=== PATIENT | male | born 1960 | race Caucasian/White ===

== ENCOUNTER 2020-04-22 21:22 | Emergency (ER) | payer OTHER ==
--- OUTSIDE RECORDS SUMMARY | 2020-04-22 21:27 | XMS REPORT | Continuity of Care Document ---
:1960 Author Organization [facility] t Address [address] [place] [address] Care Team Providers Name Role Phone Unavailable Unavailable Unavailable Payers Payer Name Policy Type Policy Number Effective Date Expiration Date S ource Problems This patient has no known problems. Allergies, Adverse Reactions, Alerts Allergy Allergy Status Severity Reaction(s) Onset Inactive Treating Comm ents Source Name Type Date Date Clinician No DA Active U [facility] Allergy 3-10 [facility] 00:00[facility] Medications This patient has no known medications. Procedures This patient has no known procedures. Results Test Description Test Time Test Comments Results Result Comments Source GLUBED 2019-01-24 12:38:00 Test Item Value Reference Range Interpretation Comme nts GLUBED (test code = GLUBED) 93 MG/DL 65-99 N Performed by certified 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 [facility] LACTIC ACID [id number] 10:55:00 Test Item Value Reference Range Interpretation Comments LACTIC ACID POC 1.16 MMOL/L 0.90-1.70 N Performed by certified (test code = LACTP) 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 [facility] UA RFLX MICROSCOPIC [id number] 09:58:00 Test Item Value Reference Range Interpretation Comments UA COLOR (test code = COLU) YELLOW YELLOW UA APPEARANCE (test code = CLEAR CLEAR APPU) UA GLUCOSE DIPSTICK (test NEGATIVE mg/dL NEGATIVE code = DGLUU) UA BILIRUBIN DIPSTICK (test NEGATIVE NEGATIVE code = BILU) UA KETONE DIPSTICK (test 5 mg/dL NEGATIVE A code = KETU) UA SPECIFIC GRAVITY (test 1.015 1.001-1.035 N code = SGU) UA BLOOD DIPSTICK (test code NEGATIVE NEGATIVE = ESTHER) UA PH DIPSTICK (test code = 5.0 5.5-7.0 L ROMINA) UA PROTEIN DIPSTICK (test 25 mg/dL NEGATIVE A code = PROU) UA UROBILINOGEN DIPSTICK NORMAL mg/dL NORMAL (test code = URO) UA NITRITE DIPSTICK (test NEGATIVE NEGATIVE code = OSCAR) UA LEUKOCYTE ESTERASE NEGATIVE NEGATIVE DIPSTICK (test code = LEUU) UA COMMENT (test code = VOLUME 10-12 ML COMU) URINE SPECIMEN DESCRIPTION Clean Catch (test code = UASPEC) UA WBC (test code = WBCU) < 10 #/hpf <10 UA SQUAMOUS CELLS (test code 0 - 20 #/lpf <100 = SQU) UA CULTURE NEEDED? (test Criteria not met code = UACULT) Indication for culture: Delirium-if no other srcURINE SOURCE: Clean CatchUA [id number] 09:58:00 Test Item Value Reference Range Interpretation Comments UA RBC (test code = RBCU) None Seen #/hpf NONE SEEN UA BACTERIA (test code = RARE #/hpf NONE SEEN BACU) Indication for culture: Delirium-if no other srcURINE SOURCE: Clean Catch DRUG OF ABUSE SCREEN [id number] 09:46:00 Test Item Value Reference Interpretation Comments Range UR COCAINE (test NEGATIVE NEGATIVE code = COCAU) UR MDMA (test code = NEGATIVE NEGATIVE MDMAQLU) UR CANNABINOIDS NEGATIVE NEGATIVE (test code = CANU) UR AMPHETAMINE (test NEGATIVE NEGATIVE code = AMPHU) UR BARBITURATE QUAL NEGATIVE NEGATIVE (test code = BARBQLU) UR BENZODIAZEPINE NEGATIVE NEGATIVE (test code = BENZU) UR OPIATES QUAL NEGATIVE NEGATIVE (test code = OPIAQLU) UR PHENCYCLIDINE NEGATIVE NEGATIVE Urine Drug Abuse Screen (PCP) (test code = provides preliminary PHENCU) results thatmay be confirmed by al ternate methods (i.e., GC/MS) at [facility]. Results of scre en may not be usedin crimi nal justice, job performance or professionalcre dential review, or infa nt custody issues. Negativ e [place] Level ng/ml ------- ----- Cocaine 300 Methamp hetamine (Ecstacy) 500 Cannabinoids (THC) 50 Amphetamine 1000 Barbiturate s 200 Benzodia zepines 200 Opiat es 300 Ph encyclidine (PCP) 25 BASIC METABOLIC [id number] 09:46:00 Test Item Value Reference Range Interpretation Comments SODIUM (test code = 139 MMOL/L 133-145 N NA) POTASSIUM (test code = 4.6 MMOL/L 3.6-5.2 N K) CHLORIDE (test code = 101 MMOL/L 100-108 N CL) CARBON DIOXIDE (test 27 MMOL/L 22-32 N code = CO2) GLUCOSE (test code = 122 MG/DL 65-99 H Results of this assay GLU) method may be f alsely depressed orele vated if patient is t aking sulfasalazine. BLOOD UREA NITROGEN 12 MG/DL 6-20 N (test code = BUN) GLOMERULAR FILTRATION 59 49-113 N Report ing units: RATE (test code = GFR) mL/mi n/1.73m\\S\\2 (Modified MDRD Formula) CREATININE (test code 1.24 MG/DL 0.60-1.00 H = CREAT) CALCIUM (test code = 9.3 MG/DL 8.7-10.5 N CA) HEPATIC FUNCTION [id number] 09:46:00 Test Item Value Reference Range Interpretation Comments TOTAL PROTEIN (test 7.2 G/DL 6.4-8.2 N code = PROT) ALBUMIN (test code = 3.2 G/DL 3.4-5.0 L ALB) GLOBULIN (test code = 4.0 G/DL 1.5-3.8 H GLOB) ALBUMIN/GLOBULIN RATIO 0.8 1.1-2.2 L (test code = A/G) BILIRUBIN TOTAL (test 0.2 MG/DL 0.0-1.0 N code = BILT) BILIRUBIN DIRECT (test 0.1 MG/DL 0.0-0.3 N code = BILD) BILIRUBIN INDIRECT 0.1 MG/DL 0.0-0.7 N (test code = BILIND) SGOT/AST (test code = 22 Units/L 15-37 N Result s of this assay AST) method may be f alsely depressed orele vated if patient is t aking sulfasalazine. SGPT/ALT (test code = 26 Units/L 30-65 L Result s of this assay ALT) method may be f alsely depressed orele vated if patient is t aking sulfasalazine. ALKALINE PHOSPHATASE 83 Units/L 50-136 N TOTAL (test code = ALKP) [id number] 09:46:00 Test Item Value Reference Range Interpretation Comments LIPASE (test code = LIP) 116 Units/L 73-393 N [id number] 09:46:00 Test Item Value Reference Range Interpretation Comments CK (test code = CKT) 88 Units/L 39-308 N [id number] 09:46:00 Test Item Value Reference Range Interpretation Comments ALCOHOL (test code = < 3 MG/DL 0-10 N 0 - 10: Should be ALC) interpreted as NEGATIVE. 11 - 50: None to mild euphoria. 51 - 100: Mild influence on vision and dark adapta tion. > 80: Legal intoxication; D epression of RETAIL OFFICE MANAGER; Increasing degr ee of poisoning. > 400: Fatalities repo rted. Results are for medical purposes only a nd not forlegal or emp loyment evaluative purp oses. PROTHROMBIN [id number] 09:42:00 Test Item Value Reference Range Interpretation Comments PROTHROMBIN TIME 13.4 SECONDS 9.6-12.3 H PATIENT (test code = PTP) INTERNATIONAL NORMAL 1.18 Recomme nded INR range RATIO (test code = (warfarin therapy): INR) 2.0 - 3.0I NR (International Normalized Rati o) should beused w hen interpreting or al anticoaglulant therapy. For at rial fibrillation an d treatment orprevention of deep vein thrombosis . Patients with Palmaz-Jeevan s tent *: 2 .0 - 3.0 Patients wi th mechanical hear t valve *: 2.5 - 3.5 Patients with flex-stent *: 3.0 - 4.0(*) = violin mechanic's suggested range Is patient on anticoagulants? UnknownTHROMBOPLASTIN TIME [id number] 09:42:00 Test Item Value Reference Range Interpretation Comments THROMBOPLASTIN TIME 32.6 SECONDS 22.5-35.3 N *Therap eutic level PARTIAL (test code = for hep amalia: 1.5 - PTT) 2.5 times the average patient value of 30.0 seconds. The aP TT tet should not be used to evaluat e low moleculat weigh t heparin anticoagulant therapy. Is patient on anticoagulants? Unknown- CT HEAD/BRAIN W/O [id number] 09:35:00 Patient Name: ANTONINO ROTHMAN Unit No: [id number] EXAMS: CPT CODE: [id number] CT HEAD/BRAIN W/O CONT [id number] Reason: AMS, seizure? - CT HEAD/BRAIN W/O CONT 01/24/2019 9:[address] BRAIN SCAN: Axial CT images of the brain were performed without the use of IV contrast. The ventricles and cisterns have a normal size and configuration. Bhardwaj-white differentiation is within normal limits. The cerebellum, brainstem and sella regions are normal. No mass lesion, midline shift, or acute intracranial blood is seen. The visualized sinuses, mastoids, and middle ears are normally aerated. Scalp and calvarium are normal. IMPRESSION: Negative non-contrast head CT. at 0935 Reported and signed by: Stephen Thayer MD CC: Juanito Russo MD; Tomi Brown DO Technologist:Halina BERGER Trscrpt Dt/ ([phone])[id number] Orig Print D/T: S: 01/24/2019 (0938) CTDI: DLP: [facility] NAME: ANTONINO ROTHMAN [address] PHYS: [place] [address] : 1960 AGE: 59 SEX: M LOC: [place] PHONE #: [phone] EXAM DATE: 01/24/2019 STATUS: REG ER FAX #: RAD NO: DC Dt: PAGE 1 Signed ReportUA RFLX MICROSCOPIC [id number] 09:32:00 Test Item Value Reference Range Interpretation Comments UA COLOR (test code = COLU) YELLOW YELLOW UA APPEARANCE (test code = CLEAR CLEAR APPU) UA GLUCOSE DIPSTICK (test NEGATIVE mg/dL NEGATIVE code = DGLUU) UA BILIRUBIN DIPSTICK (test NEGATIVE NEGATIVE code = BILU) UA KETONE DIPSTICK (test code 5 mg/dL NEGATIVE A = KETU) UA SPECIFIC GRAVITY (test 1.015 1.001-1.035 N code = SGU) UA BLOOD DIPSTICK (test code NEGATIVE NEGATIVE = ESTHER) UA PH DIPSTICK (test code = 5.0 5.5-7.0 L ROMINA) UA PROTEIN DIPSTICK (test 25 mg/dL NEGATIVE A code = PROU) UA UROBILINOGEN DIPSTICK NORMAL mg/dL NORMAL (test code = URO) UA NITRITE DIPSTICK (test NEGATIVE NEGATIVE code = OSCAR) UA LEUKOCYTE ESTERASE NEGATIVE NEGATIVE DIPSTICK (test code = LEUU) UA COMMENT (test code = COMU) VOLUME 10-12 ML URINE SPECIMEN DESCRIPTION Clean Catch (test code = UASPEC) UA WBC (test code = WBCU) #/hpf <10 UA SQUAMOUS CELLS (test code #/lpf <100 = SQU) UA CULTURE NEEDED? (test code = UACULT) Indication for culture: Delirium-if no other srcURINE SOURCE: Clean CatchUA [id number] 09:32:00 Test Item Value Reference Range Interpretation Comments UA RBC (test code = RBCU) #/hpf NONE SEEN Indication for culture: Delirium-if no other srcURINE SOURCE: Clean CatchUA RFLX MICROSCOPIC [id number] 09:32:00 Test Item Value Reference Range Interpretation Comments UA COLOR (test code = COLU) YELLOW YELLOW UA APPEARANCE (test code = CLEAR CLEAR APPU) UA GLUCOSE DIPSTICK (test NEGATIVE mg/dL NEGATIVE code = DGLUU) UA BILIRUBIN DIPSTICK (test NEGATIVE NEGATIVE code = BILU) UA KETONE DIPSTICK (test code 5 mg/dL NEGATIVE A = KETU) UA SPECIFIC GRAVITY (test 1.015 1.001-1.035 N code = SGU) UA BLOOD DIPSTICK (test code NEGATIVE NEGATIVE = ESTHER) UA PH DIPSTICK (test code = 5.0 5.5-7.0 L ROMINA) UA PROTEIN DIPSTICK (test 25 mg/dL NEGATIVE A code = PROU) UA UROBILINOGEN DIPSTICK NORMAL mg/dL NORMAL (test code = URO) UA NITRITE DIPSTICK (test NEGATIVE NEGATIVE code = OSCAR) UA LEUKOCYTE ESTERASE NEGATIVE NEGATIVE DIPSTICK (test code = LEUU) UA COMMENT (test code = COMU) VOLUME 10-12 ML URINE SPECIMEN DESCRIPTION Clean Catch (test code = UASPEC) UA WBC (test code = WBCU) #/hpf <10 UA SQUAMOUS CELLS (test code #/lpf <100 = SQU) UA CULTURE NEEDED? (test code = UACULT) Indication for culture: Delirium-if no other srcURINE SOURCE: Clean CatchUA [id number] 09:32:00 Test Item Value Reference Range Interpretation Comments UA RBC (test code = RBCU) #/hpf NONE SEEN Indication for culture: Delirium-if no other srcURINE SOURCE: Clean CatchCBC W/AUTO [id number] 09:30:00 Test Item Value Reference Range Interpretation Comments WHITE BLOOD CELL (test code = 9.98 x10 3/uL 4.80-10.80 N WBC) RED BLOOD CELL (test code = 4.24 x10 6/uL 4.7-6.1 L RBC) HEMOGLOBIN (test code = HGB) 11.6 G/DL 14.0-17.0 L HEMATOCRIT (test code = HCT) 37.9 % 42-52 L MEAN CELL VOLUME (test code = 89.4 FL 80-94 N MCV) MEAN CELL HGB (test code = MCH) 27.4 PG 27-31 N MEAN CELL HGB CONCENTRATION 30.6 G/DL 33-37 L (test code = MCHC) RED CELL DISTRIBUTION WIDTH 14.3 % 11.5-14.5 N (test code = RDW) PLATELET COUNT (test code = 204 x10 3/uL 150-450 N PLT) MEAN PLATELET VOLUME (test code 10.7 FL 7.4-10.4 H = MPV) NEUTROPHIL % (test code = NT%) 67.7 % 42-86 N IMMATURE GRANULOCYTE % (test 0.6 % 0.0-2.0 N code = IG%) LYMPHOCYTE % (test code = LY%) 19.5 % 24-44 L MONOCYTE % (test code = MO%) 6.8 % 0.0-4.0 H EOSINOPHIL % (test code = EO%) 5.0 % 0.0-2.7 H BASOPHIL % (test code = BA%) 0.4 % 0.0-0.5 N NUCLEATED RBC % (test code = 0.0 % 0.0-0.0 N NRBC%) NEUTROPHIL # (test code = NT#) 6.75 x10 3/uL 1.8-7.7 N IMMATURE GRANULOCYTE # (test 0.06 x10 3/uL 0.00-0.03 H code = IG#) LYMPHOCYTE # (test code = LY#) 1.95 x10 3/uL 1.0-4.8 N MONOCYTE # (test code = MO#) 0.68 x10 3/uL 0.0-0.8 N EOSINOPHIL # (test code = EO#) 0.50 x10 3/uL 0.0-0.5 N BASOPHIL # (test code = BA#) 0.04 x10 3/uL 0.0-0.2 N NUCLEATED RBC # (test code = 0.0 X10 3/uL 0.0-0.2 N NRBC#) TROPONIN I [id number] 09:28:00 Test Item Value Reference Range Interpretation Comments TROPONIN I RAPID 0.03 NG/ML 0.00-0.08 N Performed b y certified (test code = 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 [facility]) [facility] - The use of serial sampl ing and testing protoco l is a recommended pra ctice.- An elevated tro ponin level alone is often not sufficient for diagnosis of my ocardial infarction. LACTIC ACID [id number] 09:23:00 Test Item Value Reference Range Interpretation Comments LACTIC ACID POC 6.21 MMOL/L 0.90-1.70 HH Performed by certified (test code = LACTP) 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 [facility] [place] METHADONE [id number] 07:13:00 Test Item Value Reference Range Interpretation Comments METHADONE LEVEL 250 ng/mL 100-400 This test wa s developed and (test code = its performance METHADONE) characteristics determined by [facility]. It has not been cleared orappro audrey by the Food and Drug Admini stration. Detection Bellamy it = 25Multiple parameters can impact methadone refer enceintervals. Up to a 17-fold variation in methadone venice ntra-tions can be found in pat ients given the same dose due t oindividual differences in P450 enzyme systems. For do setolerant individuals in methadone maintenance programsinvesti gators have recommended lev els of 100 ng/mL ih3570 ng /mL. However these levels ca n have an adverse impacto n drug naive individuals.Per formed At: [facility] Dov [id number] [facility] [place] [id number] ra Last QUEZADA Ph:[phone] - XR CHEST 1 [id number] 07:47:00 Patient Name: ANTONINO ROTHMAN Unit No: [id number] EXAMS: CPT CODE: [id number] XR CHEST 1 V [id number] Reason: intubated - XR CHEST 1 V 11/28/2018 5:00 AM A frontal portable chest compared with 11/27/2018 shows clear lungs and pleural spaces. The cardiac and mediastinal silhouettes are normal. The bones are unremarkable. IMPRESSION: Negative chest at 0747 Reported and signed by: Stephen Thayer MD CC: Juanito Russo MD; Sharan Boyd MD; Renard Greene DO Technologist: Frederick JUAREZ Trscrpt Dt/ ([phone])ConchisRJose [id number] Orig Print D/T: S: 11/28/2018 (0751) [facility] NAME: ANTONINO ROTHMAN [address] PHYS: Renard Croft DO [address] [place] [address] : 1960 AGE: 58 SEX: M LOC: D.Y307 1 PHONE #: [phone] EXAM DATE: 11/28/2018 STATUS: ADM IN FAX #: RAD NO: DC Dt: PAGE 1 Signed ReportGLUBED 2018-11-28 06:32:00 Test Item Value Reference Range Interpretation Comments GLUBED (test code = 136 MG/DL 65-99 H Performe d by certified GLUBED) 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 [facility] PROCALCITONIN (PCT)2018-11-28 06:01:00 Test Item Value Reference Range Interpretation Comments PROCALCITONIN (PCT) (test code = < 0.05 ng/mL 0.00-0.50 N PROCAL) COMPREHENSIVE METABOLIC [id number] 05:03:00 Test Item Value Reference Range Interpretation Comments SODIUM (test code = 142 MMOL/L 133-145 NA) POTASSIUM (test code = 3.5 MMOL/L 3.6-5.2 L K) CHLORIDE (test code = 104 MMOL/L 100-108 N CL) CARBON DIOXIDE (test 29 MMOL/L 22-32 N code = CO2) GLUCOSE (test code = 129 MG/DL 65-99 H Results of this assay GLU) method may be f alsely depressed orele vated if patient is t aking sulfasalazine. BLOOD UREA NITROGEN 10 MG/DL 6-20 N (test code = BUN) GLOMERULAR FILTRATION 103 56-130 N Report ing units: RATE (test code = GFR) mL/mi n/1.73m\\S\\2 (Modified MDRD Formula) CREATININE (test code 0.77 MG/DL 0.60-1.00 N = CREAT) TOTAL PROTEIN (test 6.7 G/DL 6.4-8.2 N code = PROT) ALBUMIN (test code = 2.9 G/DL 3.4-5.0 L ALB) GLOBULIN (test code = 3.8 G/DL 1.5-3.8 N GLOB) ALBUMIN/GLOBULIN RATIO 0.8 1.1-2.2 L (test code = A/G) CALCIUM (test code = 9.1 MG/DL 8.7-10.5 N CA) BILIRUBIN TOTAL (test 0.5 MG/DL 0.0-1.0 N code = BILT) SGOT/AST (test code = 41 Units/L 15-37 H Result s of this assay AST) method may be f alsely depressed orele vated if patient is t aking sulfasalazine. SGPT/ALT (test code = 28 Units/L 30-65 L Result s of this assay ALT) method may be f alsely depressed orele vated if patient is t aking sulfasalazine. ALKALINE PHOSPHATASE 87 Units/L 50-136 N TOTAL (test code = ALKP) [id number] 05:03:00 Test Item Value Reference Range Interpretation Comments MAGNESIUM (test code = MAG) 1.7 MG/DL 1.8-2.4 L ARTERIAL BLOOD [id number] 04:45:00 Test Item Value Reference Range Interpretation Comments ARTERIAL BLOOD GAS PH (test code 7.44 7.35-7.45 N = PHA) ARTERIAL BLOOD GAS PCO2 (test 38.7 mmHg 35.0-45.0 N code = PCO2A) ARTERIAL BLOOD GAS PO2 (test code 66.7 mmHg 80.0-100.0 L = PO2A) BICARBONATE TOTAL HCO3 (test code 25.8 mmol/L 20.0-26.0 N = HCO3) BASE EXCESS (test code = CHALINO) 1.6 mmol/L -3.0-3.0 N ABG O2 SATURATION (test code = 93.1 % 95-100 L SATA) ABG TYPE (test code = TYPEA) Arterial FIO2 (test code = FIO2A) 21.0 % ABG TEMPERATURE (test code = 98.5 F TEMPA) GERALDO TEST (test code = ALN) Yes ABG SITE (test code = SITEA) RR TOTAL HGB (test code = THB) 12.5 G/DL 13.0-18.0 L OXYHEMOGLOBIN (test code = 92.5 % 92.0-98.0 N OOHGBT) CARBOXYHEMOGLOBIN (test code = 0.3 % 0.5-1.5 L HOHGBT) METHEMOGLOBIN (test code = 0.3 % 0.4-1.5 L METHGB) CBC W/AUTO [id number] 04:02:00 Test Item Value Reference Range Interpretation Comments WHITE BLOOD CELL (test code = 10.79 x10 3/uL 4.80-10.80 N WBC) RED BLOOD CELL (test code = 3.96 x10 6/uL 4.7-6.1 L RBC) HEMOGLOBIN (test code = HGB) 11.5 G/DL 14.0-17.0 L HEMATOCRIT (test code = HCT) 36.2 % 42-52 L MEAN CELL VOLUME (test code = 91.4 FL 80-94 N MCV) MEAN CELL HGB (test code = 29.0 PG 27-31 N MCH) MEAN CELL HGB CONCENTRATION 31.8 G/DL 33-37 L (test code = MCHC) RED CELL DISTRIBUTION WIDTH 14.3 % 11.5-14.5 N (test code = RDW) PLATELET COUNT (test code = 188 x10 3/uL 150-450 N PLT) MEAN PLATELET VOLUME (test 10.5 FL 7.4-10.4 H code = MPV) NEUTROPHIL % (test code = NT%) 62.8 % 42-86 N IMMATURE GRANULOCYTE % (test 0.5 % 0.0-2.0 N code = IG%) LYMPHOCYTE % (test code = LY%) 24.5 % 24-44 N MONOCYTE % (test code = MO%) 7.1 % 0.0-4.0 H EOSINOPHIL % (test code = EO%) 4.6 % 0.0-2.7 H BASOPHIL % (test code = BA%) 0.5 % 0.0-0.5 N NUCLEATED RBC % (test code = 0.0 % 0.0-0.0 N NRBC%) NEUTROPHIL # (test code = NT#) 6.78 x10 3/uL 1.8-7.7 N IMMATURE GRANULOCYTE # (test 0.05 x10 3/uL 0.00-0.03 H code = IG#) LYMPHOCYTE # (test code = LY#) 2.64 x10 3/uL 1.0-4.8 N MONOCYTE # (test code = MO#) 0.77 x10 3/uL 0.0-0.8 N EOSINOPHIL # (test code = EO#) 0.50 x10 3/uL 0.0-0.5 N BASOPHIL # (test code = BA#) 0.05 x10 3/uL 0.0-0.2 N NUCLEATED RBC # (test code = 0.0 X10 3/uL 0.0-0.2 N NRBC#) [id number] 21:12:00 Test Item Value Reference Range Interpretation Comments GLUBED (test code = 89 MG/DL 65-99 N Performe d by certified GLUBED) 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 [facility] [id number] 16:41:00 Test Item Value Reference Range Interpretation Comments GLUBED (test code = 175 MG/DL 65-99 H Performe d by certified GLUBED) 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 [facility] - XR CHEST 1 [id number] 06:25:00 Patient Name: ANTONINO ROTHMAN Unit No: [id number] EXAMS: CPT CODE: [id number] XR CHEST 1 V [id number] Reason: intubated EXAM: XR Chest, 1 View EXAM DATE/TIME: 11/27/2018 5:57 AM CLINICAL HISTORY:58 years old, male; Device placement; Ett placement (vent status); Additional info: Intubated TECHNIQUE: Imaging protocol: XR of the chest, 1 view. COMPARISON: CR XR CHEST 1 V 11/26/2018 5:15 AM FINDINGS: Tubes, catheters and devic es: Interval removal of endotracheal tube. Lungs: Mild interstitial prominence.Pleural space: Incomplete visualization of the right costophrenic angle. No significant pleural effusion. Heart/Mediastinum: Borderline cardiomegaly. Bones/joints: Unremarkable. IMPRESSION: Mild interstitial prominence and borderline cardiomegaly. at 624 Reported and signed by: Fernando Holt CC: Juanito Russo MD; Sharan Boyd MD; Renard Greene DO Technologist: Chu Segura RT Trscrpt Dt/ ([id number])[email or web address].[email or web address] Orig Print D/T: S: 11/27/2018 (624) [facility] NAME: PREETI ROTHMAN [address]KO [address] [facility] PHYS: Renard Croft DO [address] [place] [address] : 1960 AGE: 58 SEX: M LOC: D.HCV 3 PHONE #: [phone] EXAM DATE: 11/27/2018 STATUS: ADM IN FAX #: RAD NO: DC Dt: PAGE 1 Signed ReportCBC W/AUTO [id number] 04:56:00 Test Item Value Reference Range Interpretation Comments WHITE BLOOD CELL (test code = 13.02 x10 3/uL 4.80-10.80 H WBC) RED BLOOD CELL (test code = 4.18 x10 6/uL 4.7-6.1 L RBC) HEMOGLOBIN (test code = HGB) 11.7 G/DL 14.0-17.0 L HEMATOCRIT (test code = HCT) 39.1 % 42-52 L MEAN CELL VOLUME (test code = 93.5 FL 80-94 N MCV) MEAN CELL HGB (test code = 28.0 PG 27-31 N MCH) MEAN CELL HGB CONCENTRATION 29.9 G/DL 33-37 L (test code = MCHC) RED CELL DISTRIBUTION WIDTH 14.6 % 11.5-14.5 H (test code = RDW) PLATELET COUNT (test code = 206 x10 3/uL 150-450 N PLT) MEAN PLATELET VOLUME (test 11.4 FL 7.4-10.4 H code = MPV) NEUTROPHIL % (test code = NT%) 61.6 % 42-86 N IMMATURE GRANULOCYTE % (test 0.8 % 0.0-2.0 N code = IG%) LYMPHOCYTE % (test code = LY%) 24.3 % 24-44 N MONOCYTE % (test code = MO%) 8.8 % 0.0-4.0 H EOSINOPHIL % (test code = EO%) 3.9 % 0.0-2.7 H BASOPHIL % (test code = BA%) 0.6 % 0.0-0.5 H NUCLEATED RBC % (test code = 0.0 % 0.0-0.0 N NRBC%) NEUTROPHIL # (test code = NT#) 8.01 x10 3/uL 1.8-7.7 H IMMATURE GRANULOCYTE # (test 0.10 x10 3/uL 0.00-0.03 H code = IG#) LYMPHOCYTE # (test code = LY#) 3.17 x10 3/uL 1.0-4.8 N MONOCYTE # (test code = MO#) 1.15 x10 3/uL 0.0-0.8 H EOSINOPHIL # (test code = EO#) 0.51 x10 3/uL 0.0-0.5 H BASOPHIL # (test code = BA#) 0.08 x10 3/uL 0.0-0.2 N NUCLEATED RBC # (test code = 0.0 X10 3/uL 0.0-0.2 N NRBC#) COMPREHENSIVE METABOLIC [id number] 04:44:00 Test Item Value Reference Range Interpretation Comments SODIUM (test code = 136 MMOL/L 133-145 N NA) POTASSIUM (test code = 4.0 MMOL/L 3.6-5.2 N K) CHLORIDE (test code = 100 MMOL/L 100-108 N CL) CARBON DIOXIDE (test 32 MMOL/L 22-32 N code = CO2) GLUCOSE (test code = 103 MG/DL 65-99 H Results of this assay GLU) method may be f alsely depressed orele vated if patient is t aking sulfasalazine. BLOOD UREA NITROGEN 17 MG/DL 6-20 N (test code = BUN) GLOMERULAR FILTRATION 79 56-130 N Report ing units: RATE (test code = GFR) mL/mi n/1.73m\\S\\2 (Modified MDRD Formula) CREATININE (test code 0.97 MG/DL 0.60-1.00 N = CREAT) TOTAL PROTEIN (test 6.8 G/DL 6.4-8.2 N code = PROT) ALBUMIN (test code = 2.9 G/DL 3.4-5.0 L ALB) GLOBULIN (test code = 3.9 G/DL 1.5-3.8 H GLOB) ALBUMIN/GLOBULIN RATIO 0.7 1.1-2.2 L (test code = A/G) CALCIUM (test code = 9.3 MG/DL 8.7-10.5 N CA) BILIRUBIN TOTAL (test 0.4 MG/DL 0.0-1.0 N code = BILT) SGOT/AST (test code = 40 Units/L 15-37 H Result s of this assay AST) method may be f alsely depressed orele vated if patient is t aking sulfasalazine. SGPT/ALT (test code = 28 Units/L 30-65 L Result s of this assay ALT) method may be f alsely depressed orele vated if patient is t aking sulfasalazine. ALKALINE PHOSPHATASE 89 Units/L 50-136 N TOTAL (test code = ALKP) ARTERIAL BLOOD [id number] 04:25:00 Test Item Value Reference Range Interpretation Comments ARTERIAL BLOOD GAS PH (test code 7.36 7.35-7.45 N = PHA) ARTERIAL BLOOD GAS PCO2 (test 53.3 mmHg 35.0-45.0 H code = PCO2A) ARTERIAL BLOOD GAS PO2 (test code 93.8 mmHg 80.0-100.0 N = PO2A) BICARBONATE TOTAL HCO3 (test code 29.3 mmol/L 20.0-26.0 H = HCO3) BASE EXCESS (test code = CHALINO) 2.8 mmol/L -3.0-3.0 N ABG O2 SATURATION (test code = 97.0 % 95-100 N SATA) ABG TYPE (test code = TYPEA) Arterial MODE (test code = MODE) nc 3lpm ABG PATIENT RESP RATE (test code 19.0 /MIN = RRPATA) ABG TEMPERATURE (test code = 98.6 F TEMPA) GERALDO TEST (test code = ALN) Yes ABG SITE (test code = SITEA) RR TOTAL HGB (test code = THB) 12.6 G/DL 13.0-18.0 L OXYHEMOGLOBIN (test code = 96.0 % 92.0-98.0 N OOHGBT) CARBOXYHEMOGLOBIN (test code = 1.0 % 0.5-1.5 N HOHGBT) METHEMOGLOBIN (test code = 0.0 % 0.4-1.5 L METHGB) CBC W/AUTO [id number] 17:12:00 Test Item Value Reference Range Interpretation Comments WHITE BLOOD CELL (test code = 12.27 x10 3/uL 4.80-10.80 H WBC) RED BLOOD CELL (test code = 4.40 x10 6/uL 4.7-6.1 L RBC) HEMOGLOBIN (test code = HGB) 12.4 G/DL 14.0-17.0 L HEMATOCRIT (test code = HCT) 40.7 % 42-52 L MEAN CELL VOLUME (test code = 92.5 FL 80-94 N MCV) MEAN CELL HGB (test code = 28.2 PG 27-31 N MCH) MEAN CELL HGB CONCENTRATION 30.5 G/DL 33-37 L (test code = MCHC) RED CELL DISTRIBUTION WIDTH 14.6 % 11.5-14.5 H (test code = RDW) PLATELET COUNT (test code = 194 x10 3/uL 150-450 N PLT) MEAN PLATELET VOLUME (test 10.9 FL 7.4-10.4 H code = MPV) NEUTROPHIL % (test code = NT%) 68.0 % 42-86 N IMMATURE GRANULOCYTE % (test 0.7 % 0.0-2.0 N code = IG%) LYMPHOCYTE % (test code = LY%) 21.1 % 24-44 L MONOCYTE % (test code = MO%) 7.8 % 0.0-4.0 H EOSINOPHIL % (test code = EO%) 2.0 % 0.0-2.7 N BASOPHIL % (test code = BA%) 0.4 % 0.0-0.5 N NUCLEATED RBC % (test code = 0.0 % 0.0-0.0 N NRBC%) NEUTROPHIL # (test code = NT#) 8.34 x10 3/uL 1.8-7.7 H IMMATURE GRANULOCYTE # (test 0.09 x10 3/uL 0.00-0.03 H code = IG#) LYMPHOCYTE # (test code = LY#) 2.59 x10 3/uL 1.0-4.8 N MONOCYTE # (test code = MO#) 0.96 x10 3/uL 0.0-0.8 H EOSINOPHIL # (test code = EO#) 0.24 x10 3/uL 0.0-0.5 N BASOPHIL # (test code = BA#) 0.05 x10 3/uL 0.0-0.2 N NUCLEATED RBC # (test code = 0.0 X10 3/uL 0.0-0.2 N NRBC#) ARTERIAL BLOOD [id number] 13:42:00 Test Item Value Reference Range Interpretation Comments ARTERIAL BLOOD GAS PH (test code 7.35 7.35-7.45 N = PHA) ARTERIAL BLOOD GAS PCO2 (test 44.8 mmHg 35.0-45.0 N code = PCO2A) ARTERIAL BLOOD GAS PO2 (test code 97.8 mmHg 80.0-100.0 N = PO2A) BICARBONATE TOTAL HCO3 (test code 24.0 mmol/L 20.0-26.0 N = HCO3) BASE EXCESS (test code = CHALINO) -1.8 mmol/L -3.0-3.0 N ABG O2 SATURATION (test code = 97.3 % 95-100 N SATA) ABG TYPE (test code = TYPEA) Arterial FIO2 (test code = FIO2A) 40.0 % MODE (test code = MODE) SPONT ABG PATIENT RESP RATE (test code 15.0 /MIN = RRPATA) ABG TIDAL VOLUME (test code = 600.0 ml TVA) ABG PAT TIDAL VOLUME (test code = 910 ml VTPAT) ABG PEEP (test code = PEEPA) 5.0 cmH2O ABG PRESSURE SUPPORT (test code = 10 cmH2O PSABG) ABG TEMPERATURE (test code = 98.6 F TEMPA) GERALDO TEST (test code = ALN) Yes ABG SITE (test code = SITEA) LR TOTAL HGB (test code = THB) 12.8 G/DL 13.0-18.0 L OXYHEMOGLOBIN (test code = 96.1 % 92.0-98.0 N OOHGBT) CARBOXYHEMOGLOBIN (test code = 0.9 % 0.5-1.5 N HOHGBT) METHEMOGLOBIN (test code = 0.3 % 0.4-1.5 L METHGB) ARTERIAL BLOOD [id number] 09:55:00 Test Item Value Reference Range Interpretation Comments ARTERIAL BLOOD GAS PH (test code 7.34 7.35-7.45 L = PHA) ARTERIAL BLOOD GAS PCO2 (test 52.8 mmHg 35.0-45.0 H code = PCO2A) ARTERIAL BLOOD GAS PO2 (test code 73.1 mmHg 80.0-100.0 L = PO2A) BICARBONATE TOTAL HCO3 (test code 27.8 mmol/L 20.0-26.0 H = HCO3) BASE EXCESS (test code = CHALINO) 1.2 mmol/L -3.0-3.0 N ABG O2 SATURATION (test code = 93.4 % 95-100 L SATA) ABG TYPE (test code = TYPEA) Arterial FIO2 (test code = FIO2A) 40.0 % MODE (test code = MODE) SPON 5/5 ABG PATIENT RESP RATE (test code 22.0 /MIN = RRPATA) ABG PAT TIDAL VOLUME (test code = 482 ml VTPAT) ABG PEEP (test code = PEEPA) 5.0 cmH2O ABG PRESSURE SUPPORT (test code = 5 cmH2O PSABG) ABG TEMPERATURE (test code = 98.6 F TEMPA) GERALDO TEST (test code = ALN) Yes ABG SITE (test code = SITEA) LR TOTAL HGB (test code = THB) 12.4 G/DL 13.0-18.0 L OXYHEMOGLOBIN (test code = 92.5 % 92.0-98.0 N OOHGBT) CARBOXYHEMOGLOBIN (test code = 0.7 % 0.5-1.5 N HOHGBT) METHEMOGLOBIN (test code = 0.3 % 0.4-1.5 L METHGB) COMPREHENSIVE METABOLIC [id number] 06:36:00 Test Item Value Reference Range Interpretation Comments SODIUM (test code = 141 MMOL/L 133-145 N NA) POTASSIUM (test code = 3.5 MMOL/L 3.6-5.2 L K) CHLORIDE (test code = 104 MMOL/L 100-108 N CL) CARBON DIOXIDE (test 27 MMOL/L 22-32 N code = CO2) GLUCOSE (test code = 170 MG/DL 65-99 H Results of this assay GLU) method may be f alsely depressed orele vated if patient is t aking sulfasalazine. BLOOD UREA NITROGEN 19 MG/DL 6-20 N (test code = BUN) GLOMERULAR FILTRATION 77 56-130 N Report ing units: RATE (test code = GFR) mL/mi n/1.73m\\S\\2 (Modified MDRD Formula) CREATININE (test code 0.99 MG/DL 0.60-1.00 N = CREAT) TOTAL PROTEIN (test 7.2 G/DL 6.4-8.2 N code = PROT) ALBUMIN (test code = 3.1 G/DL 3.4-5.0 L ALB) GLOBULIN (test code = 4.1 G/DL 1.5-3.8 H GLOB) ALBUMIN/GLOBULIN RATIO 0.8 1.1-2.2 L (test code = A/G) CALCIUM (test code = 9.5 MG/DL 8.7-10.5 N CA) BILIRUBIN TOTAL (test 0.5 MG/DL 0.0-1.0 N code = BILT) SGOT/AST (test code = 32 Units/L 15-37 N Result s of this assay AST) method may be f alsely depressed orele vated if patient is t aking sulfasalazine. SGPT/ALT (test code = 28 Units/L 30-65 L Result s of this assay ALT) method may be f alsely depressed orele vated if patient is t aking sulfasalazine. ALKALINE PHOSPHATASE 98 Units/L 50-136 N TOTAL (test code = ALKP) - XR CHEST 1 [id number] 06:15:00 Patient Name: ANTONINO ROTHMAN Unit No: [id number] EXAMS: CPT CODE: [id number] XR CHEST 1 V [id number] Reason: intubated EXAM: XR Chest, 1 View EXAM DATE/TIME: 11/26/2018 6:00 AM CLINICAL HISTORY:58 years old, male; Device placement; Ett placement (vent status); Additional info: Intubated TECHNIQUE: Imaging protocol: XR of the chest, 1 view. COMPARISON: CR XR CHEST 1 V 11/25/2018 2:11 PM FINDINGS: Tubes, catheters and devic es: An endotracheal tube is present, lying with its tip 4 cm above the raffi. Lungs: Unremarkable. No consolidation. Pleural space: Unremarkable. No pleural effusion. No pneumothorax. Heart/Mediastinum: Unremarkable. No cardiomegaly. Bones/joints: Unremarkable. IMPRESSION: An endotracheal tube is present, lying with its tip 4 cm above the raffi. at 0615 Reported and signed by: Capri Wooten CC: Juanito Russo MD; Sharan Boyd MD; Renard Greene DO Technologist: Chu Seguar RT Trscrpt Dt/ ([phone] Orig Print D/T: S: 11/26/2018 (614) [facility] NAME: ANTONINO ROTHMAN [address]: Renard Croft DO [place] [id number] : 1960 AGE: 58 SEX: M LOC: D.HCV 3 PHONE #: [phone] EXAM DATE: 11/26/2018 STATUS: ADM IN FAX #: RAD NO: DC Dt: PAGE 1 Signed ReportARTERIAL BLOOD GAS 2018-11-26 04:26:00 Test Item Value Reference Range Interpretation Comments ARTERIAL BLOOD GAS PH 7.48 7.35-7.45 H (test code = PHA) ARTERIAL BLOOD GAS PCO2 37.1 mmHg 35.0-45.0 N (test code = PCO2A) ARTERIAL BLOOD GAS PO2 463.0 mmHg 80.0-100.0 H (test code = PO2A) BICARBONATE TOTAL HCO3 27.1 mmol/L 20.0-26.0 H (test code = HCO3) BASE EXCESS (test code = 3.7 mmol/L -3.0-3.0 H CHALINO) ABG O2 SATURATION (test 99.7 % 95-100 N code = SATA) ABG TYPE (test code = Arterial TYPEA) FIO2 (test code = FIO2A) 100.0 % MODE (test code = MODE) vent ac ABG PATIENT RESP RATE 20.0 /MIN (test code = RRPATA) ABG VENT RESP RATE (test 20.0 /MIN code = RRA) ABG TIDAL VOLUME (test 600.0 ml code = TVA) ABG PEEP (test code = 5.0 cmH2O PEEPA) ABG TEMPERATURE (test 99.0 F code = TEMPA) GERALDO TEST (test code = Yes ALN) ABG SITE (test code = RR decrea sed fio2 to SITEA) 40% TOTAL HGB (test code = 12.7 G/DL 13.0-18.0 L THB) OXYHEMOGLOBIN (test code 99.5 % 92.0-98.0 H = OOHGBT) CARBOXYHEMOGLOBIN (test 0.2 % 0.5-1.5 L code = HOHGBT) METHEMOGLOBIN (test code 0.0 % 0.4-1.5 L = METHGB) - CT HEAD/BRAIN W/O [id number] 17:00:00 Patient Name: ANTONINO ROTHMAN Unit No: [id number] EXAMS: CPT CODE: [id number] CT HEAD/BRAIN W/O CONT [id number] Reason: altered mental status COMPARISON: Previous head CT dated August 16, 2018 PROCEDURE: Head CT without contrast FINDINGS: There is brain atrophy in keeping with the patient's age. There is no mass, shift, ventricular dilatation or abnormal extra-axial fluid collection.] Nasal tracheal tube is seen. Orogastric tube is seen which is coiled in the oropharynx unchanged when compared to the previous examination. No bone lesion is seen. IMPRESSION: Stable head CT with nasogastric tube coiled in the oropharynx with brain atrophy with no intracranial hemorrhage or parenchymal hematoma. at 1700 Reported and signed by: Bautista Cassidy MD CC: Juanito Russo MD; Sharan Boyd MD Technologist: Trent Florian RT; Jagdeep Bob CT Trscrpt Dt/ ([phone])[email or web address] Orig Print D/T: S: 11/25/2018 (6697) CTDI: DLP: [facility] NAME: ANTONINO ROTHMAN [address]: [id number] [place] [address] : 1960 AGE: 58 SEX: M LOC: GANESH PHONE #: [phone] EXAM DATE: 11/25/2018 STATUS: REG ER FAX #: RAD NO: DC Dt: PAGE 1 Signed ReportTROPONIN I [id number] 16:26:00 Test Item Value Reference Range Interpretation Comments TROPONIN I RAPID 0.02 NG/ML 0.00-0.08 N Performed b y certified (test code = 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 [facility] TROPIRAP) - The use of s erial sampling and te sting protocol is a recommended pra ctice.- An elevated tro ponin level alone is often not sufficient for diagnosis of my ocardial infarction. LACTIC ACID [id number] 16:20:00 Test Item Value Reference Range Interpretation Comments LACTIC ACID POC 2.37 MMOL/L 0.90-1.70 H Performed by certified (test code = LACTP) 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 [facility] BASIC METABOLIC [id number] 15:17:00 Test Item Value Reference Range Interpretation Comments SODIUM (test code = 142 MMOL/L 133-145 N NA) POTASSIUM (test code = 5.3 MMOL/L 3.6-5.2 H K) CHLORIDE (test code = 101 MMOL/L 100-108 N CL) CARBON DIOXIDE (test 19 MMOL/L 22-32 L code = CO2) GLUCOSE (test code = 206 MG/DL 65-99 H Results of this assay GLU) method may be f alsely depressed orele vated if patient is t aking sulfasalazine. BLOOD UREA NITROGEN 20 MG/DL 6-20 N (test code = BUN) GLOMERULAR FILTRATION 60 56-130 N Report ing units: RATE (test code = GFR) mL/mi n/1.73m\\S\\2 (Modified MDRD Formula) CREATININE (test code 1.23 MG/DL 0.60-1.00 H = CREAT) CALCIUM (test code = 9.2 MG/DL 8.7-10.5 N CA) HEPATIC FUNCTION [id number] 15:17:00 Test Item Value Reference Range Interpretation Comments TOTAL PROTEIN (test 8.6 G/DL 6.4-8.2 H code = PROT) ALBUMIN (test code = 3.7 G/DL 3.4-5.0 N ALB) GLOBULIN (test code = 4.9 G/DL 1.5-3.8 H GLOB) ALBUMIN/GLOBULIN RATIO 0.8 1.1-2.2 L (test code = A/G) BILIRUBIN TOTAL (test 0.4 MG/DL 0.0-1.0 N code = BILT) BILIRUBIN DIRECT (test 0.1 MG/DL 0.0-0.3 N code = BILD) BILIRUBIN INDIRECT 0.3 MG/DL 0.0-0.7 N (test code = BILIND) SGOT/AST (test code = 33 Units/L 15-37 N Result s of this AST) assay method ma y be falsely depress ed orelevated if patient is taki ng sulfasalazine. SGPT/ALT (test code = 25 Units/L 30-65 L Result s of this ALT) assay method ma y be falsely depress ed orelevated if patient is taki ng sulfasalazine. ALKALINE PHOSPHATASE 111 Units/L 50-136 N TOTAL (test code = ALKP) [id number] 15:17:00 Test Item Value Reference Range Interpretation Comments LIPASE (test code = LIP) 229 Units/L 73-393 N THYROID STIMULATING [id number] 15:17:00 Test Item Value Reference Range Interpretation Comments THYROID STIMULATING 2.74 0.42-5.47 N Micro-In ternational HORMONE (test code = TSH) Un its/LResults of this assay method ma y be falsely depress ed orelevated if p atient is taking high doses of Biotin. [id number] 15:17:00 Test Item Value Reference Range Interpretation Comments CK (test code = CKT) 142 Units/L 39-308 N [id number] 15:17:00 Test Item Value Reference Range Interpretation Comments ACETAMINOPHEN (test < 1 MCG/ML 10-30 L Acetamin ophen is code = ACET) possibly toxic at levels of: 1. m ore than 150 MCG/ML 4 hours post dinorah stion. 2. more than 5 0 MCG/ML 12 hours post ingestion. [id number] 15:17:00 Test Item Value Reference Range Interpretation Comments SALICYLATE (test code = < 3 MG/DL 0-20 N Refe rence Range: LOGAN) Analgesic...... ...... ...... < 10 mg /dl Therapeutic.... ...... ...... 15-20 mg /dl Mild Toxicity....... ...... . > 30 mg/dl Severe Toxicity....... ..... > 60 mg/dl [id number] 15:17:00 Test Item Value Reference Range Interpretation Comments ALCOHOL (test code = < 3 MG/DL 0-10 N 0 - 10: Should be ALC) interpreted as NEGATIVE. 11 - 50: None to mild euphoria. 51 - 100: Mild influence on vision and dark adapta tion. > 80: Legal intoxication; D epression of RETAIL OFFICE MANAGER; Increasing degr ee of poisoning. > 400: Fatalities repo rted. Results are for medical purposes only a nd not forlegal or emp loyment evaluative purp oses. BASIC METABOLIC [id number] 15:11:00 Test Item Value Reference Range Interpretation Comments SODIUM (test code = 142 MMOL/L 133-145 N NA) POTASSIUM (test code = 5.3 MMOL/L 3.6-5.2 H K) CHLORIDE (test code = 101 MMOL/L 100-108 N CL) CARBON DIOXIDE (test 19 MMOL/L 22-32 L code = CO2) GLUCOSE (test code = 206 MG/DL 65-99 H Results of this assay GLU) method may be f alsely depressed orele vated if patient is t aking sulfasalazine. BLOOD UREA NITROGEN 20 MG/DL 6-20 N (test code = BUN) GLOMERULAR FILTRATION 60 56-130 N Report ing units: RATE (test code = GFR) mL/mi n/1.73m\\S\\2 (Modified MDRD Formula) CREATININE (test code 1.23 MG/DL 0.60-1.00 H = CREAT) CALCIUM (test code = 9.2 MG/DL 8.7-10.5 N CA) HEPATIC FUNCTION [id number] 15:11:00 Test Item Value Reference Range Interpretation Comments TOTAL PROTEIN (test 8.6 G/DL 6.4-8.2 H code = PROT) ALBUMIN (test code = 3.7 G/DL 3.4-5.0 N ALB) GLOBULIN (test code = 4.9 G/DL 1.5-3.8 H GLOB) ALBUMIN/GLOBULIN RATIO 0.8 1.1-2.2 L (test code = A/G) BILIRUBIN TOTAL (test 0.4 MG/DL 0.0-1.0 N code = BILT) BILIRUBIN DIRECT (test 0.1 MG/DL 0.0-0.3 N code = BILD) BILIRUBIN INDIRECT 0.3 MG/DL 0.0-0.7 N (test code = BILIND) SGOT/AST (test code = 33 Units/L 15-37 N Result s of this AST) assay method ma y be falsely depress ed orelevated if patient is taki ng sulfasalazine. SGPT/ALT (test code = 25 Units/L 30-65 L Result s of this ALT) assay method ma y be falsely depress ed orelevated if patient is taki ng sulfasalazine. ALKALINE PHOSPHATASE 111 Units/L 50-136 N TOTAL (test code = ALKP) [id number] 15:11:00 Test Item Value Reference Range Interpretation Comments LIPASE (test code = LIP) 229 Units/L 73-393 N THYROID STIMULATING [id number] 15:11:00 Test Item Value Reference Range Interpretation Comments THYROID STIMULATING 2.74 0.42-5.47 N Micro-In ternational HORMONE (test code = TSH) Un its/LResults of this assay method ma y be falsely depress ed orelevated if p atient is taking high doses of Biotin. [id number] 15:11:00 Test Item Value Reference Range Interpretation Comments CK (test code = CKT) 142 Units/L 39-308 N [id number] 15:11:00 Test Item Value Reference Range Interpretation Comments ACETAMINOPHEN (test < 1 MCG/ML 10-30 L Acetamin ophen is code = ACET) possibly toxic at levels of: 1. m ore than 150 MCG/ML 4 hours post dinorah stion. 2. more than 5 0 MCG/ML 12 hours post ingestion. [id number] 15:11:00 Test Item Value Reference Range Interpretation Comments SALICYLATE (test code = < 3 MG/DL 0-20 N Refe rence Range: LOGAN) Analgesic...... ...... ...... < 10 mg /dl Therapeutic.... ...... ...... 15-20 mg /dl Mild Toxicity....... ...... . > 30 mg/dl Severe Toxicity....... ..... > 60 mg/dl [id number] 15:11:00 Test Item Value Reference Range Interpretation Comments ALCOHOL (test code = ALC) MG/DL 0-10 BETA [id number] 15:07:00 Test Item Value Reference Range Interpretation Comments BETA HYDROXYBUTYRATE (test code = 0.23 mmol/L 0.02-0.27 N BETHYD) - XR CHEST 1 [id number] 14:39:00 Patient Name: ANTONINO ROTHMAN Unit No: [id number] EXAMS: CPT CODE: [id number] XR CHEST 1 V [id number] Reason: altered mental status - XR CHEST 1 V 11/25/2018 1:38 PM A frontal portable chest compared with 08/19/2018 shows no lobar or segmental consolidation. Pleural spaces are clear. Heart size is upper limits of normal. ET tube is in good position. Nasogastric tube is in place. IMPRESSION: Satisfactory intubation. at 1439 Reported and signed by: Stephen Thayer MD CC: Juanito Russo MD; Sharan Boyd MD Technologist: Loreto JUAREZ Trscrpt Dt/ ([phone])[id number] Orig Print D/T: S: 0 11/25/2018 (3144) [facility] NAME: ANTONINO ROTHMAN [address]: NATALI - [place] [address] : 1960 AGE: 58 SEX: M LOC: GANESH PHONE #: [phone] EXAM DATE: 11/25/2018STATUS: JHONATAN DUKES FAX #: RAD NO: DC Dt: PAGE1 Signed ReportDRUG OF ABUSE SCREEN [id number] 14:31:00 Test Item Value Reference Interpretation Comments Range UR COCAINE (test NEGATIVE NEGATIVE code = COCAU) UR MDMA (test code = NEGATIVE NEGATIVE MDMAQLU) UR CANNABINOIDS NEGATIVE NEGATIVE (test code = CANU) UR AMPHETAMINE (test NEGATIVE NEGATIVE code = AMPHU) UR BARBITURATE QUAL NEGATIVE NEGATIVE (test code = BARBQLU) UR BENZODIAZEPINE NEGATIVE NEGATIVE (test code = BENZU) UR OPIATES QUAL NEGATIVE NEGATIVE (test code = OPIAQLU) UR PHENCYCLIDINE NEGATIVE NEGATIVE Urine Drug Abuse Screen (PCP) (test code = provides preliminary PHENCU) results thatmay be confirmed by bettie benoit methods (i.e., GC/MS) at [facility]. Results of scre en may not be usedin crimi nal justice, job performance or professionalcre dential review, or infa nt custody issues. Negativ e [place] Level ng/ml ------- ----- Cocaine 300 Methamp hetamine (Ecstacy) 500 Cannabinoids (THC) 50 Amphetamine 1000 Barbiturate s 200 Benzodia zepines 200 Opiat es 300 Ph encyclidine (PCP) 25 UA RFLX MICROSCOPIC [id number] 14:29:00 Test Item Value Reference Range Interpretation Comments UA COLOR (test code = COLU) Light-Yellow YELLOW UA APPEARANCE (test code = CLEAR CLEAR APPU) UA GLUCOSE DIPSTICK (test 30 mg/dL NEGATIVE code = DGLUU) UA BILIRUBIN DIPSTICK (test NEGATIVE NEGATIVE code = BILU) UA KETONE DIPSTICK (test TRACE mg/dL NEGATIVE code = KETU) UA SPECIFIC GRAVITY (test 1.015 1.001-1.035 N code = SGU) UA BLOOD DIPSTICK (test code NEGATIVE = ESTHER) UA PH DIPSTICK (test code = 5.0 5.5-7.0 L ROMINA) UA PROTEIN DIPSTICK (test NEGATIVE mg/dL NEGATIVE code = PROU) UA UROBILINOGEN DIPSTICK NORMAL mg/dL NORMAL (test code = URO) UA NITRITE DIPSTICK (test NEGATIVE NEGATIVE code = OSCAR) UA LEUKOCYTE ESTERASE NEGATIVE NEGATIVE DIPSTICK (test code = LEUU) UA COMMENT (test code = VOLUME 10-12 ML COMU) URINE SPECIMEN DESCRIPTION Clean Catch (test code = UASPEC) UA WBC (test code = WBCU) < 10 #/HPF 0-10 UA SQUAMOUS CELLS (test code 0 - 20 #/LPF <100 = SQU) UA CULTURE NEEDED? (test Criteria not met code = UACULT) Indication for culture: Delirium-if no other srcURINE SOURCE: Clean CatchUA RFLX MICROSCOPIC [id number] 14:20:00 Test Item Value Reference Range Interpretation Comments UA COLOR (test code = COLU) Light-Yellow YELLOW UA APPEARANCE (test code = CLEAR CLEAR APPU) UA GLUCOSE DIPSTICK (test 30 mg/dL NEGATIVE code = DGLUU) UA BILIRUBIN DIPSTICK (test NEGATIVE NEGATIVE code = BILU) UA KETONE DIPSTICK (test code TRACE mg/dL NEGATIVE = KETU) UA SPECIFIC GRAVITY (test 1.015 1.001-1.035 N code = SGU) UA BLOOD DIPSTICK (test code NEGATIVE = ESTHER) UA PH DIPSTICK (test code = 5.0 5.5-7.0 L ROMINA) UA PROTEIN DIPSTICK (test NEGATIVE mg/dL NEGATIVE code = PROU) UA UROBILINOGEN DIPSTICK NORMAL mg/dL NORMAL (test code = URO) UA NITRITE DIPSTICK (test NEGATIVE NEGATIVE code = OSCAR) UA LEUKOCYTE ESTERASE NEGATIVE NEGATIVE DIPSTICK (test code = LEUU) UA COMMENT (test code = COMU) VOLUME 10-12 ML URINE SPECIMEN DESCRIPTION Clean Catch (test code = UASPEC) UA WBC (test code = WBCU) #/hpf <10 UA SQUAMOUS CELLS (test code #/lpf <100 = SQU) UA CULTURE NEEDED? (test code = UACULT) Indication for culture: Delirium-if no other srcURINE SOURCE: Clean Catch PROTHROMBIN [id number] 14:20:00 Test Item Value Reference Range Interpretation Comments PROTHROMBIN TIME 12.1 SECONDS 9.6-12.3 N PATIENT (test code = PTP) INTERNATIONAL NORMAL 1.07 Recomme nded INR range RATIO (test code = (warfarin therapy): INR) 2.0 - 3.0I NR (International Normalized Rati o) should beused w hen interpreting or al anticoaglulant therapy. For at rial fibrillation an d treatment orprevention of deep vein thrombosis . Patients with Palmaz-Jeevan s tent *: 2 .0 - 3.0 Patients wi th mechanical hear t valve *: 2.5 - 3.5 Patients with flex-stent *: 3.0 - 4.0(*) = violin mechanic's suggested range Is patient on anticoagulants? UnknownTHROMBOPLASTIN TIME [id number] 14:20:00 Test Item Value Reference Range Interpretation Comments THROMBOPLASTIN TIME 34.5 SECONDS 22.5-35.3 N *Therap eutic level PARTIAL (test code = for hep amalia: 1.5 - PTT) 2.5 times the average patient value of 30.0 seconds. The aP TT tet should not be used to evaluat e low moleculat weigh t heparin anticoagulant therapy. Is patient on anticoagulants? [id number] 14:17:00 Test Item Value Reference Range Interpretation Comments AMMONIA (test code = 47 UMOL/L 11-35 H Results of this assay AMM) method may be f alsely depressed orele vated if patient is taki ng sulfasalazine. CBC W/AUTO [id number] 14:07:00 Test Item Value Reference Range Interpretation Comments WHITE BLOOD CELL (test 15.22 x10 3/uL 4.80-10.80 H Res ults called to code = WBC) and read back Simona PRO/ER;1407 , 11/25/18, D.LAB.BG1. RED BLOOD CELL (test 4.84 x10 6/uL 4.7-6.1 N code = RBC) HEMOGLOBIN (test code = 13.7 G/DL 14.0-17.0 L HGB) HEMATOCRIT (test code = 45.2 % 42-52 N HCT) MEAN CELL VOLUME (test 93.4 FL 80-94 N code = MCV) MEAN CELL HGB (test 28.3 PG 27-31 N code = MCH) MEAN CELL HGB 30.3 G/DL 33-37 L CONCENTRATION (test code = MCHC) RED CELL DISTRIBUTION 14.1 % 11.5-14.5 N WIDTH (test code = RDW) PLATELET COUNT (test 258 x10 3/uL 150-450 N code = PLT) MEAN PLATELET VOLUME 11.8 FL 7.4-10.4 H (test code = MPV) NEUTROPHIL % (test code 63.8 % 42-86 N = NT%) IMMATURE GRANULOCYTE % 1.4 % 0.0-2.0 N (test code = IG%) LYMPHOCYTE % (test code 26.0 % 24-44 N = LY%) MONOCYTE % (test code = 5.7 % 0.0-4.0 H MO%) EOSINOPHIL % (test code 2.4 % 0.0-2.7 N = EO%) BASOPHIL % (test code = 0.7 % 0.0-0.5 H BA%) NUCLEATED RBC % (test 0.0 % 0.0-0.0 N code = NRBC%) NEUTROPHIL # (test code 9.71 x10 3/uL 1.8-7.7 H = NT#) IMMATURE GRANULOCYTE # 0.22 x10 3/uL 0.00-0.03 H (test code = IG#) LYMPHOCYTE # (test code 3.95 x10 3/uL 1.0-4.8 N = LY#) MONOCYTE # (test code = 0.87 x10 3/uL 0.0-0.8 H MO#) EOSINOPHIL # (test code 0.37 x10 3/uL 0.0-0.5 N = EO#) BASOPHIL # (test code = 0.10 x10 3/uL 0.0-0.2 N BA#) NUCLEATED RBC # (test 0.0 X10 3/uL 0.0-0.2 N code = NRBC#) ARTERIAL BLOOD [id number] 14:05:00 Test Item Value Reference Range Interpretation Comments ARTERIAL BLOOD GAS PH 7.26 7.35-7.45 LL (test code = PHA) ARTERIAL BLOOD GAS PCO2 49.7 mmHg 35.0-45.0 H (test code = PCO2A) ARTERIAL BLOOD GAS PO2 320.7 mmHg 80.0-100.0 H (test code = PO2A) BICARBONATE TOTAL HCO3 21.9 mmol/L 20.0-26.0 N (test code = HCO3) BASE EXCESS (test code = -5.4 mmol/L -3.0-3.0 L CHALINO) ABG O2 SATURATION (test 99.4 % 95-100 N code = SATA) ABG TYPE (test code = Arterial TYPEA) FIO2 (test code = FIO2A) 100.0 % MODE (test code = MODE) AC ABG VENT RESP RATE (test 20.0 /MIN code = RRA) ABG TIDAL VOLUME (test 600.0 ml code = TVA) ABG PEEP (test code = 5.0 cmH2O PEEPA) ABG TEMPERATURE (test code 98.6 F = TEMPA) GERALDO TEST (test code = Yes ALN) ABG SITE (test code = RR SITEA) TOTAL HGB (test code = 14.1 G/DL 13.0-18.0 N THB) OXYHEMOGLOBIN (test code = 98.2 % 92.0-98.0 H OOHGBT) CARBOXYHEMOGLOBIN (test 0.7 % 0.5-1.5 N code = HOHGBT) METHEMOGLOBIN (test code = 0.5 % 0.4-1.5 N METHGB) CV CALL BG (test code = Called Resu lts called CVCBG) to and read darek k by Pranav JAVIER 14:04 - 11/25/2018; by CARMINE MERRITT TROPONIN I [id number] 14:02:00 Test Item Value Reference Range Interpretation Comments TROPONIN I RAPID 0.00 NG/ML 0.00-0.08 N Performed b y certified (test code = 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 [facility] TROPIRAP) - The use of s erial sampling and te sting protocol is a recommended pra ctice.- An elevated tro ponin level alone is often not sufficient for diagnosis of my ocardial infarction. LACTIC ACID [id number] 13:56:00 Test Item Value Reference Range Interpretation Comments LACTIC ACID POC 11.36 MMOL/L 0.90-1.70 HH Performed by certified (test code = LACTP) 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 [facility] [id number] 11:18:00 Test Item Value Reference Range Interpretation Comments GLUBED (test code = 128 MG/DL 65-99 H Performe d by certified GLUBED) 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 [facility] [id number] 06:06:00 Test Item Value Reference Range Interpretation Comments GLUBED (test code = 80 MG/DL 65-99 N Performe d by certified GLUBED) 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 [facility] BASIC METABOLIC [id number] 05:11:00 Test Item Value Reference Range Interpretation Comments SODIUM (test code = 138 MMOL/L 133-145 N NA) POTASSIUM (test code = 3.2 MMOL/L 3.6-5.2 L K) CHLORIDE (test code = 100 MMOL/L 100-108 N CL) CARBON DIOXIDE (test 29 MMOL/L 22-32 N code = CO2) GLUCOSE (test code = 101 MG/DL 65-99 H Results of this assay GLU) method may be f alsely depressed orele vated if patient is t aking sulfasalazine. BLOOD UREA NITROGEN 13 MG/DL 6-20 N (test code = BUN) GLOMERULAR FILTRATION 94 56-130 N Report ing units: RATE (test code = GFR) mL/mi n/1.73m\\S\\2 (Modified MDRD Formula) CREATININE (test code 0.84 MG/DL 0.60-1.00 N = CREAT) CALCIUM (test code = 8.7 MG/DL 8.7-10.5 N CA) LIPID PROFILE (CORONARY RISK)2018-08-20 05:11:00 Test Item Value Reference Range Interpretation Comments TRIGLYCERIDES (test 91 MG/DL 30-200 N code = TRIG) CHOLESTEROL (test code 103 MG/DL 122-200 L = CHOL) CHOLESTEROL/HDL RATIO 3.3 1.5-4.5 N 1. I nitial (test code = CHOLHDL) classi fication based on total choles terol: <200 mg/dl Desirable chol esterol 200-239 m g/dl Borderline hi gh risk cholesterol >240 mg/dl H igh risk cholestero l2. Initial classif ication based on LDL cholesterol: <130 mg/dl Desirable LDL cholesterol 130-159 mg/dl Borderline high risk LDL >159 mg/dl High risk LDL cholesterol3. HDL < 35 mg/dl repres ent increased CHD r isk; HDL > 60 mg/dl represent decre ased CHD risk.4. C hol/HDL > 5.0 represent increased CHD risk in men; Chol/H DL > 4.5 represent increased CHD risk in women. HDL CHOLESTEROL (test 31 MG/DL 40-60 L code = HDL) LIPOPROTEIN LDL (test 54 MG/DL 62-130 L code = LDL) LIPOPROTEIN VLDL (test 18 MG/DL 3-60 N code = VLDL) [id number] 05:11:00 Test Item Value Reference Range Interpretation Comments PHOSPHOROUS (test code = PHOS) 4.4 MG/DL 2.5-4.9 N [id number] 05:11:00 Test Item Value Reference Range Interpretation Comments MAGNESIUM (test code = MAG) 1.7 MG/DL 1.8-2.4 L CBC W/AUTO [id number] 04:46:00 Test Item Value Reference Range Interpretation Comments WHITE BLOOD CELL (test code = 11.54 x10 3/uL 4.80-10.80 H WBC) RED BLOOD CELL (test code = 4.16 x10 6/uL 4.7-6.1 L RBC) HEMOGLOBIN (test code = HGB) 12.0 G/DL 14.0-17.0 L HEMATOCRIT (test code = HCT) 38.0 % 42-52 L MEAN CELL VOLUME (test code = 91.3 FL 80-94 N MCV) MEAN CELL HGB (test code = 28.8 PG 27-31 N MCH) MEAN CELL HGB CONCENTRATION 31.6 G/DL 33-37 L (test code = MCHC) RED CELL DISTRIBUTION WIDTH 14.3 % 11.5-14.5 N (test code = RDW) PLATELET COUNT (test code = 176 x10 3/uL 150-450 N PLT) MEAN PLATELET VOLUME (test 12.3 FL 7.4-10.4 H code = MPV) NEUTROPHIL % (test code = NT%) 63.1 % 42-86 N IMMATURE GRANULOCYTE % (test 0.8 % 0.0-2.0 N code = IG%) LYMPHOCYTE % (test code = LY%) 20.7 % 24-44 L MONOCYTE % (test code = MO%) 8.3 % 0.0-4.0 H EOSINOPHIL % (test code = EO%) 6.6 % 0.0-2.7 H BASOPHIL % (test code = BA%) 0.5 % 0.0-0.5 N NUCLEATED RBC % (test code = 0.0 % 0.0-0.0 N NRBC%) NEUTROPHIL # (test code = NT#) 7.28 x10 3/uL 1.8-7.7 N IMMATURE GRANULOCYTE # (test 0.09 x10 3/uL 0.00-0.03 H code = IG#) LYMPHOCYTE # (test code = LY#) 2.39 x10 3/uL 1.0-4.8 N MONOCYTE # (test code = MO#) 0.96 x10 3/uL 0.0-0.8 H EOSINOPHIL # (test code = EO#) 0.76 x10 3/uL 0.0-0.5 H BASOPHIL # (test code = BA#) 0.06 x10 3/uL 0.0-0.2 N NUCLEATED RBC # (test code = 0.0 X10 3/uL 0.0-0.2 N NRBC#) [id number] 20:32:00 Test Item Value Reference Range Interpretation Comments GLUBED (test code = 107 MG/DL 65-99 H Performe d by certified GLUBED) 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 [facility]2019-05-20 17:37:00 Test Item Value Reference Range Interpretation Comments GLUBED (test code = 76 MG/DL 65-99 N Performe d by certified GLUBED) 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 [facility]2019-05-20 11:48:00 Test Item Value Reference Range Interpretation Comments GLUBED (test code = 74 MG/DL 65-99 N Performe d by certified GLUBED) 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 [facility]2019-05-20 08:20:00 Test Item Value Reference Range Interpretation Comments GLUBED (test code = 91 MG/DL 65-99 N Performe d by certified GLUBED) 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 [facility] - XR CHEST 1 [id number] 07:45:00 Patient Name: ANTONINO ROTHMAN Unit No: [id number] EXAMS: CPT CODE: [id number] XR CHEST 1 V 65663 Reason: pna - XR CHEST 1 V 08/19/2018 5:00 AM Indication: Pneumonia COMPARISON: Yesterday's 0447 hours FINDINGS: Postextubation and NGT removal. Central line remains. Slight improved aeration with less patchy and linear atelectasis. Impression: Very slight improved aeration, post extubation. at 0745 Reported and signed by: Jigar Perales MD CC: Juanito Russo MD; Nahum Reed DO; Barbie Castellanos MD Technologist: Chu Segura RT Trscrpt Dt/ (0745)LucreciaE Orig Print D/T: S: 08/19/2018 (0748) [facility] NAME: ANTONINO ROTHMAN [address] PHYS: [id number] - Reed[place]um [place] [address] : 1960 AGE: 58 SEX: M LOC: D.HCU 19 PHONE #: [phone] EXAM DATE: 08/19/2018 STATUS: ADM IN FAX #: RAD NO: DC Dt:PAGE 1 Signed ReportCBC W/AUTO [id number] 06:55:00 Test Item Value Reference Range Interpretation Comments WHITE BLOOD CELL (test code = 10.84 x10 3/uL 4.80-10.80 H WBC) RED BLOOD CELL (test code = 4.03 x10 6/uL 4.7-6.1 L RBC) HEMOGLOBIN (test code = HGB) 11.7 G/DL 14.0-17.0 L HEMATOCRIT (test code = HCT) 37.4 % 42-52 L MEAN CELL VOLUME (test code = 92.8 FL 80-94 N MCV) MEAN CELL HGB (test code = 29.0 PG 27-31 N MCH) MEAN CELL HGB CONCENTRATION 31.3 G/DL 33-37 L (test code = MCHC) RED CELL DISTRIBUTION WIDTH 14.6 % 11.5-14.5 H (test code = RDW) PLATELET COUNT (test code = 184 x10 3/uL 150-450 N PLT) MEAN PLATELET VOLUME (test 10.7 FL 7.4-10.4 H code = MPV) NEUTROPHIL % (test code = NT%) 64.0 % 42-86 N IMMATURE GRANULOCYTE % (test 1.0 % 0.0-2.0 N code = IG%) LYMPHOCYTE % (test code = LY%) 20.9 % 24-44 L MONOCYTE % (test code = MO%) 7.6 % 0.0-4.0 H EOSINOPHIL % (test code = EO%) 5.9 % 0.0-2.7 H BASOPHIL % (test code = BA%) 0.6 % 0.0-0.5 H NUCLEATED RBC % (test code = 0.0 % 0.0-0.0 N NRBC%) NEUTROPHIL # (test code = NT#) 6.94 x10 3/uL 1.8-7.7 N IMMATURE GRANULOCYTE # (test 0.11 x10 3/uL 0.00-0.03 H code = IG#) LYMPHOCYTE # (test code = LY#) 2.27 x10 3/uL 1.0-4.8 N MONOCYTE # (test code = MO#) 0.82 x10 3/uL 0.0-0.8 H EOSINOPHIL # (test code = EO#) 0.64 x10 3/uL 0.0-0.5 H BASOPHIL # (test code = BA#) 0.06 x10 3/uL 0.0-0.2 N NUCLEATED RBC # (test code = 0.0 X10 3/uL 0.0-0.2 N NRBC#) COMPREHENSIVE METABOLIC [id number] 06:16:00 Test Item Value Reference Range Interpretation Comments SODIUM (test code = 139 MMOL/L 133-145 N NA) POTASSIUM (test code = 3.4 MMOL/L 3.6-5.2 L K) CHLORIDE (test code = 102 MMOL/L 100-108 N CL) CARBON DIOXIDE (test 31 MMOL/L 22-32 N code = CO2) GLUCOSE (test code = 89 MG/DL 65-99 N Results of this assay GLU) method may be f alsely depressed orele vated if patient is t aking sulfasalazine. BLOOD UREA NITROGEN 11 MG/DL 6-20 N (test code = BUN) GLOMERULAR FILTRATION 91 56-130 N Report ing units: RATE (test code = GFR) mL/mi n/1.73m\\S\\2 (Modified MDRD Formula) CREATININE (test code 0.86 MG/DL 0.60-1.00 N = CREAT) TOTAL PROTEIN (test 6.3 G/DL 6.4-8.2 L code = PROT) ALBUMIN (test code = 2.5 G/DL 3.4-5.0 L ALB) GLOBULIN (test code = 3.8 G/DL 1.5-3.8 N GLOB) ALBUMIN/GLOBULIN RATIO 0.7 1.1-2.2 L (test code = A/G) CALCIUM (test code = 8.8 MG/DL 8.7-10.5 N CA) BILIRUBIN TOTAL (test 0.6 MG/DL 0.0-1.0 N code = BILT) SGOT/AST (test code = 17 Units/L 15-37 N Result s of this assay AST) method may be f alsely depressed orele vated if patient is t aking sulfasalazine. SGPT/ALT (test code = 22 Units/L 30-65 L Result s of this assay ALT) method may be f alsely depressed orele vated if patient is t aking sulfasalazine. ALKALINE PHOSPHATASE 72 Units/L 50-136 N TOTAL (test code = ALKP) [id number] 06:16:00 Test Item Value Reference Range Interpretation Comments MAGNESIUM (test code = MAG) 1.9 MG/DL 1.8-2.4 N ARTERIAL BLOOD [id number] 03:30:00 Test Item Value Reference Range Interpretation Comments ARTERIAL BLOOD GAS PH (test code 7.42 7.35-7.45 N = PHA) ARTERIAL BLOOD GAS PCO2 (test 40.0 mmHg 35.0-45.0 N code = PCO2A) ARTERIAL BLOOD GAS PO2 (test code 72.9 mmHg 80.0-100.0 L = PO2A) BICARBONATE TOTAL HCO3 (test code 25.1 mmol/L 20.0-26.0 N = HCO3) BASE EXCESS (test code = CHALINO) 0.5 mmol/L -3.0-3.0 N ABG O2 SATURATION (test code = 94.6 % 95-100 L SATA) ABG TYPE (test code = TYPEA) Arterial MODE (test code = MODE) nc ABG VENT RESP RATE (test code = 18.0 /MIN RRA) ABG TEMPERATURE (test code = 98.6 F TEMPA) GERALDO TEST (test code = ALN) Yes ABG SITE (test code = SITEA) LR TOTAL HGB (test code = THB) 12.4 G/DL 13.0-18.0 L OXYHEMOGLOBIN (test code = 93.4 % 92.0-98.0 N OOHGBT) CARBOXYHEMOGLOBIN (test code = 1.3 % 0.5-1.5 N HOHGBT) METHEMOGLOBIN (test code = 0.0 % 0.4-1.5 L METHGB) [id number] 20:06:00 Test Item Value Reference Range Interpretation Comments GLUBED (test code = 95 MG/DL 65-99 N Performe d by certified GLUBED) 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 [facility] [id number] 17:30:00 Test Item Value Reference Range Interpretation Comments GLUBED (test code = 81 MG/DL 65-99 N Performe d by certified GLUBED) 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 [facility] - DUP EXTRACRANIAL [id number] 13:42:00 Patient Name: ANTONINO ROTHMAN Unit No: [id number] EXAMS: CPT CODE: [id number] DUP EXTRACRANIAL RAMU [id number] INDICATION: Syncope. COMPARISON: None available. FINDINGS: The right side was not evaluated due to central line which produce shadowing artifact. On the left, peak systolic velocities are normal, and there are no areas of flow disturbance orturbulence. ICA/CCA velocity ratios are normal. Both vertebral arteries demonstrate antegrade flow. IMPRESSION: No evidence of hemodynamically significant stenosis of the left carotid arteries. Right side not evaluated due to central line which produced shadowing artifact. at 1342 Reported and signed by: MD Kira CC: Juanito Russo MD; Mason Barnes DO; Barbie Castellanos MD Technologist: Janet SNEED Trnscrbd D/ (7502) [email or web address] Orig Print D/T: S: 08/18/2018 (6516) Probe: [facility] NAME: ANTONINO ROTHMAN [address] PHYS:[id number] - Mason Barnes DO [address] [place] [address] : 1960 AGE: 58 SEX: M LOC: D.HCU 19 PHONE #: [phone] EXAM DATE: 08/18/2018 STATUS: ADM IN FAX #: RAD NO: Page 1 Signed [id number] 11:58:00 Test Item Value Reference Range Interpretation Comments GLUBED (test code = 103 MG/DL 65-99 H Performe d by certified GLUBED) 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 [facility] ARTERIAL BLOOD [id number] 08:47:00 Test Item Value Reference Range Interpretation Comments ARTERIAL BLOOD GAS PH (test code 7.42 7.35-7.45 N = PHA) ARTERIAL BLOOD GAS PCO2 (test 44.3 mmHg 35.0-45.0 N code = PCO2A) ARTERIAL BLOOD GAS PO2 (test 80.7 mmHg 80.0-100.0 N code = PO2A) BICARBONATE TOTAL HCO3 (test 27.9 mmol/L 20.0-26.0 H code = HCO3) BASE EXCESS (test code = CHALINO) 2.9 mmol/L -3.0-3.0 N ABG O2 SATURATION (test code = 95.6 % 95-100 N SATA) ABG TYPE (test code = TYPEA) Arterial FIO2 (test code = FIO2A) 40.0 % MODE (test code = MODE) PS/CPAP VENT ABG PATIENT RESP RATE (test code 21.0 /MIN = RRPATA) ABG TIDAL VOLUME (test code = 468.0 ml TVA) ABG PEEP (test code = PEEPA) 5.0 cmH2O ABG PRESSURE SUPPORT (test code 8 cmH2O = PSABG) ABG TEMPERATURE (test code = 98.6 F TEMPA) GERALDO TEST (test code = ALN) Yes ABG SITE (test code = SITEA) RR TOTAL HGB (test code = THB) 13.0 G/DL 13.0-18.0 N OXYHEMOGLOBIN (test code = 95.0 % 92.0-98.0 N OOHGBT) CARBOXYHEMOGLOBIN (test code = 0.3 % 0.5-1.5 L HOHGBT) METHEMOGLOBIN (test code = 0.3 % 0.4-1.5 L METHGB) [id number] 08:00:00 Test Item Value Reference Range Interpretation Comments GLUBED (test code = 114 MG/DL 65-99 H Performe d by certified GLUBED) 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 [facility] - XR CHEST 1 [id number] 07:32:00 Patient Name: ANTONINO ROTHMAN Unit No: [id number] EXAMS: CPT CODE: [id number] XR CHEST 1 V 30032 Reason: pna INDICATION: Drug overdose . COMPARISON: August 17, 2018. FINDINGS: The lungs are clear. No pleural effusion. Lines and tubes appear unchanged in position including the nasogastric tube above the GE junction. IMPRESSION: Tip of the nasogastric tube just above the GE junction. at 0732 Reported and signed by: Juventino Park MD CC: Juanito Russo MD; Nahum Reed DO; Barbie Castellanos MD Technologist: Abril Coelho RT Trscrpt Dt/ (0732)[email or web address] Orig Print D/T: S: 08/18/2018 (0735) [facility] NAME: ANTONINO ROTHMAN [address] [facility] PHYS: SCHPA. - Nahum Reed [place] [address] : 1960 AGE: 58 SEX: M LOC: D.U 19 PHONE #: [phone] EXAM DATE: 08/18/2018 STATUS: ADM IN FAX #: RAD NO: DC Dt: PAGE 1 Signed ReportCOMPREHENSIVE METABOLIC PANEL 2018-08-18 06:31:00 Test Item Value Reference Range Interpretation Comments SODIUM (test code = 140 MMOL/L 133-145 N NA) POTASSIUM (test code = 3.7 MMOL/L 3.6-5.2 N K) CHLORIDE (test code = 104 MMOL/L 100-108 N CL) CARBON DIOXIDE (test 29 MMOL/L 22-32 N code = CO2) GLUCOSE (test code = 116 MG/DL 65-99 H Results of this assay GLU) method may be f alsely depressed orele vated if patient is t aking sulfasalazine. BLOOD UREA NITROGEN 16 MG/DL 6-20 N (test code = BUN) GLOMERULAR FILTRATION 86 56-130 N Report ing units: RATE (test code = GFR) mL/mi n/1.73m\\S\\2 (Modified MDRD Formula) CREATININE (test code 0.90 MG/DL 0.60-1.00 N = CREAT) TOTAL PROTEIN (test 6.3 G/DL 6.4-8.2 L code = PROT) ALBUMIN (test code = 2.7 G/DL 3.4-5.0 L ALB) GLOBULIN (test code = 3.6 G/DL 1.5-3.8 N GLOB) ALBUMIN/GLOBULIN RATIO 0.8 1.1-2.2 L (test code = A/G) CALCIUM (test code = 8.8 MG/DL 8.7-10.5 N CA) BILIRUBIN TOTAL (test 0.4 MG/DL 0.0-1.0 N code = BILT) SGOT/AST (test code = 17 Units/L 15-37 N Result s of this assay AST) method may be f alsely depressed orele vated if patient is t aking sulfasalazine. SGPT/ALT (test code = 25 Units/L 30-65 L Result s of this assay ALT) method may be f alsely depressed orele vated if patient is t aking sulfasalazine. ALKALINE PHOSPHATASE 79 Units/L 50-136 N TOTAL (test code = ALKP) [id number] 06:31:00 Test Item Value Reference Range Interpretation Comments MAGNESIUM (test code = MAG) 2.2 MG/DL 1.8-2.4 N CBC W/AUTO [id number] 05:57:00 Test Item Value Reference Range Interpretation Comments WHITE BLOOD CELL (test code = 11.76 x10 3/uL 4.80-10.80 H WBC) RED BLOOD CELL (test code = 4.07 x10 6/uL 4.7-6.1 L RBC) HEMOGLOBIN (test code = HGB) 12.1 G/DL 14.0-17.0 L HEMATOCRIT (test code = HCT) 38.3 % 42-52 L MEAN CELL VOLUME (test code = 94.1 FL 80-94 H MCV) MEAN CELL HGB (test code = 29.7 PG 27-31 N MCH) MEAN CELL HGB CONCENTRATION 31.6 G/DL 33-37 L (test code = MCHC) RED CELL DISTRIBUTION WIDTH 15.0 % 11.5-14.5 H (test code = RDW) PLATELET COUNT (test code = 190 x10 3/uL 150-450 N PLT) MEAN PLATELET VOLUME (test 10.9 FL 7.4-10.4 H code = MPV) NEUTROPHIL % (test code = NT%) 69.9 % 42-86 N IMMATURE GRANULOCYTE % (test 0.5 % 0.0-2.0 N code = IG%) LYMPHOCYTE % (test code = LY%) 16.8 % 24-44 L MONOCYTE % (test code = MO%) 8.1 % 0.0-4.0 H EOSINOPHIL % (test code = EO%) 4.3 % 0.0-2.7 H BASOPHIL % (test code = BA%) 0.4 % 0.0-0.5 N NUCLEATED RBC % (test code = 0.0 % 0.0-0.0 N NRBC%) NEUTROPHIL # (test code = NT#) 8.21 x10 3/uL 1.8-7.7 H IMMATURE GRANULOCYTE # (test 0.06 x10 3/uL 0.00-0.03 H code = IG#) LYMPHOCYTE # (test code = LY#) 1.98 x10 3/uL 1.0-4.8 N MONOCYTE # (test code = MO#) 0.95 x10 3/uL 0.0-0.8 H EOSINOPHIL # (test code = EO#) 0.51 x10 3/uL 0.0-0.5 H BASOPHIL # (test code = BA#) 0.05 x10 3/uL 0.0-0.2 N NUCLEATED RBC # (test code = 0.0 X10 3/uL 0.0-0.2 N NRBC#) ARTERIAL BLOOD [id number] 03:46:00 Test Item Value Reference Range Interpretation Comments ARTERIAL BLOOD GAS PH (test code 7.43 7.35-7.45 N = PHA) ARTERIAL BLOOD GAS PCO2 (test 39.9 mmHg 35.0-45.0 N code = PCO2A) ARTERIAL BLOOD GAS PO2 (test code 86.7 mmHg 80.0-100.0 N = PO2A) BICARBONATE TOTAL HCO3 (test code 25.8 mmol/L 20.0-26.0 N = HCO3) BASE EXCESS (test code = CHALINO) 1.4 mmol/L -3.0-3.0 N ABG O2 SATURATION (test code = 96.5 % 95-100 N SATA) ABG TYPE (test code = TYPEA) Arterial FIO2 (test code = FIO2A) 40.0 % MODE (test code = MODE) ac ABG VENT RESP RATE (test code = 22.0 /MIN RRA) ABG TIDAL VOLUME (test code = 450.0 ml TVA) ABG PEEP (test code = PEEPA) 8.0 cmH2O ABG TEMPERATURE (test code = 98.6 F TEMPA) GERALDO TEST (test code = ALN) NA ABG SITE (test code = SITEA) RB TOTAL HGB (test code = THB) 12.3 G/DL 13.0-18.0 L OXYHEMOGLOBIN (test code = 95.3 % 92.0-98.0 N OOHGBT) CARBOXYHEMOGLOBIN (test code = 0.9 % 0.5-1.5 N HOHGBT) METHEMOGLOBIN (test code = 0.3 % 0.4-1.5 L METHGB) [id number] 21:23:00 Test Item Value Reference Range Interpretation Comments GLUBED (test code = 83 MG/DL 65-99 N Performe d by certified GLUBED) 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 [facility]2019-05-18 17:59:00 Test Item Value Reference Range Interpretation Comments GLUBED (test code = 85 MG/DL 65-99 N Performe d by certified GLUBED) 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 [facility]2019-05-18 11:40:00 Test Item Value Reference Range Interpretation Comments GLUBED (test code = 90 MG/DL 65-99 N Performe d by certified GLUBED) 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 [facility] ARTERIAL BLOOD [id number] 09:44:00 Test Item Value Reference Range Interpretation Comments ARTERIAL BLOOD GAS PH (test code 7.39 7.35-7.45 N = PHA) ARTERIAL BLOOD GAS PCO2 (test 48.1 mmHg 35.0-45.0 H code = PCO2A) ARTERIAL BLOOD GAS PO2 (test code 76.5 mmHg 80.0-100.0 L = PO2A) BICARBONATE TOTAL HCO3 (test code 28.5 mmol/L 20.0-26.0 H = HCO3) BASE EXCESS (test code = CHALINO) 2.8 mmol/L -3.0-3.0 N ABG O2 SATURATION (test code = 95.0 % 95-100 N SATA) ABG TYPE (test code = TYPEA) Arterial FIO2 (test code = FIO2A) 40.0 % MODE (test code = MODE) AC VENT ABG VENT RESP RATE (test code = 22.0 /MIN RRA) ABG TIDAL VOLUME (test code = 450.0 ml TVA) ABG PEEP (test code = PEEPA) 5.0 cmH2O ABG TEMPERATURE (test code = 98.6 F TEMPA) GERALDO TEST (test code = ALN) Yes ABG SITE (test code = SITEA) LR TOTAL HGB (test code = THB) 13.2 G/DL 13.0-18.0 N OXYHEMOGLOBIN (test code = 94.3 % 92.0-98.0 N OOHGBT) CARBOXYHEMOGLOBIN (test code = 0.4 % 0.5-1.5 L HOHGBT) METHEMOGLOBIN (test code = 0.3 % 0.4-1.5 L METHGB) - XR CHEST 1 [id number] 08:17:00 Patient Name: ANTONINO ROTHMAN Unit No: [id number] EXAMS: CPT CODE: [id number] XR CHEST 1 V 28542 Reason: pna - XR CHEST 1 V 08/17/2018 5:00 AM Indication: Drug overdose There is poor inspiration with accentuated heart and bronchovascular markings. There are mild patchy densities in the bases. No effusions. Tubes and catheters unchanged. NGT tip barely below GE junction. IMPRESSION: Hypoventilatory chest similar to yesterday. at 0817 Reported and signed by: Jigar Perales MD CC: Juanito Russo MD; Nahum Reed DO; Barbie Castellanos MD Technologist: Abril JUAREZ Trscrpt Dt/ (816)LucreciaE Orig Print D/T: S: 08/17/2018 (0820) [facility] NAME: ANTONINO ROTHMAN [address] PHYS: [id number].[id number] - [place] [address] : 1960 AGE: 58 SEX: M LOC: D.HCU 19 PHONE #: [phone] EXAM DATE: 08/17/2018 STATUS: ADM IN FAX #: RAD NO: DC Dt: PAGE 1 Signed [id number] 08:04:00 Test Item Value Reference Range Interpretation Comments GLUBED (test code = 97 MG/DL 65-99 N Performe d by certified GLUBED) 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 [facility] COMPREHENSIVE METABOLIC [id number] 06:39:00 Test Item Value Reference Range Interpretation Comments SODIUM (test code = 139 MMOL/L 133-145 N NA) POTASSIUM (test code = 4.0 MMOL/L 3.6-5.2 N K) CHLORIDE (test code = 103 MMOL/L 100-108 N CL) CARBON DIOXIDE (test 30 MMOL/L 22-32 N code = CO2) GLUCOSE (test code = 121 MG/DL 65-99 H Results of this assay GLU) method may be f alsely depressed orele vated if patient is t aking sulfasalazine. BLOOD UREA NITROGEN 16 MG/DL 6-20 N (test code = BUN) GLOMERULAR FILTRATION 69 56-130 N Report ing units: RATE (test code = GFR) mL/mi n/1.73m\\S\\2 (Modified MDRD Formula) CREATININE (test code 1.09 MG/DL 0.60-1.00 H = CREAT) TOTAL PROTEIN (test 6.8 G/DL 6.4-8.2 N code = PROT) ALBUMIN (test code = 2.9 G/DL 3.4-5.0 L ALB) GLOBULIN (test code = 3.9 G/DL 1.5-3.8 H GLOB) ALBUMIN/GLOBULIN RATIO 0.7 1.1-2.2 L (test code = A/G) CALCIUM (test code = 8.5 MG/DL 8.7-10.5 L CA) BILIRUBIN TOTAL (test 0.5 MG/DL 0.0-1.0 N code = BILT) SGOT/AST (test code = 22 Units/L 15-37 N Result s of this assay AST) method may be f alsely depressed orele vated if patient is t aking sulfasalazine. SGPT/ALT (test code = 32 Units/L 30-65 N Result s of this assay ALT) method may be f alsely depressed orele vated if patient is t aking sulfasalazine. ALKALINE PHOSPHATASE 78 Units/L 50-136 N TOTAL (test code = ALKP) [id number] 06:39:00 Test Item Value Reference Range Interpretation Comments MAGNESIUM (test code = MAG) 2.4 MG/DL 1.8-2.4 N GLYCOSYLATED HEMOGLOBIN (HA1C)2018-08-17 06:31:00 Test Item Value Reference Range Interpretation Comments GLYCOSYLATED HEMOGLOBIN (HA1C) 8.3 % TOT HB 4.5-6.2 H (test code = GLYHGB) : If not already doneCBC W/AUTO [id number] 06:27:00 Test Item Value Reference Range Interpretation Comments WHITE BLOOD CELL (test code = 11.30 x10 3/uL 4.80-10.80 H WBC) RED BLOOD CELL (test code = 4.25 x10 6/uL 4.7-6.1 L RBC) HEMOGLOBIN (test code = HGB) 12.1 G/DL 14.0-17.0 L HEMATOCRIT (test code = HCT) 40.1 % 42-52 L MEAN CELL VOLUME (test code = 94.4 FL 80-94 H MCV) MEAN CELL HGB (test code = 28.5 PG 27-31 N MCH) MEAN CELL HGB CONCENTRATION 30.2 G/DL 33-37 L (test code = MCHC) RED CELL DISTRIBUTION WIDTH 14.6 % 11.5-14.5 H (test code = RDW) PLATELET COUNT (test code = 202 x10 3/uL 150-450 N PLT) MEAN PLATELET VOLUME (test 10.9 FL 7.4-10.4 H code = MPV) NEUTROPHIL % (test code = NT%) 67.1 % 42-86 N IMMATURE GRANULOCYTE % (test 0.7 % 0.0-2.0 N code = IG%) LYMPHOCYTE % (test code = LY%) 20.4 % 24-44 L MONOCYTE % (test code = MO%) 8.4 % 0.0-4.0 H EOSINOPHIL % (test code = EO%) 3.0 % 0.0-2.7 H BASOPHIL % (test code = BA%) 0.4 % 0.0-0.5 N NUCLEATED RBC % (test code = 0.0 % 0.0-0.0 N NRBC%) NEUTROPHIL # (test code = NT#) 7.58 x10 3/uL 1.8-7.7 N IMMATURE GRANULOCYTE # (test 0.08 x10 3/uL 0.00-0.03 H code = IG#) LYMPHOCYTE # (test code = LY#) 2.30 x10 3/uL 1.0-4.8 N MONOCYTE # (test code = MO#) 0.95 x10 3/uL 0.0-0.8 H EOSINOPHIL # (test code = EO#) 0.34 x10 3/uL 0.0-0.5 N BASOPHIL # (test code = BA#) 0.05 x10 3/uL 0.0-0.2 N NUCLEATED RBC # (test code = 0.0 X10 3/uL 0.0-0.2 N NRBC#) ARTERIAL BLOOD [id number] 04:07:00 Test Item Value Reference Range Interpretation Comments ARTERIAL BLOOD GAS PH 7.32 7.35-7.45 L (test code = PHA) ARTERIAL BLOOD GAS PCO2 55.8 mmHg 35.0-45.0 HH (test code = PCO2A) ARTERIAL BLOOD GAS PO2 125.5 mmHg 80.0-100.0 H (test code = PO2A) BICARBONATE TOTAL HCO3 27.8 mmol/L 20.0-26.0 H (test code = HCO3) BASE EXCESS (test code = 0.7 mmol/L -3.0-3.0 N CHALINO) ABG O2 SATURATION (test 97.9 % 95-100 N code = SATA) ABG TYPE (test code = Arterial TYPEA) FIO2 (test code = FIO2A) 60.0 % MODE (test code = MODE) AC ABG PATIENT RESP RATE 1.0 /MIN (test code = RRPATA) ABG VENT RESP RATE (test 14.0 /MIN code = RRA) ABG TIDAL VOLUME (test 450.0 ml code = TVA) ABG PEEP (test code = 5.0 cmH2O PEEPA) ABG TEMPERATURE (test code 98.6 F = TEMPA) GERALDO TEST (test code = Yes ALN) ABG SITE (test code = RR SITEA) TOTAL HGB (test code = 12.7 G/DL 13.0-18.0 L THB) OXYHEMOGLOBIN (test code = 97.4 % 92.0-98.0 N OOHGBT) CARBOXYHEMOGLOBIN (test 0.2 % 0.5-1.5 L code = HOHGBT) METHEMOGLOBIN (test code = 0.3 % 0.4-1.5 L METHGB) CV CALL BG (test code = Called Resu lts called CVCBG) to and read darek k by Charlee ALCARAZ 04: - 08/17/2018; by CARMINE SUTHERLAND - CT HEAD/BRAIN W/O [id number] 21:25:00 Patient Name: ANTONINO ROTHMAN Unit No: [id number] EXAMS: CPT CODE: [id number] CT HEAD/BRAIN W/O CONT [id number] Reason: syncope - CT HEAD/BRAIN W/O CONT 08/16/2018 5:58 PM Indication: Syncope drug overdose altered mental status COMPARISON: 06/09/2018 FINDINGS: I see no adverse change from recent, other than some new sinusitis left maxillary and sphenoid sinus as well as a few ethmoids. Incidental note is made of a loop of the NG tube up into the nasopharynx area. Ventricles normal in size. No intracranial hemorrhage visible. Impression: No adverse change from recent, other than sinus air-fluid levels. 2. NGT loop within the nasopharynx. at 2124 Reported and signed by: Jigar powell MD CC: Juanito Russo MD; Nahum Reed DO; Barbie Castellanos MD Technologist: Zev Powell CT; Jody Fraga CT Trscrpt Dt/ (2124)tANNETTEPKE Orig Print D/T: S: 08/16/2018 (2128) CTDI: DLP: [facility] NAME: ANTONINO ROTHMAN [address] PHYS:VANPA.Danya - Nahum Reed [place] [address] : 1960 AGE: 58 SEX: M LOC: D.HCU 19 PHONE #: [phone] EXAM DATE: 08/16/2018 STATUS: ADM IN FAX #: RAD NO: DC Dt: PAGE 1 Signed ReportGLUBED 2018-08-16 21:23:00 Test Item Value Reference Range Interpretation Comments GLUBED (test code = 99 MG/DL 65-99 N Performe d by certified GLUBED) 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 [facility] ARTERIAL BLOOD [id number] 20:25:00 Test Item Value Reference Range Interpretation Comments ARTERIAL BLOOD GAS PH (test code 7.37 7.35-7.45 N = PHA) ARTERIAL BLOOD GAS PCO2 (test 51.8 mmHg 35.0-45.0 H code = PCO2A) ARTERIAL BLOOD GAS PO2 (test code 89.4 mmHg 80.0-100.0 N = PO2A) BICARBONATE TOTAL HCO3 (test code 29.0 mmol/L 20.0-26.0 H = HCO3) BASE EXCESS (test code = CHALINO) 2.7 mmol/L -3.0-3.0 N ABG O2 SATURATION (test code = 96.6 % 95-100 N SATA) ABG TYPE (test code = TYPEA) Arterial FIO2 (test code = FIO2A) 60.0 % MODE (test code = MODE) AC ABG PATIENT RESP RATE (test code 10.0 /MIN = RRPATA) ABG VENT RESP RATE (test code = 14.0 /MIN RRA) ABG TIDAL VOLUME (test code = 450.0 ml TVA) ABG PEEP (test code = PEEPA) 5.0 cmH2O ABG TEMPERATURE (test code = 98.4 F TEMPA) GERALDO TEST (test code = ALN) NA ABG SITE (test code = SITEA) LB TOTAL HGB (test code = THB) 13.3 G/DL 13.0-18.0 N OXYHEMOGLOBIN (test code = 95.3 % 92.0-98.0 N OOHGBT) CARBOXYHEMOGLOBIN (test code = 1.0 % 0.5-1.5 N HOHGBT) METHEMOGLOBIN (test code = 0.3 % 0.4-1.5 L METHGB) - XR CHEST 1 [id number] 20:18:00 Patient Name: ANTONINO ROTHMAN Unit No: [id number] EXAMS: CPT CODE: [id number] XR CHEST 1 V 17483 Reason: OGT - XR CHEST 1 V 08/16/2018 7:21 PM Indication: Drug overdose COMPARISON: 1916 hours FINDINGS: NGT very slightly advanced although the tip is still at about the cardia level. at 2018 Reported and signed by: Jigar Perales MD CC: Juanito Hernández; Bautista Santos MD; Barbie Castellanos MD Technologist: Laura JUAREZ Trscrpt Dt/ (2017)Ramona Orig Print D/T: S: 08/16/2018 (2020) [facility] NAME: ANTONINO ROTHMAN [address] PH[address]: [place]. [place] [address] : 1960 AGE: 58 SEX: M : D.HCU 19 PHONE #: [phone] EXAM DATE: 08/16/2018 STATUS: ADM IN FAX #: RAD NO: DC Dt: PAGE 1 Signed Report- XR CHEST 1 [id number] 20:17:00 Patient Name: ANTONINO ROTHMAN Unit No: [id number] EXAMS: CPT CODE: [id number] XR CHEST 1 V 89204 Reason: OGT - XR CHEST 1 V 08/16/2018 7:21 PM Indication: Drug overdose COMPARISON: 1748 hours FINDINGS: The NG tube is been readvanced with the tip now at the gastric cardia level and the sidehole above the GE junction. The chest tubes and catheters are otherwise unchanged. at 2017 Reported and signed by: Jigar Perales MD CC: Juanito Russo MD; Bautista Santos MD; Barbie Castellanos MD Technologist: Laura JUAREZ Trscrpt D t/ (2016)Ramona Orig Print D/T: S: 08/17/2018 (537) [facility] NAME: ANTONINO ROTHMAN [address] PH[address]: [place]. [place] [address] : 1960 AGE: 58 SEX: M LOC: D.HCU 19 PHONE #: [phone] EXAM DATE: 08/16/2018 STATUS: ADM IN FAX#: RAD NO: DC Dt: PAGE 1 Signed ReportUA RFLX MICROSCOPIC [id number] 18:54:00 Test Item Value Reference Range Interpretation Comments UA COLOR (test code = COLU) YELLOW YELLOW UA APPEARANCE (test code = CLEAR CLEAR APPU) UA GLUCOSE DIPSTICK (test NEGATIVE mg/dL NEGATIVE code = DGLUU) UA BILIRUBIN DIPSTICK (test NEGATIVE NEGATIVE code = BILU) UA KETONE DIPSTICK (test 5 mg/dL NEGATIVE A code = KETU) UA SPECIFIC GRAVITY (test 1.025 1.001-1.035 N code = SGU) UA BLOOD DIPSTICK (test code TRACE NEGATIVE A = ESTHER) UA PH DIPSTICK (test code = 5.0 5.5-7.0 L ROMINA) UA PROTEIN DIPSTICK (test 25 mg/dL NEGATIVE A code = PROU) UA UROBILINOGEN DIPSTICK NORMAL mg/dL NORMAL (test code = URO) UA NITRITE DIPSTICK (test NEGATIVE NEGATIVE code = OSCAR) UA LEUKOCYTE ESTERASE NEGATIVE NEGATIVE DIPSTICK (test code = LEUU) UA COMMENT (test code = VOLUME 10-12 ML COMU) URINE SPECIMEN DESCRIPTION Indwelling Cath (test code = UASPEC) UA WBC (test code = WBCU) < 10 #/hpf <10 UA SQUAMOUS CELLS (test code < 100 #/lpf <100 = SQU) UA CULTURE NEEDED? (test Criteria not met code = UACULT) UA [id number] 18:54:00 Test Item Value Reference Range Interpretation Comments UA RBC (test code = RBCU) 0-2 #/hpf NONE SEEN A LACTIC [id number] 18:37:00 Test Item Value Reference Range Interpretation Comments LACTIC ACID (test code = LACT) 3.1 MMOL/L 0.5-2.2 H BASIC METABOLIC [id number] 18:37:00 Test Item Value Reference Range Interpretation Comments SODIUM (test code = 136 MMOL/L 133-145 N NA) POTASSIUM (test code = 3.8 MMOL/L 3.6-5.2 N K) CHLORIDE (test code = 99 MMOL/L 100-108 L CL) CARBON DIOXIDE (test 27 MMOL/L 22-32 N code = CO2) GLUCOSE (test code = 222 MG/DL 65-99 H Results of this assay GLU) method may be f alsely depressed orele vated if patient is t aking sulfasalazine. BLOOD UREA NITROGEN 18 MG/DL 6-20 N (test code = BUN) GLOMERULAR FILTRATION 57 56-130 N Report ing units: RATE (test code = GFR) mL/mi n/1.73m\\S\\2 (Modified MDRD Formula) CREATININE (test code 1.30 MG/DL 0.60-1.00 H = CREAT) CALCIUM (test code = 8.8 MG/DL 8.7-10.5 N CA) HEPATIC FUNCTION [id number] 18:37:00 Test Item Value Reference Range Interpretation Comments TOTAL PROTEIN (test 7.6 G/DL 6.4-8.2 N code = PROT) ALBUMIN (test code = 3.4 G/DL 3.4-5.0 N ALB) GLOBULIN (test code = 4.2 G/DL 1.5-3.8 H GLOB) ALBUMIN/GLOBULIN RATIO 0.8 1.1-2.2 L (test code = A/G) BILIRUBIN TOTAL (test 0.4 MG/DL 0.0-1.0 N code = BILT) BILIRUBIN DIRECT (test 0.1 MG/DL 0.0-0.3 N code = BILD) BILIRUBIN INDIRECT 0.3 MG/DL 0.0-0.7 N (test code = BILIND) SGOT/AST (test code = 29 Units/L 15-37 N Result s of this assay AST) method may be f alsely depressed orele vated if patient is t aking sulfasalazine. SGPT/ALT (test code = 35 Units/L 30-65 N Result s of this assay ALT) method may be f alsely depressed orele vated if patient is t aking sulfasalazine. ALKALINE PHOSPHATASE 84 Units/L 50-136 N TOTAL (test code = ALKP) [id number] 18:37:00 Test Item Value Reference Range Interpretation Comments LIPASE (test code = LIP) 1283 Units/L 73-393 H THYROID STIMULATING [id number] 18:37:00 Test Item Value Reference Range Interpretation Comments THYROID STIMULATING 1.63 0.42-5.47 N Micro-In ternational HORMONE (test code = TSH) Un its/LResults of this assay method ma y be falsely depress ed orelevated if p atient is taking high doses of Biotin. [id number] 18:37:00 Test Item Value Reference Range Interpretation Comments ACETAMINOPHEN (test < 1 MCG/ML 10-30 L Acetamin krystianen is code = ACET) possibly toxic at levels of: 1. m ore than 150 MCG/ML 4 hours post dinorah stion. 2. more than 5 0 MCG/ML 12 hours post ingestion. [id number] 18:37:00 Test Item Value Reference Range Interpretation Comments SALICYLATE (test code = < 3 MG/DL 0-20 N Refe rence Range: LOGAN) Analgesic...... ...... ...... < 10 mg /dl Therapeutic.... ...... ...... 15-20 mg /dl Mild Toxicity....... ...... . > 30 mg/dl Severe Toxicity....... ..... > 60 mg/dl [id number] 18:37:00 Test Item Value Reference Range Interpretation Comments ALCOHOL (test code = < 3 MG/DL 0-10 N 0 - 10: Should be ALC) interpreted as NEGATIVE. 11 - 50: None to mild euphoria. 51 - 100: Mild influence on vision and dark adapta tion. > 80: Legal intoxication; D epression of RETAIL OFFICE MANAGER; Increasing degr ee of poisoning. > 400: Fatalities repo rted. Results are for medical purposes only a nd not forlegal or emp loyment evaluative purp oses. PROTHROMBIN [id number] 18:35:00 Test Item Value Reference Range Interpretation Comments PROTHROMBIN TIME 13.2 SECONDS 9.6-12.3 H PATIENT (test code = PTP) INTERNATIONAL NORMAL 1.16 Recomme nded INR range RATIO (test code = (warfarin therapy): INR) 2.0 - 3.0I NR (International Normalized Rati o) should beused w hen interpreting or al anticoaglulant therapy. For at rial fibrillation an d treatment orprevention of deep vein thrombosis . Patients with Palmaz-Jeevan s tent *: 2 .0 - 3.0 Patients wi th mechanical hear t valve *: 2.5 - 3.5 Patients with flex-stent *: 3.0 - 4.0(*) = violin mechanic's suggested range Is patient on anticoagulants? UnknownTHROMBOPLASTIN TIME [id number] 18:35:00 Test Item Value Reference Range Interpretation Comments THROMBOPLASTIN TIME 30.7 SECONDS 22.5-35.3 N *Therap eutic level PARTIAL (test code = for hep amalia: 1.5 - PTT) 2.5 times the average patient value of 30.0 seconds. The aP TT tet should not be used to evaluat e low moleculat weigh t heparin anticoagulant therapy. Is patient on anticoagulants? [id number] 18:34:00 Test Item Value Reference Range Interpretation Comments AMMONIA (test code = 12 UMOL/L 11-35 N Results of this assay AMM) method may be f alsely depressed orele vated if patient is taki ng sulfasalazine. CBC W/AUTO [id number] 18:24:00 Test Item Value Reference Range Interpretation Comments WHITE BLOOD CELL (test code = 14.68 x10 3/uL 4.80-10.80 H WBC) RED BLOOD CELL (test code = 4.67 x10 6/uL 4.7-6.1 L RBC) HEMOGLOBIN (test code = HGB) 13.6 G/DL 14.0-17.0 L HEMATOCRIT (test code = HCT) 43.3 % 42-52 N MEAN CELL VOLUME (test code = 92.7 FL 80-94 N MCV) MEAN CELL HGB (test code = 29.1 PG 27-31 N MCH) MEAN CELL HGB CONCENTRATION 31.4 G/DL 33-37 L (test code = MCHC) RED CELL DISTRIBUTION WIDTH 14.6 % 11.5-14.5 H (test code = RDW) PLATELET COUNT (test code = 247 x10 3/uL 150-450 N PLT) MEAN PLATELET VOLUME (test 10.9 FL 7.4-10.4 H code = MPV) NEUTROPHIL % (test code = NT%) 74.5 % 42-86 N IMMATURE GRANULOCYTE % (test 1.0 % 0.0-2.0 N code = IG%) LYMPHOCYTE % (test code = LY%) 14.6 % 24-44 L MONOCYTE % (test code = MO%) 7.6 % 0.0-4.0 H EOSINOPHIL % (test code = EO%) 1.8 % 0.0-2.7 N BASOPHIL % (test code = BA%) 0.5 % 0.0-0.5 N NUCLEATED RBC % (test code = 0.0 % 0.0-0.0 N NRBC%) NEUTROPHIL # (test code = NT#) 10.94 x10 3/uL 1.8-7.7 H IMMATURE GRANULOCYTE # (test 0.14 x10 3/uL 0.00-0.03 H code = IG#) LYMPHOCYTE # (test code = LY#) 2.15 x10 3/uL 1.0-4.8 N MONOCYTE # (test code = MO#) 1.12 x10 3/uL 0.0-0.8 H EOSINOPHIL # (test code = EO#) 0.26 x10 3/uL 0.0-0.5 N BASOPHIL # (test code = BA#) 0.07 x10 3/uL 0.0-0.2 N NUCLEATED RBC # (test code = 0.0 X10 3/uL 0.0-0.2 N NRBC#) - XR CHEST 1 [id number] 18:11:00 Patient Name: ANTONINO ROTHMAN Unit No: [id number] EXAMS: CPT CODE: [id number] XR CHEST 1 V [id number] Reason: altered mental status - XR CHEST 1 V 08/16/2018 5:35 PM Indication: Altered mental status. Drug overdose. COMPARISON: 06/09/2018 FINDINGS: Endotracheal tube 4 cm above raffi, right IJ central line tip overlies mid SVC. No pneumothorax. The NG tube, though, is looped back upon itself at the thoracic inlet level. The chest itself shows continued hypoventilatory perales es. Impression: NGT per above. Uncomplicated central line placement. Hypoventilatory chest. at 1811 Reported and signed by: Jigar Perales MD CC: Juanito Romo MD; Bautista Santos MD Technologist: Lovely JUAREZ Trscrpt Dt/ (1810)Ramona Orig Print D/T: S: 08/16/2018 (1813) [facility] NAME: ANTONINO ROTHMAN [address] PH[address]: [id number] - Danielle,[place] [address] : 1960 AGE: 58 SEX: M LOC: ELEAZAR 1 PHONE #: [phone] EXAM DATE: 08/16/2018 STATUS: ADM IN FAX #: RAD NO: DC Dt: PAGE 1 Signed ReportDRUG OF ABUSE SCREEN [id number] 18:04:00 Test Item Value Reference Interpretation Comments Range UR COCAINE (test NEGATIVE NEGATIVE code = COCAU) UR MDMA (test code = NEGATIVE NEGATIVE MDMAQLU) UR CANNABINOIDS NEGATIVE NEGATIVE (test code = CANU) UR AMPHETAMINE (test NEGATIVE NEGATIVE code = AMPHU) UR BARBITURATE QUAL NEGATIVE NEGATIVE (test code = BARBQLU) UR BENZODIAZEPINE NEGATIVE NEGATIVE (test code = BENZU) UR OPIATES QUAL NEGATIVE NEGATIVE (test code = OPIAQLU) UR PHENCYCLIDINE NEGATIVE NEGATIVE Urine Drug Abuse Screen (PCP) (test code = provides preliminary PHENCU) results thatmay be confirmed by bettie benoit methods (i.e., GC/MS) at [facility]. Results of scre en may not be usedin crimi nal justice, job performance or professionalcre dential review, or infa nt custody issues. Negativ e [place] Level ng/ml ------- ----- Cocaine 300 Methamp hetamine (Ecstacy) 500 Cannabinoids (THC) 50 Amphetamine 1000 Barbiturate s 200 Benzodia zepines 200 Opiat es 300 Ph encyclidine (PCP) 25 TROPONIN I [id number] 18:02:00 Test Item Value Reference Range Interpretation Comments TROPONIN I RAPID 0.00 NG/ML 0.00-0.08 N Performed b y certified (test code = 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 [facility] TROPIRAP) - The use of s erial sampling and te sting protocol is a recommended pra ctice.- An elevated tro ponin level alone is often not sufficient for diagnosis of my ocardial infarction. LACTIC ACID [id number] 17:56:00 Test Item Value Reference Range Interpretation Comments LACTIC ACID POC 3.60 MMOL/L 0.90-1.70 H Performed by certified (test code = LACTP) 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 [facility] UA RFLX MICROSCOPIC [id number] 17:56:00 Test Item Value Reference Range Interpretation Comments UA COLOR (test code = COLU) YELLOW YELLOW UA APPEARANCE (test code = CLEAR CLEAR APPU) UA GLUCOSE DIPSTICK (test NEGATIVE mg/dL NEGATIVE code = DGLUU) UA BILIRUBIN DIPSTICK (test NEGATIVE NEGATIVE code = BILU) UA KETONE DIPSTICK (test code 5 mg/dL NEGATIVE A = KETU) UA SPECIFIC GRAVITY (test 1.025 1.001-1.035 N code = SGU) UA BLOOD DIPSTICK (test code TRACE NEGATIVE A = ESTHER) UA PH DIPSTICK (test code = 5.0 5.5-7.0 L ROMINA) UA PROTEIN DIPSTICK (test 25 mg/dL NEGATIVE A code = PROU) UA UROBILINOGEN DIPSTICK NORMAL mg/dL NORMAL (test code = URO) UA NITRITE DIPSTICK (test NEGATIVE NEGATIVE code = OSCAR) UA LEUKOCYTE ESTERASE NEGATIVE NEGATIVE DIPSTICK (test code = LEUU) UA COMMENT (test code = COMU) VOLUME 10-12 ML URINE SPECIMEN DESCRIPTION Indwelling Cath (test code = UASPEC) UA WBC (test code = WBCU) #/hpf <10 UA SQUAMOUS CELLS (test code #/lpf <100 = SQU) UA CULTURE NEEDED? (test code = UACULT) UA [id number] 17:56:00 Test Item Value Reference Range Interpretation Comments UA RBC (test code = RBCU) #/hpf NONE SEEN UA RFLX MICROSCOPIC [id number] 17:56:00 Test Item Value Reference Range Interpretation Comments UA COLOR (test code = COLU) YELLOW YELLOW UA APPEARANCE (test code = CLEAR CLEAR APPU) UA GLUCOSE DIPSTICK (test NEGATIVE mg/dL NEGATIVE code = DGLUU) UA BILIRUBIN DIPSTICK (test NEGATIVE NEGATIVE code = BILU) UA KETONE DIPSTICK (test code 5 mg/dL NEGATIVE A = KETU) UA SPECIFIC GRAVITY (test 1.025 1.001-1.035 N code = SGU) UA BLOOD DIPSTICK (test code TRACE NEGATIVE A = ESTHER) UA PH DIPSTICK (test code = 5.0 5.5-7.0 L ROMINA) UA PROTEIN DIPSTICK (test 25 mg/dL NEGATIVE A code = PROU) UA UROBILINOGEN DIPSTICK NORMAL mg/dL NORMAL (test code = URO) UA NITRITE DIPSTICK (test NEGATIVE NEGATIVE code = OSCAR) UA LEUKOCYTE ESTERASE NEGATIVE NEGATIVE DIPSTICK (test code = LEUU) UA COMMENT (test code = COMU) VOLUME 10-12 ML URINE SPECIMEN DESCRIPTION Indwelling Cath (test code = UASPEC) UA WBC (test code = WBCU) #/hpf <10 UA SQUAMOUS CELLS (test code #/lpf <100 = SQU) UA CULTURE NEEDED? (test code = UACULT) UA [id number] 17:56:00 Test Item Value Reference Range Interpretation Comments UA RBC (test code = RBCU) #/hpf NONE SEEN ARTERIAL BLOOD [id number] 16:51:00 Test Item Value Reference Range Interpretation Comments ARTERIAL BLOOD GAS PH 7.27 7.35-7.45 LL (test code = PHA) ARTERIAL BLOOD GAS PCO2 44.0 mmHg 35.0-45.0 N (test code = PCO2A) ARTERIAL BLOOD GAS PO2 264.9 mmHg 80.0-100.0 H (test code = PO2A) BICARBONATE TOTAL HCO3 19.6 mmol/L 20.0-26.0 L (test code = HCO3) BASE EXCESS (test code = -7.2 mmol/L -3.0-3.0 L CHALINO) ABG O2 SATURATION (test 99.2 % 95-100 N code = SATA) ABG TYPE (test code = Arterial TYPEA) FIO2 (test code = FIO2A) 100.0 % MODE (test code = MODE) AC VENT ABG VENT RESP RATE (test 14.0 /MIN code = RRA) ABG TIDAL VOLUME (test 600.0 ml code = TVA) ABG PEEP (test code = 5.0 cmH2O PEEPA) ABG TEMPERATURE (test code 98.6 F = TEMPA) GERALDO TEST (test code = Yes ALN) ABG SITE (test code = LR SITEA) TOTAL HGB (test code = 14.9 G/DL 13.0-18.0 N THB) OXYHEMOGLOBIN (test code = 98.2 % 92.0-98.0 H OOHGBT) CARBOXYHEMOGLOBIN (test 0.7 % 0.5-1.5 N code = HOHGBT) METHEMOGLOBIN (test code = 0.3 % 0.4-1.5 L METHGB) CV CALL BG (test code = Called Resu lts called CVCBG) to and read darek k by DR Augustin 16:48 - 08/16/2018; by Darlin SANTILLAN ACCOUNTS COLLECTOR - XR HIP W/PEL UNI 2+V [id number] 12:33:00 Patient Name: ANTONINO ROTHMAN Unit No: [id number] EXAMS: CPT CODE: [id number] XR HIP W/PEL UNI 2+[place] [address] Reason: pain with palpation - XR HIP W/PEL UNI 2+V LT 06/13/2018 11:29 AM Indication: Pain with palpation COMPARISON: None FINDINGS: Massive body habitus in the huge pannus obscures pelvic detail. No "gross" abnormality, allowing for this. at 1233 Reported and signed by: Jigar Perales MD CC: Pratik Martinez DO; Agusto Kang MD Technologist: Deep Jennings RT; Loreto Don RT Trscrpt Dt/ (4473)t.SDR.PKE Orig Print D/T: S: 06/13/2018 (3799) [facility] NAME: ANTONINO ROTHMAN [address] PHYS: PETEJose [id number] - Pratik Martinez DO [place] [address] : 1960 AGE: 58 SEX: M LOC: D.HCU 15 PHONE #: [phone] EXAM DATE: 06/13/2018 STATUS: ADM IN FAX #: RAD NO: DCDt: PAGE 1 Signed [id number] 11:31:00 Test Item Value Reference Range Interpretation Comments GLUBED (test code = 194 MG/DL 65-99 H Performe d by certified GLUBED) 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 [facility] BASIC METABOLIC [id number] 07:23:00 Test Item Value Reference Range Interpretation Comments SODIUM (test code = 140 MMOL/L 133-145 N NA) POTASSIUM (test code = 3.8 MMOL/L 3.6-5.2 N K) CHLORIDE (test code = 100 MMOL/L 100-108 N CL) CARBON DIOXIDE (test 32 MMOL/L 22-32 N code = CO2) GLUCOSE (test code = 160 MG/DL 65-99 H Results of this assay GLU) method may be f alsely depressed orele vated if patient is t aking sulfasalazine. BLOOD UREA NITROGEN 19 MG/DL 6-20 N (test code = BUN) GLOMERULAR FILTRATION 82 56-130 N Report ing units: RATE (test code = GFR) mL/mi n/1.73m\\S\\2 (Modified MDRD Formula) CREATININE (test code 0.94 MG/DL 0.60-1.00 N = CREAT) CALCIUM (test code = 9.3 MG/DL 8.7-10.5 N CA) CBC W/AUTO [id number] 06:29:00 Test Item Value Reference Range Interpretation Comments WHITE BLOOD CELL (test code = 9.93 x10 3/uL 4.80-10.80 N WBC) RED BLOOD CELL (test code = 4.74 x10 6/uL 4.7-6.1 N RBC) HEMOGLOBIN (test code = HGB) 13.6 G/DL 14.0-17.0 L HEMATOCRIT (test code = HCT) 42.8 % 42-52 N MEAN CELL VOLUME (test code = 90.3 FL 80-94 N MCV) MEAN CELL HGB (test code = MCH) 28.7 PG 27-31 N MEAN CELL HGB CONCENTRATION 31.8 G/DL 33-37 L (test code = MCHC) RED CELL DISTRIBUTION WIDTH 13.9 % 11.5-14.5 N (test code = RDW) PLATELET COUNT (test code = 188 x10 3/uL 150-450 N PLT) MEAN PLATELET VOLUME (test code 11.6 FL 7.4-10.4 H = MPV) NEUTROPHIL % (test code = NT%) 56.7 % 42-86 N IMMATURE GRANULOCYTE % (test 0.7 % 0.0-2.0 N code = IG%) LYMPHOCYTE % (test code = LY%) 27.6 % 24-44 N MONOCYTE % (test code = MO%) 10.4 % 0.0-4.0 H EOSINOPHIL % (test code = EO%) 4.1 % 0.0-2.7 H BASOPHIL % (test code = BA%) 0.5 % 0.0-0.5 N NUCLEATED RBC % (test code = 0.0 % 0.0-0.0 N NRBC%) NEUTROPHIL # (test code = NT#) 5.63 x10 3/uL 1.8-7.7 N IMMATURE GRANULOCYTE # (test 0.07 x10 3/uL 0.00-0.03 H code = IG#) LYMPHOCYTE # (test code = LY#) 2.74 x10 3/uL 1.0-4.8 N MONOCYTE # (test code = MO#) 1.03 x10 3/uL 0.0-0.8 H EOSINOPHIL # (test code = EO#) 0.41 x10 3/uL 0.0-0.5 N BASOPHIL # (test code = BA#) 0.05 x10 3/uL 0.0-0.2 N NUCLEATED RBC # (test code = 0.0 X10 3/uL 0.0-0.2 N NRBC#) [id number] 05:41:00 Test Item Value Reference Range Interpretation Comments GLUBED (test code = 144 MG/DL 65-99 H Performe d by certified GLUBED) 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 [facility] [id number] 20:43:00 Test Item Value Reference Range Interpretation Comments GLUBED (test code = 174 MG/DL 65-99 H Performe d by certified GLUBED) 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 [facility] [id number] 16:55:00 Test Item Value Reference Range Interpretation Comments GLUBED (test code = 165 MG/DL 65-99 H Performe d by certified GLUBED) 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 [facility] [id number] 11:45:00 Test Item Value Reference Range Interpretation Comments GLUBED (test code = 190 MG/DL 65-99 H Performe d by certified GLUBED) 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 [facility] [id number] 08:42:00 Test Item Value Reference Range Interpretation Comments GLUBED (test code = 176 MG/DL 65-99 H Performe d by certified GLUBED) 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 [facility] COMPREHENSIVE METABOLIC [id number] 06:45:00 Test Item Value Reference Range Interpretation Comments SODIUM (test code = 142 MMOL/L 133-145 N NA) POTASSIUM (test code = 3.7 MMOL/L 3.6-5.2 N K) CHLORIDE (test code = 100 MMOL/L 100-108 N CL) CARBON DIOXIDE (test 32 MMOL/L 22-32 N code = CO2) GLUCOSE (test code = 173 MG/DL 65-99 H Results of this assay GLU) method may be f alsely depressed orele vated if patient is t aking sulfasalazine. BLOOD UREA NITROGEN 20 MG/DL 6-20 N (test code = BUN) GLOMERULAR FILTRATION 69 56-130 N Report ing units: RATE (test code = GFR) mL/mi n/1.73m\\S\\2 (Modified MDRD Formula) CREATININE (test code 1.09 MG/DL 0.60-1.00 H = CREAT) TOTAL PROTEIN (test 7.7 G/DL 6.4-8.2 N code = PROT) ALBUMIN (test code = 3.1 G/DL 3.4-5.0 L ALB) GLOBULIN (test code = 4.6 G/DL 1.5-3.8 H GLOB) ALBUMIN/GLOBULIN RATIO 0.7 1.1-2.2 L (test code = A/G) CALCIUM (test code = 9.2 MG/DL 8.7-10.5 N CA) BILIRUBIN TOTAL (test 0.6 MG/DL 0.0-1.0 N code = BILT) SGOT/AST (test code = 60 Units/L 15-37 H Result s of this assay AST) method may be f alsely depressed orele vated if patient is t aking sulfasalazine. SGPT/ALT (test code = 44 Units/L 30-65 N Result s of this assay ALT) method may be f alsely depressed orele vated if patient is t aking sulfasalazine. ALKALINE PHOSPHATASE 92 Units/L 50-136 N TOTAL (test code = ALKP) [id number] 06:45:00 Test Item Value Reference Range Interpretation Comments MAGNESIUM (test code = MAG) 1.9 MG/DL 1.8-2.4 N CBC W/AUTO [id number] 06:08:00 Test Item Value Reference Range Interpretation Comments WHITE BLOOD CELL (test code = 10.24 x10 3/uL 4.80-10.80 N WBC) RED BLOOD CELL (test code = 4.89 x10 6/uL 4.7-6.1 N RBC) HEMOGLOBIN (test code = HGB) 13.8 G/DL 14.0-17.0 L HEMATOCRIT (test code = HCT) 44.6 % 42-52 N MEAN CELL VOLUME (test code = 91.2 FL 80-94 N MCV) MEAN CELL HGB (test code = 28.2 PG 27-31 N MCH) MEAN CELL HGB CONCENTRATION 30.9 G/DL 33-37 L (test code = MCHC) RED CELL DISTRIBUTION WIDTH 13.9 % 11.5-14.5 N (test code = RDW) PLATELET COUNT (test code = 186 x10 3/uL 150-450 N PLT) MEAN PLATELET VOLUME (test 11.5 FL 7.4-10.4 H code = MPV) NEUTROPHIL % (test code = NT%) 61.0 % 42-86 N IMMATURE GRANULOCYTE % (test 0.8 % 0.0-2.0 N code = IG%) LYMPHOCYTE % (test code = LY%) 24.8 % 24-44 N MONOCYTE % (test code = MO%) 9.6 % 0.0-4.0 H EOSINOPHIL % (test code = EO%) 3.2 % 0.0-2.7 H BASOPHIL % (test code = BA%) 0.6 % 0.0-0.5 H NUCLEATED RBC % (test code = 0.0 % 0.0-0.0 N NRBC%) NEUTROPHIL # (test code = NT#) 6.25 x10 3/uL 1.8-7.7 N IMMATURE GRANULOCYTE # (test 0.08 x10 3/uL 0.00-0.03 H code = IG#) LYMPHOCYTE # (test code = LY#) 2.54 x10 3/uL 1.0-4.8 N MONOCYTE # (test code = MO#) 0.98 x10 3/uL 0.0-0.8 H EOSINOPHIL # (test code = EO#) 0.33 x10 3/uL 0.0-0.5 N BASOPHIL # (test code = BA#) 0.06 x10 3/uL 0.0-0.2 N NUCLEATED RBC # (test code = 0.0 X10 3/uL 0.0-0.2 N NRBC#) [id number] 22:02:00 Test Item Value Reference Range Interpretation Comments GLUBED (test code = 178 MG/DL 65-99 H Performe d by certified GLUBED) 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 [facility] [id number] 17:37:00 Test Item Value Reference Range Interpretation Comments GLUBED (test code = 158 MG/DL 65-99 H Performe d by certified GLUBED) 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 [facility] [id number] 11:56:00 Test Item Value Reference Range Interpretation Comments GLUBED (test code = 235 MG/DL 65-99 H Performe d by certified GLUBED) 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 [facility] ARTERIAL BLOOD [id number] 10:28:00 Test Item Value Reference Range Interpretation Comments ARTERIAL BLOOD GAS PH (test code 7.40 7.35-7.45 N = PHA) ARTERIAL BLOOD GAS PCO2 (test 45.5 mmHg 35.0-45.0 H code = PCO2A) ARTERIAL BLOOD GAS PO2 (test code 74.4 mmHg 80.0-100.0 L = PO2A) BICARBONATE TOTAL HCO3 (test code 27.7 mmol/L 20.0-26.0 H = HCO3) BASE EXCESS (test code = CHALINO) 2.4 mmol/L -3.0-3.0 N ABG O2 SATURATION (test code = 94.3 % 95-100 L SATA) ABG TYPE (test code = TYPEA) Arterial FIO2 (test code = FIO2A) 30.0 % MODE (test code = MODE) PS 5 ABG PEEP (test code = PEEPA) 5.0 cmH2O ABG TEMPERATURE (test code = 98.6 F TEMPA) GERALDO TEST (test code = ALN) Yes ABG SITE (test code = SITEA) RR TOTAL HGB (test code = THB) 14.0 G/DL 13.0-18.0 N OXYHEMOGLOBIN (test code = 93.5 % 92.0-98.0 N OOHGBT) CARBOXYHEMOGLOBIN (test code = 0.6 % 0.5-1.5 N HOHGBT) METHEMOGLOBIN (test code = 0.3 % 0.4-1.5 L METHGB) COMPREHENSIVE METABOLIC [id number] 04:32:00 Test Item Value Reference Range Interpretation Comments SODIUM (test code = 139 MMOL/L 133-145 N NA) POTASSIUM (test code = 4.1 MMOL/L 3.6-5.2 N K) CHLORIDE (test code = 102 MMOL/L 100-108 N CL) CARBON DIOXIDE (test 31 MMOL/L 22-32 N code = CO2) GLUCOSE (test code = 299 MG/DL 65-99 H Results of this assay GLU) method may be f alsely depressed orele vated if patient is t aking sulfasalazine. BLOOD UREA NITROGEN 20 MG/DL 6-20 N (test code = BUN) GLOMERULAR FILTRATION 59 56-130 N Report ing units: RATE (test code = GFR) mL/mi n/1.73m\\S\\2 (Modified MDRD Formula) CREATININE (test code 1.25 MG/DL 0.60-1.00 H = CREAT) TOTAL PROTEIN (test 6.8 G/DL 6.4-8.2 N code = PROT) ALBUMIN (test code = 2.8 G/DL 3.4-5.0 L ALB) GLOBULIN (test code = 4.0 G/DL 1.5-3.8 H GLOB) ALBUMIN/GLOBULIN RATIO 0.7 1.1-2.2 L (test code = A/G) CALCIUM (test code = 8.6 MG/DL 8.7-10.5 L CA) BILIRUBIN TOTAL (test 0.6 MG/DL 0.0-1.0 N code = BILT) SGOT/AST (test code = 46 Units/L 15-37 H Result s of this assay AST) method may be f alsely depressed orele vated if patient is t aking sulfasalazine. SGPT/ALT (test code = 46 Units/L 30-65 N Result s of this assay ALT) method may be f alsely depressed orele vated if patient is t aking sulfasalazine. ALKALINE PHOSPHATASE 88 Units/L 50-136 N TOTAL (test code = ALKP) [id number] 04:32:00 Test Item Value Reference Range Interpretation Comments MAGNESIUM (test code = MAG) 2.1 MG/DL 1.8-2.4 N CBC W/AUTO [id number] 04:20:00 Test Item Value Reference Range Interpretation Comments WHITE BLOOD CELL (test code = 11.62 x10 3/uL 4.80-10.80 H WBC) RED BLOOD CELL (test code = 4.71 x10 6/uL 4.7-6.1 N RBC) HEMOGLOBIN (test code = HGB) 13.2 G/DL 14.0-17.0 L HEMATOCRIT (test code = HCT) 43.1 % 42-52 N MEAN CELL VOLUME (test code = 91.5 FL 80-94 N MCV) MEAN CELL HGB (test code = 28.0 PG 27-31 N MCH) MEAN CELL HGB CONCENTRATION 30.6 G/DL 33-37 L (test code = MCHC) RED CELL DISTRIBUTION WIDTH 13.9 % 11.5-14.5 N (test code = RDW) PLATELET COUNT (test code = 176 x10 3/uL 150-450 N PLT) MEAN PLATELET VOLUME (test 11.5 FL 7.4-10.4 H code = MPV) NEUTROPHIL % (test code = NT%) 70.5 % 42-86 N IMMATURE GRANULOCYTE % (test 0.5 % 0.0-2.0 N code = IG%) LYMPHOCYTE % (test code = LY%) 18.2 % 24-44 L MONOCYTE % (test code = MO%) 9.1 % 0.0-4.0 H EOSINOPHIL % (test code = EO%) 1.4 % 0.0-2.7 N BASOPHIL % (test code = BA%) 0.3 % 0.0-0.5 N NUCLEATED RBC % (test code = 0.0 % 0.0-0.0 N NRBC%) NEUTROPHIL # (test code = NT#) 8.19 x10 3/uL 1.8-7.7 H IMMATURE GRANULOCYTE # (test 0.06 x10 3/uL 0.00-0.03 H code = IG#) LYMPHOCYTE # (test code = LY#) 2.12 x10 3/uL 1.0-4.8 N MONOCYTE # (test code = MO#) 1.06 x10 3/uL 0.0-0.8 H EOSINOPHIL # (test code = EO#) 0.16 x10 3/uL 0.0-0.5 N BASOPHIL # (test code = BA#) 0.03 x10 3/uL 0.0-0.2 N NUCLEATED RBC # (test code = 0.0 X10 3/uL 0.0-0.2 N NRBC#) GLYCOSYLATED HEMOGLOBIN (HA1C)2018-06-10 11:04:00 Test Item Value Reference Range Interpretation Comments GLYCOSYLATED HEMOGLOBIN (HA1C) 11.8 % TOT HB 4.5-6.2 H (test code = GLYHGB) UR SODIUM [id number] 09:34:00 Test Item Value Reference Range Interpretation Comments UR SODIUM RANDOM 39 MMOL/L No establis hed reference (test code = MANSOOR) range for random urine specimen. UR POTASSIUM [id number] 09:34:00 Test Item Value Reference Range Interpretation Comments UR POTASSIUM RANDOM 30 MMOL/L No estab lished (test code = KU) reference r devon for random urine sp ecimen. UR CHLORIDE [id number] 09:34:00 Test Item Value Reference Range Interpretation Comments UR CHLORIDE RANDOM 55 MMOL/L No establ ished (test code = CLU) reference range for random urine sp ecimen. UR PROTEIN/CREATININE [id number] 09:34:00 Test Item Value Reference Range Interpretation Comments UR PROTEIN RANDOM 6 MG/DL No establi shed (test code = PROTU) referenc e range for random urine specimen. UR CREATININE RANDOM 47.72 MG/DL No esta blished (test code = CREATU) referen ce range for random urine specimen. PROTEIN/CREATININE 0.1 < 0.2 RATIO (test code = P/CRATIO) COMPREHENSIVE METABOLIC [id number] 07:40:00 Test Item Value Reference Range Interpretation Comments SODIUM (test code = 138 MMOL/L 133-145 N NA) POTASSIUM (test code = 4.0 MMOL/L 3.6-5.2 N K) CHLORIDE (test code = 100 MMOL/L 100-108 N CL) CARBON DIOXIDE (test 30 MMOL/L 22-32 N code = CO2) GLUCOSE (test code = 294 MG/DL 65-99 H Results of this GLU) assay method ma y be falsely depress ed orelevated if patient is taki ng sulfasalazine. BLOOD UREA NITROGEN 14 MG/DL 6-20 N (test code = BUN) GLOMERULAR FILTRATION 74 56-130 N Report ing units: RATE (test code = GFR) mL/mi n/1.73m\\S\\2 (Modified MDRD Formula) CREATININE (test code 1.03 MG/DL 0.60-1.00 H = CREAT) TOTAL PROTEIN (test 7.1 G/DL 6.4-8.2 N code = PROT) ALBUMIN (test code = 3.0 G/DL 3.4-5.0 L ALB) GLOBULIN (test code = 4.1 G/DL 1.5-3.8 H GLOB) ALBUMIN/GLOBULIN RATIO 0.7 1.1-2.2 L (test code = A/G) CALCIUM (test code = 9.9 MG/DL 8.7-10.5 N CA) BILIRUBIN TOTAL (test 0.5 MG/DL 0.0-1.0 N code = BILT) SGOT/AST (test code = 51 Units/L 15-37 H Result s of this AST) assay method ma y be falsely depress ed orelevated if patient is taki ng sulfasalazine. SGPT/ALT (test code = 49 Units/L 30-65 N Result s of this ALT) assay method ma y be falsely depress ed orelevated if patient is taki ng sulfasalazine. ALKALINE PHOSPHATASE 102 Units/L 50-136 N TOTAL (test code = ALKP) [id number] 07:40:00 Test Item Value Reference Range Interpretation Comments MAGNESIUM (test code = MAG) 2.2 MG/DL 1.8-2.4 N THYROID STIMULATING [id number] 07:40:00 Test Item Value Reference Range Interpretation Comments THYROID STIMULATING 0.83 0.42-5.47 N Micro-In ternational HORMONE (test code = TSH) Un its/LResults of this assay method ma y be falsely depress ed orelevated if p atient is taking high doses of Biotin. CBC W/AUTO [id number] 07:14:00 Test Item Value Reference Range Interpretation Comments WHITE BLOOD CELL (test code = 10.64 x10 3/uL 4.80-10.80 N WBC) RED BLOOD CELL (test code = 4.89 x10 6/uL 4.7-6.1 N RBC) HEMOGLOBIN (test code = HGB) 13.8 G/DL 14.0-17.0 L HEMATOCRIT (test code = HCT) 43.5 % 42-52 N MEAN CELL VOLUME (test code = 89.0 FL 80-94 N MCV) MEAN CELL HGB (test code = 28.2 PG 27-31 N MCH) MEAN CELL HGB CONCENTRATION 31.7 G/DL 33-37 L (test code = MCHC) RED CELL DISTRIBUTION WIDTH 13.8 % 11.5-14.5 N (test code = RDW) PLATELET COUNT (test code = 175 x10 3/uL 150-450 N PLT) MEAN PLATELET VOLUME (test 12.3 FL 7.4-10.4 H code = MPV) NEUTROPHIL % (test code = NT%) 76.1 % 42-86 N IMMATURE GRANULOCYTE % (test 0.8 % 0.0-2.0 N code = IG%) LYMPHOCYTE % (test code = LY%) 11.8 % 24-44 L MONOCYTE % (test code = MO%) 9.7 % 0.0-4.0 H EOSINOPHIL % (test code = EO%) 1.3 % 0.0-2.7 N BASOPHIL % (test code = BA%) 0.3 % 0.0-0.5 N NUCLEATED RBC % (test code = 0.0 % 0.0-0.0 N NRBC%) NEUTROPHIL # (test code = NT#) 8.09 x10 3/uL 1.8-7.7 H IMMATURE GRANULOCYTE # (test 0.09 x10 3/uL 0.00-0.03 H code = IG#) LYMPHOCYTE # (test code = LY#) 1.26 x10 3/uL 1.0-4.8 N MONOCYTE # (test code = MO#) 1.03 x10 3/uL 0.0-0.8 H EOSINOPHIL # (test code = EO#) 0.14 x10 3/uL 0.0-0.5 N BASOPHIL # (test code = BA#) 0.03 x10 3/uL 0.0-0.2 N NUCLEATED RBC # (test code = 0.0 X10 3/uL 0.0-0.2 N NRBC#) ARTERIAL BLOOD [id number] 04:16:00 Test Item Value Reference Range Interpretation Comments ARTERIAL BLOOD GAS PH 7.41 7.35-7.45 N (test code = PHA) ARTERIAL BLOOD GAS PCO2 49.4 mmHg 35.0-45.0 H (test code = PCO2A) ARTERIAL BLOOD GAS PO2 89.6 mmHg 80.0-100.0 N (test code = PO2A) BICARBONATE TOTAL HCO3 30.6 mmol/L 20.0-26.0 H (test code = HCO3) BASE EXCESS (test code = 4.8 mmol/L -3.0-3.0 H CHALINO) ABG O2 SATURATION (test 96.5 % 95-100 N code = SATA) ABG TYPE (test code = Arterial TYPEA) FIO2 (test code = FIO2A) 45.0 % MODE (test code = MODE) VENT-AC ABG PATIENT RESP RATE 0 /MIN (test code = RRPATA) ABG VENT RESP RATE (test 22.0 /MIN code = RRA) ABG TIDAL VOLUME (test 550.0 ml code = TVA) ABG PEEP (test code = 5.0 cmH2O PEEPA) ABG TEMPERATURE (test code 98.6 F = TEMPA) GERALDO TEST (test code = NA ALN) ABG SITE (test code = LB SITEA) TOTAL HGB (test code = 14.6 G/DL 13.0-18.0 N THB) OXYHEMOGLOBIN (test code = 95.5 % 92.0-98.0 N OOHGBT) CARBOXYHEMOGLOBIN (test 0.7 % 0.5-1.5 N code = HOHGBT) METHEMOGLOBIN (test code = 0.3 % 0.4-1.5 L METHGB) CV CALL BG (test code = Called Resu lts called CVCBG) to and read [facility] k by ARELY AUGUST,RNat 04:1 - 06/10/2018; onel SUTHERLAND,CARMINE PROCALCITONIN (PCT)2018-06-09 20:42:00 Test Item Value Reference Range Interpretation Comments PROCALCITONIN (PCT) (test code = < 0.05 ng/mL 0.00-0.50 N PROCAL) LACTIC [id number] 20:28:00 Test Item Value Reference Range Interpretation Comments LACTIC ACID (test code = LACT) 1.5 MMOL/L 0.5-2.2 N ARTERIAL BLOOD [id number] 20:27:00 Test Item Value Reference Range Interpretation Comments ARTERIAL BLOOD GAS PH 7.32 7.35-7.45 L (test code = PHA) ARTERIAL BLOOD GAS PCO2 56.9 mmHg 35.0-45.0 HH (test code = PCO2A) ARTERIAL BLOOD GAS PO2 103.9 mmHg 80.0-100.0 H (test code = PO2A) BICARBONATE TOTAL HCO3 28.6 mmol/L 20.0-26.0 H (test code = HCO3) BASE EXCESS (test code = 1.3 mmol/L -3.0-3.0 N CHALINO) ABG O2 SATURATION (test 97.0 % 95-100 N code = SATA) ABG TYPE (test code = Arterial TYPEA) FIO2 (test code = FIO2A) 45.0 % MODE (test code = MODE) VENT-AC ABG PATIENT RESP RATE 0 /MIN (test code = RRPATA) ABG VENT RESP RATE (test 16.0 /MIN code = RRA) ABG TIDAL VOLUME (test 550.0 ml code = TVA) ABG PEEP (test code = 5.0 cmH2O PEEPA) ABG TEMPERATURE (test code 98.6 F = TEMPA) GERALDO TEST (test code = Yes ALN) ABG SITE (test code = RR SITEA) TOTAL HGB (test code = 13.9 G/DL 13.0-18.0 N THB) OXYHEMOGLOBIN (test code = 96.3 % 92.0-98.0 N OOHGBT) CARBOXYHEMOGLOBIN (test 0.4 % 0.5-1.5 L code = HOHGBT) METHEMOGLOBIN (test code = 0.3 % 0.4-1.5 L METHGB) CV CALL BG (test code = Called Resu lts called CVCBG) to and read [facility] k by KALYNRNat 19:23 - 06/09/2018; by CARMINE SUTHERLAND [id number] 20:24:00 Test Item Value Reference Range Interpretation Comments AMMONIA (test code = 10 UMOL/L 11-35 L Results of this assay AMM) method may be f alsely depressed orele vated if patient is taki ng sulfasalazine. - CT HEAD/BRAIN W/O [id number] 18:01:00 Patient Name: ANTONINO CHOI Unit No: [id number] EXAMS: CPT CODE: [id number] CT HEAD/BRAIN W/O CONT 67985 Reason: head trauma EXAM: - CT C-SPINE W/O CONT, - CT HEAD/BRAIN W/O CONT REASON FOR EXAM: r/o fx COMPARISON: None. Techniques: Axialimages of CT head and CT cervical spine the performed without contrast. Coronal and sagittal cervical spine reformation images obtained. FINDINGS: CT head: There is prominence of ventricles and cortical sulci. There is no abnormal intra-axial attenuation. Normal variant megacisterna magna identified. No hematoma seen. There is no masslesion or midline shift. Mucosal thickening of ethmoid air cells and maxillary sinuses identified. Slight deformity of nasal bones identified without adjacent soft tissue swelling, possibly due to prior injury. Endotracheal tube and endogastric tube identified. The rest of the orbits, paranasal sinuses, mastoid air cells and skull are normal. CT cervical spine: 7 nonrib-bearing cervical vertebrae seen. Slight reversal of normal lordotic cervical curvature with apex at C6 level seen. Mild to moderate endplate spurs of middle to lower thoracic spine seen. No acute fracture or spondylolisthesis is identified. Mild to moderate disc space narrowing of middle to lower cervical spine seen. Intervertebral disc height is maintained at upper cervical spine. Disc osteophyte formation of cervical spine producing mild spinal stenosis identified, especially of lower cervical spine at C5-C6 level and C6-C7 level. Bony neural foraminal stenosis identified bilaterally, in volving middle to lower cervical spine, most prominent involving bilateral C6 and C7 neural foramina to severe degree at left C7 neural foramina. Cervical spinal cord is normal. Endotracheal tube and endogastric tube identified. Vascular calcifications seen. Spiculated scars of lung apices identified. Coronal and sagittal reformation images confirm above findings. IMPRESSION: Chronic findings as detailed above. No acute injury seen. [place] [place] NAME: ANTONINO CHOI [address] PHYS: Jennifer Carcamo [facility],[place] [address] : 11/04/1959 AGE: 58 SEX: M LOC: ELEAZAR 2 PHONE #: [phone] EXAM DATE: 06/09/2018 STATUS: ADM IN FAX #: RAD NO: DC Dt:PAGE 1 Signed Report (CONTINUED) Patient Name: ANTONINO CHOI Unit No: [id number] EXAMS: CPT CODE: [id number] CT HEAD/BRAIN W/O CONT [id number] <Continued> Reason: head trauma ElectronicallySigned by Haylie Vallejo MD on 06/09/2018 at 1801 Reported and signed by: Haylie Vallejo MD CC: Jennifer Flynn DO Technologist: Zev Powell CT; Kike Velasquez CT Trscrpt Dt/ ([email or web address] [facility] NAME: ANTONINO CHOI [address] PH[address]: LISA FlynnJennifer [place] [id number] : 11/04/1959 AGE: 58 SEX: M LOC: ELEAZAR Mao PHONE #: [phone] EXAM DATE: 06/09/2018 STATUS: ADM IN FAX #: RAD NO: DC Dt: PAGE 2 Signed Report- CT C-SPINE W/O [id number] 18:01:00 Patient Name: ANTONINO CHOI Unit No: [id number] EXAMS: CPT CODE: [id number] CT C-SPINE W/O CONT 23471 Reason: r/o fx EXAM: - CT C-SPINE W/O CONT, - CT HEAD/BRAIN W/O CONT REASON FOR EXAM: r/o fx COMPARISON: None. Techniques: Axialimages of CT head and CT cervical spine the performed without contrast. Coronal and sagittal cervical spine reformation images obtained. FINDINGS: CT head: There is prominence of ventricles and cortical sulci. There is no abnormal intra-axial attenuation. Normal variant megacisterna magna identified. No hematoma seen. There is no mass lesion or midline shift. Mucosal thickening of ethmoid air cells and maxillary sinuses identified. Slight deformity of nasal bones identified without adjacent soft tissue swelling, possibly due to prior injury. Endotracheal tube and endogastric tube identified. The rest of the orbits, paranasal sinuses, mastoid air cells and skull are normal. CT cervical spine: 7 nonrib-bearing cervical vertebrae seen. Slight reversal of normal lordoticcervical curvature with apex at C6 level seen. Mild to moderate endplate spurs of middle to lower thoracic spine seen. No acute fracture or spondylolisthesis is identified. Mild to moderate disc space narrowing of middle to lower cervical spine seen. Intervertebral discheight is maintained at upper cervical spine. Disc osteophyte formation of cervical spine producing mild spinal stenosis identified, especially of lower cervical spine at C5-C6 level and C6-C7 level. Bony neural foraminal stenosis identified bilaterally, involving middle to lower cervical spine, most prominent involving bilateral C6 and C7 neural foramina to severe degree at left C7 neural foramina. Cervical spinal cord is normal. Endotracheal tube and endogastric tube identified. Vascular calcifications seen. Spiculated scars of lung apices identified. Coronal and sagittal reformation images confirm above findings. IMPRESSION: Chronic findings as detailed above. No acute injury seen. [place] [place] NAME: ANTONINO CHOI [address] PHYS: [place] [address] : 11/04/1959 AGE: 58 SEX: M LOC: ELEAZAR 2 PHONE #: [phone] EXAM DATE: 06/09/2018 STATUS: ADM IN FAX #: RAD NO: DC Dt:PAGE 1 Signed Report (CONTINUED) Patient Name: ANTONINO CHOI Unit No: [id number] EXAMS: CPT CODE: [id number] CT C-SPINE W/O CONT [id number] <Continued> Reason:r/o fx ElectronicallySigned by Haylie Vallejo MD on 06/09/2018 at 1801 Reported and signed by: Haylie Vallejo MD CC: Jennifer Flynn DO Technologist: Zev Powell CT; Kike Velasquez CT Trscrpt Dt/ ([email or web address] [facility] [place] NAME: ANTONINO CHOI [address] PHYS: LISA Ordoñez FlynnJennifer,[place] [address] : 11/04/1959 AGE: 58 SEX: M LOC: FRANCISMariam 2 PHONE #: [phone] EXAM DATE: 06/09/2018 STATUS: ADM IN FAX #: RAD NO: DC Dt: PAGE 2 Signed ReportCOMPREHENSIVE METABOLIC PANEL 2018-06-09 17:33:00 Test Item Value Reference Range Interpretation Comments SODIUM (test code = 137 MMOL/L 133-145 N NA) POTASSIUM (test code = 4.3 MMOL/L 3.6-5.2 N K) CHLORIDE (test code = 98 MMOL/L 100-108 L CL) CARBON DIOXIDE (test 27 MMOL/L 22-32 N code = CO2) GLUCOSE (test code = 273 MG/DL 65-99 H Results of this GLU) assay method ma y be falsely depress ed orelevated if patient is taki ng sulfasalazine. BLOOD UREA NITROGEN 13 MG/DL 6-20 N (test code = BUN) GLOMERULAR FILTRATION 83 56-130 N Report ing units: RATE (test code = GFR) mL/mi n/1.73m\\S\\2 (Modified MDRD Formula) CREATININE (test code 0.93 MG/DL 0.60-1.00 N = CREAT) TOTAL PROTEIN (test 7.2 G/DL 6.4-8.2 N code = PROT) ALBUMIN (test code = 3.5 G/DL 3.4-5.0 N ALB) GLOBULIN (test code = 3.7 G/DL 1.5-3.8 N GLOB) ALBUMIN/GLOBULIN RATIO 0.9 1.1-2.2 L (test code = A/G) CALCIUM (test code = 9.2 MG/DL 8.7-10.5 N CA) BILIRUBIN TOTAL (test 0.6 MG/DL 0.0-1.0 N code = BILT) SGOT/AST (test code = 45 Units/L 15-37 H Result s of this AST) assay method ma y be falsely depress ed orelevated if patient is taki ng sulfasalazine. SGPT/ALT (test code = 53 Units/L 30-65 N Result s of this ALT) assay method ma y be falsely depress ed orelevated if patient is taki ng sulfasalazine. ALKALINE PHOSPHATASE 106 Units/L 50-136 N TOTAL (test code = ALKP) [id number] 17:33:00 Test Item Value Reference Range Interpretation Comments MAGNESIUM (test code = MAG) 2.0 MG/DL 1.8-2.4 N NT PRO-BRAIN NATRIURETIC [id number] 17:33:00 Test Item Value Reference Range Interpretation Comments NT PRO-BRAIN 53 PG/ML 0-125 N Results of this assay NATRIURETIC PEPTI (test meth od may be falsely code = PROBNP) depressed ore levated if patient is t aking high doses of B iotin. [id number] 17:33:00 Test Item Value Reference Range Interpretation Comments ACETAMINOPHEN (test < 1 MCG/ML 10-30 L Acetamin ophen is code = ACET) possibly toxic at levels of: 1. m ore than 150 MCG/ML 4 hours post dinorah stion. 2. more than 5 0 MCG/ML 12 hours post ingestion. [id number] 17:33:00 Test Item Value Reference Range Interpretation Comments SALICYLATE (test code = < 3 MG/DL 0-20 N Refe rence Range: LOGAN) Analgesic...... ...... ...... < 10 mg /dl Therapeutic.... ...... ...... 15-20 mg /dl Mild Toxicity....... ...... . > 30 mg/dl Severe Toxicity....... ..... > 60 mg/dl [id number] 17:33:00 Test Item Value Reference Range Interpretation Comments ALCOHOL (test code = < 3 MG/DL 0-10 N 0 - 10: Should be ALC) interpreted as NEGATIVE. 11 - 50: None to mild euphoria. 51 - 100: Mild influence on vision and dark adapta tion. > 80: Legal intoxication; D epression of [employer] OFFICE MANAGER; Increasing degr ee of poisoning. > 400: Fatalities repo rted. Results are for medical purposes only a nd not forlegal or emp loyment evaluative purp oses. DRUG OF ABUSE SCREEN [id number] 17:01:00 Test Item Value Reference Interpretation Comments Range UR COCAINE (test NEGATIVE NEGATIVE code = COCAU) UR MDMA (test code = NEGATIVE NEGATIVE MDMAQLU) UR CANNABINOIDS NEGATIVE NEGATIVE (test code = CANU) UR AMPHETAMINE (test NEGATIVE NEGATIVE code = AMPHU) UR BARBITURATE QUAL NEGATIVE NEGATIVE (test code = BARBQLU) UR BENZODIAZEPINE POSITIVE NEGATIVE A If confirm atory testing (test code = BENZU) required , contact laboratory. UR OPIATES QUAL NEGATIVE NEGATIVE (test code = OPIAQLU) UR PHENCYCLIDINE NEGATIVE NEGATIVE Urine Drug Abuse Screen (PCP) (test code = provides preliminary PHENCU) results thatmay be confirmed by bettie benoit methods (i.e., GC/MS) at [facility]. Results of scre en may not be usedin crimi nal justice, job performance or professionalcre dential review, or infa nt custody issues. Negativ e [place] Level ng/ml ------- ----- Cocaine 300 Methamp hetamine (Ecstacy) 500 Cannabinoids (THC) 50 Amphetamine 1000 Barbiturate s 200 Benzodia zepines 200 Opiat es 300 Ph encyclidine (PCP) 25 UA RFLX MICROSCOPIC [id number] 16:57:00 Test Item Value Reference Range Interpretation Comments UA COLOR (test code = COLU) YELLOW YELLOW UA APPEARANCE (test code = HAZY CLEAR APPU) UA GLUCOSE DIPSTICK (test 1000 mg/dL NEGATIVE A code = DGLUU) UA BILIRUBIN DIPSTICK (test NEGATIVE NEGATIVE code = BILU) UA KETONE DIPSTICK (test 15 mg/dL NEGATIVE A code = KETU) UA SPECIFIC GRAVITY (test 1.025 1.001-1.035 N code = SGU) UA BLOOD DIPSTICK (test code 2+ NEGATIVE A = ESTHER) UA PH DIPSTICK (test code = 5.0 5.5-7.0 L ROMINA) UA PROTEIN DIPSTICK (test 75 mg/dL NEGATIVE A code = PROU) UA UROBILINOGEN DIPSTICK NORMAL mg/dL NORMAL (test code = URO) UA NITRITE DIPSTICK (test NEGATIVE NEGATIVE code = OSCAR) UA LEUKOCYTE ESTERASE NEGATIVE NEGATIVE DIPSTICK (test code = LEUU) UA COMMENT (test code = VOLUME 10-12 ML COMU) URINE SPECIMEN DESCRIPTION Clean Catch (test code = UASPEC) UA WBC (test code = WBCU) < 10 #/hpf <10 UA SQUAMOUS CELLS (test code 0 - 20 #/lpf <100 = SQU) UA CULTURE NEEDED? (test Criteria not met code = UACULT) UA [id number] 16:57:00 Test Item Value Reference Range Interpretation Comments UA RBC (test code = 0-2 #/hpf NONE SEEN A RBCU) UA BACTERIA (test code = FEW #/hpf NONE SEEN A BACU) UA AMORPHOUS SEDIMENT Mod Amorph urates None seen (test code = AMORU) #/lpf LACTIC ACID [id number] 16:45:00 Test Item Value Reference Range Interpretation Comments LACTIC ACID POC 11.33 MMOL/L 0.90-1.70 HH Performed by certified (test code = LACTP) 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 [facility] UA RFLX MICROSCOPIC [id number] 16:43:00 Test Item Value Reference Range Interpretation Comments UA COLOR (test code = COLU) YELLOW YELLOW UA APPEARANCE (test code = HAZY CLEAR APPU) UA GLUCOSE DIPSTICK (test 1000 mg/dL NEGATIVE A code = DGLUU) UA BILIRUBIN DIPSTICK (test NEGATIVE NEGATIVE code = BILU) UA KETONE DIPSTICK (test code 15 mg/dL NEGATIVE A = KETU) UA SPECIFIC GRAVITY (test 1.025 1.001-1.035 N code = SGU) UA BLOOD DIPSTICK (test code 2+ NEGATIVE A = ESTHER) UA PH DIPSTICK (test code = 5.0 5.5-7.0 L ROMINA) UA PROTEIN DIPSTICK (test 75 mg/dL NEGATIVE A code = PROU) UA UROBILINOGEN DIPSTICK NORMAL mg/dL NORMAL (test code = URO) UA NITRITE DIPSTICK (test NEGATIVE NEGATIVE code = OSCAR) UA LEUKOCYTE ESTERASE NEGATIVE NEGATIVE DIPSTICK (test code = LEUU) UA COMMENT (test code = COMU) VOLUME 10-12 ML URINE SPECIMEN DESCRIPTION Clean Catch (test code = UASPEC) UA WBC (test code = WBCU) #/hpf <10 UA SQUAMOUS CELLS (test code #/lpf <100 = SQU) UA CULTURE NEEDED? (test code = UACULT) UA [id number] 16:43:00 Test Item Value Reference Range Interpretation Comments UA RBC (test code = RBCU) #/hpf NONE SEEN UA RFLX MICROSCOPIC [id number] 16:43:00 Test Item Value Reference Range Interpretation Comments UA COLOR (test code = COLU) YELLOW YELLOW UA APPEARANCE (test code = HAZY CLEAR APPU) UA GLUCOSE DIPSTICK (test 1000 mg/dL NEGATIVE A code = DGLUU) UA BILIRUBIN DIPSTICK (test NEGATIVE NEGATIVE code = BILU) UA KETONE DIPSTICK (test code 15 mg/dL NEGATIVE A = KETU) UA SPECIFIC GRAVITY (test 1.025 1.001-1.035 N code = SGU) UA BLOOD DIPSTICK (test code 2+ NEGATIVE A = ESTHER) UA PH DIPSTICK (test code = 5.0 5.5-7.0 L ROMINA) UA PROTEIN DIPSTICK (test 75 mg/dL NEGATIVE A code = PROU) UA UROBILINOGEN DIPSTICK NORMAL mg/dL NORMAL (test code = URO) UA NITRITE DIPSTICK (test NEGATIVE NEGATIVE code = OSCAR) UA LEUKOCYTE ESTERASE NEGATIVE NEGATIVE DIPSTICK (test code = LEUU) UA COMMENT (test code = COMU) VOLUME 10-12 ML URINE SPECIMEN DESCRIPTION Clean Catch (test code = UASPEC) UA WBC (test code = WBCU) #/hpf <10 UA SQUAMOUS CELLS (test code #/lpf <100 = SQU) UA CULTURE NEEDED? (test code = UACULT) UA [id number] 16:43:00 Test Item Value Reference Range Interpretation Comments UA RBC (test code = RBCU) #/hpf NONE SEEN CBC W/AUTO [id number] 16:37:00 Test Item Value Reference Range Interpretation Comments WHITE BLOOD CELL (test code = 13.98 x10 3/uL 4.80-10.80 H WBC) RED BLOOD CELL (test code = 5.24 x10 6/uL 4.7-6.1 N RBC) HEMOGLOBIN (test code = HGB) 14.7 G/DL 14.0-17.0 N HEMATOCRIT (test code = HCT) 48.0 % 42-52 N MEAN CELL VOLUME (test code = 91.6 FL 80-94 N MCV) MEAN CELL HGB (test code = 28.1 PG 27-31 N MCH) MEAN CELL HGB CONCENTRATION 30.6 G/DL 33-37 L (test code = MCHC) RED CELL DISTRIBUTION WIDTH 13.4 % 11.5-14.5 N (test code = RDW) PLATELET COUNT (test code = 204 x10 3/uL 150-450 N PLT) MEAN PLATELET VOLUME (test 12.0 FL 7.4-10.4 H code = MPV) NEUTROPHIL % (test code = NT%) 58.0 % 42-86 N IMMATURE GRANULOCYTE % (test 1.1 % 0.0-2.0 N code = IG%) LYMPHOCYTE % (test code = LY%) 31.6 % 24-44 N MONOCYTE % (test code = MO%) 6.2 % 0.0-4.0 H EOSINOPHIL % (test code = EO%) 2.6 % 0.0-2.7 N BASOPHIL % (test code = BA%) 0.5 % 0.0-0.5 N NUCLEATED RBC % (test code = 0.0 % 0.0-0.0 N NRBC%) NEUTROPHIL # (test code = NT#) 8.09 x10 3/uL 1.8-7.7 H IMMATURE GRANULOCYTE # (test 0.16 x10 3/uL 0.00-0.03 H code = IG#) LYMPHOCYTE # (test code = LY#) 4.42 x10 3/uL 1.0-4.8 N MONOCYTE # (test code = MO#) 0.87 x10 3/uL 0.0-0.8 H EOSINOPHIL # (test code = EO#) 0.37 x10 3/uL 0.0-0.5 N BASOPHIL # (test code = BA#) 0.07 x10 3/uL 0.0-0.2 N NUCLEATED RBC # (test code = 0.0 X10 3/uL 0.0-0.2 N NRBC#) - XR CHEST 1 [id number] 16:20:00 Patient Name: ANTONINO CHOI Unit No: [id number] EXAMS: CPT CODE: [id number] XR CHEST 1 V [id number] Reason: intubation EXAM: - XR CHEST 1 V REASON FOR EXAM: intubation COMPARISON: None FINDINGS: AP supine portable chest x-ray at 16:02 demonstrates moderate cardiomegaly with left ventricular hypertrophy. Tortuosity of aorta seen. Mild pulmonary vascular congestion identified. Tip of endotracheal tube is 3 cm above raffi. Tip and sidehole of endogastric tube arein the stomach. Increased perihilar pulmonary markings with peribronchial cuffing seen. Curvature of upper to middle thoracic spine to right seen. IMPRESSION: Cardiomegaly with mild pulmonary vascular congestion. There may be underlying bronchitis. Proper positioning of endotracheal tube and endogastric tube. at 1620 Reported and signed by: Haylie Vallejo MD CC: Jennifer Flynn DO Technologist: Deep Jennings RT TrscrptDt/ (1620)[id number] Orig Print D/T: S: 06/09/2018 (3606) [facility] NAME: ANTONINO CHOI [id number] PHYS: Jennifer Carcamo DO [place] [address] : 11/04/1959 AGE: 58 SEX: M LOC: ELEAZAR 2 PHONE #: [phone] EXAM DATE: 06/09/2018 STATUS: ADM IN FAX #: RAD NO: DC Dt: PAGE 1 Signed ReportARTERIAL BLOOD [id number] 16:05:00 Test Item Value Reference Range Interpretation Comments ARTERIAL BLOOD GAS PH (test code 7.34 7.35-7.45 L = PHA) ARTERIAL BLOOD GAS PCO2 (test 43.4 mmHg 35.0-45.0 N code = PCO2A) ARTERIAL BLOOD GAS PO2 (test code 348.3 mmHg 80.0-100.0 H = PO2A) BICARBONATE TOTAL HCO3 (test code 22.9 mmol/L 20.0-26.0 N = HCO3) BASE EXCESS (test code = CHALINO) -2.8 mmol/L -3.0-3.0 N ABG O2 SATURATION (test code = 99.5 % 95-100 N SATA) ABG TYPE (test code = TYPEA) Arterial FIO2 (test code = FIO2A) 100.0 % MODE (test code = MODE) AC ABG PATIENT RESP RATE (test code 45.0 /MIN = RRPATA) ABG VENT RESP RATE (test code = 16.0 /MIN RRA) ABG TIDAL VOLUME (test code = 550.0 ml TVA) ABG PAT TIDAL VOLUME (test code = 1313 ml VTPAT) ABG PEEP (test code = PEEPA) 5.0 cmH2O ABG TEMPERATURE (test code = 98.6 F TEMPA) GERALDO TEST (test code = ALN) Yes ABG SITE (test code = SITEA) LR TOTAL HGB (test code = THB) 14.9 G/DL 13.0-18.0 N OXYHEMOGLOBIN (test code = 98.4 % 92.0-98.0 H OOHGBT) CARBOXYHEMOGLOBIN (test code = 0.9 % 0.5-1.5 N HOHGBT) METHEMOGLOBIN (test code = 0.2 % 0.4-1.5 L METHGB)
[2020-04-22] MEDS ORDERED: LEVETIRACETAM 500 MG/5 ML VIAL IV ONE (22:06)
[2020-04-22] MEDS ORDERED: NA CHLORIDE 0.9% 100 ML ONE (22:06)
[2020-04-22] MEDS ORDERED: NA CHLORIDE 0.9% 1,000 ML ONE (22:06)
[2020-04-22 22:11] LABS: Absolute Lymphocytes (CBC) 2.4 K/uL (0.7-4.9); Basophils % 0.7 % (0-1.3); Hematocrit 38.8 % (39.6-49.0); MPV 9.9 fL (7.6-11.3); RBC Red Blood Cell Count 4.53 M/uL (4.33-5.43)
[2020-04-22 22:15] LABS: Protime INR 1.1
[2020-04-22 22:34] LABS: ALT/SGPT 28 U/L (12-78); AST/SGOT 18 U/L (15-37); Albumin 3.4 g/dL (3.4-5.0); Alkaline Phosphatase 96 U/L (45-117); BUN Blood Urea Nitrogen 16 mg/dL (7-18); Bicarbonate 25 mmol/L (21-32); Bilirubin Direct < 0.1 mg/dL (0-0.2); Bilirubin Total 0.2 mg/dL (0.2-1.0); Glucose Level 210 mg/dL (74-106); NT PRO-BNP 36 pg/mL (<125); Potassium 3.9 mmol/L (3.5-5.1); Protein, Total 7.7 g/dL (6.4-8.2); Sodium Level 136 mmol/L (136-145); Troponin (Emerg Dept Use Only) < 0.02 ng/mL (0.0-0.045)
--- NOTE | 2020-04-22 22:34 | ER ---
Nurse's Notes [facility] Name: Andrew Wall Age: 60 yrs Sex: Male : 1960 Arrival Date: 04/22/2020 Time: 21:26 Bed 7 Private MD: Diagnosis: Epilepsy and recurrent seizures;Obesity, unspecified;Type 2 diabetes mellitus Presentation: 04/22 21:30 Chief complaint: EMS states: found on the parking lot of a grocery store active seizure rr5 note approximate 6-8 minutes. BS checked 231 mg/Dl., ativan given 2 mg/IV. patient is on post ictal stage. 21:30 Coronavirus screen: unable to complete patient is drowsy. Ebola Screen: Unable to rr5 complete the Ebola screening because:. Initial Sepsis Screen: Does the patient meet any 2 criteria? No. Patient's initial sepsis screen is negative. Does the patient have a suspected source of infection? No. Patient's initial sepsis screen is negative. Risk Assessment: Do you want to hurt yourself or someone else? Unable to obtain. Onset of symptoms was April 22, 2020. Care prior to arrival: Medication(s) given: ativan IV initiated. 22 GA, in the right hand. 21:30 Method Of Arrival: EMS: [facility] rr5 21:30 Acuity: ROSALIE 3 rr5 Historical: - Allergies: 21:41 No Known Allergies; sg - Home Meds: 21:41 metformin 1,000 mg Oral tab 1 tab 2 times per day [Active]; atorvastatin 40 mg oral tab sg 1 tab once daily [Active]; lisinopril 20 mg Oral tab 1 tab once daily [Active]; lamotrigine 100 mg oral tab 1 tab once daily [Active]; hydralazine 25 mg Oral tab 1 tab once daily PRN [Active]; prednisone 5 mg Oral tab 2 tabs once daily [Active]; - PMHx: 21:39 Diabetes - NIDDM; rr5 21:41 Diabetes - NIDDM; sg - PSHx: 21:41 None; sg - Immunization history:: Adult Immunizations unknown. - Social history:: Smoking status: unknown. - Family history:: not pertinent. Screenin:40 Abuse screen: Denies threats or abuse. Denies injuries from another. Nutritional rr5 screening: No deficits noted. Tuberculosis screening: No symptoms or risk factors identified. Fall Risk No fall in past 12 months (0 pts). Secondary diagnosis (15 points) seizures, IV access (20 points). Mental Status- Overestimates/Forgets Limitations (15 pts.). Total Flores Fall Scale indicates High Risk Score (45 or more points). Fall prevention measures have been instituted. Side Rails Up X 2 Frequent Obs/Assessments Occuring As available patient and family educated on Fall Prevention Program and Strategies. Assessment: 21:41 Reassessment: Contact number is [phone]. sg 21:42 General: Appears in no apparent distress. comfortable, Behavior is drowsy. Pain: Unable rr5 to use pain scale. Patient appears confused. Neuro: Level of Consciousness is confused, Oriented to person, place. Cardiovascular: Capillary refill < 3 seconds Patient's skin is warm and dry. Respiratory: Airway is patent Respiratory effort is even, unlabored, Respiratory pattern is regular, symmetrical. GI: Abdomen is round non-distended. : No signs and/or symptoms were reported regarding the genitourinary system. EENT: No signs and/or symptoms were reported regarding the EENT system. Derm: Skin is intact, is healthy with good turgor, Skin temperature is warm. Musculoskeletal: Capillary refill < 3 seconds. 21:59 Reassessment: patient sent to CT scan. mg2 22:55 Reassessment: Patient and/or family updated on plan of care and expected duration. Pain ea level reassessed. Pt resting with eyes closed, respirations even and unlabored, chest expansions even and symmetrical. Pt awakens with loud verbal stimulus, remains groggy oriented to person and place. 22:57 Reassessment: Family aware of pt being up for discharge, family reports they are ea looking for a ride to the hospital to pick pt up once he is less drowsy. 23:41 Reassessment: Patient and/or family updated on plan of care and expected duration. Pain ea level reassessed. Pt resting with eyes closed, respirations even and unlabored, chest expansions even and symmetrical. Awaiting on family for ride home. 04/23 00:02 Reassessment: Patient and/or family updated on plan of care and expected duration. Pain ea level reassessed. Patient is alert, oriented x 3, equal unlabored respirations, skin warm/dry/pink. Discharge instruction given to patient, verbalized the understanding of instruction. Pt left ED via wheelchair per ED staff, pt tolerating well. Family awaiting pt in lobby to take them home. Vital Signs: 04/22 21:30 BP 127 / 92; Pulse 75; Resp 19; Temp 98.3; Pulse Ox 90% on R/A; Weight 117.93 kg; rr5 Height 5 ft. 11 in. (180.34 cm); 21:40 Pulse Ox 99% on 15% Non-rebreather mask; rr5 22:57 Pulse 69; Resp 18; Pulse Ox 95% on NC; mg2 04/23 00:00 BP 120 / 87; Pulse 70; Resp 18; Temp 98; Pulse Ox 98% ; ea 04/22 21:30 Body Mass Index 36.26 (117.93 kg, 180.34 cm) rr5 Edgard Coma Score: 04/22 21:40 Eye Response: spontaneous(4). Verbal Response: confused(4). Motor Response: obeys rr5 commands(6). Total: 14. ED Course: 21:26 Patient arrived in ED. mw2 21:38 Triage completed. rr5 21:40 Arm band placed on right wrist. rr5 21:40 Maintain EMS IV. Dressing intact. Good blood return noted. Site clean \T\ dry. Gauge \T\ rr 5 site: G22 right hand. 21:41 Patient has correct armband on for positive identification. Bed in low position. Call rr5 light in reach. Side rails up X2. Seizure precautions initiated. cafeteria monitor on. Pulse ox on. NIBP on. 21:45 Mango Martin RN is Primary Nurse. mg2 21:47 Donta Cunningham MD is Attending Physician. manuela 04/23 00:04 IV discontinued, intact, bleeding controlled, No redness/swelling at site. Pressure ea dressing applied. 00:05 No provider procedures requiring assistance completed. ea Administered Medications: 04/22 21:59 Drug: Keppra 1000 mg Route: IV; Rate: per protocol; Site: right hand; mg2 22:54 Follow up: Response: No adverse reaction; IV Status: Completed infusion mg2 21:59 Drug: NS 0.9% 1000 ml Route: IV; Rate: 125 ml/hr; Site: right hand; mg2 22:48 Drug: LaMICtal 100 mg Route: PO; mg2 22:54 Follow up: Response: No adverse reaction mg2 Outcome: 22:33 Discharge ordered by . manuela 04/23 00:02 Patient left the ED. lee ann 00:05 Discharged to home via wheelchair, with family. monroe 00:05 Condition: stable 00:05 Discharge instructions given to patient, Instructed on discharge instructions, follow up and referral plans. medication usage, Demonstrated understanding of instructions, follow-up care, medications, Prescriptions given X 2. Signatures: Rubio Bravo, RN RN Donta Haile MD MD cha Antunez, Elena RN RN Ashtyn Barnes mw2 Mango Martin RN RN mg2 Joao Ramirez RN RN rr5
--- NOTE | 2020-04-22 22:34 | EDPHYS ---
Physician Documentation [facility] Name: Andrew Wall Age: 60 yrs Sex: Male : 1960 Arrival Date: 04/22/2020 Time: 21:26 Bed 7 Private MD: ED Physician Donta Cunningham HPI: 04/22 22:27 This 60 yrs old Male presents to ER via EMS with complaints of Seizure. manuela 22:27 The patient presents after having a single isolated seizure, that lasted an unknown manuela period of time. Character of seizure(s): Loss of consciousness: the patient experienced loss of consciousness, Motor activity: the motor activity is unknown, Incontinence: none, Apnea: the patient did not experience apnea, Circulation: the patient did not experience evidence of pulse disturbance. Seizure onset: just prior to arrival. Context: in parking lot. Seizure Hx: Last seizure: The patient's last seizure was approximately 6 month(s) ago. Associated injury: The patient did not suffer any apparent associated injury. EMS care: Ativan, IV, IM. Current symptoms: confusion. The patient has experienced similar episodes in the past, several times. Historical: - Allergies: 21:41 No Known Allergies; sg - Home Meds: 21:41 metformin 1,000 mg Oral tab 1 tab 2 times per day [Active]; atorvastatin 40 mg oral tab sg 1 tab once daily [Active]; lisinopril 20 mg Oral tab 1 tab once daily [Active]; lamotrigine 100 mg oral tab 1 tab once daily [Active]; hydralazine 25 mg Oral tab 1 tab once daily PRN [Active]; prednisone 5 mg Oral tab 2 tabs once daily [Active]; - PMHx: 21:39 Diabetes - NIDDM; rr5 21:41 Diabetes - NIDDM; sg - PSHx: 21:41 None; sg - Immunization history:: Adult Immunizations unknown. - Social history:: Smoking status: unknown. - Family history:: not pertinent. ROS: 22:27 Constitutional: Negative for fever, chills, and weight loss, Eyes: Negative for injury, manuela pain, redness, and discharge, ENT: Negative for injury, pain, and discharge, Neck: Negative for injury, pain, and swelling, Cardiovascular: Negative for chest pain, palpitations, and edema, Respiratory: Negative for shortness of breath, cough, wheezing, and pleuritic chest pain, Abdomen/GI: Negative for abdominal pain, nausea, vomiting, diarrhea, and constipation, Back: Negative for injury and pain, : Negative for injury, bleeding, discharge, and swelling, MS/Extremity: Negative for injury and deformity, Skin: Negative for injury, rash, and discoloration, Neuro: Negative for headache, weakness, numbness, tingling, and seizure, Psych: Negative for depression, anxiety, suicide ideation, homicidal ideation, and hallucinations, Allergy/Immunology: Negative for hives, rash, and allergies, Endocrine: Negative for neck swelling, polydipsia, polyuria, polyphagia, and marked weight changes, Hematologic/Lymphatic: Negative for swollen nodes, abnormal bleeding, and unusual bruising. 22:27 Neuro: Positive for altered mental status. Exam: 22:27 Constitutional: This is a well developed, well nourished patient who is awake, alert, manuela and in no acute distress. Head/Face: Normocephalic, atraumatic. Eyes: Pupils equal round and reactive to light, extra-ocular motions intact. Lids and lashes normal. Conjunctiva and sclera are non-icteric and not injected. Cornea within normal limits. Periorbital areas with no swelling, redness, or edema. ENT: Nares patent. No nasal discharge, no septal abnormalities noted. Tympanic membranes are normal and external auditory canals are clear. Oropharynx with no redness, swelling, or masses, exudates, or evidence of obstruction, uvula midline. Mucous membranes moist. Neck: Trachea midline, no thyromegaly or masses palpated, and no cervical lymphadenopathy. Supple, full range of motion without nuchal rigidity, or vertebral point tenderness. No Meningismus. Chest/axilla: Normal chest wall appearance and motion. Nontender with no deformity. No lesions are appreciated. Cardiovascular: Regular rate and rhythm with a normal S1 and S2. No gallops, murmurs, or rubs. Normal PMI, no JVD. No pulse deficits. Respiratory: Lungs have equal breath sounds bilaterally, clear to auscultation and percussion. No rales, rhonchi or wheezes noted. No increased work of breathing, no retractions or nasal flaring. Abdomen/GI: Soft, non-tender, with normal bowel sounds. No distension or tympany. No guarding or rebound. No evidence of tenderness throughout. Back: No spinal tenderness. No costovertebral tenderness. Full range of motion. Male : Normal genitalia with no discharge or lesions. Skin: Warm, dry with normal turgor. Normal color with no rashes, no lesions, and no evidence of cellulitis. MS/ Extremity: Pulses equal, no cyanosis. Neurovascular intact. Full, normal range of motion. Neuro: Awake and alert, GCS 15, oriented to person, place, time, and situation. Cranial nerves II-XII grossly intact. Motor strength 5/5 in all extremities. Sensory grossly intact. Cerebellar exam normal. Normal gait. Psych: Awake, alert, with orientation to person, place and time. Behavior, mood, and affect are within normal limits. 22:35 ECG was reviewed by the Attending Physician. manuela Vital Signs: 21:30 BP 127 / 92; Pulse 75; Resp 19; Temp 98.3; Pulse Ox 90% on R/A; Weight 117.93 kg; rr5 Height 5 ft. 11 in. (180.34 cm); 21:40 Pulse Ox 99% on 15% Non-rebreather mask; rr5 22:57 Pulse 69; Resp 18; Pulse Ox 95% on NC; mg2 04/23 00:00 BP 120 / 87; Pulse 70; Resp 18; Temp 98; Pulse Ox 98% ; ea 04/22 21:30 Body Mass Index 36.26 (117.93 kg, 180.34 cm) rr5 Edgard Coma Score: 04/22 21:40 Eye Response: spontaneous(4). Verbal Response: confused(4). Motor Response: obeys rr5 commands(6). Total: 14. MDM: 21:47 Patient medically screened. manuela 22:31 Differential diagnosis: cerebral vascular accident, drug overdose, cardiac arrhythmia, manuela seizure, TIA. Data reviewed: vital signs, nurses notes, lab test result(s), EKG, radiologic studies, CT scan, plain films. Data interpreted: traffic monitor specialist: rate is 75 beats/min, rhythm is regular. Test interpretation: by ED physician or midlevel provider: ECG, plain radiologic studies. Counseling: I had a detailed discussion with the patient and/or guardian regarding: the historical points, exam findings, and any diagnostic results supporting the discharge/admit diagnosis, lab results, radiology results, the need for outpatient follow up, for definitive care, a family practitioner, a neurologist. 04/22 21:44 Order name: Basic Metabolic Panel [facility] 04/22 21:44 Order name: CBC with Diff [facility] 04/22 21:44 Order name: LFT's [facility] 04/22 21:44 Order name: Magnesium [facility] 04/22 21:44 Order name: NT PRO-BNP [facility] 04/22 21:44 Order name: PT-INR [facility] 04/22 21:44 Order name: Troponin (emerg Dept Use Only) [facility] 04/22 21:48 Order name: Salicylate [facility] 04/22 21:49 Order name: Acetaminophen [facility] 04/22 21:49 Order name: ETOH Level [facility] 04/22 21:49 Order name: Ptt, Activated [facility] 04/22 21:49 Order name: Salicylate [facility] 04/22 21:49 Order name: Urine Drug Screen [facility] 04/22 22:05 Order name: Glucose, Ancillary Testing; Complete Time: 22:24 EDMS 04/22 21:44 Order name: XRAY Chest (1 view) [facility] 04/22 21:49 Order name: CT Head C Spine [facility] 04/22 22:17 Order name: CBC with Automated Diff; Complete Time: 22:24 EDMS 04/22 22:17 Order name: Protime (+INR); Complete Time: 22:24 EDMS 04/22 22:17 Order name: PTT, Activated Partial Thromb; Complete Time: 22:24 EDMS 04/22 22:34 Order name: Salicylates Level; Complete Time: 22:34 EDMS 04/22 22:35 Order name: Basic Metabolic Panel; Complete Time: 22:54 EDMS 04/22 22:35 Order name: Liver (Hepatic) Function; Complete Time: 22:54 EDMS 04/22 22:35 Order name: Troponin (Emerg Dept Use Only); Complete Time: 22:54 EDMS 04/22 22:35 Order name: NT PRO-BNP; Complete Time: 22:54 EDMS 04/22 22:35 Order name: Acetaminophen Level; Complete Time: 22:54 EDMS 04/22 22:35 Order name: Magnesium; Complete Time: 22:54 EDMS 04/22 22:47 Order name: Alcohol Serum/Plasma; Complete Time: 22:54 EDMS 04/22 22:54 Order name: Urine Dipstick--Ancillary (enter results) mw2 04/22 23:25 Order name: Urine Dipstick-Ancillary [facility] 04/22 23:26 Order name: Urine Drug Screen [facility] 04/22 21:44 Order name: EKG; Complete Time: 21:46 rr5 04/22 21:44 Order name: Cardiac monitoring; Complete Time: 21:45 rr5 04/22 21:44 Order name: EKG - Nurse/Tech; Complete Time: 21:45 rr5 04/22 21:44 Order name: IV Saline Lock; Complete Time: 21:45 rr5 04/22 21:44 Order name: Labs collected and sent; Complete Time: 21:45 rr5 04/22 21:44 Order name: O2 Per Protocol; Complete Time: 21:45 rr5 04/22 21:44 Order name: O2 Sat Monitoring; Complete Time: 21:45 rr5 04/22 21:46 Order name: Blood Sugar; Complete Time: 21:46 rr5 04/22 21:46 Order name: Seizure Precautions; Complete Time: 21:46 rr5 04/22 21:49 Order name: Urine Dipstick-Ancillary (obtain specimen); Complete Time: 22:54 manuela EC:35 Rate is 71 beats/min. Rhythm is regular. QRS Beatrice is Normal. RI interval is normal. QRS manuela interval is normal. QT interval is normal. No Q waves. T waves are Normal. No ST changes noted. Clinical impression: Normal ECG, NSR w/ Non-specific ST/T Changes, and No evidence of ischemia. Interpreted by me. Reviewed by me. Administered Medications: 21:59 Drug: Keppra 1000 mg Route: IV; Rate: per protocol; Site: right hand; mg2 22:54 Follow up: Response: No adverse reaction; IV Status: Completed infusion mg2 21:59 Drug: NS 0.9% 1000 ml Route: IV; Rate: 125 ml/hr; Site: right hand; mg2 22:48 Drug: LaMICtal 100 mg Route: PO; mg2 22:54 Follow up: Response: No adverse reaction mg2 Disposition: 04/22/20 22:33 Discharged to Home. Impression: Epilepsy and recurrent seizures, Obesity, unspecified, Type 2 diabetes mellitus. - Condition is Stable. - Discharge Instructions: Obesity, Adult, Seizure, Adult, Seizure, Adult, Cxuk-go-Xpej, Obesity, Adult, Vivu-[id number]. - Prescriptions for Lamictal 100 mg Oral Tablet - take 1 tablet by ORAL route every 12 hours; 30 tablet. Keppra 750 mg Oral Tablet - take 1 tablet by ORAL route every 12 hours; 20 tablet. - Medication Reconciliation Form, Thank You Letter, Antibiotic Education, Prescription Opioid Use form. - Follow up: Private Physician; When: 2 - 3 days; Reason: Recheck today's complaints, Continuance of care, Re-evaluation by your physician. - Problem is new. - Symptoms have improved. Signatures: Dispatcher [employer] EDMS Rubio Bravo RN RN sg Anderson, Corey, MD MD cha Gardose, Michele RN CLARA [facility] [place] Joao Ramirez RN RN rr5 Corrections: (The following items were deleted from the chart) 04/23 00:02 04/22 22:33 04/22/2020 22:33 Discharged to Home. Impression: Epilepsy and recurrent sg seizures; Obesity, unspecified; Type 2 diabetes mellitus. Condition is Stable. Forms are Medication Reconciliation Form, Thank You Letter, Antibiotic Education, Prescription Opioid Use. Follow up: Private Physician; When: 2 - 3 days; Reason: Recheck today's complaints, Continuance of care, Re-evaluation by your physician. Problem is new. Symptoms have improved. manuela
[2020-04-22] MEDS ORDERED: lamoTRIgine 100 MG TAB ONE (22:49)
[2020-04-22 23:25] LABS: Urine Blood NEGATIVE (NEG); Urine Glucose NEGATIVE (NEG); Urine Protein NEGATIVE (NEG); Urine pH 5.5 (5.0-7.0)
[2020-04-22 23:26] LABS: Barbiturates NEGATIVE (NEGATIVE); Benzodiazepines NEGATIVE (NEGATIVE); Cocaine NEGATIVE (NEGATIVE); METHAMPHETAM NEGATIVE (NEGATIVE); Methadone POSITIVE (NEGATIVE); Opiates NEGATIVE (NEGATIVE); Phencyclidine NEGATIVE (NEGATIVE); THC Cannibis NEGATIVE (NEGATIVE)
[2020-04-23 00:41] VITALS: BP 127/92; TEMP 98.3
[2020-04-23 00:43] VITALS: O2SAT 95
--- NOTE | 2020-04-23 08:37 | RAD REPORT ---
EXAM DESCRIPTION: RAD - Chest Single View - 04/22/2020 10:15 pm CLINICAL HISTORY: seizure Chest pain. COMPARISON: CHEST SINGLE VIEW dated 05/28/2012; CHEST SINGLE VIEW dated 05/16/2011 FINDINGS: Portable technique limits examination quality. Mild interstitial lung opacities are present suggesting mild interstitial pulmonary edema or viral pn eumonia. The heart is mildly prominent in size. No displaced fractures.
--- NOTE | 2020-04-23 12:48 | RAD REPORT ---
EXAM DESCRIPTION: CT Head C Spine Mpr Wo Con CLINICAL HISTORY: 60 years Male PAIN TECHNIQUE: Contiguous axial CT images obtained through the brain and cervical spine without IV contr ast. Coronal and sagittal reformatted images also provided. This CT exam was performed according to our departmental dose-optimization program, which includes on e or more of the following dose reduction techniques: automated exposure control, adjustment of the m A and/or kV according to patient size, and/or use of iterative reconstruction technique. COMPARISON: No prior exams provided for comparison. FINDINGS: There is no acute skull fracture, intracranial hemorrhage, extraaxial collection, or acute transcortical infarction. The ventricles are normal in size and contour without mass effect or midli ne shift. The visualized paranasal sinuses, tympanomastoid cavities, and orbits are normal. There is no acute cervical fracture. There is mild reversal of the normal cervical lordosis without s pondylolisthesis. There is mild multilevel degenerative disc disease, uncovertebral arthrosis, and fa cet arthrosis without aggressive osseous lesion. No acute paraspinal soft tissue abnormality. The lung apices are clear. At C3-C4, there is mild left neural foraminal narrowing. At C4-C5, there is mild left neural foraminal narrowing. At C5-C6, there is mild central canal stenosis, left greater than right, with mild bilateral neural f oraminal stenosis. At C6-C7, there is moderate central canal stenosis with moderate left neural foraminal stenosis. At C7-T1, there is mild left neural foraminal stenosis. IMPRESSION: No acute intracranial abnormality. No acute cervical spine injury. Degenerative changes resulting in central canal and neural foraminal stenoses as described. Electronically signed by: Charisse Higgins MD 04/22/2020 10:46 PM [employer] Due to temporary technical issues with the PACS/Fluency reporting system, reports are being signed by the in house radiologist without review as a courtesy to ensure prompt reporting. The interpreting r adiologist is fully responsible for the content of the report.
== END 2020-04-23 00:02 | disposition home or self-care (01) ==
LOC: ER 21:22
DX: G40.802 Other epilepsy, not intractable, without status epilepticus (principal); E11.9 Type 2 diabetes mellitus without complications; E66.9 Obesity, unspecified
CPT/HCPCS: 96365; 93005; 85025; 80048; 36415; 80320; 83735; 80329 ×2; 85610; 82947; 80076; 80307 ×8; 85730; 81003; 84484; 83880; 70450; 72125; 71045; 99284; J1953; J7030

== ENCOUNTER 2020-05-21 17:34 | Emergency (ER) | payer OTHER ==
--- OUTSIDE RECORDS SUMMARY | 2020-05-21 17:44 | XMS REPORT | Continuity of Care Document ---
:1960 Author Organization [facility] t Address [address] [place] [address] Care Team Providers Name Role Phone Unavailable Unavailable Unavailable Payers Payer Name Policy Type Policy Number Effective Date Expiration Date S ource Problems This patient has no known problems. Allergies, Adverse Reactions, Alerts Allergy Allergy Status Severity Reaction(s) Onset Inactive Treating Comm ents Source Name Type Date Date Clinician No DA Active U [facility] Allergy 3-10 Corpus Informat 00:00: Deborah ion 00 [facility] Medications This patient has no known medications. Procedures This patient has no known procedures. Results Test Description Test Time Test Comments Results Result Comments Source GLUBED 2019-01-24 12:38:00 Test Item Value Reference Range Interpretation Comme nts GLUBED (test code = GLUBED) 93 MG/DL 65-99 N Performed by certified chopping machine operator at [facility] LACTIC ACID [id number] 10:55:00 Test Item Value Reference Range Interpretation Comments LACTIC ACID POC 1.16 MMOL/L 0.90-1.70 N Performed by certified (test code = LACTP) chopping machine operator at [facility] UA RFLX MICROSCOPIC [id number] 09:58:00 Test Item Value Reference Range Interpretation [...] Delirium-if no other srcURINE SOURCE: Clean CatchUA [id number] 09:58:00 Test Item Value Reference Range Interpretation Comments UA RBC (test code = RBCU) None Seen #/hpf NONE SEEN UA BACTERIA (test code = RARE #/hpf NONE SEEN BACU) Indication for culture: Delirium-if no other srcURINE SOURCE: Clean Catch DRUG OF ABUSE SCREEN [id number] 09:46:00 Test Item Value Reference Interpretation Comments [...] by al ternate methods (i.e., GC/MS) at [facility]. Results of scre en may not be usedin crimi nal justice, job performance or professionalcre dential review, or infa nt custody issues. Negativ e Locust Level ng/ml ------- ----- Cocaine 300 Methamp hetamine (Ecstacy) 500 Cannabinoids (THC) 50 Amphetamine 1000 Barbiturate s 200 Benzodia zepines 200 Opiat es 300 Ph encyclidine (PCP) 25 BASIC METABOLIC [id number] 09:46:00 Test Item Value Reference Range Interpretation [...] 9.3 MG/DL 8.7-10.5 N CA) HEPATIC FUNCTION [id number] 09:46:00 Test Item Value Reference Range Interpretation [...] 50-136 N TOTAL (test code = ALKP) [id number] 09:46:00 Test Item Value Reference Range Interpretation Comments LIPASE (test code = LIP) 116 Units/L 73-393 N [id number] 09:46:00 Test Item Value Reference Range Interpretation Comments CK (test code = CKT) 88 Units/L 39-308 N [id number] 09:46:00 Test Item Value Reference Range Interpretation Comments ALCOHOL (test code = < 3 MG/DL 0-10 N 0 - 10: Should be ALC) interpreted as NEGATIVE. 11 - 50: None to mild euphoria. 51 - 100: Mild influence on vision and dark adapta tion. > 80: Legal intoxication; D epression of SEARCH ENGINEER; Increasing degr ee of poisoning. > 400: Fatalities repo rted. Results are for medical purposes only a nd not forlegal or emp loyment evaluative purp oses. PROTHROMBIN [id number] 09:42:00 Test Item Value Reference Range Interpretation [...] with flex-stent *: 3.0 - 4.0(*) = wild animal caretaker's suggested range Is patient on anticoagulants? UnknownTHROMBOPLASTIN TIME [id number] 09:42:00 Test Item Value Reference Range Interpretation Comments THROMBOPLASTIN TIME 32.6 SECONDS 22.5-35.3 N *Therap eutic level PARTIAL (test code = for hep amalia: 1.5 - PTT) 2.5 times the average patient value of 30.0 seconds. The aP TT tet should not be used to evaluat e low moleculat weigh t heparin anticoagulant therapy. Is patient on anticoagulants? Unknown- CT HEAD/BRAIN W/O [id number] 09:35:00 Patient Name: ANTONINO ROTHMAN Unit No: [id number] EXAMS: CPT CODE: [id number] CT HEAD/BRAIN W/O CONT 55357 Reason: AMS, seizure? - CT HEAD/BRAIN W/O [...] and signed by: Stephen Thayer MD CC: Juaniot Russo MD; Tomi Brown DO Technologist:Halina BERGER Trscrpt Dt/ (934)KarlosMK41 Orig Print D/T: S: 01/24/2019 (0938) CTDI: DLP: [facility] NAME: ANTONINO ROTHMAN [address] PHYS: [place] [address] : 1960 AGE: 59 SEX: M LOC: MENDO[place] PHONE #: [phone] EXAM DATE: 01/24/2019 STATUS: REG ER FAX #: RAD NO: DC Dt: PAGE 1 Signed ReportUA RFLX MICROSCOPIC [id number] 09:32:00 Test Item Value Reference Range Interpretation [...] Delirium-if no other srcURINE SOURCE: Clean CatchUA [id number] 09:32:00 Test Item Value Reference Range Interpretation Comments UA RBC (test code = RBCU) #/hpf NONE SEEN Indication for culture: Delirium-if no other srcURINE SOURCE: Clean CatchUA RFLX MICROSCOPIC [id number] 09:32:00 Test Item Value Reference Range Interpretation [...] Delirium-if no other srcURINE SOURCE: Clean CatchUA [id number] 09:32:00 Test Item Value Reference Range Interpretation Comments UA RBC (test code = RBCU) #/hpf NONE SEEN Indication for culture: Delirium-if no other srcURINE SOURCE: Clean CatchCBC W/AUTO [id number] 09:30:00 Test Item Value Reference Range Interpretation [...] X10 3/uL 0.0-0.2 N NRBC#) TROPONIN I [id number] 09:28:00 Test Item Value Reference Range Interpretation Comments TROPONIN I RAPID 0.03 NG/ML 0.00-0.08 N Performed b y certified (test code = chopping machine operator at [facility]) [facility] - The use of serial sampl ing and testing protoco l is a recommended pra ctice.- An elevated tro ponin level alone is often not sufficient for diagnosis of my ocardial infarction. LACTIC ACID [id number] 09:23:00 Test Item Value Reference Range Interpretation Comments LACTIC ACID POC 6.21 MMOL/L 0.90-1.70 HH Performed by certified (test code = LACTP) chopping machine operator at [facility] METHADONE [id number] 07:13:00 Test Item Value Reference Range Interpretation [...] have recommended lev els of 100 ng/mL dz9492 ng /mL. However these levels ca n have an adverse impacto n drug naive individuals.Per formed At: [facility] Dov [id number] [facility] [place] [id number] Last QUEZADA Ph:[phone] - XR CHEST 1 [id number] 07:47:00 Patient Name: ANTONINO ROTHMAN Unit No: [id number] EXAMS: CPT CODE: [id number] XR CHEST 1 V 11626 Reason: intubated - XR CHEST 1 V [...] ManuelMK41 Orig Print D/T: S: 11/28/2018 (0751) [facility] NAME: ANTONINO ROTHMAN [address] PHYS: Renard Croft DO [address] [place] [address] : 1960 AGE: 58 SEX: M LOC: D.Y307 1 PHONE #: [phone] EXAM DATE: 11/28/2018 STATUS: ADM IN FAX #: RAD NO: DC Dt: PAGE 1 Signed ReportGLUBED 2018-11-28 06:32:00 Test Item Value Reference Range Interpretation Comments GLUBED (test code = 136 MG/DL 65-99 H Performe d by certified GLUBED) chopping machine operator at [facility] PROCALCITONIN (PCT)2018-11-28 06:01:00 Test Item Value Reference Range Interpretation Comments PROCALCITONIN (PCT) (test code = < 0.05 ng/mL 0.00-0.50 N PROCAL) COMPREHENSIVE METABOLIC [id number] 05:03:00 Test Item Value Reference Range Interpretation [...] 50-136 N TOTAL (test code = ALKP) [id number] 05:03:00 Test Item Value Reference Range Interpretation Comments MAGNESIUM (test code = MAG) 1.7 MG/DL 1.8-2.4 L ARTERIAL BLOOD [id number] 04:45:00 Test Item Value Reference Range Interpretation [...] 0.3 % 0.4-1.5 L METHGB) CBC W/AUTO [id number] 04:02:00 Test Item Value Reference Range Interpretation [...] = 0.0 X10 3/uL 0.0-0.2 N NRBC#) [id number] 21:12:00 Test Item Value Reference Range Interpretation Comments GLUBED (test code = 89 MG/DL 65-99 N Performe d by certified GLUBED) chopping machine operator at [facility] [id number] 16:41:00 Test Item Value Reference Range Interpretation Comments GLUBED (test code = 175 MG/DL 65-99 H Performe d by certified GLUBED) chopping machine operator at [facility] - XR CHEST 1 [id number] 06:25:00 Patient Name: ANTONINO ROTHMAN Unit No: [id number] EXAMS: CPT CODE: [id number] XR CHEST 1 V 99178 Reason: intubated EXAM: XR Chest, 1 View [...] (624)VRAD.VR Orig Print D/T: S: 11/27/2018 (624) [facility] NAME: PREETI ROTHMAN NIKO [address] [facility] PHYS: Renard Croft DO [address] [place] [address] : 1960 AGE: 58 SEX: M LOC: D.HCV 3 PHONE #: [phone] EXAM DATE: 11/27/2018 STATUS: ADM IN FAX #: RAD NO: DC Dt: PAGE 1 Signed ReportCBC W/AUTO [id number] 04:56:00 Test Item Value Reference Range Interpretation [...] X10 3/uL 0.0-0.2 N NRBC#) COMPREHENSIVE METABOLIC [id number] 04:44:00 Test Item Value Reference Range Interpretation [...] TOTAL (test code = ALKP) ARTERIAL BLOOD [id number] 04:25:00 Test Item Value Reference Range Interpretation [...] 0.0 % 0.4-1.5 L METHGB) CBC W/AUTO [id number] 17:12:00 Test Item Value Reference Range Interpretation [...] X10 3/uL 0.0-0.2 N NRBC#) ARTERIAL BLOOD [id number] 13:42:00 Test Item Value Reference Range Interpretation [...] 0.3 % 0.4-1.5 L METHGB) ARTERIAL BLOOD [id number] 09:55:00 Test Item Value Reference Range Interpretation [...] 0.3 % 0.4-1.5 L METHGB) COMPREHENSIVE METABOLIC [id number] 06:36:00 Test Item Value Reference Range Interpretation [...] code = ALKP) - XR CHEST 1 [id number] 06:15:00 Patient Name: ANTONINO ROTHMAN Unit No: [id number] EXAMS: CPT CODE: [id number] XR CHEST 1 V 18178 Reason: intubated EXAM: XR Chest, 1 View [...] DO Technologist: Chu Segura RT Trscrpt Dt/ (614)JOE.VR Orig Print D/T: S: 11/26/2018 (614) [facility] NAME: ANTONINO ROTHMAN [address]: Renard Croft DO [place] [address] : 1960 AGE: 58 SEX: M LOC: D.HCV 3 PHONE #: [phone] EXAM DATE: 11/26/2018 STATUS: ADM IN FAX [...] L = METHGB) - CT HEAD/BRAIN W/O [id number] 17:00:00 Patient Name: ANTONINO ROTHMAN Unit No: [id number] EXAMS: CPT CODE: [id number] CT HEAD/BRAIN W/O CONT 48166 Reason: altered mental status COMPARISON: Previous head [...] Florian RT; Jagdeep Bob CT Trscrpt Dt/ (4015)More.CG44 Orig Print D/T: S: 11/25/2018 (6494) CTDI: DLP: [facility] NAME: ANTONINO ROTHMAN [address] PHYS: [email or web address] - [place] [address] : 1960 AGE: 58 SEX: M LOC: GANESH PHONE #: [phone] EXAM DATE: 11/25/2018 STATUS: REG ER FAX #: RAD NO: DC Dt: PAGE 1 Signed ReportTROPONIN I [id number] 16:26:00 Test Item Value Reference Range Interpretation Comments TROPONIN I RAPID 0.02 NG/ML 0.00-0.08 N Performed b y certified (test code = chopping machine operator at [facility] TROPIRAP) - The use of s erial sampling and te sting protocol is a recommended pra ctice.- An elevated tro ponin level alone is often not sufficient for diagnosis of my ocardial infarction. LACTIC ACID [id number] 16:20:00 Test Item Value Reference Range Interpretation Comments LACTIC ACID POC 2.37 MMOL/L 0.90-1.70 H Performed by certified (test code = LACTP) chopping machine operator at [facility] BASIC METABOLIC [id number] 15:17:00 Test Item Value Reference Range Interpretation [...] 9.2 MG/DL 8.7-10.5 N CA) HEPATIC FUNCTION [id number] 15:17:00 Test Item Value Reference Range Interpretation [...] 50-136 N TOTAL (test code = ALKP) [id number] 15:17:00 Test Item Value Reference Range Interpretation Comments LIPASE (test code = LIP) 229 Units/L 73-393 N THYROID STIMULATING [id number] 15:17:00 Test Item Value Reference Range Interpretation Comments THYROID STIMULATING 2.74 0.42-5.47 N Micro-In ternational HORMONE (test code = TSH) Un its/LResults of this assay method ma y be falsely depress ed orelevated if p atient is taking high doses of Biotin. [id number] 15:17:00 Test Item Value Reference Range Interpretation Comments CK (test code = CKT) 142 Units/L 39-308 N [id number] 15:17:00 Test Item Value Reference Range Interpretation Comments ACETAMINOPHEN (test < 1 MCG/ML 10-30 L Acetamin ophen is code = ACET) possibly toxic at levels of: 1. m ore than 150 MCG/ML 4 hours post dinorah stion. 2. more than 5 0 MCG/ML 12 hours post ingestion. [id number] 15:17:00 Test Item Value Reference Range Interpretation Comments SALICYLATE (test code = < 3 MG/DL 0-20 N Refe rence Range: LOGAN) Analgesic...... ...... ...... < 10 mg /dl Therapeutic.... ...... ...... 15-20 mg /dl Mild Toxicity....... ...... . > 30 mg/dl Severe Toxicity....... ..... > 60 mg/dl [id number] 15:17:00 Test Item Value Reference Range Interpretation Comments ALCOHOL (test code = < 3 MG/DL 0-10 N 0 - 10: Should be ALC) interpreted as NEGATIVE. 11 - 50: None to mild euphoria. 51 - 100: Mild influence on vision and dark adapta tion. > 80: Legal intoxication; D epression of SEARCH ENGINEER; Increasing degr ee of poisoning. > 400: Fatalities repo rted. Results are for medical purposes only a nd not forlegal or emp loyment evaluative purp oses. BASIC METABOLIC [id number] 15:11:00 Test Item Value Reference Range Interpretation [...] 9.2 MG/DL 8.7-10.5 N CA) HEPATIC FUNCTION [id number] 15:11:00 Test Item Value Reference Range Interpretation [...] 50-136 N TOTAL (test code = ALKP) [id number] 15:11:00 Test Item Value Reference Range Interpretation Comments LIPASE (test code = LIP) 229 Units/L 73-393 N THYROID STIMULATING [id number] 15:11:00 Test Item Value Reference Range Interpretation Comments THYROID STIMULATING 2.74 0.42-5.47 N Micro-In ternational HORMONE (test code = TSH) Un its/LResults of this assay method ma y be falsely depress ed orelevated if p atient is taking high doses of Biotin. [id number] 15:11:00 Test Item Value Reference Range Interpretation Comments CK (test code = CKT) 142 Units/L 39-308 N [id number] 15:11:00 Test Item Value Reference Range Interpretation Comments ACETAMINOPHEN (test < 1 MCG/ML 10-30 L Acetamin ophen is code = ACET) possibly toxic at levels of: 1. m ore than 150 MCG/ML 4 hours post dinorah stion. 2. more than 5 0 MCG/ML 12 hours post ingestion. [id number] 15:11:00 Test Item Value Reference Range Interpretation Comments SALICYLATE (test code = < 3 MG/DL 0-20 N Refe rence Range: LOGAN) Analgesic...... ...... ...... < 10 mg /dl Therapeutic.... ...... ...... 15-20 mg /dl Mild Toxicity....... ...... . > 30 mg/dl Severe Toxicity....... ..... > 60 mg/dl [id number] 15:11:00 Test Item Value Reference Range Interpretation Comments ALCOHOL (test code = ALC) MG/DL 0-10 BETA [id number] 15:07:00 Test Item Value Reference Range Interpretation Comments BETA HYDROXYBUTYRATE (test code = 0.23 mmol/L 0.02-0.27 N BETHYD) - XR CHEST 1 [id number] 14:39:00 Patient Name: ANTONINO ROTHMAN Unit No: [id number] EXAMS: CPT CODE: [id number] XR CHEST 1 V 93759 Reason: altered mental status - XR CHEST [...] Boyd MD Technologist: Loreto JUAREZ Trscrpt Dt/ (1559)KarlosMK41 Orig Print D/T: S: 0 11/25/2018 (9598) [facility] NAME: ANTONINO ROTHMAN [address] PHYS: NATALI - [place] [address] : 1960 AGE: 58 SEX: M LOC: GANESH PHONE #: [phone] EXAM DATE: 11/25/2018STATUS: JHONATAN DUKES FAX #: RAD NO: DC Dt: PAGE1 Signed ReportDRUG OF ABUSE SCREEN [id number] 14:31:00 Test Item Value Reference Interpretation Comments [...] by bettie benoit methods (i.e., GC/MS) at [facility]. Results of scre en may not be usedin crimi nal justice, job performance or professionalcre dential review, or infa nt custody issues. Negativ e Locust Level ng/ml ------- ----- Cocaine 300 Methamp hetamine (Ecstacy) 500 Cannabinoids (THC) 50 Amphetamine 1000 Barbiturate s 200 Benzodia zepines 200 Opiat es 300 Ph encyclidine (PCP) 25 UA RFLX MICROSCOPIC [id number] 14:29:00 Test Item Value Reference Range Interpretation [...] other srcURINE SOURCE: Clean CatchUA RFLX MICROSCOPIC [id number] 14:20:00 Test Item Value Reference Range Interpretation [...] no other srcURINE SOURCE: Clean Catch PROTHROMBIN [id number] 14:20:00 Test Item Value Reference Range Interpretation [...] with flex-stent *: 3.0 - 4.0(*) = wild animal caretaker's suggested range Is patient on anticoagulants? UnknownTHROMBOPLASTIN TIME [id number] 14:20:00 Test Item Value Reference Range Interpretation Comments THROMBOPLASTIN TIME 34.5 SECONDS 22.5-35.3 N *Therap eutic level PARTIAL (test code = for hep amalia: 1.5 - PTT) 2.5 times the average patient value of 30.0 seconds. The aP TT tet should not be used to evaluat e low moleculat weigh t heparin anticoagulant therapy. Is patient on anticoagulants? [id number] 14:17:00 Test Item Value Reference Range Interpretation Comments AMMONIA (test code = 47 UMOL/L 11-35 H Results of this assay AMM) method may be f alsely depressed orele vated if patient is taki ng sulfasalazine. CBC W/AUTO [id number] 14:07:00 Test Item Value Reference Range Interpretation [...] 0.0-0.2 N code = NRBC#) ARTERIAL BLOOD [id number] 14:05:00 Test Item Value Reference Range Interpretation [...] - 11/25/2018; by CARMINE MERRITT TROPONIN I [id number] 14:02:00 Test Item Value Reference Range Interpretation Comments TROPONIN I RAPID 0.00 NG/ML 0.00-0.08 N Performed b y certified (test code = chopping machine operator at [facility] TROPIRAP) - The use of s erial sampling and te sting protocol is a recommended pra ctice.- An elevated tro ponin level alone is often not sufficient for diagnosis of my ocardial infarction. LACTIC ACID [id number] 13:56:00 Test Item Value Reference Range Interpretation Comments LACTIC ACID POC 11.36 MMOL/L 0.90-1.70 HH Performed by certified (test code = LACTP) chopping machine operator at [facility] [id number] 11:18:00 Test Item Value Reference Range Interpretation Comments GLUBED (test code = 128 MG/DL 65-99 H Performe d by certified GLUBED) chopping machine operator at [facility] [id number] 06:06:00 Test Item Value Reference Range Interpretation Comments GLUBED (test code = 80 MG/DL 65-99 N Performe d by certified GLUBED) chopping machine operator at [facility] BASIC METABOLIC [id number] 05:11:00 Test Item Value Reference Range Interpretation [...] 18 MG/DL 3-60 N code = VLDL) [id number] 05:11:00 Test Item Value Reference Range Interpretation Comments PHOSPHOROUS (test code = PHOS) 4.4 MG/DL 2.5-4.9 N [id number] 05:11:00 Test Item Value Reference Range Interpretation Comments MAGNESIUM (test code = MAG) 1.7 MG/DL 1.8-2.4 L CBC W/AUTO [id number] 04:46:00 Test Item Value Reference Range Interpretation [...] = 0.0 X10 3/uL 0.0-0.2 N NRBC#) [id number] 20:32:00 Test Item Value Reference Range Interpretation Comments GLUBED (test code = 107 MG/DL 65-99 H Performe d by certified GLUBED) chopping machine operator at [facility]2019-05-20 17:37:00 Test Item Value Reference Range Interpretation Comments GLUBED (test code = 76 MG/DL 65-99 N Performe d by certified GLUBED) chopping machine operator at [facility]2019-05-20 11:48:00 Test Item Value Reference Range Interpretation Comments GLUBED (test code = 74 MG/DL 65-99 N Performe d by certified GLUBED) chopping machine operator at [facility]2019-05-20 08:20:00 Test Item Value Reference Range Interpretation Comments GLUBED (test code = 91 MG/DL 65-99 N Performe d by certified GLUBED) chopping machine operator at [facility] - XR CHEST 1 [id number] 07:45:00 Patient Name: ANTONINO ROTHMAN Unit No: [id number] EXAMS: CPT CODE: [id number] XR CHEST 1 V 55347 Reason: pna - XR CHEST 1 V 08/19/2018 5:00 AM Indication: Pneumonia COMPARISON: Yesterday's 0447 hours FINDINGS: Postextubation and NGT removal. Central line remains. Slight improved aeration with less patchy and linear atelectasis. Impression: Very slight improved aeration, post extubation. at 0745 Reported and signed by: Jigar Perales MD CC: Juantio Russo MD; Nahum Reed DO; Barbie Castellanos MD Technologist: Chu Segura RT Trscrpt Dt/ (0745)LucreciaE Orig Print D/T: S: 08/19/2018 (0748) [facility] NAME: ANTONINO ROTHMAN [address] PHYS: [email or web address] - ReedNahum [place]vin [place] [address] : 1960 AGE: 58 SEX: M LOC: D.HCU 19 PHONE #: [phone] EXAM DATE: 08/19/2018 STATUS: ADM IN FAX #: RAD NO: DC Dt:PAGE 1 Signed ReportCBC W/AUTO [id number] 06:55:00 Test Item Value Reference Range Interpretation [...] X10 3/uL 0.0-0.2 N NRBC#) COMPREHENSIVE METABOLIC [id number] 06:16:00 Test Item Value Reference Range Interpretation [...] 50-136 N TOTAL (test code = ALKP) [id number] 06:16:00 Test Item Value Reference Range Interpretation Comments MAGNESIUM (test code = MAG) 1.9 MG/DL 1.8-2.4 N ARTERIAL BLOOD [id number] 03:30:00 Test Item Value Reference Range Interpretation [...] code = 0.0 % 0.4-1.5 L METHGB) [id number] 20:06:00 Test Item Value Reference Range Interpretation Comments GLUBED (test code = 95 MG/DL 65-99 N Performe d by certified GLUBED) chopping machine operator at [facility] [id number] 17:30:00 Test Item Value Reference Range Interpretation Comments GLUBED (test code = 81 MG/DL 65-99 N Performe d by certified GLUBED) chopping machine operator at [facility] - DUP EXTRACRANIAL [id number] 13:42:00 Patient Name: ANTONINO ROTHMAN Unit No: [id number] EXAMS: CPT CODE: [id number] DUP EXTRACRANIAL RAMU 08179 INDICATION: Syncope. COMPARISON: None available. FINDINGS: The [...] Castellanos MD Technologist: Janet SNEED Trnscrbd D/ (1102) t.SDR.MWM2 Orig Print D/T: S: 08/18/2018 (2803) Probe: [facility] NAME: ANTONINO ROTHMAN [address] PHYS:[email or web address] - Mason Barnes DO [address] [place] [address] : 1960 AGE: 58 SEX: M LOC: D.HCU 19 PHONE #: [phone] EXAM DATE: 08/18/2018 STATUS: ADM IN FAX #: RAD NO: Page 1 Signed [id number] 11:58:00 Test Item Value Reference Range Interpretation Comments GLUBED (test code = 103 MG/DL 65-99 H Performe d by certified GLUBED) chopping machine operator at [facility] ARTERIAL BLOOD [id number] 08:47:00 Test Item Value Reference Range Interpretation [...] code = 0.3 % 0.4-1.5 L METHGB) [id number] 08:00:00 Test Item Value Reference Range Interpretation Comments GLUBED (test code = 114 MG/DL 65-99 H Performe d by certified GLUBED) chopping machine operator at [facility] - XR CHEST 1 [id number] 07:32:00 Patient Name: ANTONINO ROTMHAN Unit No: [id number] EXAMS: CPT CODE: [id number] XR CHEST 1 V 97703 Reason: pna INDICATION: Drug overdose . COMPARISON: [...] (0732)t.GERARDOR.MWM2 Orig Print D/T: S: 08/18/2018 (0735) [facility] NAME: ANTONINO ROTHMAN [address] [facility] PHYS: SCHPA. - Nahum Reed [place] [address] : 1960 AGE: 58 SEX: M LOC: D.U 19 PHONE #: [phone] EXAM DATE: 08/18/2018 STATUS: ADM IN FAX [...] 50-136 N TOTAL (test code = ALKP) [id number] 06:31:00 Test Item Value Reference Range Interpretation Comments MAGNESIUM (test code = MAG) 2.2 MG/DL 1.8-2.4 N CBC W/AUTO [id number] 05:57:00 Test Item Value Reference Range Interpretation [...] X10 3/uL 0.0-0.2 N NRBC#) ARTERIAL BLOOD [id number] 03:46:00 Test Item Value Reference Range Interpretation [...] code = 0.3 % 0.4-1.5 L METHGB) [id number] 21:23:00 Test Item Value Reference Range Interpretation Comments GLUBED (test code = 83 MG/DL 65-99 N Performe d by certified GLUBED) chopping machine operator at [facility]2019-05-18 17:59:00 Test Item Value Reference Range Interpretation Comments GLUBED (test code = 85 MG/DL 65-99 N Performe d by certified GLUBED) chopping machine operator at [facility]2019-05-18 11:40:00 Test Item Value Reference Range Interpretation Comments GLUBED (test code = 90 MG/DL 65-99 N Performe d by certified GLUBED) chopping machine operator at [facility] ARTERIAL BLOOD [id number] 09:44:00 Test Item Value Reference Range Interpretation [...] 0.4-1.5 L METHGB) - XR CHEST 1 [id number] 08:17:00 Patient Name: ANTONINO ROTHMAN Unit No: [id number] EXAMS: CPT CODE: [id number] XR CHEST 1 V 22852 Reason: pna - XR CHEST 1 V [...] (816)LucreciaE Orig Print D/T: S: 08/17/2018 (0820) [facility] NAME: ANTONINO ROTHMAN [address]: [email or web address] - [place] [address] : 1960 AGE: 58 SEX: M LOC: D.HCU 19 PHONE #: [phone] EXAM DATE: 08/17/2018 STATUS: ADM IN FAX #: RAD NO: DC Dt: PAGE 1 Signed [id number] 08:04:00 Test Item Value Reference Range Interpretation Comments GLUBED (test code = 97 MG/DL 65-99 N Performe d by certified GLUBED) chopping machine operator at [facility] COMPREHENSIVE METABOLIC [id number] 06:39:00 Test Item Value Reference Range Interpretation [...] 50-136 N TOTAL (test code = ALKP) [id number] 06:39:00 Test Item Value Reference Range Interpretation Comments MAGNESIUM (test code = MAG) 2.4 MG/DL 1.8-2.4 N GLYCOSYLATED HEMOGLOBIN (HA1C)2018-08-17 06:31:00 Test Item Value Reference Range Interpretation Comments GLYCOSYLATED HEMOGLOBIN (HA1C) 8.3 % TOT HB 4.5-6.2 H (test code = GLYHGB) : If not already doneCBC W/AUTO [id number] 06:27:00 Test Item Value Reference Range Interpretation [...] X10 3/uL 0.0-0.2 N NRBC#) ARTERIAL BLOOD [id number] 04:07:00 Test Item Value Reference Range Interpretation [...] by CARMINE SUTHERLAND - CT HEAD/BRAIN W/O [id number] 21:25:00 Patient Name: ANTONINO ROTHMAN Unit No: [id number] EXAMS: CPT CODE: [id number] CT HEAD/BRAIN W/O CONT 44532 Reason: syncope - CT HEAD/BRAIN W/O CONT [...] Print D/T: S: 08/16/2018 (2128) CTDI: DLP: [facility] NAME: ANTONINO ROTHMAN [address] PHYS:VANPA.Danya - [place] [address] : 1960 AGE: 58 SEX: M LOC: D.HCU 19 PHONE #: [phone] EXAM DATE: 08/16/2018 STATUS: ADM IN FAX #: RAD NO: DC Dt: PAGE 1 Signed ReportGLUBED 2018-08-16 21:23:00 Test Item Value Reference Range Interpretation Comments GLUBED (test code = 99 MG/DL 65-99 N Performe d by certified GLUBED) 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 at 2018 Reported and signed by: Jigar Perales MD CC: Juanito Hernández; Bautista Santos MD; Barbie Castellanos MD Technologist: Laura JUAREZ Trscrpt Dt/ (2017)Ramona Orig Print D/T: S: 08/16/2018 (2020) [facility] NAME: ANTONINO ROTHMAN [address]: [place]. [place] [address] : 1960 AGE: 58 SEX: M : D.HCU 19 PHONE #: [phone] EXAM DATE: 08/16/2018 STATUS: ADM IN FAX #: RAD NO: DC Dt: PAGE 1 Signed Report- XR CHEST 1 [id number] 20:17:00 Patient Name: ANTONINO ROTHMAN Unit No: [id number] EXAMS: CPT CODE: [id number] XR CHEST 1 V 53559 Reason: OGT - XR CHEST 1 V [...] (2016)Ramona Orig Print D/T: S: 08/17/2018 (537) [facility] NAME: ANTONINO ROTHMAN [address]: SAS[place]AN[place]. [place] [address] : 1960 AGE: 58 SEX: M LOC: D.HCU 19 PHONE #: [phone] EXAM DATE: 08/16/2018 STATUS: ADM IN FAX#: RAD NO: DC Dt: PAGE 1 Signed ReportUA RFLX MICROSCOPIC [id number] 18:54:00 Test Item Value Reference Range Interpretation [...] Criteria not met code = UACULT) UA [id number] 18:54:00 Test Item Value Reference Range Interpretation Comments UA RBC (test code = RBCU) 0-2 #/hpf NONE SEEN A LACTIC [id number] 18:37:00 Test Item Value Reference Range Interpretation Comments LACTIC ACID (test code = LACT) 3.1 MMOL/L 0.5-2.2 H BASIC METABOLIC [id number] 18:37:00 Test Item Value Reference Range Interpretation [...] 8.8 MG/DL 8.7-10.5 N CA) HEPATIC FUNCTION [id number] 18:37:00 Test Item Value Reference Range Interpretation [...] 50-136 N TOTAL (test code = ALKP) [id number] 18:37:00 Test Item Value Reference Range Interpretation Comments LIPASE (test code = LIP) 1283 Units/L 73-393 H THYROID STIMULATING [id number] 18:37:00 Test Item Value Reference Range Interpretation Comments THYROID STIMULATING 1.63 0.42-5.47 N Micro-In ternational HORMONE (test code = TSH) Un its/LResults of this assay method ma y be falsely depress ed orelevated if p atient is taking high doses of Biotin. [id number] 18:37:00 Test Item Value Reference Range Interpretation Comments ACETAMINOPHEN (test < 1 MCG/ML 10-30 L Acetamin krystianen is code = ACET) possibly toxic at levels of: 1. m ore than 150 MCG/ML 4 hours post dinorah stion. 2. more than 5 0 MCG/ML 12 hours post ingestion. [id number] 18:37:00 Test Item Value Reference Range Interpretation Comments SALICYLATE (test code = < 3 MG/DL 0-20 N Refe rence Range: LOGAN) Analgesic...... ...... ...... < 10 mg /dl Therapeutic.... ...... ...... 15-20 mg /dl Mild Toxicity....... ...... . > 30 mg/dl Severe Toxicity....... ..... > 60 mg/dl [id number] 18:37:00 Test Item Value Reference Range Interpretation Comments ALCOHOL (test code = < 3 MG/DL 0-10 N 0 - 10: Should be ALC) interpreted as NEGATIVE. 11 - 50: None to mild euphoria. 51 - 100: Mild influence on vision and dark adapta tion. > 80: Legal intoxication; D epression of SEARCH ENGINEER; Increasing degr ee of poisoning. > 400: Fatalities repo rted. Results are for medical purposes only a nd not forlegal or emp loyment evaluative purp oses. PROTHROMBIN [id number] 18:35:00 Test Item Value Reference Range Interpretation [...] with flex-stent *: 3.0 - 4.0(*) = wild animal caretaker's suggested range Is patient on anticoagulants? UnknownTHROMBOPLASTIN TIME [id number] 18:35:00 Test Item Value Reference Range Interpretation Comments THROMBOPLASTIN TIME 30.7 SECONDS 22.5-35.3 N *Therap eutic level PARTIAL (test code = for hep amalia: 1.5 - PTT) 2.5 times the average patient value of 30.0 seconds. The aP TT tet should not be used to evaluat e low moleculat weigh t heparin anticoagulant therapy. Is patient on anticoagulants? [id number] 18:34:00 Test Item Value Reference Range Interpretation Comments AMMONIA (test code = 12 UMOL/L 11-35 N Results of this assay AMM) method may be f alsely depressed orele vated if patient is taki ng sulfasalazine. CBC W/AUTO [id number] 18:24:00 Test Item Value Reference Range Interpretation [...] 0.0-0.2 N NRBC#) - XR CHEST 1 [id number] 18:11:00 Patient Name: ANTONINO ROTHMAN Unit No: [id number] EXAMS: CPT CODE: [id number] XR CHEST 1 V 13827 Reason: altered mental status - XR CHEST [...] (1810)Ramona Orig Print D/T: S: 08/16/2018 (1813) [facility] NAME: ANTONINO ROTHMAN [address]: [email or web address] - [place] [address] : 1960 AGE: 58 SEX: M LOC: ELEAZAR 1 PHONE #: [phone] EXAM DATE: 08/16/2018 STATUS: ADM IN FAX #: RAD NO: DC Dt: PAGE 1 Signed ReportDRUG OF ABUSE SCREEN [id number] 18:04:00 Test Item Value Reference Interpretation Comments [...] by bettie benoit methods (i.e., GC/MS) at [facility]. Results of scre en may not be usedin crimi nal justice, job performance or professionalcre dential review, or infa nt custody issues. Negativ e Locust Level ng/ml ------- ----- Cocaine 300 Methamp hetamine (Ecstacy) 500 Cannabinoids (THC) 50 Amphetamine 1000 Barbiturate s 200 Benzodia zepines 200 Opiat es 300 Ph encyclidine (PCP) 25 TROPONIN I [id number] 18:02:00 Test Item Value Reference Range Interpretation Comments TROPONIN I RAPID 0.00 NG/ML 0.00-0.08 N Performed b y certified (test code = chopping machine operator at [facility] TROPIRAP) - The use of s erial sampling and te sting protocol is a recommended pra ctice.- An elevated tro ponin level alone is often not sufficient for diagnosis of my ocardial infarction. LACTIC ACID [id number] 17:56:00 Test Item Value Reference Range Interpretation Comments LACTIC ACID POC 3.60 MMOL/L 0.90-1.70 H Performed by certified (test code = LACTP) chopping machine operator at [facility] UA RFLX MICROSCOPIC [id number] 17:56:00 Test Item Value Reference Range Interpretation [...] CULTURE NEEDED? (test code = UACULT) UA [id number] 17:56:00 Test Item Value Reference Range Interpretation Comments UA RBC (test code = RBCU) #/hpf NONE SEEN UA RFLX MICROSCOPIC [id number] 17:56:00 Test Item Value Reference Range Interpretation [...] CULTURE NEEDED? (test code = UACULT) UA [id number] 17:56:00 Test Item Value Reference Range Interpretation Comments UA RBC (test code = RBCU) #/hpf NONE SEEN ARTERIAL BLOOD [id number] 16:51:00 Test Item Value Reference Range Interpretation [...] Augustin 16:48 - 08/16/2018; by Darlin SANTILLAN APPAREL CUTTER - XR HIP W/PEL UNI 2+V [id number] 12:33:00 Patient Name: ANTONINO ROTHMAN Unit No: [id number] EXAMS: CPT CODE: [id number] XR HIP W/PEL UNI 2+[place] [address] Reason: pain with palpation - XR HIP W/PEL UNI 2+V LT 06/13/2018 11:29 AM Indication: Pain with palpation COMPARISON: None FINDINGS: Massive body habitus in the huge pannus obscures pelvic detail. No "gross" abnormality, allowing for this. at 1233 Reported and signed by: Jigar Perales MD CC: Pratik Martinez DO; Agusto Kang MD Technologist: Deep Jennings RT; Loreto Don RT Trscrpt Dt/ (5253)t.SDR.PKE Orig Print D/T: S: 06/13/2018 (7783) [facility] NAME: ANTONINO ROTHMAN [address]: PETEJose [id number] - Pr[place] [address] : 1960 AGE: 58 SEX: M LOC: D.HCU 15 PHONE #: [phone] EXAM DATE: 06/13/2018 STATUS: ADM IN FAX #: RAD NO: DCDt: PAGE 1 Signed [id number] 11:31:00 Test Item Value Reference Range Interpretation Comments GLUBED (test code = 194 MG/DL 65-99 H Performe d by certified GLUBED) chopping machine operator at [facility] BASIC METABOLIC [id number] 07:23:00 Test Item Value Reference Range Interpretation [...] 9.3 MG/DL 8.7-10.5 N CA) CBC W/AUTO [id number] 06:29:00 Test Item Value Reference Range Interpretation [...] = 0.0 X10 3/uL 0.0-0.2 N NRBC#) [id number] 05:41:00 Test Item Value Reference Range Interpretation Comments GLUBED (test code = 144 MG/DL 65-99 H Performe d by certified GLUBED) chopping machine operator at [facility] [id number] 20:43:00 Test Item Value Reference Range Interpretation Comments GLUBED (test code = 174 MG/DL 65-99 H Performe d by certified GLUBED) chopping machine operator at [facility] [id number] 16:55:00 Test Item Value Reference Range Interpretation Comments GLUBED (test code = 165 MG/DL 65-99 H Performe d by certified GLUBED) chopping machine operator at [facility] [id number] 11:45:00 Test Item Value Reference Range Interpretation Comments GLUBED (test code = 190 MG/DL 65-99 H Performe d by certified GLUBED) chopping machine operator at [facility] [id number] 08:42:00 Test Item Value Reference Range Interpretation Comments GLUBED (test code = 176 MG/DL 65-99 H Performe d by certified GLUBED) chopping machine operator at [facility] COMPREHENSIVE METABOLIC [id number] 06:45:00 Test Item Value Reference Range Interpretation [...] 50-136 N TOTAL (test code = ALKP) [id number] 06:45:00 Test Item Value Reference Range Interpretation Comments MAGNESIUM (test code = MAG) 1.9 MG/DL 1.8-2.4 N CBC W/AUTO [id number] 06:08:00 Test Item Value Reference Range Interpretation [...] = 0.0 X10 3/uL 0.0-0.2 N NRBC#) [id number] 22:02:00 Test Item Value Reference Range Interpretation Comments GLUBED (test code = 178 MG/DL 65-99 H Performe d by certified GLUBED) chopping machine operator at [facility] [id number] 17:37:00 Test Item Value Reference Range Interpretation Comments GLUBED (test code = 158 MG/DL 65-99 H Performe d by certified GLUBED) chopping machine operator at [facility] [id number] 11:56:00 Test Item Value Reference Range Interpretation Comments GLUBED (test code = 235 MG/DL 65-99 H Performe d by certified GLUBED) chopping machine operator at [facility] ARTERIAL BLOOD [id number] 10:28:00 Test Item Value Reference Range Interpretation [...] 0.3 % 0.4-1.5 L METHGB) COMPREHENSIVE METABOLIC [id number] 04:32:00 Test Item Value Reference Range Interpretation [...] 50-136 N TOTAL (test code = ALKP) [id number] 04:32:00 Test Item Value Reference Range Interpretation Comments MAGNESIUM (test code = MAG) 2.1 MG/DL 1.8-2.4 N CBC W/AUTO [id number] 04:20:00 Test Item Value Reference Range Interpretation [...] H (test code = GLYHGB) UR SODIUM [id number] 09:34:00 Test Item Value Reference Range Interpretation Comments UR SODIUM RANDOM 39 MMOL/L No establis hed reference (test code = MANSOOR) range for random urine specimen. UR POTASSIUM [id number] 09:34:00 Test Item Value Reference Range Interpretation Comments UR POTASSIUM RANDOM 30 MMOL/L No estab lished (test code = KU) reference r devon for random urine sp ecimen. UR CHLORIDE [id number] 09:34:00 Test Item Value Reference Range Interpretation Comments UR CHLORIDE RANDOM 55 MMOL/L No establ ished (test code = CLU) reference range for random urine sp ecimen. UR PROTEIN/CREATININE [id number] 09:34:00 Test Item Value Reference Range Interpretation Comments UR PROTEIN RANDOM 6 MG/DL No establi shed (test code = PROTU) referenc e range for random urine specimen. UR CREATININE RANDOM 47.72 MG/DL No esta blished (test code = CREATU) referen ce range for random urine specimen. PROTEIN/CREATININE 0.1 < 0.2 RATIO (test code = P/CRATIO) COMPREHENSIVE METABOLIC [id number] 07:40:00 Test Item Value Reference Range Interpretation [...] 50-136 N TOTAL (test code = ALKP) [id number] 07:40:00 Test Item Value Reference Range Interpretation Comments MAGNESIUM (test code = MAG) 2.2 MG/DL 1.8-2.4 N THYROID STIMULATING [id number] 07:40:00 Test Item Value Reference Range Interpretation Comments THYROID STIMULATING 0.83 0.42-5.47 N Micro-In ternational HORMONE (test code = TSH) Un its/LResults of this assay method ma y be falsely depress ed orelevated if p atient is taking high doses of Biotin. CBC W/AUTO [id number] 07:14:00 Test Item Value Reference Range Interpretation [...] X10 3/uL 0.0-0.2 N NRBC#) ARTERIAL BLOOD [id number] 04:16:00 Test Item Value Reference Range Interpretation [...] lts called CVCBG) to and read [facility] k by ARELY AUGUST,RNat 04:1 - 06/10/2018; onel SUTHERLAND,CARMINE PROCALCITONIN (PCT)2018-06-09 20:42:00 Test Item Value Reference Range Interpretation Comments PROCALCITONIN (PCT) (test code = < 0.05 ng/mL 0.00-0.50 N PROCAL) LACTIC [id number] 20:28:00 Test Item Value Reference Range Interpretation Comments LACTIC ACID (test code = LACT) 1.5 MMOL/L 0.5-2.2 N ARTERIAL BLOOD [id number] 20:27:00 Test Item Value Reference Range Interpretation [...] KALYNRNat 19:23 - 06/09/2018; by CARMINE SUTHERLAND [id number] 20:24:00 Test Item Value Reference Range Interpretation Comments AMMONIA (test code = 10 UMOL/L 11-35 L Results of this assay AMM) method may be f alsely depressed orele vated if patient is taki ng sulfasalazine. - CT HEAD/BRAIN W/O [id number] 18:01:00 Patient Name: ANTONINO CHOI Unit No: [id number] EXAMS: CPT CODE: [id number] CT HEAD/BRAIN W/O CONT 11796 Reason: head trauma EXAM: - CT C-SPINE [...] as detailed above. No acute injury seen. [facility] NAME: ANTONINO CHOI [address] PH[address]: Jennifer Carcamo [facility] [address] : 11/04/1959 AGE: 58 SEX: M LOC: ELEAZAR 2 PHONE #: [phone] EXAM DATE: 06/09/2018 STATUS: ADM IN FAX #: RAD NO: DC Dt:PAGE 1 Signed Report (CONTINUED) Patient Name: ANTONINO CHOI Unit No: [id number] EXAMS: CPT CODE: [id number] CT HEAD/BRAIN W/O CONT 14459 <Continued> Reason: head trauma ElectronicallySigned by Haylie Vallejo MD on 06/09/2018 at 1801 Reported and signed by: Haylie Vallejo MD CC: Jennifer Flynn DO Technologist: Zev Powell CT; Kike Velasquez CT Trscrpt Dt/ (1801)t.GERARDOR.NH41 [facility] NAME: ANTONINO CHOI [address]: LISA FlynnJennifer [place] [address] : 11/04/1959 AGE: 58 SEX: M LOC: ELEAZAR Mao PHONE #: [phone] EXAM DATE: 06/09/2018 STATUS: ADM IN FAX #: RAD NO: DC Dt: PAGE 2 Signed Report- CT C-SPINE W/O [id number] 18:01:00 Patient Name: ANTONINO CHOI Unit No: [id number] EXAMS: CPT CODE: [id number] CT C-SPINE W/O CONT 24176 Reason: r/o fx EXAM: - CT C-SPINE [...] as detailed above. No acute injury seen. [facility] NAME: ANTONINO CHOI [address]: [place] [address] : 11/04/1959 AGE: 58 SEX: M LOC: ELEAZAR 2 PHONE #: [phone] EXAM DATE: 06/09/2018 STATUS: ADM IN FAX #: RAD NO: DC Dt:PAGE 1 Signed Report (CONTINUED) Patient Name: ANTONINO CHOI Unit No: [id number] EXAMS: CPT CODE: [id number] CT C-SPINE W/O CONT 29545 <Continued> Reason:r/o fx ElectronicallySigned by Haylie Vallejo MD on 06/09/2018 at 1801 Reported and signed by: Haylie Vallejo MD CC: Jennifer Flynn DO Technologist: Zev Powell CT; Kike Velasquez CT Trscrpt Dt/ (180)tAMNAR.[place] 41 [facility] NAME: ANTONINO CHOI [address] PH[address]: LISA Ordoñez [place]enn[place] [address] : 11/04/1959 AGE: 58 SEX: M LOC: FRANCISMariam 2 PHONE #: [phone] EXAM DATE: 06/09/2018 STATUS: ADM IN FAX [...] 50-136 N TOTAL (test code = ALKP) [id number] 17:33:00 Test Item Value Reference Range Interpretation Comments MAGNESIUM (test code = MAG) 2.0 MG/DL 1.8-2.4 N NT PRO-BRAIN NATRIURETIC [id number] 17:33:00 Test Item Value Reference Range Interpretation Comments NT PRO-BRAIN 53 PG/ML 0-125 N Results of this assay NATRIURETIC PEPTI (test meth od may be falsely code = PROBNP) depressed ore levated if patient is t aking high doses of B iotin. [id number] 17:33:00 Test Item Value Reference Range Interpretation Comments ACETAMINOPHEN (test < 1 MCG/ML 10-30 L Acetamin ophen is code = ACET) possibly toxic at levels of: 1. m ore than 150 MCG/ML 4 hours post dinorah stion. 2. more than 5 0 MCG/ML 12 hours post ingestion. [id number] 17:33:00 Test Item Value Reference Range Interpretation Comments SALICYLATE (test code = < 3 MG/DL 0-20 N Refe rence Range: LOGAN) Analgesic...... ...... ...... < 10 mg /dl Therapeutic.... ...... ...... 15-20 mg /dl Mild Toxicity....... ...... . > 30 mg/dl Severe Toxicity....... ..... > 60 mg/dl [id number] 17:33:00 Test Item Value Reference Range Interpretation Comments ALCOHOL (test code = < 3 MG/DL 0-10 N 0 - 10: Should be ALC) interpreted as NEGATIVE. 11 - 50: None to mild euphoria. 51 - 100: Mild influence on vision and dark adapta tion. > 80: Legal intoxication; D epression of SEARCH ENGINEER; Increasing degr ee of poisoning. > 400: Fatalities repo rted. Results are for medical purposes only a nd not forlegal or emp loyment evaluative purp oses. DRUG OF ABUSE SCREEN [id number] 17:01:00 Test Item Value Reference Interpretation Comments [...] by bettie benoit methods (i.e., GC/MS) at [facility]. Results of scre en may not be usedin crimi nal justice, job performance or professionalcre dential review, or infa nt custody issues. Negativ e Locust Level ng/ml ------- ----- Cocaine 300 Methamp hetamine (Ecstacy) 500 Cannabinoids (THC) 50 Amphetamine 1000 Barbiturate s 200 Benzodia zepines 200 Opiat es 300 Ph encyclidine (PCP) 25 UA RFLX MICROSCOPIC [id number] 16:57:00 Test Item Value Reference Range Interpretation [...] Criteria not met code = UACULT) UA [id number] 16:57:00 Test Item Value Reference Range Interpretation Comments UA RBC (test code = 0-2 #/hpf NONE SEEN A RBCU) UA BACTERIA (test code = FEW #/hpf NONE SEEN A BACU) UA AMORPHOUS SEDIMENT Mod Amorph urates None seen (test code = AMORU) #/lpf LACTIC ACID [id number] 16:45:00 Test Item Value Reference Range Interpretation Comments LACTIC ACID POC 11.33 MMOL/L 0.90-1.70 HH Performed by certified (test code = LACTP) chopping machine operator at [facility] UA RFLX MICROSCOPIC [id number] 16:43:00 Test Item Value Reference Range Interpretation [...] CULTURE NEEDED? (test code = UACULT) UA [id number] 16:43:00 Test Item Value Reference Range Interpretation Comments UA RBC (test code = RBCU) #/hpf NONE SEEN UA RFLX MICROSCOPIC [id number] 16:43:00 Test Item Value Reference Range Interpretation [...] CULTURE NEEDED? (test code = UACULT) UA [id number] 16:43:00 Test Item Value Reference Range Interpretation Comments UA RBC (test code = RBCU) #/hpf NONE SEEN CBC W/AUTO [id number] 16:37:00 Test Item Value Reference Range Interpretation [...] 0.0-0.2 N NRBC#) - XR CHEST 1 [id number] 16:20:00 Patient Name: ANTONINO CHOI Unit No: [id number] EXAMS: CPT CODE: [id number] XR CHEST 1 V 96656 Reason: intubation EXAM: - XR CHEST 1 [...] TrscrptDt/ (1620)KarlosNH41 Orig Print D/T: S: 06/09/2018 (6151) [facility] NAME: ANTONINO CHOI [address] PHYS: Jennifer [place] [address] : 11/04/1959 AGE: 58 SEX: M LOC: ELEAZAR 2 PHONE #: [phone] EXAM DATE: 06/09/2018 STATUS: ADM IN FAX #: RAD NO: DC Dt: PAGE 1 Signed ReportARTERIAL BLOOD [id number] 16:05:00 Test Item Value Reference Range Interpretation [...]
--- NOTE | 2020-05-21 18:43 | RAD REPORT ---
EXAM DESCRIPTION: CT - Head Brain Wo Cont - 05/21/2020 6:24 pm CLINICAL HISTORY: Headache COMPARISON: April 2020 TECHNIQUE: Computed axial tomography of the head was obtained. IV contrast was not requested. All CT scans are performed using dose optimization technique as appropriate and may include automated exposure control or mA/KV adjustment according to patient size. FINDINGS: An intracranial bleed is not seen . The ventricles are normal in caliber. No extra-axial fluid collection is noted. Fluid within the sinuses/ mastoids is not seen. IMPRESSION: No acute intracranial abnormality is seen. If patient's symptoms persist MRI of the bra in would be recommended.
--- NOTE | 2020-05-21 20:21 | ER ---
Nurse's Notes [facility] Name: Andrew Wall Age: 60 yrs Sex: Male : 1960 Arrival Date: 05/21/2020 Time: 17:36 Bed Waiting Private MD: Diagnosis: Presentation: 05/21 17:59 Chief complaint: Patient states: started having a real bad headache around 3:30 after iw leaving [facility] , pain to frontal area , pt states he passed out and doesn't remember coming over here. Coronavirus screen: At this time, the client does not indicate any symptoms associated with coronavirus-19. Ebola Screen: Patient negative for fever greater than or equal to 101.5 degrees Fahrenheit, and additional compatible Ebola Virus Disease symptoms Patient denies exposure to infectious person. Patient denies travel to an Ebola-affected area in the 21 days before illness onset. No symptoms or risks identified at this time. Initial Sepsis Screen: Does the patient meet any 2 criteria? No. Patient's initial sepsis screen is negative. Does the patient have a suspected source of infection? No. Patient's initial sepsis screen is negative. Risk Assessment: Do you want to hurt yourself or someone else? Patient reports no desire to harm self or others. Onset of symptoms was May 21, 2020. 17:59 Method Of Arrival: Wheelchair iw 17:59 Acuity: ROSALIE 3 iw Historical: - Allergies: 18:02 No Known Allergies; iw - Home Meds: 18:02 atorvastatin 40 mg Oral tab 1 tab once daily [Active]; gabapentin Oral [Active]; iw hydralazine 25 mg Oral tab 1 tab once daily PRN [Active]; lamotrigine 100 mg Oral tab 1 tab once daily [Active]; lisinopril 20 mg Oral tab 1 tab once daily [Active]; metformin 1,000 mg Oral tab 1 tab 2 times per day [Active]; Metformin Oral once daily [Active]; prednisone 5 mg Oral tab 2 tabs once daily [Active]; - PMHx: 18:02 Diabetes - NIDDM; Seizures; iw - PSHx: 18:02 None; iw - Immunization history:: Adult Immunizations up to date. - Social history:: Smoking status: Patient denies any tobacco usage or history of. Assessment: :19 Reassessment: Pt left ED prior to being seen. Pt called his ride, reports that he no jb4 longer wants to be seen. Assisted to vehicle via wheel chair. Vital Signs: 17:59 BP 146 / 83; Pulse 66; Resp 18 S; Temp 99.0; Pulse Ox 98% on R/A; Weight 136.08 kg (R); iw Height 6 ft. 0 in. (182.88 cm); 17:59 Body Mass Index 40.69 (136.08 kg, 182.88 cm) iw ED Course: 17:36 Patient arrived in ED. as 18:00 Triage completed. iw 18:01 Arm band placed on. iw 18:23 CT Head Brain wo Cont In Process Unspecified. EDMS Administered Medications: No medications were administered Outcome: 20:19 Eloped from waiting room. jb4 20:19 Condition: stable 20:20 Patient left the ED. jb4 Signatures: Dispatcher [employer] Yasemin Celestin Irene, CLARA RN iw Eric Reese RN RN jb4
[2020-05-21 20:24] VITALS: BP 146/83; TEMP 99; O2SAT 98
== END 2020-05-21 20:20 | disposition left against medical advice (07) ==
LOC: ER 17:34
DX: R51.9 Headache, unspecified (principal); Z53.21 Procedure and treatment not carried out due to patient leaving prior to being seen by health care provider
CPT/HCPCS: 70450; 99282

== ENCOUNTER 2020-08-24 08:09 | Emergency (ER) | payer OTHER ==
--- OUTSIDE RECORDS SUMMARY | 2020-08-24 08:19 | XMS REPORT | Continuity of Care Document ---
:1960 Author Organization [facility] t Address [address] [place] [address] Care Team Providers Name Role Phone Alireza Momin Attending Clinician Karen Attending Clinician Karen Admitting Clinician Payers Payer Name Policy Type Policy Number Effective Date Expiration Date S ource Problems Condition Condition Condition Status Onset Resolution Last Treating Co mments Source Name Details Category Date Date Treatment Clinician Date FALL Diagnosis Active 2017-09-21 Mem oria 09-21 19:45:00 l FALL 00:00: [place] 00 Active 09/21/2017 [facility] BA Diagnosis Active 2017-09-21 Memoria BILLING 09-21 19:48:00 l ONLY--LFLT 00:00: Edgar powell #[id number] BA 00 BILLING ONLY--LFLT #3113 Active 09/21/2017 [facility] ENCEPHALOP Diagnosis Active 2017-09-27 Clemencia BARBOSA AMS 09-21 15:47:00 l 00:00: [place] ENCEPHALOP 00 SHONNA BARBOSA Active 09/21/2017 [facility] Diabetes Problem Active 2020-08-01 Mem oria mellitus 00:56:59 l (disorder) Diabetes He rmann mellitus (disorder) Active Problem 08/01/2020 [facility] Headache Problem Active 2020-08-01 Mem oria (finding) 00:56:59 l Headache Edgar n (finding) Active Problem 08/01/2020 [facility] Hyperlipid Problem Active 2020-08-01 M emoria emia 00:56:59 l (disorder) Edgar n Hyperlipid emia (disorder) Active Problem 08/01/2020 [facility] Hypertensi Problem Active 2020-08-01 M emoria ve 00:56:59 l disorder, [place] systemic Hypertensi arterial ve (disorder) disorder, systemic arterial (disorder) Active Problem 08/01/2020 [facility] Morbid Problem Active 2020-08-01 Memor ia obesity 00:56:59 l (disorder) Morbid Herm yahaira obesity (disorder) Active Problem 08/01/2020 [facility] 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 e No Known No Known Active Memori a Medicati Medicati l on on [place] Allergie Allergie s s Social History Social Habit Start Date Stop Date Quantity Comments Source Social History 2020-06-24 2020-06-24 Radha morales 17:06:08 17:06:08 Smoking Status Start Date Stop Date Source Social History 2017-09-22 11:43:50 2017-09-22 11:43:50 Radha Narvaez Medications Ordered Filled Start Stop Current Ordering Indication Dosage Frequency Signature Comments Components Source Medication Medication Date Date Medication? Clinician (SIG) Name Name lamotrigine Yes 100 mg = 1 Memoria 100 MG Oral 3-25 tab, PO, l Tablet 17:31: Daily, # [place] 00 30 tab, 3 Refill(s), Pharmacy: [facility] 482, 182.88, cm, 06/24/20 11:58:00 CDT, Height, 146.364, kg, 06/24/20 11:58:00 CDT, Weight Levetiracet Yes 750 mg = 1 Memoria am 750 MG 3-25 tab, PO, l Oral Tablet 17:31: BID, # 60 H erm 00 tab, 3 Refill(s), Pharmacy: [facility] 482, 182.88, cm, 06/24/20 11:58:00 CDT, Height, 146.364, kg, 06/24/20 11:58:00 CDT, Weight Furosemide Yes 20 mg, PO, M emoria 3-25 BID, 0 l 17:03: Refill(s) lamotrigine No 100 mg, Mem oria 3-25 PO, Daily, l 17:03: 0 Refill(s) Lisinopril Yes 20 mg, PO, M emoria 3-25 Daily, 0 l 17:02: Refill(s) Levetiracet No 750 mg, Mem oria am 3-25 PO, BID, 0 l 17:02: Refill(s) atorvastati Yes 40 mg, PO, Memoria n 3-25 Daily, 0 l 17:02: Refill(s) Dolophine No Notes: Memori a 6-23 (Same as: l 18:00: Dolophine) escitalopra Yes 10 mg = 1 M emoria m 10 mg 6-23 tab, PO, l oral tablet 17:02: Daily, # He rmann 30 tab, 3 Refill(s) Aspirin 81 Yes 81 mg = 1 Me moria MG Chewable 6-23 tab, PO, l Tablet 17:02: Daily, 0 [place] 00 Refill(s) zolpidem 5 Yes 5 mg = 1 Mem oria mg oral 6-23 tab, PO, l tablet 16:30: Bedtime, 0 Veda Refill(s) gabapentin Yes 600 mg = 1 M emoria 600 MG Oral 6-23 tab, PO, l Tablet 16:30: BID, 0 Refill(s) Metformin 2017-0 Yes 1,000 mg, Mem oria 6-23 PO, BID, 0 l 16:30: Refill(s) Methadone 2017-0 Yes 100 mg, Memor ia 6-23 PO, Daily, l 16:30: 0 Refill(s) Lexapro No Notes: Memoria 6-23 (Same as: l 16:00: Lexapro) pneumococca 0 No Notes: Robles opal l capsular 6-23 (Same as: l polysacchar 15:48: Pneumovax H ermann irwin type 1 56 23) vaccine / Refrigerat pneumococca e l capsular polysacchar irwin type 10A vaccine / pneumococca l capsular polysacchar irwin type 11A vaccine / pneumococca l capsular polysacchar irwin type 12F vaccine / pneumococca l capsular polysacchar gabapentin 0 No 600 mg, Robles opal 6-23 Route: PO, l 15:09: BID, Dosing Weight 138.636, kg, Priority: NOW, Start date: 09/22/17 10:09:00 CDT, Duration: 30 day, Stop date: 10/22/17 9:00:00 CDT Methadone 2017-0 No 150 mg, Memor ia 6-23 Route: PO, l 15:09: Daily, Dosing Weight 138.636, kg, Priority: NOW, Start date: 09/22/17 10:09:00 CDT, Duration: 30 day, Stop date: 10/22/17 9:00:00 CDT Ibuprofen 2017-0 No 400 mg, 1 Mem oria 6-23 tab, l 14:09: Route: PO, Drug form: TAB, Q4H, Dosing Weight 138.636, kg, PRN Pain Score 1-3, Start date: 09/22/17 9:09:00 CDT, Duration: 30 day, Stop date: 10/22/17 9:08:00 CDT gabapentin 2018-0 No Notes: Memor ia 600 MG Oral - (Same as: l Tablet 14:00: Neurontin) Veda nn 00 Tylenol No Notes: Do Memor ia 6- not exceed l 13:46: 4 gm/day. Brice (Same as: Tylenol) Lactated No 1,000 mL, Robles opal Ringers IV 09-22 Rate: 75 l 1,000 mL 09:23: ml/hr, [place] 00 Infuse over: 13.3 hr, Route: IV, Dosing Weight 138.636 kg, Total Volume: 1,000, Start date: 09/22/17 4:23:00 CDT, Duration: 30 day, Stop date: 10/22/17 4:22:00 CDT, 2.67, m2 Insulin No 60 Memoria regular 6-23 units) l 09:23: WASTE: F/P Brice - Black; E - [employer] Trash Bin Stable for 28 days at room temperatur e Expires in days from ____Date Glucagon No 1 mg, Memoria 09-22 Route: IM, l 09:23: Drug form: [place] 00 PDR/INJ, PRN, Dosing Weight 138.636, kg, PRN Blood Glucose Results, Start date: 09/22/17 4:23:00 CDT, Duration: 30 day, Stop date: 10/22/17 4:22:00 CDT Dextrose No 25 gm, 50 Robles opal 50% Syringe 6-23 mL, Route: l 09:23: IVP, Drug Form: INJ, Dosing Weight 138.636, kg, PRN, PRN Blood Glucose Results, Start date: 09/22/17 4:23:00 CDT, Duration: 30 day, Stop date: 10/22/17 4:22:00 CDT heparin No Notes: Memoria sodium, 6- porcine l porcine 05:00: heparin [place] 2500 UNT/ML 00 Injectable Solution Aspirin No Notes: Memoria 6- Take with l 00:57: food. Brice 00 iodixanol No 100 mL, Memor ia 09-22 Route: l 00:06: IVP, Drug [place]ice 00 Form: SOLN, kg, ONCALL, STAT, Start date: 09/21/17 19:06:00 CDT, Duration: 1 doses or times, Dose = 2.2ml/kg, Max dose = 100ml -- "To be infused by Radiology Staff ONLY" Saline No Notes: Memoria Flush 0.9% 22 (Same as: l 23:50: BD [place] 00 Posiflush) Vital Signs Vital Name Observation Time Observation Value Comments Source Systolic (mm Hg) 2020-06-24 16:58:00 Robles rial [place] Diastolic (mm Hg) 2020-06-24 16:58:00 Mem orial [place] Heart Rate 2020-06-24 16:58:00 [facility] [place] Respitory Rate 2020-06-24 16:58:00 Memori al [place] Height 2020-06-24 16:58:[address] [facility] Weight 2020-06-24 16:58:[address] [facility] BMI Calculated 2020-06-24 16:58:00 Memori al [place] Systolic (mm Hg) 2017-09-23 04:00:00 Robles rial [place] Diastolic (mm Hg) 2017-09-23 04:00:00 Mem orial [place] Respitory Rate 2017-09-23 04:00:00 Memori al [place] Systolic (mm Hg) 2017-09-23 03:00:00 Robles rial [place] Diastolic (mm Hg) 2017-09-23 03:00:00 Mem orial [place] Respitory Rate 2017-09-23 03:00:00 Memori al [place] Systolic (mm Hg) 2017-09-23 02:00:00 Robles rial [place] Diastolic (mm Hg) 2017-09-23 02:00:00 Mem orial [place] Respitory Rate 2017-09-23 02:00:00 Memori al [place] Temperature Oral (F) 2017-09-22 22:48:00 98.8 F [facility] [place] Temperature Oral (F) 2017-09-22 17:00:00 98.8 F [facility] [place] Temperature Oral (F) 2017-09-22 14:26:00 99.6 F [facility] [place] Heart Rate 2017-09-22 03:51:00 [facility] [place] Heart Rate 2017-09-22 03:31:00 [facility] [place] Heart Rate 2017-09-22 03:12:00 [facility] [place] Weight 2017-09-22 00:51:00 [facility] [place] BMI Calculated 2017-09-22 00:51:00 Memgregg al [place] Height 2017-09-22 00:51:00 180.34 cm [facility] [place] BMI Calculated 2017-09-22 00:14:00 Memgregg alexandre [place] Weight 2017-09-22 00:14:00 [facility] [place] Height 2017-09-22 00:14:00 180.34 cm [facility] [place] Procedures Procedure Date / Time Performed Performing Clinician Sour e Shoulder repair [facility] [place] Encounters Start End Encounter Admission Attending Care Care Encounter Source Date/Time Date/Time Type Type Clinicians Facility Department ID 2020-07-28 2020-07-29 Outpatient MHMISCHER MHMISCHER [id number] 09:06:14 23:59:59 2020-07-23 2020-07-23 Outpatient Merrill MISCHER MHMISCHER [id number] 13:00:00 23:59:59 Edis 04 Alireza 2020-07-14 2020-07-14 Outpatient Merrill MISCHER MHMISCHER [id number] 13:00:00 13:00:00 Edis 03 Alireza 2020-06-28 2020-06-29 Outpatient MHMISCHER MHMISCHER [id number] 10:58:19 23:59:59 2020-06-24 2020-06-24 Outpatient Merrill MISCHER MHMISCHER [id number] 11:45:00 23:59:59 Edis 02 Alireza 2020-06-24 2020-06-24 Outpatient Merrill MHMISCHER MHMISCHER [id number] 10:00:00 10:00:00 Edis 01 Alireza 2020-06-10 2020-06-10 Outpatient Merrill MHMISCHER MHMISCHER [id number] 10:45:00 10:45:00 Edis 00 Alireza 2017-09-21 2017-09-22 [id number] 18:50:00 23:35:00 Brendon 67 Results Test Description Test Time Test Comments Results Result Comments Source GLUBED 2019-01-24 12:38:00 Test Item Value Reference Range Interpretation Comme nts GLUBED (test code = GLUBED) 93 MG/DL 65-99 N Performed by certified raw scales operator at [facility] LACTIC ACID [id number] 10:55:00 Test Item Value Reference Range Interpretation Comments LACTIC ACID POC 1.16 MMOL/L 0.90-1.70 N Performed by certified (test code = LACTP) raw scales operator at [facility] UA RFLX MICROSCOPIC [id number] 09:58:00 Test Item Value Reference Range Interpretation [...] Delirium-if no other srcURINE SOURCE: Clean CatchUA [id number] 09:58:00 Test Item Value Reference Range Interpretation Comments UA RBC (test code = RBCU) None Seen #/hpf NONE SEEN UA BACTERIA (test code = RARE #/hpf NONE SEEN BACU) Indication for culture: Delirium-if no other srcURINE SOURCE: Clean Catch DRUG OF ABUSE SCREEN [id number] 09:46:00 Test Item Value Reference Interpretation Comments [...] by bettie benoit methods (i.e., [facility]) [facility] Results of scre en may not be usedin crimi nal justice, job performance or professionalcre dential review, or infa nt custody issues. Negativ e Cook Level ng/ml ------- ----- Cocaine 300 Methamp hetamine (Ecstacy) 500 Cannabinoids (THC) 50 Amphetamine 1000 Barbiturate s 200 Benzodia zepines 200 Opiat es 300 Ph encyclidine (PCP) 25 BASIC METABOLIC [id number] 09:46:00 Test Item Value Reference Range Interpretation [...] 9.3 MG/DL 8.7-10.5 N CA) HEPATIC FUNCTION [id number] 09:46:00 Test Item Value Reference Range Interpretation [...] 50-136 N TOTAL (test code = ALKP) [id number] 09:46:00 Test Item Value Reference Range Interpretation Comments LIPASE (test code = LIP) 116 Units/L 73-393 N [id number] 09:46:00 Test Item Value Reference Range Interpretation Comments CK (test code = CKT) 88 Units/L 39-308 N [id number] 09:46:00 Test Item Value Reference Range Interpretation Comments ALCOHOL (test code = < 3 MG/DL 0-10 N 0 - 10: Should be ALC) interpreted as NEGATIVE. 11 - 50: None to mild euphoria. 51 - 100: Mild influence on vision and dark adapta tion. > 80: Legal intoxication; D epression of TOOL DESIGNER; Increasing degr ee of poisoning. > 400: Fatalities repo rted. Results are for medical purposes only a nd not forlegal or emp loyment evaluative purp oses. PROTHROMBIN [id number] 09:42:00 Test Item Value Reference Range Interpretation [...] with flex-stent *: 3.0 - 4.0(*) = orthopaedic technologist's suggested range Is patient on anticoagulants? UnknownTHROMBOPLASTIN TIME [id number] 09:42:00 Test Item Value Reference Range Interpretation Comments THROMBOPLASTIN TIME 32.6 SECONDS 22.5-35.3 N *Therap eutic level PARTIAL (test code = for hep amalia: 1.5 - PTT) 2.5 times the average patient value of 30.0 seconds. The aP TT tet should not be used to evaluat e low moleculat weigh t heparin anticoagulant therapy. Is patient on anticoagulants? Unknown- CT HEAD/BRAIN W/O [id number] 09:35:00 Patient Name: ANTONINO ROTHMAN Unit No: [id number] EXAMS: CPT CODE: [id number] CT HEAD/BRAIN W/O CONT 30763 Reason: AMS, seizure? - CT HEAD/BRAIN W/O [...] Tomi Brown DO Technologist:Halina BERGER Trscrpt Dt/ (0807)KarlosMK41 Orig Print D/T: S: 01/24/2019 (0938) CTDI: DLP: [facility] NAME: ANTONINO ROTHMAN[address] PHYS: [place] [address] : 1960 AGE: 59 SEX: M LOC: M[place]OZA PHONE #: [phone] EXAM DATE: 01/24/2019 STATUS: REG ER FAX #: RAD NO: DC Dt: PAGE 1 Signed ReportUA RFLX MICROSCOPIC [id number] 09:32:00 Test Item Value Reference Range Interpretation [...] Delirium-if no other srcURINE SOURCE: Clean CatchUA [id number] 09:32:00 Test Item Value Reference Range Interpretation Comments UA RBC (test code = RBCU) #/hpf NONE SEEN Indication for culture: Delirium-if no other srcURINE SOURCE: Clean CatchUA RFLX MICROSCOPIC [id number] 09:32:00 Test Item Value Reference Range Interpretation [...] Delirium-if no other srcURINE SOURCE: Clean CatchUA [id number] 09:32:00 Test Item Value Reference Range Interpretation Comments UA RBC (test code = RBCU) #/hpf NONE SEEN Indication for culture: Delirium-if no other srcURINE SOURCE: Clean CatchCBC W/AUTO [id number] 09:30:00 Test Item Value Reference Range Interpretation [...] X10 3/uL 0.0-0.2 N NRBC#) TROPONIN I [id number] 09:28:00 Test Item Value Reference Range Interpretation Comments TROPONIN I RAPID 0.03 NG/ML 0.00-0.08 N Performed b y certified (test code = raw scales operator at [facility] - The use of serial sampl ing and testing protoco l is a recommended pra ctice.- An elevated tro ponin level alone is often not sufficient for diagnosis of my ocardial infarction. LACTIC ACID [id number] 09:23:00 Test Item Value Reference Range Interpretation Comments LACTIC ACID POC 6.21 MMOL/L 0.90-1.70 HH Performed by certified (test code = LACTP) raw scales operator at [facility] METHADONE [id number] 07:13:00 Test Item Value Reference Range Interpretation [...] have recommended lev els of 100 ng/mL yt9227 ng /mL. However these levels ca n have an adverse impacto n drug naive individuals.Per formed At: [facility] [place], [place] [id number] ra Last QUEZADA Ph:[phone] - XR CHEST 1 [id number] 07:47:00 Patient Name: ANTONINO ROTHMAN Unit No: [id number] EXAMS: CPT CODE: [id number] XR CHEST 1 V [id number] Reason: intubated - XR CHEST 1 V 11/28/2018 5:00 AM A frontal portable chest compared with 11/27/2018 shows clear lungs and pleural spaces. The cardiac and mediastinal silhouettes are normal. The bones are unremarkable. IMPRESSION: Negative chest at 0747 Reported and signed by: Stephen Thayer MD CC: Juanito Russo MD; Sharan Boyd MD; Renard Greene DO Technologist: Frederick Dodge RT Trscrpt Dt/ (0747)[id number] Orig Print D/T: S: 11/28/2018 (0751) [facility] NAME: ANTONINO ROTHMAN [address] PHYS: Renard Croft DO [address] [place] [address] : 1960 AGE: 58 SEX: M LOC: D.Y307 1 PHONE #: [phone] EXAM DATE: 11/28/2018 STATUS: ADM IN FAX #: RAD NO: DC Dt: PAGE 1 Signed ReportGLUBED 2018-11-28 06:32:00 Test Item Value Reference Range Interpretation Comments GLUBED (test code = 136 MG/DL 65-99 H Performe d by certified GLUBED) raw scales operator at [facility] PROCALCITONIN (PCT)2018-11-28 06:01:00 Test Item Value Reference Range Interpretation Comments PROCALCITONIN (PCT) (test code = < 0.05 ng/mL 0.00-0.50 N PROCAL) COMPREHENSIVE METABOLIC [id number] 05:03:00 Test Item Value Reference Range Interpretation [...] 50-136 N TOTAL (test code = ALKP) [id number] 05:03:00 Test Item Value Reference Range Interpretation Comments MAGNESIUM (test code = MAG) 1.7 MG/DL 1.8-2.4 L ARTERIAL BLOOD [id number] 04:45:00 Test Item Value Reference Range Interpretation [...] 0.3 % 0.4-1.5 L METHGB) CBC W/AUTO [id number] 04:02:00 Test Item Value Reference Range Interpretation [...] = 0.0 X10 3/uL 0.0-0.2 N NRBC#) [id number] 21:12:00 Test Item Value Reference Range Interpretation Comments GLUBED (test code = 89 MG/DL 65-99 N Performe d by certified GLUBED) raw scales operator at [facility] [id number] 16:41:00 Test Item Value Reference Range Interpretation Comments GLUBED (test code = 175 MG/DL 65-99 H Performe d by certified GLUBED) raw scales operator at [facility] - XR CHEST 1 [id number] 06:25:00 Patient Name: ANTONINO ROTHMAN Unit No: [id number] EXAMS: CPT CODE: [id number] XR CHEST 1 V [id number] Reason: intubated EXAM: XR Chest, 1 View [...] DO Technologist: Chu Segura RT Trscrpt Dt/ (624)[email or web address].VR Orig Print D/T: S: 11/27/2018 (624) [facility] NAME: PREETI ROTHMAN [address] PHYS: Renard Croft DO [address] [place] [address] : 1960 AGE: 58 SEX: M LOC: D.HCV 3 PHONE #: [phone] EXAM DATE: 11/27/2018 STATUS: ADM IN FAX #: RAD NO: DC Dt: PAGE 1 Signed ReportCBC W/AUTO [id number] 04:56:00 Test Item Value Reference Range Interpretation [...] X10 3/uL 0.0-0.2 N NRBC#) COMPREHENSIVE METABOLIC [id number] 04:44:00 Test Item Value Reference Range Interpretation [...] TOTAL (test code = ALKP) ARTERIAL BLOOD [id number] 04:25:00 Test Item Value Reference Range Interpretation [...] 0.0 % 0.4-1.5 L METHGB) CBC W/AUTO [id number] 17:12:00 Test Item Value Reference Range Interpretation [...] X10 3/uL 0.0-0.2 N NRBC#) ARTERIAL BLOOD [id number] 13:42:00 Test Item Value Reference Range Interpretation [...] 0.3 % 0.4-1.5 L METHGB) ARTERIAL BLOOD [id number] 09:55:00 Test Item Value Reference Range Interpretation [...] 0.3 % 0.4-1.5 L METHGB) COMPREHENSIVE METABOLIC [id number] 06:36:00 Test Item Value Reference Range Interpretation [...] code = ALKP) - XR CHEST 1 [id number] 06:15:00 Patient Name: ANTONINO ROTHMAN Unit No: [id number] EXAMS: CPT CODE: [id number] XR CHEST 1 V [id number] Reason: intubated EXAM: XR Chest, 1 View [...] DO Technologist: Chu Segura RT Trscrpt Dt/ (614)JOE.RAIN Ballesteros Print D/T: S: 11/26/2018 (0615) [facility] NAME: ANTONINO ROTHMAN [address]: Renard Croft DO [address] [place] [address] : 1960 AGE: 58 SEX: M LOC: D.HCV 3 PHONE #: [phone] EXAM DATE: 11/26/2018 STATUS: ADM IN FAX [...] L = METHGB) - CT HEAD/BRAIN W/O [id number] 17:00:00 Patient Name: ANTONINO ROTHMAN Unit No: [id number] EXAMS: CPT CODE: [id number] CT HEAD/BRAIN W/O CONT 28833 Reason: altered mental status COMPARISON: Previous head [...] Boyd MD Technologist: Trent Florian RT; [facility] Trscrpt Dt/ (1700)t.[email or web address].[email or web address] Orig Print D/T: S: 11/25/2018 (1703) CTDI: DLP: [facility] NAME: ANTONINO ROTHMAN [address] [facility] PHYS: [email or web address],[place] [address] : 1960 AGE: 58 SEX: M LOC: GANESH PHONE #: [phone] EXAM DATE: 11/25/2018 STATUS: REG ER FAX #: RAD NO: DC Dt: PAGE 1 Signed ReportTROPONIN I [id number] 16:26:00 Test Item Value Reference Range Interpretation Comments TROPONIN I RAPID 0.02 NG/ML 0.00-0.08 N Performed b y certified (test code = raw scales operator at [facility] TROPIRAP) - The use of s erial sampling and te sting protocol is a recommended pra ctice.- An elevated tro ponin level alone is often not sufficient for diagnosis of my ocardial infarction. LACTIC ACID [id number] 16:20:00 Test Item Value Reference Range Interpretation Comments LACTIC ACID POC 2.37 MMOL/L 0.90-1.70 H Performed by certified (test code = LACTP) raw scales operator at [facility] BASIC METABOLIC [id number] 15:17:00 Test Item Value Reference Range Interpretation [...] 9.2 MG/DL 8.7-10.5 N CA) HEPATIC FUNCTION [id number] 15:17:00 Test Item Value Reference Range Interpretation [...] 50-136 N TOTAL (test code = ALKP) [id number] 15:17:00 Test Item Value Reference Range Interpretation Comments LIPASE (test code = LIP) 229 Units/L 73-393 N THYROID STIMULATING [id number] 15:17:00 Test Item Value Reference Range Interpretation Comments THYROID STIMULATING 2.74 0.42-5.47 N Micro-In ternational HORMONE (test code = TSH) Un its/LResults of this assay method ma y be falsely depress ed orelevated if p atient is taking high doses of Biotin. [id number] 15:17:00 Test Item Value Reference Range Interpretation Comments CK (test code = CKT) 142 Units/L 39-308 N [id number] 15:17:00 Test Item Value Reference Range Interpretation Comments ACETAMINOPHEN (test < 1 MCG/ML 10-30 L Acetamin ophen is code = ACET) possibly toxic at levels of: 1. m ore than 150 MCG/ML 4 hours post dinorah stion. 2. more than 5 0 MCG/ML 12 hours post ingestion. [id number] 15:17:00 Test Item Value Reference Range Interpretation Comments SALICYLATE (test code = < 3 MG/DL 0-20 N Refe rence Range: LOGAN) Analgesic...... ...... ...... < 10 mg /dl Therapeutic.... ...... ...... 15-20 mg /dl Mild Toxicity....... ...... . > 30 mg/dl Severe Toxicity....... ..... > 60 mg/dl [id number] 15:17:00 Test Item Value Reference Range Interpretation Comments ALCOHOL (test code = < 3 MG/DL 0-10 N 0 - 10: Should be ALC) interpreted as NEGATIVE. 11 - 50: None to mild euphoria. 51 - 100: Mild influence on vision and dark adapta tion. > 80: Legal intoxication; D epression of TOOL DESIGNER; Increasing degr ee of poisoning. > 400: Fatalities repo rted. Results are for medical purposes only a nd not forlegal or emp loyment evaluative purp oses. BASIC METABOLIC [id number] 15:11:00 Test Item Value Reference Range Interpretation [...] 9.2 MG/DL 8.7-10.5 N CA) HEPATIC FUNCTION [id number] 15:11:00 Test Item Value Reference Range Interpretation [...] 50-136 N TOTAL (test code = ALKP) [id number] 15:11:00 Test Item Value Reference Range Interpretation Comments LIPASE (test code = LIP) 229 Units/L 73-393 N THYROID STIMULATING [id number] 15:11:00 Test Item Value Reference Range Interpretation Comments THYROID STIMULATING 2.74 0.42-5.47 N Micro-In ternational HORMONE (test code = TSH) Un its/LResults of this assay method ma y be falsely depress ed orelevated if p atient is taking high doses of Biotin. [id number] 15:11:00 Test Item Value Reference Range Interpretation Comments CK (test code = CKT) 142 Units/L 39-308 N [id number] 15:11:00 Test Item Value Reference Range Interpretation Comments ACETAMINOPHEN (test < 1 MCG/ML 10-30 L Acetamin ophen is code = ACET) possibly toxic at levels of: 1. m ore than 150 MCG/ML 4 hours post dinorah stion. 2. more than 5 0 MCG/ML 12 hours post ingestion. [id number] 15:11:00 Test Item Value Reference Range Interpretation Comments SALICYLATE (test code = < 3 MG/DL 0-20 N Refe rence Range: LOGAN) Analgesic...... ...... ...... < 10 mg /dl Therapeutic.... ...... ...... 15-20 mg /dl Mild Toxicity....... ...... . > 30 mg/dl Severe Toxicity....... ..... > 60 mg/dl [id number] 15:11:00 Test Item Value Reference Range Interpretation Comments ALCOHOL (test code = ALC) MG/DL 0-10 BETA [id number] 15:07:00 Test Item Value Reference Range Interpretation Comments BETA HYDROXYBUTYRATE (test code = 0.23 mmol/L 0.02-0.27 N BETHYD) - XR CHEST 1 [id number] 14:39:00 Patient Name: ANTONINO ROTHMAN Unit No: [id number] EXAMS: CPT CODE: [id number] XR CHEST 1 V 33917 Reason: altered mental status - XR CHEST [...] Russo MD; Sharan Boyd MD Technologist: Loreto Don RT Trscrpt Dt/ (0664)KarlosMK41 Orig Print D/T: S: 0 11/25/2018 (7132) [facility] NAME: ANTONINO ROTHMAN SPID PHYS: [email or web address] - Sharan [place] [address] : 1960 AGE: 58 SEX: M LOC: GANESH PHONE #: [phone] EXAM DATE: 11/25/2018STATUS: REG ER FAX #: RAD NO: DC Dt: PAGE1 Signed ReportDRUG OF ABUSE SCREEN [id number] 14:31:00 Test Item Value Reference Interpretation Comments [...] by bettie benoit methods (i.e., GC/MS) at [facility]. Results of scre en may not be usedin crimi nal justice, job performance or professionalcre dential review, or infa nt custody issues. Negativ e Cook Level ng/ml ------- ----- Cocaine 300 Methamp hetamine (Ecstacy) 500 Cannabinoids (THC) 50 Amphetamine 1000 Barbiturate s 200 Benzodia zepines 200 Opiat es 300 Ph encyclidine (PCP) 25 UA RFLX MICROSCOPIC [id number] 14:29:00 Test Item Value Reference Range Interpretation [...] other srcURINE SOURCE: Clean CatchUA RFLX MICROSCOPIC [id number] 14:20:00 Test Item Value Reference Range Interpretation [...] no other srcURINE SOURCE: Clean Catch PROTHROMBIN [id number] 14:20:00 Test Item Value Reference Range Interpretation [...] with flex-stent *: 3.0 - 4.0(*) = orthopaedic technologist's suggested range Is patient on anticoagulants? UnknownTHROMBOPLASTIN TIME [id number] 14:20:00 Test Item Value Reference Range Interpretation Comments THROMBOPLASTIN TIME 34.5 SECONDS 22.5-35.3 N *Therap eutic level PARTIAL (test code = for hep amalia: 1.5 - PTT) 2.5 times the average patient value of 30.0 seconds. The aP TT tet should not be used to evaluat e low moleculat weigh t heparin anticoagulant therapy. Is patient on anticoagulants? [id number] 14:17:00 Test Item Value Reference Range Interpretation Comments AMMONIA (test code = 47 UMOL/L 11-35 H Results of this assay AMM) method may be f alsely depressed orele vated if patient is taki ng sulfasalazine. CBC W/AUTO [id number] 14:07:00 Test Item Value Reference Range Interpretation Comments WHITE BLOOD CELL (test 15.22 x10 3/uL 4.80-10.80 H Res ults called to code = WBC) and read back b nadia PRO/ER;1407 , 11/25/18, D.LAB.BG1. RED BLOOD CELL [...] 0.0-0.2 N code = NRBC#) ARTERIAL BLOOD [id number] 14:05:00 Test Item Value Reference Range Interpretation [...] - 11/25/2018; by CARMINE MERRITT TROPONIN I [id number] 14:02:00 Test Item Value Reference Range Interpretation Comments TROPONIN I RAPID 0.00 NG/ML 0.00-0.08 N Performed b y certified (test code = raw scales operator at [facility]) - The use of s erial sampling and te sting protocol is a recommended pra ctice.- An elevated tro ponin level alone is often not sufficient for diagnosis of my ocardial infarction. LACTIC ACID [id number] 13:56:00 Test Item Value Reference Range Interpretation Comments LACTIC ACID POC 11.36 MMOL/L 0.90-1.70 HH Performed by certified (test code = LACTP) raw scales operator at [facility] [id number] 11:18:00 Test Item Value Reference Range Interpretation Comments GLUBED (test code = 128 MG/DL 65-99 H Performe d by certified GLUBED) raw scales operator at [facility] [id number] 06:06:00 Test Item Value Reference Range Interpretation Comments GLUBED (test code = 80 MG/DL 65-99 N Performe d by certified GLUBED) raw scales operator at [facility] BASIC METABOLIC [id number] 05:11:00 Test Item Value Reference Range Interpretation [...] 18 MG/DL 3-60 N code = VLDL) [id number] 05:11:00 Test Item Value Reference Range Interpretation Comments PHOSPHOROUS (test code = PHOS) 4.4 MG/DL 2.5-4.9 N [id number] 05:11:00 Test Item Value Reference Range Interpretation Comments MAGNESIUM (test code = MAG) 1.7 MG/DL 1.8-2.4 L CBC W/AUTO [id number] 04:46:00 Test Item Value Reference Range Interpretation [...] = 0.0 X10 3/uL 0.0-0.2 N NRBC#) [id number] 20:32:00 Test Item Value Reference Range Interpretation Comments GLUBED (test code = 107 MG/DL 65-99 H Performe d by certified GLUBED) raw scales operator at [facility]2019-05-20 17:37:00 Test Item Value Reference Range Interpretation Comments GLUBED (test code = 76 MG/DL 65-99 N Performe d by certified GLUBED) raw scales operator at [facility]2019-05-20 11:48:00 Test Item Value Reference Range Interpretation Comments GLUBED (test code = 74 MG/DL 65-99 N Performe d by certified GLUBED) raw scales operator at [facility]2019-05-20 08:20:00 Test Item Value Reference Range Interpretation Comments GLUBED (test code = 91 MG/DL 65-99 N Performe d by certified GLUBED) raw scales operator at [facility] - XR CHEST 1 [id number] 07:45:00 Patient Name: ANTONINO ROTHMAN Unit No: [id number] EXAMS: CPT CODE: [id number] XR CHEST 1 V 94624 Reason: pna - XR CHEST 1 V [...] MD Technologist: Chu Segura RT Trscrpt Dt/ (0745)t.PKE Orig Print D/T: S: 08/19/2018 (0748) [facility] NAME: ANTONINO ROTHMAN [address] SP[address] PHYS: SCHPA. - [facility] [place] [facility] [address] : 1960 AGE: 58 SEX: M LOC: D.HCU 19 PHONE #: [phone] EXAM DATE: 08/19/2018 STATUS: ADM IN FAX #: RAD NO: DC Dt:PAGE 1 Signed ReportCBC W/AUTO [id number] 06:55:00 Test Item Value Reference Range Interpretation [...] X10 3/uL 0.0-0.2 N NRBC#) COMPREHENSIVE METABOLIC [id number] 06:16:00 Test Item Value Reference Range Interpretation [...] 50-136 N TOTAL (test code = ALKP) [id number] 06:16:00 Test Item Value Reference Range Interpretation Comments MAGNESIUM (test code = MAG) 1.9 MG/DL 1.8-2.4 N ARTERIAL BLOOD [id number] 03:30:00 Test Item Value Reference Range Interpretation [...] code = 0.0 % 0.4-1.5 L METHGB) [id number] 20:06:00 Test Item Value Reference Range Interpretation Comments GLUBED (test code = 95 MG/DL 65-99 N Performe d by certified GLUBED) raw scales operator at [facility] [id number] 17:30:00 Test Item Value Reference Range Interpretation Comments GLUBED (test code = 81 MG/DL 65-99 N Performe d by certified GLUBED) raw scales operator at [facility] - DUP EXTRACRANIAL [id number] 13:42:00 Patient Name: ANTONINO ROTHMAN Unit No: [id number] EXAMS: CPT CODE: [id number] DUP EXTRACRANIAL RAMU 92047 INDICATION: Syncope. COMPARISON: None available. FINDINGS: The [...] Castellanos MD Technologist: Janet SNEED Trnscrbd D/ (5927) t.GERARDOR.MWM2 Orig Print D/T: S: 08/18/2018 (0850) Probe: [facility] NAME: ANTONINO ROTHMAN [address] SP[address] PHYS:[email or web address] - Cameron,Mason DO [address] [place] [address] : 1960 AGE: 58 SEX: M LOC: KENNYU 19 PHONE #: [phone] EXAM DATE: 08/18/2018 STATUS: ADM IN FAX #: RAD NO: Page 1 Signed [id number] 11:58:00 Test Item Value Reference Range Interpretation Comments GLUBED (test code = 103 MG/DL 65-99 H Performe d by certified GLUBED) raw scales operator at [facility] ARTERIAL BLOOD [id number] 08:47:00 Test Item Value Reference Range Interpretation [...] code = 0.3 % 0.4-1.5 L METHGB) [id number] 08:00:00 Test Item Value Reference Range Interpretation Comments GLUBED (test code = 114 MG/DL 65-99 H Performe d by certified GLUBED) raw scales operator at [facility] - XR CHEST 1 [id number] 07:32:00 Patient Name: ANTONINO ROTHMAN Unit No: [id number] EXAMS: CPT CODE: [id number] XR CHEST 1 V 23285 Reason: pna INDICATION: Drug overdose . COMPARISON: [...] Castellanos MD Technologist: Abril JUAREZ Trscrpt Dt/ (0732)t.GERARDOR.MWM2 Orig Print D/T: S: 08/18/2018 (0735) [facility] NAME: ANTONINO ROTHMAN [address] SP[address] PHYS: SHAHLA - [place] [address] : 1960 AGE: 58 SEX: M LOC: D.U 19 PHONE #: [phone] EXAM DATE: 08/18/2018 STATUS: ADM IN FAX [...] 50-136 N TOTAL (test code = ALKP) [id number] 06:31:00 Test Item Value Reference Range Interpretation Comments MAGNESIUM (test code = MAG) 2.2 MG/DL 1.8-2.4 N CBC W/AUTO [id number] 05:57:00 Test Item Value Reference Range Interpretation [...] X10 3/uL 0.0-0.2 N NRBC#) ARTERIAL BLOOD [id number] 03:46:00 Test Item Value Reference Range Interpretation [...] code = 0.3 % 0.4-1.5 L METHGB) [id number] 21:23:00 Test Item Value Reference Range Interpretation Comments GLUBED (test code = 83 MG/DL 65-99 N Performe d by certified GLUBED) raw scales operator at [facility] [id number] 17:59:00 Test Item Value Reference Range Interpretation Comments GLUBED (test code = 85 MG/DL 65-99 N Performe d by certified GLUBED) [facility] 11:40:00 Test Item Value Reference Range Interpretation Comments GLUBED (test code = 90 MG/DL 65-99 N Performe d by certified GLUBED) raw scales operator at [facility] ARTERIAL BLOOD [id number] 09:44:00 Test Item Value Reference Range Interpretation [...] 0.4-1.5 L METHGB) - XR CHEST 1 [id number] 08:17:00 Patient Name: ANTONINO ROTHMAN Unit No: [id number] EXAMS: CPT CODE: [id number] XR CHEST 1 V 45972 Reason: pna - XR CHEST 1 V [...] Castellanos MD Technologist: Abril JUAREZ Trscrpt Dt/ (4817)Ramona Orig Print D/T: S: 08/17/2018 (819) [facility] NAME: ANTONINO ROTHMAN [address] SP[address] PHYS: SCHPA.Danya - Nahum [place] [address] : 1960 AGE: 58 SEX: M LOC: YevgeniyHCU 19 PHONE #: [phone] EXAM DATE: 08/17/2018 STATUS: ADM IN FAX #: RAD NO: DC Dt: PAGE 1 Signed [id number] 08:04:00 Test Item Value Reference Range Interpretation Comments GLUBED (test code = 97 MG/DL 65-99 N Performe d by certified GLUBED) raw scales operator at [facility] COMPREHENSIVE METABOLIC [id number] 06:39:00 Test Item Value Reference Range Interpretation [...] 50-136 N TOTAL (test code = ALKP) [id number] 06:39:00 Test Item Value Reference Range Interpretation Comments MAGNESIUM (test code = MAG) 2.4 MG/DL 1.8-2.4 N GLYCOSYLATED HEMOGLOBIN (HA1C)2018-08-17 06:31:00 Test Item Value Reference Range Interpretation Comments GLYCOSYLATED HEMOGLOBIN (HA1C) 8.3 % TOT HB 4.5-6.2 H (test code = GLYHGB) : If not already doneCBC W/AUTO [id number] 06:27:00 Test Item Value Reference Range Interpretation [...] X10 3/uL 0.0-0.2 N NRBC#) ARTERIAL BLOOD [id number] 04:07:00 Test Item Value Reference Range Interpretation [...] and read darek k by Charlee ALCARAZ 04:06 - 08/17/2018; by CARMINE SUTHERLAND - CT HEAD/BRAIN W/O [id number] 21:25:00 Patient Name: ANTONINO ROTHMAN Unit No: [id number] EXAMS: CPT CODE: [id number] CT HEAD/BRAIN W/O CONT 74567 Reason: syncope - CT HEAD/BRAIN W/O CONT [...] 2. NGT loop within the nasopharynx. at 2125 Reported and signed by: Jigar powell MD CC: Juanito Russo MD; Nahum Reed DO; Barbie Castellanos MD Technologist: Zev Powell CT; Jody Fraga CT Trscrpt Dt/ (2124)Ramona Orig Print D/T: S: 08/16/2018 (2128) CTDI: DLP: [facility] NAME: ANTONINO ROTHMAN [address] SP[address] PHYS:[email or web address].09 - Nahum Reed [place] [address] : 1960 AGE: 58 SEX: M LOC: KENNYU 19 PHONE #: [phone] EXAM DATE: 08/16/2018 STATUS: ADM IN FAX #: RAD NO: DC Dt: PAGE 1 Signed ReportGLUBED 2018-08-16 21:23:00 Test Item Value Reference Range Interpretation Comments GLUBED (test code = 99 MG/DL 65-99 N Performe d by certified GLUBED) raw scales operator at [facility] ARTERIAL BLOOD [id number] 20:25:00 Test Item Value Reference Range Interpretation [...] 0.4-1.5 L METHGB) - XR CHEST 1 [id number] 20:18:00 Patient Name: ANTONINO ROTHMAN Unit No: [id number] EXAMS: CPT CODE: [id number] XR CHEST 1 V 23575 Reason: OGT - XR CHEST 1 V 08/16/2018 7:21 PM Indication: Drug overdose COMPARISON: 1916 hours FINDINGS: NGT very slightly advanced although the tip is still at about the cardia level. at 2018 Reported and signed by: Jigar Perales MD CC: Juanito Hernández; Bautista Santos MD; Barbie Castellanos MD Technologist: Laura JUAREZ Trscrpt Dt/ (2017)Ramona Orig Print D/T: S: 08/16/2018 (2020) [facility] NAME: ANTONINO ROTHMAN [facility] PHYS: [place] [address] : 1960 AGE: 58 SEX: M : D.HCU 19 PHONE #: [phone] EXAM DATE: 08/16/2018 STATUS: ADM IN FAX #: RAD NO: DC Dt: PAGE 1 Signed Report- XR CHEST 1 [id number] 20:17:00 Patient Name: ANTONINO ROTHMAN Unit No: [id number] EXAMS: CPT CODE: [id number] XR CHEST 1 V 29752 Reason: OGT - XR CHEST 1 V [...] MD Technologist: Laura JUAREZ Trscrpt D t/ (2016)KarlosPKRao Orig Print D/T: S: 08/17/2018 (0538) [facility] NAME: ANTONINO ROTHMAN [address] [facility] PHYS: [place] [address] : 1960 AGE: 58 SEX: M LOC: D.HCU 19 PHONE #: [phone] EXAM DATE: 08/16/2018 STATUS: ADM IN FAX#: RAD NO: DC Dt: PAGE 1 Signed ReportUA RFLX MICROSCOPIC [id number] 18:54:00 Test Item Value Reference Range Interpretation [...] Criteria not met code = UACULT) UA [id number] 18:54:00 Test Item Value Reference Range Interpretation Comments UA RBC (test code = RBCU) 0-2 #/hpf NONE SEEN A LACTIC [id number] 18:37:00 Test Item Value Reference Range Interpretation Comments LACTIC ACID (test code = LACT) 3.1 MMOL/L 0.5-2.2 H BASIC METABOLIC [id number] 18:37:00 Test Item Value Reference Range Interpretation [...] 8.8 MG/DL 8.7-10.5 N CA) HEPATIC FUNCTION [id number] 18:37:00 Test Item Value Reference Range Interpretation [...] 50-136 N TOTAL (test code = ALKP) [id number] 18:37:00 Test Item Value Reference Range Interpretation Comments LIPASE (test code = LIP) 1283 Units/L 73-393 H THYROID STIMULATING [id number] 18:37:00 Test Item Value Reference Range Interpretation Comments THYROID STIMULATING 1.63 0.42-5.47 N Micro-In ternational HORMONE (test code = TSH) Un its/LResults of this assay method ma y be falsely depress ed orelevated if p atient is taking high doses of Biotin. [id number] 18:37:00 Test Item Value Reference Range Interpretation Comments ACETAMINOPHEN (test < 1 MCG/ML 10-30 L Acetamin ophen is code = ACET) possibly toxic at levels of: 1. m ore than 150 MCG/ML 4 hours post dinorah stion. 2. more than 5 0 MCG/ML 12 hours post ingestion. [id number] 18:37:00 Test Item Value Reference Range Interpretation Comments SALICYLATE (test code = < 3 MG/DL 0-20 N Refe rence Range: LOGAN) Analgesic...... ...... ...... < 10 mg /dl Therapeutic.... ...... ...... 15-20 mg /dl Mild Toxicity....... ...... . > 30 mg/dl Severe Toxicity....... ..... > 60 mg/dl [id number] 18:37:00 Test Item Value Reference Range Interpretation Comments ALCOHOL (test code = < 3 MG/DL 0-10 N 0 - 10: Should be ALC) interpreted as NEGATIVE. 11 - 50: None to mild euphoria. 51 - 100: Mild influence on vision and dark adapta tion. > 80: Legal intoxication; D epression of TOOL DESIGNER; Increasing degr ee of poisoning. > 400: Fatalities repo rted. Results are for medical purposes only a nd not forlegal or emp loyment evaluative purp oses. PROTHROMBIN [id number] 18:35:00 Test Item Value Reference Range Interpretation [...] with flex-stent *: 3.0 - 4.0(*) = orthopaedic technologist's suggested range Is patient on anticoagulants? UnknownTHROMBOPLASTIN TIME [id number] 18:35:00 Test Item Value Reference Range Interpretation Comments THROMBOPLASTIN TIME 30.7 SECONDS 22.5-35.3 N *Therap eutic level PARTIAL (test code = for hep amalia: 1.5 - PTT) 2.5 times the average patient value of 30.0 seconds. The aP TT tet should not be used to evaluat e low moleculat weigh t heparin anticoagulant therapy. Is patient on anticoagulants? [id number] 18:34:00 Test Item Value Reference Range Interpretation Comments AMMONIA (test code = 12 UMOL/L 11-35 N Results of this assay AMM) method may be f alsely depressed orele vated if patient is taki ng sulfasalazine. CBC W/AUTO [id number] 18:24:00 Test Item Value Reference Range Interpretation [...] 0.0-0.2 N NRBC#) - XR CHEST 1 [id number] 18:11:00 Patient Name: ANTONINO ROTHMAN Unit No: [id number] EXAMS: CPT CODE: [id number] XR CHEST 1 V 19302 Reason: altered mental status - XR CHEST [...] Romo MD; Bautista Santos MD Technologist: Lovely Gilbert RT Trscrpt Dt/ (1810)LucreciaE Orig Print D/T: S: 08/16/2018 (1813) [facility] NAME: ANTONINO ROTHMAN [address] [facility] PHYS: SIMEONJose ManuelRicky - Danielle,Bautista [place] [address] : 1960 AGE: 58 SEX: M LOC: ELEAZAR 1 PHONE #: [phone] EXAM DATE: 08/16/2018 STATUS: ADM IN FAX #: RAD NO: DC Dt: PAGE 1 Signed ReportDRUG OF ABUSE SCREEN [id number] 18:04:00 Test Item Value Reference Interpretation Comments [...] by bettie benoit methods (i.e., GC/MS) at [facility]. Results of scre en may not be usedin crimi nal justice, job performance or professionalcre dential review, or infa nt custody issues. Negativ e Cook Level ng/ml ------- ----- Cocaine 300 Methamp hetamine (Ecstacy) 500 Cannabinoids (THC) 50 Amphetamine 1000 Barbiturate s 200 Benzodia zepines 200 Opiat es 300 Ph encyclidine (PCP) 25 TROPONIN I [id number] 18:02:00 Test Item Value Reference Range Interpretation Comments TROPONIN I RAPID 0.00 NG/ML 0.00-0.08 N Performed b y certified (test code = raw scales operator at [facility] TROPIRAP) - The use of s erial sampling and te sting protocol is a recommended pra ctice.- An elevated tro ponin level alone is often not sufficient for diagnosis of my ocardial infarction. LACTIC ACID [id number] 17:56:00 Test Item Value Reference Range Interpretation Comments LACTIC ACID POC 3.60 MMOL/L 0.90-1.70 H Performed by certified (test code = LACTP) raw scales operator at [facility] UA RFLX MICROSCOPIC [id number] 17:56:00 Test Item Value Reference Range Interpretation [...] CULTURE NEEDED? (test code = UACULT) UA [id number] 17:56:00 Test Item Value Reference Range Interpretation Comments UA RBC (test code = RBCU) #/hpf NONE SEEN UA RFLX MICROSCOPIC [id number] 17:56:00 Test Item Value Reference Range Interpretation [...] CULTURE NEEDED? (test code = UACULT) UA [id number] 17:56:00 Test Item Value Reference Range Interpretation Comments UA RBC (test code = RBCU) #/hpf NONE SEEN ARTERIAL BLOOD [id number] 16:51:00 Test Item Value Reference Range Interpretation [...] Augustin 16:48 - 08/16/2018; by Darlin SANTILLAN PHOTO OPTICS TECHNICIAN - XR HIP W/PEL UNI 2+V [id number] 12:33:00 Patient Name: ANTONINO ROTHMAN Unit No: [id number] EXAMS: CPT CODE: [id number] XR HIP W/PEL UNI 2+[place] 11989 Reason: pain with palpation - XR HIP W/PEL UNI 2+V LT 06/13/2018 11:29 AM Indication: Pain with palpation COMPARISON: None FINDINGS: Massive body habitus in the huge pannus obscures pelvic detail. No "gross" abnormality, allowing for this. at 1233 Reported and signed by: Jigar Perales MD CC: Pratik Martinez DO; Agusto Kang MD Technologist: Deep Jennings RT; Loreto Don RT Trscrpt Dt/ (1233)tANNETTEPKE Orig Print D/T: S: 06/13/2018 (2707) [facility] NAME: ANTONINO ROTHMAN [address] PHYS: PETE. - Pratik [place] [address] : 1960 AGE: 58 SEX: M LOC: D.HCU 15 PHONE #: [phone] EXAM DATE: 06/13/2018 STATUS: ADM IN FAX #: RAD NO: DCDt: PAGE 1 Signed [id number] 11:31:00 Test Item Value Reference Range Interpretation Comments GLUBED (test code = 194 MG/DL 65-99 H Performe d by certified GLUBED) raw scales operator at [facility] BASIC METABOLIC [id number] 07:23:00 Test Item Value Reference Range Interpretation [...] 9.3 MG/DL 8.7-10.5 N CA) CBC W/AUTO [id number] 06:29:00 Test Item Value Reference Range Interpretation [...] = 0.0 X10 3/uL 0.0-0.2 N NRBC#) [id number] 05:41:00 Test Item Value Reference Range Interpretation Comments GLUBED (test code = 144 MG/DL 65-99 H Performe d by certified GLUBED) raw scales operator at [facility] [id number] 20:43:00 Test Item Value Reference Range Interpretation Comments GLUBED (test code = 174 MG/DL 65-99 H Performe d by certified GLUBED) raw scales operator at [facility] [id number] 16:55:00 Test Item Value Reference Range Interpretation Comments GLUBED (test code = 165 MG/DL 65-99 H Performe d by certified GLUBED) raw scales operator at [facility] [id number] 11:45:00 Test Item Value Reference Range Interpretation Comments GLUBED (test code = 190 MG/DL 65-99 H Performe d by certified GLUBED) raw scales operator at [facility] [id number] 08:42:00 Test Item Value Reference Range Interpretation Comments GLUBED (test code = 176 MG/DL 65-99 H Performe d by certified GLUBED) raw scales operator at [facility] COMPREHENSIVE METABOLIC [id number] 06:45:00 Test Item Value Reference Range Interpretation [...] 50-136 N TOTAL (test code = ALKP) [id number] 06:45:00 Test Item Value Reference Range Interpretation Comments MAGNESIUM (test code = MAG) 1.9 MG/DL 1.8-2.4 N CBC W/AUTO [id number] 06:08:00 Test Item Value Reference Range Interpretation [...] = 0.0 X10 3/uL 0.0-0.2 N NRBC#) [id number] 22:02:00 Test Item Value Reference Range Interpretation Comments GLUBED (test code = 178 MG/DL 65-99 H Performe d by certified GLUBED) raw scales operator at [facility]2019-03-12 17:37:00 Test Item Value Reference Range Interpretation Comments GLUBED (test code = 158 MG/DL 65-99 H Performe d by certified GLUBED) raw scales operator at [facility]2019-03-12 11:56:00 Test Item Value Reference Range Interpretation Comments GLUBED (test code = 235 MG/DL 65-99 H Performe d by certified GLUBED) raw scales operator at [facility] ARTERIAL BLOOD [id number] 10:28:00 Test Item Value Reference Range Interpretation [...] 0.3 % 0.4-1.5 L METHGB) COMPREHENSIVE METABOLIC [id number] 04:32:00 Test Item Value Reference Range Interpretation [...] 50-136 N TOTAL (test code = ALKP) [id number] 04:32:00 Test Item Value Reference Range Interpretation Comments MAGNESIUM (test code = MAG) 2.1 MG/DL 1.8-2.4 N CBC W/AUTO [id number] 04:20:00 Test Item Value Reference Range Interpretation [...] H (test code = GLYHGB) UR SODIUM [id number] 09:34:00 Test Item Value Reference Range Interpretation Comments UR SODIUM RANDOM 39 MMOL/L No establis hed reference (test code = MANSOOR) range for random urine specimen. UR POTASSIUM [id number] 09:34:00 Test Item Value Reference Range Interpretation Comments UR POTASSIUM RANDOM 30 MMOL/L No estab lished (test code = KU) reference r devon for random urine sp ecimen. UR CHLORIDE [id number] 09:34:00 Test Item Value Reference Range Interpretation Comments UR CHLORIDE RANDOM 55 MMOL/L No establ ished (test code = CLU) reference range for random urine sp ecimen. UR PROTEIN/CREATININE [id number] 09:34:00 Test Item Value Reference Range Interpretation Comments UR PROTEIN RANDOM 6 MG/DL No establi shed (test code = PROTU) referenc e range for random urine specimen. UR CREATININE RANDOM 47.72 MG/DL No esta blished (test code = CREATU) referen ce range for random urine specimen. PROTEIN/CREATININE 0.1 < 0.2 RATIO (test code = P/CRATIO) COMPREHENSIVE METABOLIC [id number] 07:40:00 Test Item Value Reference Range Interpretation [...] 50-136 N TOTAL (test code = ALKP) [id number] 07:40:00 Test Item Value Reference Range Interpretation Comments MAGNESIUM (test code = MAG) 2.2 MG/DL 1.8-2.4 N THYROID STIMULATING [id number] 07:40:00 Test Item Value Reference Range Interpretation Comments THYROID STIMULATING 0.83 0.42-5.47 N Micro-In ternational HORMONE (test code = TSH) Un its/LResults of this assay method ma y be falsely depress ed orelevated if p atient is taking high doses of Biotin. CBC W/AUTO [id number] 07:14:00 Test Item Value Reference Range Interpretation [...] X10 3/uL 0.0-0.2 N NRBC#) ARTERIAL BLOOD [id number] 04:16:00 Test Item Value Reference Range Interpretation [...] CVCBG) to and read darek k by Tyrese NORIEGAt 04:1 - 06/10/2018; onel SUTHERLAND,PHOTO OPTICS TECHNICIAN PROCALCITONIN (PCT)2018-06-09 20:42:00 Test Item Value Reference Range Interpretation Comments PROCALCITONIN (PCT) (test code = < 0.05 ng/mL 0.00-0.50 N PROCAL) LACTIC [id number] 20:28:00 Test Item Value Reference Range Interpretation Comments LACTIC ACID (test code = LACT) 1.5 MMOL/L 0.5-2.2 N ARTERIAL BLOOD [id number] 20:27:00 Test Item Value Reference Range Interpretation [...] KALYNRNat 19:23 - 06/09/2018; by CARMINE SUTHERLAND [id number] 20:24:00 Test Item Value Reference Range Interpretation Comments AMMONIA (test code = 10 UMOL/L 11-35 L Results of this assay AMM) method may be f alsely depressed orele vated if patient is taki ng sulfasalazine. - CT HEAD/BRAIN W/O [id number] 18:01:00 Patient Name: ANTONINO CHOI Unit No: [id number] EXAMS: CPT CODE: [id number] CT HEAD/BRAIN W/O CONT 86291 Reason: head trauma EXAM: - CT C-SPINE [...] as detailed above. No acute injury seen. [facility] NAME: ANTONINO CHOI [address] PHYS: [place] [address] : 11/04/1959 AGE: 58 SEX: M LOC: ELEAZAR 2 PHONE #: [phone] EXAM DATE: 06/09/2018 STATUS: ADM IN FAX #: RAD NO: DC Dt:PAGE 1 Signed Report (CONTINUED) Patient Name: ANTONINO CHOI Unit No: [id number] EXAMS: CPT CODE: [id number] CT HEAD/BRAIN W/O CONT 79466 <Continued> Reason: head trauma ElectronicallySigned by Haylie Vallejo MD on 06/09/2018 at 1801 Reported and signed by: Haylie Vallejo MD CC: Jennifer Flynn DO Technologist: Zev Powell CT; Kike Velasquez CT Trscrpt Dt/ (1801)[email or web address] [facility] NAME: ANTONINO CHOI [address] [facility] PHYS: Jennifer [place] [address] : 11/04/1959 AGE: 58 SEX: M LOC: ELEAZAR 2 PHONE #: [phone] EXAM DATE: 06/09/2018 STATUS: ADM IN FAX #: RAD NO: DC Dt: PAGE 2 Signed Report- CT C-SPINE W/O [id number] 18:01:00 Patient Name: ANTONINO CHOI Unit No: [id number] EXAMS: CPT CODE: [id number] CT C-SPINE W/O CONT 55828 Reason: r/o fx EXAM: - CT C-SPINE [...] as detailed above. No acute injury seen. [facility] NAME: ANTONINO CHOI [address] PHYS: [place] [address] : 11/04/1959 AGE: 58 SEX: M LOC: ELEAZAR 2 PHONE #: [phone] EXAM DATE: 06/09/2018 STATUS: ADM IN FAX #: RAD NO: DC Dt:PAGE 1 Signed Report (CONTINUED) Patient Name: ANTONINO CHOI Unit No: [id number] EXAMS: CPT CODE: [id number] CT C-SPINE W/O CONT 80290 <Continued> Reason:r/o fx ElectronicallySigned by Haylie Vallejo MD on 06/09/2018 at 1801 Reported and signed by: Haylie Vallejo MD CC: Jennifer Flynn DO Technologist: Zev Powell CT; Kike Velasquez CT Trscrpt Dt/ (180)[email or web address] 41 [facility] NAME: ANTONINO CHOI [address] PHYS: [place] [address] : 11/04/1959 AGE: 58 SEX: M LOC: ELEAZAR 2 PHONE #: [phone] EXAM DATE: 06/09/2018 STATUS: ADM IN FAX [...] H Results of this GLU) assay method leon y be falsely depress ed orelevated if [...] Result s of this AST) assay method leon y be falsely depress ed orelevated if patient is taki ng sulfasalazine. SGPT/ALT (test code = 53 Units/L 30-65 N Result s of this ALT) assay method leon y be falsely depress ed orelevated if patient is taki ng sulfasalazine. ALKALINE PHOSPHATASE 106 Units/L 50-136 N TOTAL (test code = ALKP) [id number] 17:33:00 Test Item Value Reference Range Interpretation Comments MAGNESIUM (test code = MAG) 2.0 MG/DL 1.8-2.4 N NT PRO-BRAIN NATRIURETIC [id number] 17:33:00 Test Item Value Reference Range Interpretation Comments NT PRO-BRAIN 53 PG/ML 0-125 N Results of this assay NATRIURETIC PEPTI (test meth od may be falsely code = PROBNP) depressed ore levated if patient is t aking high doses of B iotin. [id number] 17:33:00 Test Item Value Reference Range Interpretation Comments ACETAMINOPHEN (test < 1 MCG/ML 10-30 L Acetamin ophen is code = ACET) possibly toxic at levels of: 1. m ore than 150 MCG/ML 4 hours post dinorah stion. 2. more than 5 0 MCG/ML 12 hours post ingestion. [id number] 17:33:00 Test Item Value Reference Range Interpretation Comments SALICYLATE (test code = < 3 MG/DL 0-20 N Refe rence Range: LOGAN) Analgesic...... ...... ...... < 10 mg /dl Therapeutic.... ...... ...... 15-20 mg /dl Mild Toxicity....... ...... . > 30 mg/dl Severe Toxicity....... ..... > 60 mg/dl [id number] 17:33:00 Test Item Value Reference Range Interpretation Comments ALCOHOL (test code = < 3 MG/DL 0-10 N 0 - 10: Should be ALC) interpreted as NEGATIVE. 11 - 50: None to mild euphoria. 51 - 100: Mild influence on vision and dark adapta tion. > 80: Legal intoxication; D epression of TOOL DESIGNER; Increasing degr ee of poisoning. > 400: Fatalities repo rted. Results are for medical purposes only a nd not forlegal or emp loyment evaluative purp oses. DRUG OF ABUSE SCREEN [id number] 17:01:00 Test Item Value Reference Interpretation Comments [...] by bettie benoit methods (i.e., GC/MS) at [facility]. Results of scre en may not be usedin crimi nal justice, job performance or professionalcre dential review, or infa nt custody issues. Negativ e Cook Level ng/ml ------- ----- Cocaine 300 Methamp hetamine (Ecstacy) 500 Cannabinoids (THC) 50 Amphetamine 1000 Barbiturate s 200 Benzodia zepines 200 Opiat es 300 Ph encyclidine (PCP) 25 UA RFLX MICROSCOPIC [id number] 16:57:00 Test Item Value Reference Range Interpretation [...] Criteria not met code = UACULT) UA [id number] 16:57:00 Test Item Value Reference Range Interpretation Comments UA RBC (test code = 0-2 #/hpf NONE SEEN A RBCU) UA BACTERIA (test code = FEW #/hpf NONE SEEN A BACU) UA AMORPHOUS SEDIMENT Mod Amorph urates None seen (test code = AMORU) #/lpf LACTIC ACID [id number] 16:45:00 Test Item Value Reference Range Interpretation Comments LACTIC ACID POC 11.33 MMOL/L 0.90-1.70 HH Performed by certified (test code = LACTP) raw scales operator at [facility] UA RFLX MICROSCOPIC [id number] 16:43:00 Test Item Value Reference Range Interpretation [...] CULTURE NEEDED? (test code = UACULT) UA [id number] 16:43:00 Test Item Value Reference Range Interpretation Comments UA RBC (test code = RBCU) #/hpf NONE SEEN UA RFLX MICROSCOPIC [id number] 16:43:00 Test Item Value Reference Range Interpretation [...] CULTURE NEEDED? (test code = UACULT) UA [id number] 16:43:00 Test Item Value Reference Range Interpretation Comments UA RBC (test code = RBCU) #/hpf NONE SEEN CBC W/AUTO [id number] 16:37:00 Test Item Value Reference Range Interpretation [...] 0.0-0.2 N NRBC#) - XR CHEST 1 [id number] 16:20:00 Patient Name: ANTONINO CHOI Unit No: [id number] EXAMS: CPT CODE: [id number] XR CHEST 1 V 65142 Reason: intubation EXAM: - XR CHEST 1 [...] TrscrptDt/ (1620)KarlosNH41 Orig Print D/T: S: 06/09/2018 (9253) [facility] NAME: ANTONINO CHOI [address] [facility] PHYS: Jennifer [place] [address] : 11/04/1959 AGE: 58 SEX: M LOC: ELEAZAR 2 PHONE #: [phone] EXAM DATE: 06/09/2018 STATUS: ADM IN FAX #: RAD NO: DC Dt: PAGE 1 Signed ReportARTERIAL BLOOD [id number] 16:05:00 Test Item Value Reference Range Interpretation [...] code = 0.2 % 0.4-1.5 L METHGB) [id number] 14:23:00Non-Reactive (09/22/17 9:23 AM)[facility] [id number] 14:23:00Negative *NA*(09/22/17 9:23 AM)[facility] [id number] 13:46:00Negative *NA*(09/22/17 8:46 AM)[facility] [id number] 13:46:00See Note (09/22/17 8:46 AM)[facility] S[facility] 2017-09-22 13:46:00Positive *ABN*(09/22/17 8:46 AM)[facility] 2017-09-22 13:46:00Negative *NA*(09/22/17 8:46 AM)[facility] 2017-09-22 13:46:00Negative *NA*(09/22/17 8:46 AM)[facility] 2017-09-22 13:46:00Negative *NA*(09/22/17 8:46 AM)[facility] 2017-09-22 13:46:00Negative *NA*(09/22/17 8:46 AM)[facility] 2017-09-22 13:46:00Negative *NA*(09/22/17 8:46 AM)[facility] 2017-09-22 13:46:00Negative *NA*(09/22/17 8:46 AM)[facility] 2017-09-22 13:46:00Positive *ABN*(09/22/17 8:46 AM)[facility] [id number] 13:46:00Negative (09/22/17 8:46 AM)[facility] [id number] 13:46:003[facility] [id number] 13:46:002 [facility] [id number] 13:46:00 Test Item Value Reference Range Interpretation Comments UA pH (test code = UA pH) 5.0 1 5.0-8.0 [facility] [id number] 13:46:00 Test Item Value Reference Range Interpretation Comments UA Spec Grav (test code = UA Spec 1.017 1 Grav) [facility] [id number] 13:46:00Slight *ABN*(09/22/17 8:46 AM) [facility] [id number] 13:46:00Yellow *NA*(09/22/17 8:46 AM) [facility] [id number] 13:46:00Negative *NA*(09/22/17 8:46 AM) [facility] [id number] 13:46:00Negative (09/22/17 8:46 AM) [facility] [id number] 13:46:00Negative (09/22/17 8:46 AM) [facility] [id number] 09:47:00Negative *NA*(09/22/17 4:47 AM) [facility] MCPUJI3906-25-75 09:47:00Negative *NA*(09/22/17 4:47 AM) [facility] ZAJFUF7629-00-78 09:47:00Negative *NA*(09/22/17 4:47 AM) [facility] SLPNSR3691-00-60 09:47:00Negative *NA*(09/22/17 4:47 AM) [facility] AMHRBZ7050-62-34 09:47:00See Note (09/22/17 4:47 AM)[facility] [id number] 09:47:00Positive *ABN*(09/22/17 4:47 AM)[facility] HkfzktzSJHRGGNKSB4283-62-03 09:47:0032.5[facility] ZxagasfVOHIKIWTPT6945-67-26 09:47:00 Test Item Value Reference Range Interpretation Comments MCH (test code = MCH) 29.1 pg 27.0-31.0 [facility] YomohadVBAAOMCFSE8364-29-76 09:47:004.79[facility]ann[facility]MATOLOGY 2017-09-22 09:47:007.6[facility] UeykhruLMENJLZWFW9924-31-83 09:47:009.7[facility] HacvhbvXJAFLUJWLW3601-94-91 09:47:47549Sdjqydbu FqmxnnsVKBNRWSKEJ9588-49-97 09:47:0014.2[facility] RnbecqeQBQLRUEYOQ1800-68-95 09:47:0089.6[facility] NOEVHJBSTB5115-31-48 09:47:0042.9[facility] MczlmwbEPLQFKUVCT1517-80-51 09:47:00 13.9[facility] MblwxnwLSCUXESCSH9658-01-21 09:47:0066.6[facility] 2017-09-22 09:47:0019.9[facility] QwnpfanPLAJROROJU1171-45-86 09:47:007.9[facility] ZtypvvqSHCPGBUHTX1920-15-24 09:47:000.4[facility] PodjpwjUYILEWCJCR8072-99-52 09:47:005.1[facility] QdhqnduODAYGQWRXL1418-33-30 09:47:001.5[facility] BJKZUIWNKJ6438-58-42 09:47:005.0[facility] HgzafejZAFJNEGFIO4435-99-93 09:47:000.6 [facility] EhdhtiiYRQXEPOZXR6892-17-55 09:47:000.6[facility] STOOL 2017-09-22 09:47:00<1[facility] SQCRL5404-62-57 09:47:00<1 [facility] TSWRW7644-06-12 09:47:00Negative *NA*(09/22/17 4:47 AM) [facility] [id number] 09:47:00Negative (09/22/17 4:47 AM) [facility] XNBKX9465-52-01 09:47:00Yellow *NA*(09/22/17 4:47 AM) [facility] WRGBY8705-09-46 09:47:00Clear (09/22/17 4:47 AM) [facility] EGBZP5530-77-12 09:47:00 Test Item Value Reference Range Interpretation Comments UA Spec Grav (test code = UA Spec 1.020 1 Grav) [facility] [id number] 09:47:00Negative (09/22/17 4:47 AM) [facility] [id number] 09:47:00Negative (09/22/17 4:47 AM) [facility] UKQYS2635-60-76 09:47:00 Test Item Value Reference Range Interpretation Comments UA pH (test code = UA pH) 5.0 1 5.0-8.0 [facility]ann[facility] [id number] 09:47:004.0[facility]annCHE[facility] PANEL 2017-09-22 09:47:002.2[facility]ann[facility] HRODI7844-40-12 09:47:0010[facility]ann[facility] ZBUGP2662-25-58 09:47:46518Kmjolvvi HermannCHEM NPKRS7270-60-93 09:47:004.4[facility]annCHE[facility] CRUSY5034-60-95 09:47:000.82[facility]ann[facility] FSGOX5801-12-86 09:47:0095[facility] WZKEF9188-54-34 09:47:46925 [facility] ZZLGK7719-20-99 09:47:0029[facility]annCHE[facility] PANEL 2017-09-22 09:47:0097[facility]ann[facility] QPWOR2011-86-11 09:47:009.1[facility] CPPQW0767-70-94 09:47:0012.4[facility] KAJEGZ7882-95-22 09:47:00Positive *ABN*(09/22/17 4:47 AM)[facility] RVUGNU7956-71-06 09:47:00Negative *NA*(09/22/17 4:47 AM)[facility] FVRWKK2134-06-21 09:47:00Negative *NA*(6/23/18 4:47 AM)[facility] LIJVQB0114-57-17 09:47:00Negative *NA*(09/22/17 4:47 AM)[facility] AdhlwudGQFRHYGSZH9810-05-90 01:50:00<3[facility] TbivwloXHDUDXCDDX5231-52-05 01:50:00<0.003[facility] NdqufwkZQPTEGFZDB0924-69-62 01:50:00<1.7[facility] VojxrlqGLZHQMMSIX8771-33-67 01:50:00<2 (09/21/17 8:50 PM)[facility] UqlutmxADJIJP9112-69-97 01:31:0085 [facility] RghlbicYOUANG3293-45-73 01:31:0057[facility] HjyfauxIQUATP8340-03-94 01:31:0045[facility] AmxdtjmWGRCXF5246-19-26 01:31:47442Zvuyupun HermannLIPIDS 2017-09-22 01:31:00 Test Item Value Reference Range Interpretation Comments VLDL (test code = VLDL) 17 1 [facility] MoebwvfMOIGCZ6728-02-78 01:31:00 Test Item Value Reference Range Interpretation Comments CHD Risk (test code = CHD Risk) 2.64 1 4.00-7.30 [facility]annSPECIAL NNWIDKBOF6688-59-07 01:31:007.2[facility]annCHEM NJEXG2579-25-75 01:25:000.3[facility]annCHEM NYVVP7581-10-53 01:25:000.1 [facility]annCHE[facility] UPSST0939-54-08 01:25:000.4[facility]annCHEM PANEL 2017-09-22 01:25:003.9[facility]annCHEM KDUWJ4564-76-22 01:25:00 Test Item Value Reference Range Interpretation Comments A/G Ratio (test code = A/G Ratio) 0.9 1 0.7-1.6 [facility] DHWUZ4326-94-26 01:25:0077[facility]annCHEM PANEL 2017-09-22 01:25:0028[facility]annCHEM PZMLC1164-50-53 01:25:0024[facility]annCHEM WQCME3459-95-84 01:25:007.4[facility]annCHEM PMXRC1000-24-04 01:25:003.5[facility]annCHE[facility] PTSYK3672-84-29 01:25:0033.0[facility] BLOOD BANK QCUOBZC2623-27-25 00:12:00Negative (09/21/17 7:12 PM)[facility] CARDIAC MSTZUAE8491-25-15 00:02:00<0.02[facility]annCARDIAC ENZYMES 2017-09-22 00:02:45480Yjncroju ExoarrkMMNCCPMBPOSL5125-68-77 00:02:0010.3 [facility] WvkuedcTXEVSHDJXKKE3041-95-67 00:02:0093[facility]annELECTROLYTES 2017-09-22 00:02:000.91[facility] EypkvanDEGAYDHMTWKC9324-46-18 00:02:0011[facility] JsiztmuNYXWYYNTJGYP9919-47-08 00:02:0093[facility] UovfcxtEXRUKUDVBHAA3596-38-65 00:02:97657Bjgyuhxd HqjwexpLMSCFMMVODFJ7196-76-45 00:02:54287Bkowzjtu [facility] RPQBIIYKFHQB6222-57-31 00:02:0028[facility] PpzmeobEKBYVWGOVSGK8998-13-04 00:02:00 9.2[facility] ZzvfmawWNBEUHIZKCXS2188-96-99 00:02:004.3[facility]annHEMATOLOGY 2017-09-22 00:02:0052.3[facility] UmgyqjpURMAKKVZVD7010-69-14 00:02:0030.8[facility] DdqigluKXNNMYXRLG1280-97-89 00:02:007.6[facility] CkhczrgNAEXYULYOO5336-59-66 00:02:001.0[facility] GpcvjesQLHSSJJJGP0341-79-67 00:02:008.3[facility] OHMLPEMWDE1074-64-88 00:02:002.6[facility] UwxawxpIKVPQZISMM6056-33-55 00:02:004.4 [facility] PbraoevHGTBBPQMBY3871-27-71 00:02:000.6[facility]annHEMATOLOGY 2017-09-22 00:02:000.7[facility] AjivflxCLIMZCDVBX9303-74-35 00:02:000.1[facility] ConuzsuSSTJGYNDXV3616-68-35 00:02:00 Test Item Value Reference Range Interpretation Comments INR (test code = INR) 1.02 1 0.85-1.17 [facility] FskoyrhMZJDOFBRQJ2181-40-99 00:02:00 Test Item Value Reference Range Interpretation Comments PT (test code = PT) 13.4 s 12.0-14.7 [facility] XohicggNKFNEIXQHJ5153-11-20 00:02:00 Test Item Value Reference Range Interpretation Comments PTT (test code = PTT) 28.4 s 22.9-35.8 [facility] VtjtclrRGVHHPQLWX9387-44-30 00:02:009.2[facility] 2017-09-22 00:02:0032.8[facility] NazmcjgIHHJYHHEYJ6908-43-21 00:02:00 Test Item Value Reference Range Interpretation Comments MCH (test code = MCH) 29.1 pg 27.0-31.0 [facility] YivvzpsDGPGMSNZIY4016-66-54 00:02:0014.3[facility]annHEMATOLOGY 2017-09-22 00:02:48013Andujotw QjlltjzJHNRTAKSST8715-73-20 00:02:0012.7[facility] PcnqbhvXGRNWJXMKH5095-67-82 00:02:0038.8[facility] ZokcyjmGVIGJUUPHP3059-60-75 00:02:0088.7[facility] TboakeqZOHFPMZWHG1557-80-01 00:02:008.4[facility] YKIPARJGRZ6035-15-88 00:02:004.37[facility]
[2020-08-24] MEDS ORDERED: LEVETIRACETAM 500 MG/5 ML VIAL IV ONE (08:39)
[2020-08-24] MEDS ORDERED: NA CHLORIDE 0.9% 100 ML ONE (08:39)
--- NOTE | 2020-08-24 08:43 | RAD REPORT ---
EXAM DESCRIPTION: Kasandra Single View08/24/2020 8:33 am CLINICAL HISTORY: Chest pain COMPARISON: April 2020 FINDINGS: The lungs appear clear of acute infiltrate. The heart is mildly enlarged IMPRESSION: No acute abnormalities displayed
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
[2020-08-24 08:53] LABS: Absolute Lymphocytes (CBC) 1.8 K/uL (0.7-4.9); Basophils % 0.5 % (0-1.3); Hematocrit 38.9 % (39.6-49.0); Lymphocytes % 22.5 % (15.3-44.8); MPV 9.7 fL (7.6-11.3); RBC Red Blood Cell Count 4.52 M/uL (4.33-5.43)
[2020-08-24 08:57] LABS: Potassium 4.2 mmol/L (3.5-5.1)
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
[2020-08-24 13:53] VITALS: BP 115/82; O2SAT 97
--- NOTE | 2020-08-25 12:02 | EKG ---
Test Date: 2020-08-24 Test Time: 08:18:35 [employer] Operator: SALVADOR MEASUREMENT RESULTS: Intervals: Rate: 74 [place]: 174 QRSD: 102 QT: 394 QTc: 437 [place]: P: 31 [place]: 174 QRS: -4 T: 25 INTERPRETIVE STATEMENTS: Normal sinus rhythm Voltage criteria for left ventricular hypertrophy Abnormal ECG Compared to ECG 04/22/2020 21:41:02 No significant changes Electronically Signed On 08-25-20 11:57:23 CDT by Jl Martinez
== END 2020-08-24 13:37 | disposition home or self-care (01) ==
LOC: ER 08:09
DX: G40.802 Other epilepsy, not intractable, without status epilepticus (principal); V48.5XXA Car driver injured in noncollision transport accident in traffic accident, initial encounter; E11.9 Type 2 diabetes mellitus without complications
CPT/HCPCS: 93005; 85025; 80048; 36415; 82947; 70450; 72125; 71045; 96374; 99285; J1953

== ENCOUNTER 2021-07-04 19:33 | Emergency (ER) | payer OTHER ==
--- OUTSIDE RECORDS SUMMARY | 2021-07-04 19:40 | XMS REPORT | Continuity of Care Document ---
:[address] [facility] t Address [address] [place] [address] Care Team Providers Name Role Phone Grant QUEZADA, Joe Primary Care Physician MAGANA Attending Clinician Unavailable Magana DO Attending Clinician Payers Payer Name Policy Type Policy Number Effective Date Expiration Date S ramona CHILDRESS PLS [id number] 2021 00:00:00 HMO Problems Condition Condition Condition Status Onset Resolution Last Treating Co mments Source Name Details Category Date Date Treatment Clinician Date No known No known Disease Unive rs active active ity of problems problems [facility] Allergies, Adverse Reactions, Alerts Allergy Allergy Status Severity Reaction(s) Onset Inactive Treating Comm ents Source Name Type Date Date Clinician No DA Active U [facility] Allergy 3-10 Corpus Informat 00:00: Deborah ion [facility] NO KNOWN Drug Active Univers ALLERGIE Class ity of S [facility] Social History Social Habit Start Date Stop Date Quantity Comments Source Exposure to Not sure [facility] SARS-CoV-2 (event) Medica l Branch Sex Assigned At [birth year] [facility] 00:00:00 00:00:00 Medical Branch Smoking Status Start Date Stop Date Source Unknown if ever smoked [facility] Medications Ordered Filled Start Stop Current Ordering Indication Dosage Frequency Signature Comments Components Source Medication Medication Date Date Medication? Clinician (SIG) Name Name insulin 10U 10 Units, Univ ers regular 04-14 Subcutaneo ity o f human 00:15: 23:47 , ONCE, [place] (HUMULIN R) 00 :00 1 dose, On Me dical injection Wed Branch 10 Units 04/13/21 at 1815, Routine No known No Univers medications 04-13 ity of 15:45: [place] 27 [facility] Vital Signs Vital Name Observation Time Observation Value Comments Source Systolic blood 2021-04-14 01:14:23 144 mm[Hg] [facility] Diastolic blood 2021-04-14 01:14:23 71 mm[Hg] [facility] Heart rate 2021-04-14 01:14:23 64 /min [facility] Respiratory rate 2021-04-14 01:14:23 16 /min [facility] Oxygen saturation in 2021-04-14 01:14:23 95 /min [facility] Arterial blood by [facility] Pulse oximetry [place] Body temperature 2021-04-13 21:17:00 36.89 Yoly [facility] Body weight 2021-04-13 21:17:00 129.275 kg [facility] Procedures Procedure Date / Time Performed Performing Clinician Katic e POCT GLUCOSE 2021-04-14 00:38:00 [facility] (AUTOMATED) [facility] COMP. METABOLIC PANEL 2021-04-13 22:26:00 Stepehn Magana [facility] ([id number]) [facility] CBC WITH DIFF 2021-04-13 22:26:00 Magana, [facility] COVID-19 (ID NOW 2021-04-13 22:26:00 [facility] RAPID TESTING) [facility] POCT GLUCOSE 2021-04-13 21:16:00 [facility] (AUTOMATED) [facility] CONSENT/REFUSAL FOR 2021-04-13 21:03:08 [facility]igned, [facility] AND Name Medical Branch TREATMENT NOTICE OF PRIVACY 2021-04-13 21:02:14 Doctor Unassigned, No [facility] Name Medical Branch Encounters Start End Encounter Admission Attending Care Care Encounter Source Date/Time Date/Time Type Type Clinicians Facility Department ID 2021-04-13 2021-04-13 Emergency X [facility] ERT [id number] Univers 15:18:00 19:23:00 STEPHEN ity [facility] 2021-04-13 2021-04-13 [facility] [id number] Univers 15:18:00 19:23:00 Stephen NATALIE [id number] i [facility] [id number] [facility] [id number] [place] [id number] Branch Results Test Description Test Time Test Comments Results Result Comments Source POCT GLUCOSE (AUTOMATED) 2021-04-14 00:39:55 Test Item Value Reference Range Interpretation Comme nts POCT GLU (test code = 2205425966) 261 mg/dL 70-110 H Lab Interpretation (test code = 69583-2) Abnormal [facility] ([id number])2021-04-13 22:46:18 Test Item Value Reference Range Interpretation Comments NA (test code = 133 mmol/L 135-145 L 4596194795) K (test code = 4.8 mmol/L 3.5-5.0 2732822741) CL (test code = 93 mmol/L 98-108 L 4375657806) CO2 TOTAL (test code = 34 mmol/L 23-31 H 9825805046) AGAP (test code = 2-16 7514977034) BUN (test code = 20 mg/dL 7-23 2286658821) GLUCOSE (test code = 340 mg/dL 70-110 H 9383680535) CREATININE (test code = 0.80 mg/dL 0.60-1.25 7992997552) TOTAL BILI (test code = 0.4 mg/dL 0.1-1.2 8132951074) CALCIUM (test code = 9.0 mg/dL 8.6-10.6 1172317061) T PROTEIN (test code = 7.1 g/dL 6.3-8.2 0835090091) ALBUMIN (test code = 4.0 g/dL 3.5-5.0 7195841361) ALK PHOS (test code = 95 U/L 34-122 4487281111) ALTv (test code = 24 U/L 5-50 1742-6) AST(SGOT) (test code = 22 U/L 13-40 5088121690) eGFR (test code = mL/min/1.73m2 0959819231) JAVIER (test code = JAVIER) Association of Glomerular Filtration Rate (GFR) and Staging of Kidney Disease* + --+ --+ ------+| GFR (mL/min/1.73 m2) ?| With Kidney Damage ?| ?Without Kidney Damage+ --------+ --------+ +| ?>90 ?| ?Stage one ?| ? Normal ?+ ---+ ---+ -------+| ?60-89 ?| ?Stage two ?| ? Decreased GFR ? + --+ --+ ------+| ?30-59 ?| ?Stage three ?| ? Stage three ? + --+ --+ ------+| ?15-29 ?| ?Stage four ? | ? Stage four ?+ ---+ ---+ -------+| ?<15 (or dialysis) ? ?| ?Stage five ? | ? Stage five ?+ ---+ ---+ -------+ *Each stage assumes the associated GFR level has been in effect for at least three months. ?Stages 1 to 5, with or without kidney disease, indicate chronic kidney disease. Notes: Determination of stages one and two (with eGFR >59mL/min/1.73 m2) requires estimation of kidney damage for at least three months as defined by structural or functional abnormalities of the kidney, manifested by either:Pathological abnormalities or Markers of kidney damage (including abnormalities in the composition of the blood or urine or abnormalities in imaging tests). Lab Interpretation Abnormal (test code = 88272-3) [facility] WITH [id number] 22:36:12 Test Item Value Reference Range Interpretation Comments WBC (test code = See_Comment [Automated message] 6690-2) The system [employer]ik[employer] generated this result transmitted ref erence range: 4.20 - 1 0.70 10*3/?L. The re ference range was not u sed to interpret this result as normal/abnor mal. RBC (test code = See_Comment [Automated message] 789-8) The system [employer]ik[employer] generated this result transmitted ref erence range: 4.26 - 5 .52 10*6/?L. The re ference range was not u sed to interpret this result as normal/abnor mal. HGB (test code = 12.7 g/dL 12.2-16.4 718-7) HCT (test code = 40.5 % 38.4-49.3 4544-3) MCV (test code = 87.7 fL 81.7-95.6 787-2) MCH (test code = 27.5 pg 26.1-32.7 785-6) MCHC (test code = 31.4 g/dL 31.2-35.0 786-4) RDW-SD (test code 43.5 fL 38.5-51.6 = 57091-6) RDW-CV (test code 13.5 % 12.1-15.4 = 788-0) PLT (test code = See_Comment [Automated message] 777-3) The system [employer] generated this result transmitted ref erence range: 150 - 32 8 10*3/?L. The re ference range was not u sed to interpret this result as normal/abnor mal. MPV (test code = 10.8 fL 9.8-13.0 87981-8) NRBC/100 WBC (test See_Comment [Automat ed message] code = 8505688749) The syste [employer] which generated this result transmitted ref erence range: 0.0 - 10 .0 /100 WBCs. The refer ence range was not u sed to interpret this result as normal/abnor mal. NRBC x10^3 (test <0.01 See_Comment [Automated message] code = 4133781079) The syste m which generated this result transmitted ref erence range: 10*3/?L. The reference range was not used to interpr et this result as normal/abnormal . GRAN MAT (NEUT) % 61.4 % (test code = 770-8) IMM GRAN % (test 0.40 % code = 4109794614) LYMPH % (test code 27.1 % = 736-9) MONO % (test code 6.1 % = 5905-5) EOS % (test code = 4.3 % 713-8) BASO % (test code 0.7 % = 706-2) GRAN MAT 5.97 10*3/uL 1.99-6.95 x10^3(ANC) (test code = 3977220231) IMM GRAN x10^3 0.04 10*3/uL 0.00-0.06 (test code = 1804279187) LYMPH x10^3 (test 2.64 10*3/uL 1.09-3.23 code = 731-0) MONO x10^3 (test 0.59 10*3/uL 0.36-1.02 code = 742-7) EOS x10^3 (test 0.42 10*3/uL 0.06-0.53 code = 711-2) BASO x10^3 (test 0.07 10*3/uL 0.01-0.09 code = 704-7) [facility]2021-04-13 21:29:55 Test Item Value Reference Range Interpretation Comments POCT GLU (test code = 7748491611) 310 mg/dL 70-110 H Lab Interpretation (test code = Abnormal 89875-3) [facility]2019-10-25 12:38:00 Test Item Value Reference Range Interpretation Comments GLUBED (test code = 93 MG/DL 65-99 N Performe d by certified GLUBED) fly rail operator at [facility] LACTIC ACID [id number] 10:55:00 Test Item Value Reference Range Interpretation Comments LACTIC ACID POC 1.16 MMOL/L 0.90-1.70 N Performed by certified (test code = LACTP) fly rail operator at [facility] UA RFLX MICROSCOPIC [id number] 09:58:00 Test Item Value Reference Range Interpretation [...] Delirium-if no other srcURINE SOURCE: Clean CatchUA [id number] 09:58:00 Test Item Value Reference Range Interpretation Comments UA RBC (test code = RBCU) None Seen #/hpf NONE SEEN UA BACTERIA (test code = RARE #/hpf NONE SEEN BACU) Indication for culture: Delirium-if no other srcURINE SOURCE: Clean Catch DRUG OF ABUSE SCREEN [id number] 09:46:00 Test Item Value Reference Interpretation Comments [...] by bettie benoit methods (i.e., [facility]) [facility]. Results of scre en may not be usedin crimi nal justice, job performance or professionalcre dential review, or infa nt custody issues. Negativ e [place] Level ng/ml ------- ----- Cocaine 300 Methamp hetamine (Ecstacy) 500 Cannabinoids (THC) 50 Amphetamine 1000 Barbiturate s 200 Benzodia zepines 200 Opiat es 300 Ph encyclidine (PCP) 25 BASIC METABOLIC [id number] 09:46:00 Test Item Value Reference Range Interpretation [...] 9.3 MG/DL 8.7-10.5 N CA) HEPATIC FUNCTION [id number] 09:46:00 Test Item Value Reference Range Interpretation [...] 50-136 N TOTAL (test code = ALKP) [id number] 09:46:00 Test Item Value Reference Range Interpretation Comments LIPASE (test code = LIP) 116 Units/L 73-393 N [id number] 09:46:00 Test Item Value Reference Range Interpretation Comments CK (test code = CKT) 88 Units/L 39-308 N [id number] 09:46:00 Test Item Value Reference Range Interpretation Comments ALCOHOL (test code = < 3 MG/DL 0-10 N 0 - 10: Should be ALC) interpreted as NEGATIVE. 11 - 50: None to mild euphoria. 51 - 100: Mild influence on vision and dark adapta tion. > 80: Legal intoxication; D epression of [employer] C[employer]LE [employer]; Increasing degr ee of poisoning. > 400: Fatalities repo rted. Results are for medical purposes only a nd not forlegal or emp loyment evaluative purp oses. PROTHROMBIN [id number] 09:42:00 Test Item Value Reference Range Interpretation [...] with flex-stent *: 3.0 - 4.0(*) = geology professor's suggested range Is patient on anticoagulants? UnknownTHROMBOPLASTIN TIME [id number] 09:42:00 Test Item Value Reference Range Interpretation Comments THROMBOPLASTIN TIME 32.6 SECONDS 22.5-35.3 N *Therap eutic level PARTIAL (test code = for hep amalia: 1.5 - PTT) 2.5 times the average patient value of 30.0 seconds. The aP TT tet should not be used to evaluat e low moleculat weigh t heparin anticoagulant therapy. Is patient on anticoagulants? Unknown- CT HEAD/BRAIN W/O [id number] 09:35:00 Patient Name: ANTONINO ROTHMAN Unit No: [id number] EXAMS: CPT CODE: [id number] CT HEAD/BRAIN W/O CONT 19086 Reason: AMS, seizure? - CT HEAD/BRAIN W/O [...] Juanito Russo MD; Tomi Brown DO Technologist:Halina France CT Trscrpt Dt/ (934)KarlosMK41 Orig Print D/T: S: 01/24/2019 (0938) CTDI: DLP: [facility] NAME: ANTONINO ROTHMAN [address] [facility] PHYS: Tomi Schroeder [facility] [place] [address] : 1960 AGE: 59 SEX: M LOC: D.NIKOLAI PHONE #: [phone] EXAM DATE: 01/24/2019 STATUS: REG ER FAX #: RAD NO: DC Dt: PAGE 1 Signed ReportUA RFLX MICROSCOPIC [id number] 09:32:00 Test Item Value Reference Range Interpretation [...] Delirium-if no other srcURINE SOURCE: Clean CatchUA [id number] 09:32:00 Test Item Value Reference Range Interpretation Comments UA RBC (test code = RBCU) #/hpf NONE SEEN Indication for culture: Delirium-if no other srcURINE SOURCE: Clean CatchUA RFLX MICROSCOPIC [id number] 09:32:00 Test Item Value Reference Range Interpretation [...] Delirium-if no other srcURINE SOURCE: Clean CatchUA [id number] 09:32:00 Test Item Value Reference Range Interpretation Comments UA RBC (test code = RBCU) #/hpf NONE SEEN Indication for culture: Delirium-if no other srcURINE SOURCE: Clean CatchCBC W/AUTO [id number] 09:30:00 Test Item Value Reference Range Interpretation [...] X10 3/uL 0.0-0.2 N NRBC#) TROPONIN I [id number] 09:28:00 Test Item Value Reference Range Interpretation Comments TROPONIN I RAPID 0.03 NG/ML 0.00-0.08 N Performed b y certified (test code = fly rail operator at [facility] TROPIRA) [facility] - The use of serial sampl ing and testing protoco l is a recommended pra ctice.- An elevated tro ponin level alone is often not sufficient for diagnosis of my ocardial infarction. LACTIC ACID [id number] 09:23:00 Test Item Value Reference Range Interpretation Comments LACTIC ACID POC 6.21 MMOL/L 0.90-1.70 HH Performed by certified (test code = LACTP) fly rail operator at [facility] METHADONE [id number] 07:13:00 Test Item Value Reference Range Interpretation [...] have recommended lev els of 100 ng/mL jq1377 ng /mL. However these levels ca n have an adverse impacto n drug naive individuals.Per formed At: [facility] vog6077 [facility] JOEL Almanzar [id number] ra Last QUEZADA Ph:[phone] - XR CHEST 1 [id number] 07:47:00 Patient Name: ANTONINO ROTHMAN Unit No: [id number] EXAMS: CPT CODE: [id number] XR CHEST 1 V 85592 Reason: intubated - XR CHEST 1 V 11/28/2018 5:00 AM A frontal portable chest compared with 11/27/2018 shows clear lungs and pleural spaces. The cardiac and mediastinal silhouettes are normal. The bones are unremarkable. IMPRESSION: Negative chest at 0747 Reported and signed by: Stephen Thayer MD CC: Juanito Russo MD; Sharan Boyd MD; Renard Greene DO Technologist: Frederick JUAREZ Trscrpt Dt/ (0747)[id number] Orig Print D/T: S: 11/28/2018 (0751) [facility] NAME: ANTONINO ROTHMAN [address] PHYS: Renard Croft DO [address] [place] [address] : 1960 AGE: 58 SEX: M LOC: Momo.Y307 1 PHONE #: [phone] EXAM DATE: 11/28/2018 STATUS: ADM IN FAX #: RAD NO: DC Dt: PAGE 1 Signed ReportGLUBED 2018-11-28 06:32:00 Test Item Value Reference Range Interpretation Comments GLUBED (test code = 136 MG/DL 65-99 H Performe d by certified GLUBED) fly rail operator at [facility] PROCALCITONIN (PCT)2018-11-28 06:01:00 Test Item Value Reference Range Interpretation Comments PROCALCITONIN (PCT) (test code = < 0.05 ng/mL 0.00-0.50 N PROCAL) COMPREHENSIVE METABOLIC [id number] 05:03:00 Test Item Value Reference Range Interpretation [...] 50-136 N TOTAL (test code = ALKP) [id number] 05:03:00 Test Item Value Reference Range Interpretation Comments MAGNESIUM (test code = MAG) 1.7 MG/DL 1.8-2.4 L ARTERIAL BLOOD [id number] 04:45:00 Test Item Value Reference Range Interpretation [...] 0.3 % 0.4-1.5 L METHGB) CBC W/AUTO [id number] 04:02:00 Test Item Value Reference Range Interpretation [...] = 0.0 X10 3/uL 0.0-0.2 N NRBC#) [id number] 21:12:00 Test Item Value Reference Range Interpretation Comments GLUBED (test code = 89 MG/DL 65-99 N Performe d by certified GLUBED) fly rail operator at [facility] [id number] 16:41:00 Test Item Value Reference Range Interpretation Comments GLUBED (test code = 175 MG/DL 65-99 H Performe d by certified GLUBED) fly rail operator at [facility] - XR CHEST 1 [id number] 06:25:00 Patient Name: ANTONINO ROTHMAN Unit No: [id number] EXAMS: CPT CODE: [id number] XR CHEST 1 V 35367 Reason: intubated EXAM: XR Chest, 1 View [...] cardiomegaly. at 624 Reported and signed by: Fernnado Armasad CC: Juanito Russo MD; Sharna Boyd MD; Renard Greene DO Technologist: Chu Segura RT Trscrpt Dt/ (624)VRAD.VR Orig Print D/T: S: 11/27/2018 (624) [facility] NAME: PREETI ROTHMAN [address] [facility] PHYS: Renard Croft DO [address] [place] [address] : 1960 AGE: 58 SEX: M LOC: D.HCV 3 PHONE #: [phone] EXAM DATE: 11/27/2018 STATUS: ADM IN FAX #: RAD NO: DC Dt: PAGE 1 Signed ReportCBC W/AUTO [id number] 04:56:00 Test Item Value Reference Range Interpretation [...] X10 3/uL 0.0-0.2 N NRBC#) COMPREHENSIVE METABOLIC [id number] 04:44:00 Test Item Value Reference Range Interpretation [...] TOTAL (test code = ALKP) ARTERIAL BLOOD [id number] 04:25:00 Test Item Value Reference Range Interpretation [...] 0.0 % 0.4-1.5 L METHGB) CBC W/AUTO [id number] 17:12:00 Test Item Value Reference Range Interpretation [...] X10 3/uL 0.0-0.2 N NRBC#) ARTERIAL BLOOD [id number] 13:42:00 Test Item Value Reference Range Interpretation [...] 0.3 % 0.4-1.5 L METHGB) ARTERIAL BLOOD [id number] 09:55:00 Test Item Value Reference Range Interpretation [...] 0.3 % 0.4-1.5 L METHGB) COMPREHENSIVE METABOLIC [id number] 06:36:00 Test Item Value Reference Range Interpretation [...] code = ALKP) - XR CHEST 1 [id number] 06:15:00 Patient Name: ANTONINO ROTHMAN Unit No: [id number] EXAMS: CPT CODE: [id number] XR CHEST 1 V 17781 Reason: intubated EXAM: XR Chest, 1 View [...] Boyd MD; Renard Greene DO Technologist: Chu JUAREZ Trscrpt Dt/ (614)JOE.VR Orig Print D/T: S: 11/26/2018 (614) [facility] NAME: ANTONINO [facility]OTHMAN [facility] SPIDPHYS: Renard Croft DO [address] [place] [address] : 1960 AGE: 58 SEX: M LOC: D.HCV 3 PHONE #: [phone] EXAM DATE: 11/26/2018 STATUS: ADM IN FAX [...] L = METHGB) - CT HEAD/BRAIN W/O [id number] 17:00:00 Patient Name: ANTONINO ROTHMAN Unit No: [id number] EXAMS: CPT CODE: [id number] CT HEAD/BRAIN W/O CONT 71613 Reason: altered mental status COMPARISON: Previous head [...] MD; Sharan Boyd MD Technologist: Trent Florian RTBertram Bob CT Trscrpt Dt/ (1700)KarlosCG44 Orig Print D/T: S: 11/25/2018 (6433) CTDI: DLP: [facility] NAME: ANTONINO ROTHMAN [address] [facility] PHYS: [address]IM[email or web address] [place] [address] : 1960 AGE: 58 SEX: M LOC: GANSEH PHONE #: [phone] EXAM DATE: 11/25/2018 STATUS: REG ER FAX #: RAD NO: DC Dt: PAGE 1 Signed ReportTROPONIN I [id number] 16:26:00 Test Item Value Reference Range Interpretation Comments TROPONIN I RAPID 0.02 NG/ML 0.00-0.08 N Performed b y certified (test code = fly rail operator at [facility] TROPIRAP) - The use of s erial sampling and te sting protocol is a recommended pra ctice.- An elevated tro ponin level alone is often not sufficient for diagnosis of my ocardial infarction. LACTIC ACID [id number] 16:20:00 Test Item Value Reference Range Interpretation Comments LACTIC ACID POC 2.37 MMOL/L 0.90-1.70 H Performed by certified (test code = LACTP) fly rail operator at [facility] BASIC METABOLIC [id number] 15:17:00 Test Item Value Reference Range Interpretation [...] 9.2 MG/DL 8.7-10.5 N CA) HEPATIC FUNCTION [id number] 15:17:00 Test Item Value Reference Range Interpretation [...] 50-136 N TOTAL (test code = ALKP) [id number] 15:17:00 Test Item Value Reference Range Interpretation Comments LIPASE (test code = LIP) 229 Units/L 73-393 N THYROID STIMULATING [id number] 15:17:00 Test Item Value Reference Range Interpretation Comments THYROID STIMULATING 2.74 0.42-5.47 N Micro-In ternational HORMONE (test code = TSH) Un its/LResults of this assay method ma y be falsely depress ed orelevated if p atient is taking high doses of Biotin. [id number] 15:17:00 Test Item Value Reference Range Interpretation Comments CK (test code = CKT) 142 Units/L 39-308 N [id number] 15:17:00 Test Item Value Reference Range Interpretation Comments ACETAMINOPHEN (test < 1 MCG/ML 10-30 L Acetamin ophen is code = ACET) possibly toxic at levels of: 1. m ore than 150 MCG/ML 4 hours post dinorah stion. 2. more than 5 0 MCG/ML 12 hours post ingestion. [id number] 15:17:00 Test Item Value Reference Range Interpretation Comments SALICYLATE (test code = < 3 MG/DL 0-20 N Refe rence Range: LOGAN) Analgesic...... ...... ...... < 10 mg /dl Therapeutic.... ...... ...... 15-20 mg /dl Mild Toxicity....... ...... . > 30 mg/dl Severe Toxicity....... ..... > 60 mg/dl [id number] 15:17:00 Test Item Value Reference Range Interpretation Comments ALCOHOL (test code = < 3 MG/DL 0-10 N 0 - 10: Should be ALC) interpreted as NEGATIVE. 11 - 50: None to mild euphoria. 51 - 100: Mild influence on vision and dark adapta tion. > 80: Legal intoxication; D epression of DAIRY CATTLE FARMER; Increasing degr ee of poisoning. > 400: Fatalities repo rted. Results are for medical purposes only a nd not forlegal or emp loyment evaluative purp oses. BASIC METABOLIC [id number] 15:11:00 Test Item Value Reference Range Interpretation [...] 9.2 MG/DL 8.7-10.5 N CA) HEPATIC FUNCTION [id number] 15:11:00 Test Item Value Reference Range Interpretation [...] 50-136 N TOTAL (test code = ALKP) [id number] 15:11:00 Test Item Value Reference Range Interpretation Comments LIPASE (test code = LIP) 229 Units/L 73-393 N THYROID STIMULATING [id number] 15:11:00 Test Item Value Reference Range Interpretation Comments THYROID STIMULATING 2.74 0.42-5.47 N Micro-In ternational HORMONE (test code = TSH) Un its/LResults of this assay method ma y be falsely depress ed orelevated if p atient is taking high doses of Biotin. [id number] 15:11:00 Test Item Value Reference Range Interpretation Comments CK (test code = CKT) 142 Units/L 39-308 N [id number] 15:11:00 Test Item Value Reference Range Interpretation Comments ACETAMINOPHEN (test < 1 MCG/ML 10-30 L Acetamin ophen is code = ACET) possibly toxic at levels of: 1. m ore than 150 MCG/ML 4 hours post dinorah stion. 2. more than 5 0 MCG/ML 12 hours post ingestion. [id number] 15:11:00 Test Item Value Reference Range Interpretation Comments SALICYLATE (test code = < 3 MG/DL 0-20 N Refe rence Range: LOGAN) Analgesic...... ...... ...... < 10 mg /dl Therapeutic.... ...... ...... 15-20 mg /dl Mild Toxicity....... ...... . > 30 mg/dl Severe Toxicity....... ..... > 60 mg/dl [id number] 15:11:00 Test Item Value Reference Range Interpretation Comments ALCOHOL (test code = ALC) MG/DL 0-10 BETA [id number] 15:07:00 Test Item Value Reference Range Interpretation Comments BETA HYDROXYBUTYRATE (test code = 0.23 mmol/L 0.02-0.27 N BETHYD) - XR CHEST 1 [id number] 14:39:00 Patient Name: ANTONINO ROTHMAN Unit No: [id number] EXAMS: CPT CODE: [id number] XR CHEST 1 V 99238 Reason: altered mental status - XR CHEST 1 V 11/25/2018 1:38 PM A frontal portable chest compared with 08/19/2018 shows no lobar or segmental consolidation. Pleural spaces are clear. Heart size is upper limits of normal. ET tube is in good position. Nasogastric tube is in place. IMPRESSION: Satisfactory intubation. at 1437 Reported and signed by: Stephen Thayer MD CC: Juanito Russo MD; Sharan Boyd MD Technologist: Loreto Don RT Trscrpt Dt/ (9256)t.GERARDORJose ManuelMK41 Orig Print D/T: S: 0 11/25/2018 (3831) [facility] NAME: ANTONINO ROTHMAN [address] PHYS: [place] [address] : 1960 AGE: 58 SEX: M LOC: GANESH PHONE #: [phone] EXAM DATE: 11/25/2018STATUS: REG ER FAX #: RAD NO: DC Dt: PAGE1 Signed ReportDRUG OF ABUSE SCREEN [id number] 14:31:00 Test Item Value Reference Interpretation Comments [...] by bettie benoit methods (i.e., GC/MS) at [facility]. Results of scre en may not be usedin crimi nal justice, job performance or professionalcre dential review, or infa nt custody issues. Negativ e [place] Level ng/ml ------- ----- Cocaine 300 Methamp hetamine (Ecstacy) 500 Cannabinoids (THC) 50 Amphetamine 1000 Barbiturate s 200 Benzodia zepines 200 Opiat es 300 Ph encyclidine (PCP) 25 UA RFLX MICROSCOPIC [id number] 14:29:00 Test Item Value Reference Range Interpretation [...] other srcURINE SOURCE: Clean CatchUA RFLX MICROSCOPIC [id number] 14:20:00 Test Item Value Reference Range Interpretation [...] no other srcURINE SOURCE: Clean Catch PROTHROMBIN [id number] 14:20:00 Test Item Value Reference Range Interpretation [...] with flex-stent *: 3.0 - 4.0(*) = geology professor's suggested range Is patient on anticoagulants? UnknownTHROMBOPLASTIN TIME [id number] 14:20:00 Test Item Value Reference Range Interpretation Comments THROMBOPLASTIN TIME 34.5 SECONDS 22.5-35.3 N *Therap eutic level PARTIAL (test code = for hep amalia: 1.5 - PTT) 2.5 times the average patient value of 30.0 seconds. The aP TT tet should not be used to evaluat e low moleculat weigh t heparin anticoagulant therapy. Is patient on anticoagulants? [id number] 14:17:00 Test Item Value Reference Range Interpretation Comments AMMONIA (test code = 47 UMOL/L 11-35 H Results of this assay AMM) method may be f alsely depressed orele vated if patient is taki ng sulfasalazine. CBC W/AUTO [id number] 14:07:00 Test Item Value Reference Range Interpretation [...] 0.0-0.2 N code = NRBC#) ARTERIAL BLOOD [id number] 14:05:00 Test Item Value Reference Range Interpretation [...] - 11/25/2018; by CARMINE MERRITT TROPONIN I [id number] 14:02:00 Test Item Value Reference Range Interpretation Comments TROPONIN I RAPID 0.00 NG/ML 0.00-0.08 N Performed b y certified (test code = fly rail operator at [facility] TROPIRA) - The use of s erial sampling and te sting protocol is a recommended pra ctice.- An elevated tro ponin level alone is often not sufficient for diagnosis of my ocardial infarction. LACTIC ACID [id number] 13:56:00 Test Item Value Reference Range Interpretation Comments LACTIC ACID POC 11.36 MMOL/L 0.90-1.70 HH Performed by certified (test code = LACTP) fly rail operator at [facility] [id number] 11:18:00 Test Item Value Reference Range Interpretation Comments GLUBED (test code = 128 MG/DL 65-99 H Performe d by certified GLUBED) fly rail operator at [facility] [id number] 06:06:00 Test Item Value Reference Range Interpretation Comments GLUBED (test code = 80 MG/DL 65-99 N Performe d by certified GLUBED) fly rail operator at [facility] BASIC METABOLIC [id number] 05:11:00 Test Item Value Reference Range Interpretation [...] 18 MG/DL 3-60 N code = VLDL) [id number] 05:11:00 Test Item Value Reference Range Interpretation Comments PHOSPHOROUS (test code = PHOS) 4.4 MG/DL 2.5-4.9 N [id number] 05:11:00 Test Item Value Reference Range Interpretation Comments MAGNESIUM (test code = MAG) 1.7 MG/DL 1.8-2.4 L CBC W/AUTO [id number] 04:46:00 Test Item Value Reference Range Interpretation [...] = 0.0 X10 3/uL 0.0-0.2 N NRBC#) [id number] 20:32:00 Test Item Value Reference Range Interpretation Comments GLUBED (test code = 107 MG/DL 65-99 H Performe d by certified GLUBED) fly rail operator at [facility]2019-05-20 17:37:00 Test Item Value Reference Range Interpretation Comments GLUBED (test code = 76 MG/DL 65-99 N Performe d by certified GLUBED) fly rail operator at [facility]2019-05-20 11:48:00 Test Item Value Reference Range Interpretation Comments GLUBED (test code = 74 MG/DL 65-99 N Performe d by certified GLUBED) fly rail operator at [facility]2019-05-20 08:20:00 Test Item Value Reference Range Interpretation Comments GLUBED (test code = 91 MG/DL 65-99 N Performe d by certified GLUBED) fly rail operator at [facility] - XR CHEST 1 [id number] 07:45:00 Patient Name: ANTONINO ROTHMAN Unit No: [id number] EXAMS: CPT CODE: [id number] XR CHEST 1 V 33012 Reason: pna - XR CHEST 1 V [...] MD Technologist: Chu Segura RT Trscrpt Dt/ (0713)Ramona Orig Print D/T: S: 08/19/2018 (0226) [facility] NAME: ANTONINO ROTHMAN [address] PHYS: [email or web address].[email or web address] - Reed,Paul [place] [address] : 1960 AGE: 58 SEX: M LOC: KENNYU 19 PHONE #: [phone] EXAM DATE: 08/19/2018 STATUS: ADM IN FAX #: RAD NO: DC Dt:PAGE 1 Signed ReportCBC W/AUTO [id number] 06:55:00 Test Item Value Reference Range Interpretation [...] X10 3/uL 0.0-0.2 N NRBC#) COMPREHENSIVE METABOLIC [id number] 06:16:00 Test Item Value Reference Range Interpretation [...] 50-136 N TOTAL (test code = ALKP) [id number] 06:16:00 Test Item Value Reference Range Interpretation Comments MAGNESIUM (test code = MAG) 1.9 MG/DL 1.8-2.4 N ARTERIAL BLOOD [id number] 03:30:00 Test Item Value Reference Range Interpretation [...] code = 0.0 % 0.4-1.5 L METHGB) [id number] 20:06:00 Test Item Value Reference Range Interpretation Comments GLUBED (test code = 95 MG/DL 65-99 N Performe d by certified GLUBED) fly rail operator at [facility] [id number] 17:30:00 Test Item Value Reference Range Interpretation Comments GLUBED (test code = 81 MG/DL 65-99 N Performe d by certified GLUBED) fly rail operator at [facility] - DUP EXTRACRANIAL [id number] 13:42:00 Patient Name: ANTONINO ROTHMAN Unit No: [id number] EXAMS: CPT CODE: [id number] DUP EXTRACRANIAL RAMU 45053 INDICATION: Syncope. COMPARISON: None available. FINDINGS: The [...] by: MD Kira CC: Juanito Russo MD; Msaon Barnes DO; Barbie Castellanos MD Technologist: Janet SNEED Trnscrbd D/ (6052) t.FRAN.MWM2 Orig Print D/T: S: 08/18/2018 (8756) Probe: [facility] NAME: ANTONINO ROTHMAN [address] PHYS:[id number] - Cameron,Mason DO [address] [place] [address] : 1960 AGE: 58 SEX: M LOC: D.HCU 19 PHONE #: [phone] EXAM DATE: 08/18/2018 STATUS: ADM IN FAX #: RAD NO: Page 1 Signed [id number] 11:58:00 Test Item Value Reference Range Interpretation Comments GLUBED (test code = 103 MG/DL 65-99 H Performe d by certified GLUBED) fly rail operator at [facility] ARTERIAL BLOOD [id number] 08:47:00 Test Item Value Reference Range Interpretation [...] code = 0.3 % 0.4-1.5 L METHGB) [id number] 08:00:00 Test Item Value Reference Range Interpretation Comments GLUBED (test code = 114 MG/DL 65-99 H Performe d by certified GLUBED) fly rail operator at [facility] - XR CHEST 1 [id number] 07:32:00 Patient Name: ANTONINO ROTHMAN Unit No: [id number] EXAMS: CPT CODE: [id number] XR CHEST 1 V 33549 Reason: pna INDICATION: Drug overdose . COMPARISON: [...] MD Technologist: Abril Coelho RT Trscrpt Dt/ (0732)lindaALEJANDRO.MWM2 Orig Print D/T: S: 08/18/2018 (0735) [facility] NAME: ANTONINO ROTHMAN [address] [facility] PHYS: [id number] - Nahum Reed DO [place] [address] : 1960 AGE: 58 SEX: M LOC: D.HCU 19 PHONE #: [phone] EXAM DATE: 08/18/2018 STATUS: ADM IN FAX [...] 50-136 N TOTAL (test code = ALKP) [id number] 06:31:00 Test Item Value Reference Range Interpretation Comments MAGNESIUM (test code = MAG) 2.2 MG/DL 1.8-2.4 N CBC W/AUTO [id number] 05:57:00 Test Item Value Reference Range Interpretation [...] X10 3/uL 0.0-0.2 N NRBC#) ARTERIAL BLOOD [id number] 03:46:00 Test Item Value Reference Range Interpretation [...] code = 0.3 % 0.4-1.5 L METHGB) [id number] 21:23:00 Test Item Value Reference Range Interpretation Comments GLUBED (test code = 83 MG/DL 65-99 N Performe d by certified GLUBED) [facility] 17:59:00 Test Item Value Reference Range Interpretation Comments GLUBED (test code = 85 MG/DL 65-99 N Performe d by certified GLUBED) fly rail operator at [facility]2019-05-18 11:40:00 Test Item Value Reference Range Interpretation Comments GLUBED (test code = 90 MG/DL 65-99 N Performe d by certified GLUBED) fly rail operator at [facility] ARTERIAL BLOOD [id number] 09:44:00 Test Item Value Reference Range Interpretation [...] 0.4-1.5 L METHGB) - XR CHEST 1 [id number] 08:17:00 Patient Name: ANTONINO ROTHMAN Unit No: [id number] EXAMS: CPT CODE: [id number] XR CHEST 1 V 67737 Reason: pna - XR CHEST 1 V [...] Castellanos MD Technologist: Abril JUAREZ Trscrpt Dt/ (816)Ramona Orig Print D/T: S: 08/17/2018 (819) [facility] NAME: ANTONINO ROTHMAN [address] PHYS: [email or web address].09 - Nahum Reed DO [facility] [place] [address] : 1960 AGE: 58 SEX: M LOC: D.HCU 19 PHONE #: [phone] EXAM DATE: 08/17/2018 STATUS: ADM IN FAX #: RAD NO: DC Dt: PAGE 1 Signed [id number] 08:04:00 Test Item Value Reference Range Interpretation Comments GLUBED (test code = 97 MG/DL 65-99 N Performe d by certified GLUBED) fly rail operator at [facility] COMPREHENSIVE METABOLIC [id number] 06:39:00 Test Item Value Reference Range Interpretation [...] 50-136 N TOTAL (test code = ALKP) [id number] 06:39:00 Test Item Value Reference Range Interpretation Comments MAGNESIUM (test code = MAG) 2.4 MG/DL 1.8-2.4 N GLYCOSYLATED HEMOGLOBIN (HA1C)2018-08-17 06:31:00 Test Item Value Reference Range Interpretation Comments GLYCOSYLATED HEMOGLOBIN (HA1C) 8.3 % TOT HB 4.5-6.2 H (test code = GLYHGB) : If not already doneCBC W/AUTO [id number] 06:27:00 Test Item Value Reference Range Interpretation [...] X10 3/uL 0.0-0.2 N NRBC#) ARTERIAL BLOOD [id number] 04:07:00 Test Item Value Reference Range Interpretation [...] CVCBG) to and read darek k by hCarlee ALCARAZ 04:06 - 08/17/2018; by CARMINE SUTHERLAND - CT HEAD/BRAIN W/O [id number] 21:25:00 Patient Name: ANTONINO ROTHMAN Unit No: [id number] EXAMS: CPT CODE: [id number] CT HEAD/BRAIN W/O CONT 75203 Reason: syncope - CT HEAD/BRAIN W/O CONT [...] Jigar powell MD CC: Juanito Russo MD; aNhum Reed DO; Barbie Castellanos MD Technologist: Zev Powell CT; Jody Fraga CT Trscrpt Dt/ (2124)t.GERARDORJose ManuelPKE Orig Print D/T: S: 08/16/2018 (2128) CTDI: DLP: [facility] NAME: ANTONINO ROTHMAN [address] PHYS:SCHPA. [place] [address] : 1960 AGE: 58 SEX: M LOC: D.HCU 19 PHONE #: [phone] EXAM DATE: 08/16/2018 STATUS: ADM IN FAX #: RAD NO: DC Dt: PAGE 1 Signed ReportGLUBED 2018-08-16 21:23:00 Test Item Value Reference Range Interpretation Comments GLUBED (test code = 99 MG/DL 65-99 N Performe d by certified GLUBED) fly rail operator at [facility] ARTERIAL BLOOD [id number] 20:25:00 Test Item Value Reference Range Interpretation [...] 0.4-1.5 L METHGB) - XR CHEST 1 [id number] 20:18:00 Patient Name: ANTONINO ROTHMAN Unit No: [id number] EXAMS: CPT CODE: [id number] XR CHEST 1 V 61492 Reason: OGT - XR CHEST 1 V 08/16/2018 7:21 PM Indication: Drug overdose COMPARISON: 1916 hours FINDINGS: NGT very slightly advanced although the tip is still at about the cardia level. at 2018 Reported and signed by: Jigar Perales MD CC: Juanito Hernández; Bautista Santos MD; Barbie Castellanos MD Technologist: Laura Rosales RT Trscrpt Dt/ (2018)LucreciaE Orig Print D/T: S: 08/16/2018 (2020) [facility] NAME: ANTONINO ROTHMAN [address] PHYS: [place] [address] : 1960 AGE: 58 SEX: M : D.HCU 19 PHONE #: [phone] EXAM DATE: 08/16/2018 STATUS: ADM IN FAX #: RAD NO: DC Dt: PAGE 1 Signed Report- XR CHEST 1 [id number] 20:17:00 Patient Name: ANTONINO ROTHMAN Unit No: [id number] EXAMS: CPT CODE: [id number] XR CHEST 1 V 02705 Reason: OGT - XR CHEST 1 V [...] MD Technologist: Laura JUAREZ Trscrpt D t/ (2016)tJose ManuelSDR.PKE Orig Print D/T: S: 08/17/2018 (0538) [facility] NAME: ANTONINO ROTHMAN [address] PHYS: [place] [address] : 1960 AGE: 58 SEX: M LOC: D.HCU 19 PHONE #: [phone] EXAM DATE: 08/16/2018 STATUS: ADM IN FAX#: RAD NO: DC Dt: PAGE 1 Signed ReportUA RFLX MICROSCOPIC [id number] 18:54:00 Test Item Value Reference Range Interpretation [...] Criteria not met code = UACULT) UA [id number] 18:54:00 Test Item Value Reference Range Interpretation Comments UA RBC (test code = RBCU) 0-2 #/hpf NONE SEEN A LACTIC [id number] 18:37:00 Test Item Value Reference Range Interpretation Comments LACTIC ACID (test code = LACT) 3.1 MMOL/L 0.5-2.2 H BASIC METABOLIC [id number] 18:37:00 Test Item Value Reference Range Interpretation [...] 8.8 MG/DL 8.7-10.5 N CA) HEPATIC FUNCTION [id number] 18:37:00 Test Item Value Reference Range Interpretation [...] 50-136 N TOTAL (test code = ALKP) [id number] 18:37:00 Test Item Value Reference Range Interpretation Comments LIPASE (test code = LIP) 1283 Units/L 73-393 H THYROID STIMULATING [id number] 18:37:00 Test Item Value Reference Range Interpretation Comments THYROID STIMULATING 1.63 0.42-5.47 N Micro-In ternational HORMONE (test code = TSH) Un its/LResults of this assay method ma y be falsely depress ed orelevated if p atient is taking high doses of Biotin. [id number] 18:37:00 Test Item Value Reference Range Interpretation Comments ACETAMINOPHEN (test < 1 MCG/ML 10-30 L Acetamin ophen is code = ACET) possibly toxic at levels of: 1. m ore than 150 MCG/ML 4 hours post dinorah stion. 2. more than 5 0 MCG/ML 12 hours post ingestion. [id number] 18:37:00 Test Item Value Reference Range Interpretation Comments SALICYLATE (test code = < 3 MG/DL 0-20 N Refe rence Range: LOGAN) Analgesic...... ...... ...... < 10 mg /dl Therapeutic.... ...... ...... 15-20 mg /dl Mild Toxicity....... ...... . > 30 mg/dl Severe Toxicity....... ..... > 60 mg/dl [id number] 18:37:00 Test Item Value Reference Range Interpretation Comments ALCOHOL (test code = < 3 MG/DL 0-10 N 0 - 10: Should be ALC) interpreted as NEGATIVE. 11 - 50: None to mild euphoria. 51 - 100: Mild influence on vision and dark adapta tion. > 80: Legal intoxication; D epression of DAIRY CATTLE FARMER; Increasing degr ee of poisoning. > 400: Fatalities repo rted. Results are for medical purposes only a nd not forlegal or emp loyment evaluative purp oses. PROTHROMBIN [id number] 18:35:00 Test Item Value Reference Range Interpretation [...] with flex-stent *: 3.0 - 4.0(*) = geology professor's suggested range Is patient on anticoagulants? UnknownTHROMBOPLASTIN TIME [id number] 18:35:00 Test Item Value Reference Range Interpretation Comments THROMBOPLASTIN TIME 30.7 SECONDS 22.5-35.3 N *Therap eutic level PARTIAL (test code = for hep amalia: 1.5 - PTT) 2.5 times the average patient value of 30.0 seconds. The aP TT tet should not be used to evaluat e low moleculat weigh t heparin anticoagulant therapy. Is patient on anticoagulants? [id number] 18:34:00 Test Item Value Reference Range Interpretation Comments AMMONIA (test code = 12 UMOL/L 11-35 N Results of this assay AMM) method may be f alsely depressed orele vated if patient is taki ng sulfasalazine. CBC W/AUTO [id number] 18:24:00 Test Item Value Reference Range Interpretation [...] 0.0-0.2 N NRBC#) - XR CHEST 1 [id number] 18:11:00 Patient Name: ANTONINO ROTHMAN Unit No: [id number] EXAMS: CPT CODE: [id number] XR CHEST 1 V 33133 Reason: altered mental status - XR CHEST [...] MD Technologist: Lovely Gilbert RT Trscrpt Dt/ (1810)tTAYE Orig Print D/T: S: 08/16/2018 (1813) [facility] NAME: ANTONINO ROTHMAN [address] PHYS: CANDELARIA - [place] [address] : 1960 AGE: 58 SEX: M LOC: ELEAZAR 1 PHONE #: [phone] EXAM DATE: 08/16/2018 STATUS: ADM IN FAX #: RAD NO: DC Dt: PAGE 1 Signed ReportDRUG OF ABUSE SCREEN [id number] 18:04:00 Test Item Value Reference Interpretation Comments [...] by bettie benoit methods (i.e., GC/MS) at [facility]. Results of scre en may not be usedin crimi nal justice, job performance or professionalcre dential review, or infa nt custody issues. Negativ e [place] Level ng/ml ------- ----- Cocaine 300 Methamp hetamine (Ecstacy) 500 Cannabinoids (THC) 50 Amphetamine 1000 Barbiturate s 200 Benzodia zepines 200 Opiat es 300 Ph encyclidine (PCP) 25 TROPONIN I [id number] 18:02:00 Test Item Value Reference Range Interpretation Comments TROPONIN I RAPID 0.00 NG/ML 0.00-0.08 N Performed b y certified (test code = fly rail operator at [facility] TROPIRAP) - The use of s erial sampling and te sting protocol is a recommended pra ctice.- An elevated tro ponin level alone is often not sufficient for diagnosis of my ocardial infarction. LACTIC ACID [id number] 17:56:00 Test Item Value Reference Range Interpretation Comments LACTIC ACID POC 3.60 MMOL/L 0.90-1.70 H Performed by certified (test code = LACTP) fly rail operator at [facility] UA RFLX MICROSCOPIC [id number] 17:56:00 Test Item Value Reference Range Interpretation [...] CULTURE NEEDED? (test code = UACULT) UA [id number] 17:56:00 Test Item Value Reference Range Interpretation Comments UA RBC (test code = RBCU) #/hpf NONE SEEN UA RFLX MICROSCOPIC [id number] 17:56:00 Test Item Value Reference Range Interpretation [...] CULTURE NEEDED? (test code = UACULT) UA [id number] 17:56:00 Test Item Value Reference Range Interpretation Comments UA RBC (test code = RBCU) #/hpf NONE SEEN ARTERIAL BLOOD [id number] 16:51:00 Test Item Value Reference Range Interpretation [...] Augustin 16:48 - 08/16/2018; by Darlin SANTILLAN MARINE CARGO INSPECTOR - XR HIP W/PEL UNI 2+V [id number] 12:33:00 Patient Name: ANTONINO ROTHMAN Unit No: [id number] EXAMS: CPT CODE: [id number] XR HIP W/PEL UNI 2+V LT 00488 Reason: pain with palpation - XR HIP W/PEL UNI 2+V LT 06/13/2018 11:29 AM Indication: Pain with palpation COMPARISON: None FINDINGS: Massive body habitus in the huge pannus obscures pelvic detail. No "gross" abnormality, allowing for this. at 1233 Reported and signed by: Jigar Perales MD CC: Pratik Martinez DO; Agusto Kang MD Technologist: Deep Jennings RT; Loreto Don RT Trscrpt Dt/ (9833)KarlosPKE Orig Print D/T: S: 06/13/2018 (0651) [facility] NAME: ANTONINO ROTHMAN [address] PHYS: PETEJose Manuel01 - Pratik [place] [address] : 1960 AGE: 58 SEX: M LOC: D.HCU 15 PHONE #: [phone] EXAM DATE: 06/13/2018 STATUS: ADM IN FAX #: RAD NO: DCDt: PAGE 1 Signed [id number] 11:31:00 Test Item Value Reference Range Interpretation Comments GLUBED (test code = 194 MG/DL 65-99 H Performe d by certified GLUBED) fly rail operator at [facility] BASIC METABOLIC [id number] 07:23:00 Test Item Value Reference Range Interpretation [...] 9.3 MG/DL 8.7-10.5 N CA) CBC W/AUTO [id number] 06:29:00 Test Item Value Reference Range Interpretation [...] = 0.0 X10 3/uL 0.0-0.2 N NRBC#) [id number] 05:41:00 Test Item Value Reference Range Interpretation Comments GLUBED (test code = 144 MG/DL 65-99 H Performe d by certified GLUBED) fly rail operator at [facility] [id number] 20:43:00 Test Item Value Reference Range Interpretation Comments GLUBED (test code = 174 MG/DL 65-99 H Performe d by certified GLUBED) fly rail operator at [facility] [id number] 16:55:00 Test Item Value Reference Range Interpretation Comments GLUBED (test code = 165 MG/DL 65-99 H Performe d by certified GLUBED) fly rail operator at [facility] [id number] 11:45:00 Test Item Value Reference Range Interpretation Comments GLUBED (test code = 190 MG/DL 65-99 H Performe d by certified GLUBED) fly rail operator at [facility] [id number] 08:42:00 Test Item Value Reference Range Interpretation Comments GLUBED (test code = 176 MG/DL 65-99 H Performe d by certified GLUBED) fly rail operator at [facility] COMPREHENSIVE METABOLIC [id number] 06:45:00 Test Item Value Reference Range Interpretation [...] 50-136 N TOTAL (test code = ALKP) [id number] 06:45:00 Test Item Value Reference Range Interpretation Comments MAGNESIUM (test code = MAG) 1.9 MG/DL 1.8-2.4 N CBC W/AUTO [id number] 06:08:00 Test Item Value Reference Range Interpretation [...] = 0.0 X10 3/uL 0.0-0.2 N NRBC#) [id number] 22:02:00 Test Item Value Reference Range Interpretation Comments GLUBED (test code = 178 MG/DL 65-99 H Performe d by certified GLUBED) fly rail operator at [facility]2019-03-12 17:37:00 Test Item Value Reference Range Interpretation Comments GLUBED (test code = 158 MG/DL 65-99 H Performe d by certified GLUBED) fly rail operator at [facility]2019-03-12 11:56:00 Test Item Value Reference Range Interpretation Comments GLUBED (test code = 235 MG/DL 65-99 H Performe d by certified GLUBED) fly rail operator at [facility] ARTERIAL BLOOD [id number] 10:28:00 Test Item Value Reference Range Interpretation [...] 0.3 % 0.4-1.5 L METHGB) COMPREHENSIVE METABOLIC [id number] 04:32:00 Test Item Value Reference Range Interpretation [...] 50-136 N TOTAL (test code = ALKP) [id number] 04:32:00 Test Item Value Reference Range Interpretation Comments MAGNESIUM (test code = MAG) 2.1 MG/DL 1.8-2.4 N CBC W/AUTO [id number] 04:20:00 Test Item Value Reference Range Interpretation [...] H (test code = GLYHGB) UR SODIUM [id number] 09:34:00 Test Item Value Reference Range Interpretation Comments UR SODIUM RANDOM 39 MMOL/L No establis hed reference (test code = MANSOOR) range for random urine specimen. UR POTASSIUM [id number] 09:34:00 Test Item Value Reference Range Interpretation Comments UR POTASSIUM RANDOM 30 MMOL/L No estab lished (test code = KU) reference r devon for random urine sp ecimen. UR CHLORIDE [id number] 09:34:00 Test Item Value Reference Range Interpretation Comments UR CHLORIDE RANDOM 55 MMOL/L No establ ished (test code = CLU) reference range for random urine sp ecimen. UR PROTEIN/CREATININE [id number] 09:34:00 Test Item Value Reference Range Interpretation Comments UR PROTEIN RANDOM 6 MG/DL No establi shed (test code = PROTU) referenc e range for random urine specimen. UR CREATININE RANDOM 47.72 MG/DL No esta blished (test code = CREATU) referen ce range for random urine specimen. PROTEIN/CREATININE 0.1 < 0.2 RATIO (test code = P/CRATIO) COMPREHENSIVE METABOLIC [id number] 07:40:00 Test Item Value Reference Range Interpretation [...] 50-136 N TOTAL (test code = ALKP) [id number] 07:40:00 Test Item Value Reference Range Interpretation Comments MAGNESIUM (test code = MAG) 2.2 MG/DL 1.8-2.4 N THYROID STIMULATING [id number] 07:40:00 Test Item Value Reference Range Interpretation Comments THYROID STIMULATING 0.83 0.42-5.47 N Micro-In ternational HORMONE (test code = TSH) Un its/LResults of this assay method ma y be falsely depress ed orelevated if p atient is taking high doses of Biotin. CBC W/AUTO [id number] 07:14:00 Test Item Value Reference Range Interpretation [...] X10 3/uL 0.0-0.2 N NRBC#) ARTERIAL BLOOD [id number] 04:16:00 Test Item Value Reference Range Interpretation [...] CVCBG) to and read darek k by ARELY AUGUST,RNat 04:1 - 06/10/2018; onel SUTHERLAND,MARINE CARGO INSPECTOR PROCALCITONIN (PCT)2018-06-09 20:42:00 Test Item Value Reference Range Interpretation Comments PROCALCITONIN (PCT) (test code = < 0.05 ng/mL 0.00-0.50 N PROCAL) LACTIC [id number] 20:28:00 Test Item Value Reference Range Interpretation Comments LACTIC ACID (test code = LACT) 1.5 MMOL/L 0.5-2.2 N ARTERIAL BLOOD [id number] 20:27:00 Test Item Value Reference Range Interpretation [...] KALYNRNat 19:23 - 06/09/2018; by CARMINE SUTHERLAND [id number] 20:24:00 Test Item Value Reference Range Interpretation Comments AMMONIA (test code = 10 UMOL/L 11-35 L Results of this assay AMM) method may be f alsely depressed orele vated if patient is taki ng sulfasalazine. - CT HEAD/BRAIN W/O [id number] 18:01:00 Patient Name: ANTONINO CHOI Unit No: [id number] EXAMS: CPT CODE: [id number] CT HEAD/BRAIN W/O CONT 90713 Reason: head trauma EXAM: - CT C-SPINE [...] as detailed above. No acute injury seen. [facility] NAME: ANTONINO CHOI [address] PHYS: Jennifer Carcamo,[place] [id number] : 11/04/1959 AGE: 58 SEX: M LOC: ELEAZAR Mao PHONE #: [phone] EXAM DATE: 06/09/2018 STATUS: ADM IN FAX #: RAD NO: DC Dt:PAGE 1 Signed Report (CONTINUED) Patient Name: ANTONINO CHOI Unit No: [id number] EXAMS: CPT CODE: [id number] CT HEAD/BRAIN W/O CONT 52199 <Continued> Reason: head trauma ElectronicallySigned by Haylie Vallejo MD on 06/09/2018 at 1801 Reported and signed by: Haylie Vallejo MD CC: Jennifer Flynn DO Technologist: Zev Powell CT; Kike Velasquez CT Trscrpt Dt/ (1801)[id number].SDR.NH41 [facility] NAME: ANTONINO CHOI [address] SP[address] PHYS: [place] [id number] : 11/04/1959 AGE: 58 SEX: M LOC: ELEAZAR Mao PHONE #: [phone] EXAM DATE: 06/09/2018 STATUS: ADM IN FAX #: RAD NO: DC Dt: PAGE 2 Signed Report- CT C-SPINE W/O [id number] 18:01:00 Patient Name: ANTONINO CHOI Unit No: [id number] EXAMS: CPT CODE: [id number] CT C-SPINE W/O CONT 05766 Reason: r/o fx EXAM: - CT C-SPINE [...] as detailed above. No acute injury seen. [facility] NAME: ANTONINO CHOI [address] PHYS: Jennifer [place] [address] : 11/04/1959 AGE: 58 SEX: M LOC: ELEAZAR Moa PHONE #: [phone] EXAM DATE: 06/09/2018 STATUS: ADM IN FAX #: RAD NO: DC Dt:PAGE 1 Signed Report (CONTINUED) Patient Name: ANTONINO CHOI Unit No: [id number] EXAMS: CPT CODE: [id number] CT C-SPINE W/O CONT 44374 <Continued> Reason:r/o fx ElectronicallySigned by Haylie Vallejo MD on 06/09/2018 at 1801 Reported and signed by: Haylie Vallejo MD CC: Jennifer Flynn DO Technologist: Zev Powell CT; Kike Velasquez CT Trscrpt Dt/ (180)t.SDR.TN 41 [facility] NAME: ANTONINO CHOI [address] SP[address] PHYS: Jennifer [place]cam[place] [address] : 11/04/1959 AGE: 58 SEX: M LOC: ELEAZAR Mao PHONE #: [phone] EXAM DATE: 06/09/2018 STATUS: ADM IN FAX [...] 50-136 N TOTAL (test code = ALKP) [id number] 17:33:00 Test Item Value Reference Range Interpretation Comments MAGNESIUM (test code = MAG) 2.0 MG/DL 1.8-2.4 N NT PRO-BRAIN NATRIURETIC [id number] 17:33:00 Test Item Value Reference Range Interpretation Comments NT PRO-BRAIN 53 PG/ML 0-125 N Results of this assay NATRIURETIC PEPTI (test meth od may be falsely code = PROBNP) depressed ore levated if patient is t aking high doses of B iotin. [id number] 17:33:00 Test Item Value Reference Range Interpretation Comments ACETAMINOPHEN (test < 1 MCG/ML 10-30 L Acetamin ophen is code = ACET) possibly toxic at levels of: 1. m ore than 150 MCG/ML 4 hours post dinorah stion. 2. more than 5 0 MCG/ML 12 hours post ingestion. [id number] 17:33:00 Test Item Value Reference Range Interpretation Comments SALICYLATE (test code = < 3 MG/DL 0-20 N Refe rence Range: LOGAN) Analgesic...... ...... ...... < 10 mg /dl Therapeutic.... ...... ...... 15-20 mg /dl Mild Toxicity....... ...... . > 30 mg/dl Severe Toxicity....... ..... > 60 mg/dl [id number] 17:33:00 Test Item Value Reference Range Interpretation Comments ALCOHOL (test code = < 3 MG/DL 0-10 N 0 - 10: Should be ALC) interpreted as NEGATIVE. 11 - 50: None to mild euphoria. 51 - 100: Mild influence on vision and dark adapta tion. > 80: Legal intoxication; D epression of DAIRY CATTLE FARMER; Increasing degr ee of poisoning. > 400: Fatalities repo rted. Results are for medical purposes only a nd not forlegal or emp loyment evaluative purp oses. DRUG OF ABUSE SCREEN [id number] 17:01:00 Test Item Value Reference Interpretation Comments [...] by bettie benoit methods (i.e., GC/MS) at [facility]. Results of scre en may not be usedin crimi nal justice, job performance or professionalcre dential review, or infa nt custody issues. Negativ e [place] Level ng/ml ------- ----- Cocaine 300 Methamp hetamine (Ecstacy) 500 Cannabinoids (THC) 50 Amphetamine 1000 Barbiturate s 200 Benzodia zepines 200 Opiat es 300 Ph encyclidine (PCP) 25 UA RFLX MICROSCOPIC [id number] 16:57:00 Test Item Value Reference Range Interpretation [...] DIPSTICK (test code 2+ NEGATIVE A = ESTHRE) UA PH DIPSTICK (test code = 5.0 [...] Criteria not met code = UACULT) UA [id number] 16:57:00 Test Item Value Reference Range Interpretation Comments UA RBC (test code = 0-2 #/hpf NONE SEEN A RBCU) UA BACTERIA (test code = FEW #/hpf NONE SEEN A BACU) UA AMORPHOUS SEDIMENT Mod Amorph urates None seen (test code = AMORU) #/lpf LACTIC ACID [id number] 16:45:00 Test Item Value Reference Range Interpretation Comments LACTIC ACID POC 11.33 MMOL/L 0.90-1.70 HH Performed by certified (test code = LACTP) fly rail operator at [facility] UA RFLX MICROSCOPIC [id number] 16:43:00 Test Item Value Reference Range Interpretation [...] CULTURE NEEDED? (test code = UACULT) UA [id number] 16:43:00 Test Item Value Reference Range Interpretation Comments UA RBC (test code = RBCU) #/hpf NONE SEEN UA RFLX MICROSCOPIC [id number] 16:43:00 Test Item Value Reference Range Interpretation [...] CULTURE NEEDED? (test code = UACULT) UA [id number] 16:43:00 Test Item Value Reference Range Interpretation Comments UA RBC (test code = RBCU) #/hpf NONE SEEN CBC W/AUTO [id number] 16:37:00 Test Item Value Reference Range Interpretation [...] 0.0-0.2 N NRBC#) - XR CHEST 1 [id number] 16:20:00 Patient Name: ANTONINO CHOI Unit No: [id number] EXAMS: CPT CODE: [id number] XR CHEST 1 V 96310 Reason: intubation EXAM: - XR CHEST 1 [...] Flynn DO Technologist: Deep Jennings RT TrscrptDt/ (1620)[id number].[id number] Orig Print D/T: S: 06/09/2018 (0268) [facility] NAME: ANTONINO CHOI [address] PHYS: [place] [address] : 11/04/1959 AGE: 58 SEX: M LOC: ELEAZAR 2 PHONE #: [phone] EXAM DATE: 06/09/2018 STATUS: ADM IN FAX #: RAD NO: DC Dt: PAGE 1 Signed ReportARTERIAL BLOOD [id number] 16:05:00 Test Item Value Reference Range Interpretation [...]
[2021-07-04] MEDS ORDERED: NA CHLORIDE 0.9% 500 ML ONE (22:45)
[2021-07-04] MEDS ORDERED: NA CHLORIDE 0.9% 1,000 ML ONE (22:45)
[2021-07-04 22:55] LABS: Absolute Lymphocytes (CBC) 3.7 K/uL (0.7-4.9); Hematocrit 37.9 % (39.6-49.0); Lymphocytes % 31.4 % (15.3-44.8); MPV 8.3 fL (7.6-11.3); Protime INR 1.15; RBC Red Blood Cell Count 4.44 M/uL (4.33-5.43)
[2021-07-04] MEDS ORDERED: lamoTRIgine 100 MG TAB ONE (22:58)
[2021-07-04 23:07] LABS: Albumin 3.4 g/dL (3.4-5.0); Bilirubin Direct 0.1 mg/dL (0-0.2); Bilirubin Total 0.2 mg/dL (0.2-1.0); Magnesium 2.2 mg/dL (1.8-2.4); Potassium 4.3 mmol/L (3.5-5.1); Troponin High Sensitivity 5.4 pg/mL (<58.9)
[2021-07-04 23:36] LABS: Urine Blood Negative (Negative); Urine Glucose Negative (Negative); Urine Protein Negative (Negative); Urine Specific Gravity 1.025 (1.005-1.030)
--- NOTE | 2021-07-05 00:33 | EDPHYS ---
Physician Documentation [facility] Name: Andrew Wall Age: 61 yrs Sex: Male : 1960 Arrival Date: 07/04/2021 Time: 19:34 Bed 8 Private MD: ED Physician Donta Cunningham HPI: 07/04 22:13 This 61 yrs old Male presents to ER via Wheelchair with complaints of manuela Seizure, Headache. 22:13 The patient presents after having a single isolated seizure. manuela 07/05 01:45 Character of seizure(s): Loss of consciousness: the patient did not lose consciousness, manuela Motor activity: blank stare, Incontinence: none, Apnea: the patient did not experience apnea, Circulation: the patient did not experience evidence of pulse disturbance. Seizure onset: just prior to arrival. Context: the seizure(s) was witnessed, by family, . Seizure Hx: Cause: unknown. Associated injury: The patient did not suffer any apparent associated injury. The patient has experienced similar episodes in the past, several times. Historical: - Allergies: 07/04 20:17 No Known Allergies; lp1 - Home Meds: 20:17 Tresiba FlexTouch U-100 subcutaneous [Active]; Ozempic subcutaneous [Active]; lp1 lisinopril 20 mg Oral tab 1 tab once daily [Active]; Metformin Oral once daily [Active]; hydralazine 25 mg Oral tab 1 tab once daily PRN [Active]; atorvastatin 40 mg Oral tab 1 tab once daily [Active]; gabapentin Oral [Active]; lamotrigine 100 mg Oral tab 1 tab once daily [Active]; - PMHx: 20:17 Diabetes - NIDDM; Seizures; Hypertensive disorder; lp1 - Immunization history:: Adult Immunizations up to date. - Social history:: Smoking status: Patient denies any tobacco usage or history of. - Family history:: not pertinent. ROS: 22:17 Constitutional: Negative for fever, chills, and weight loss, Eyes: Negative for injury, manuela pain, redness, and discharge, ENT: Negative for injury, pain, and discharge, Neck: Negative for injury, pain, and swelling, Cardiovascular: Negative for chest pain, palpitations, and edema, Respiratory: Negative for shortness of breath, cough, wheezing, and pleuritic chest pain, Abdomen/GI: Negative for abdominal pain, nausea, vomiting, diarrhea, and constipation, Back: Negative for injury and pain, : Negative for injury, bleeding, discharge, and swelling, MS/Extremity: Negative for injury and deformity, Skin: Negative for injury, rash, and discoloration, Psych: Negative for depression, anxiety, suicide ideation, homicidal ideation, and hallucinations, Allergy/Immunology: Negative for hives, rash, and allergies, Endocrine: Negative for neck swelling, polydipsia, polyuria, polyphagia, and marked weight changes, Hematologic/Lymphatic: Negative for swollen nodes, abnormal bleeding, and unusual bruising. 22:17 Neuro: Positive for headache. 07/05 01:45 Neck: Negative for injury or acute deformity, mass, pain with movement, pain at rest, manuela rash, stiffness, swelling, swollen nodes, tenderness, bony tenderness, acute changes. Neuro: Positive for weakness, gradual , no sudden , not worst mendes of life. Exam: 07/04 22:17 Constitutional: This is a well developed, well nourished patient who is awake, alert, manuela and in no acute distress. Head/Face: Normocephalic, atraumatic. Eyes: Pupils equal round and reactive to light, extra-ocular motions intact. Lids and lashes normal. Conjunctiva and sclera are non-icteric and not injected. Cornea within normal limits. Periorbital areas with no swelling, redness, or edema. ENT: Nares patent. No nasal discharge, no septal abnormalities noted. Tympanic membranes are normal and external auditory canals are clear. Oropharynx with no redness, swelling, or masses, exudates, or evidence of obstruction, uvula midline. Mucous membranes moist. Neck: Trachea midline, no thyromegaly or masses palpated, and no cervical lymphadenopathy. Supple, full range of motion without nuchal rigidity, or vertebral point tenderness. No Meningismus. Chest/axilla: Normal chest wall appearance and motion. Nontender with no deformity. No lesions are appreciated. Cardiovascular: Regular rate and rhythm with a normal S1 and S2. No gallops, murmurs, or rubs. Normal PMI, no JVD. No pulse deficits. Respiratory: Lungs have equal breath sounds bilaterally, clear to auscultation and percussion. No rales, rhonchi or wheezes noted. No increased work of breathing, no retractions or nasal flaring. Abdomen/GI: Soft, non-tender, with normal bowel sounds. No distension or tympany. No guarding or rebound. No evidence of tenderness throughout. Back: No spinal tenderness. No costovertebral tenderness. Full range of motion. Male : Normal genitalia with no discharge or lesions. Skin: Warm, dry with normal turgor. Normal color with no rashes, no lesions, and no evidence of cellulitis. MS/ Extremity: Pulses equal, no cyanosis. Neurovascular intact. Full, normal range of motion. Neuro: Awake and alert, GCS 15, oriented to person, place, time, and situation. Cranial nerves II-XII grossly intact. Motor strength 5/5 in all extremities. Sensory grossly intact. Cerebellar exam normal. Normal gait. Psych: Awake, alert, with orientation to person, place and time. Behavior, mood, and affect are within normal limits. Neck: ROM/movement: is normal, no acute changes, Meningeal signs: are not present, nuchal rigidity, is not appreciated. 22:59 ECG was reviewed by the Attending Physician. manuela 07/05 01:45 Neck: External neck: is normal, no acute changes, Lymph nodes: no appreciated manuela lymphadenopathy. Vital Signs: 07/04 20:19 BP 121 / 67; Pulse 61; Resp 20; Temp 98.5(O); Pulse Ox 93% on R/A; Weight 136.08 kg; lp1 Height 6 ft. 0 in. (182.88 cm); Pain 7/10; 22:59 BP 125 / 76; Pulse 82; Resp 25 S; Pulse Ox 93% on R/A; as6 07/05 00:31 BP 143 / 82; Pulse 62; Resp 14 S; Pulse Ox 97% on R/A; as6 01:07 BP 152 / 84; Pulse 68; Resp 17 S; Pulse Ox 94% on R/A; as6 07/04 20:19 Body Mass Index 40.69 (136.08 kg, 182.88 cm) lp1 Edgard Coma Score: 07/04 20:19 Eye Response: spontaneous(4). Verbal Response: oriented(5). Motor Response: obeys lp1 commands(6). Total: 15. MDM: 21:47 Patient medically screened. manuela 22:19 Differential diagnosis: cerebral vascular accident, seizure. Data reviewed: vital manuela signs, nurses notes, lab test result(s), EKG, radiologic studies, plain films. Data interpreted: nuclear monitoring technician: rate is 61 beats/min, rhythm is regular, Pulse oximetry: on room air is 93 %. Test interpretation: by ED physician or midlevel provider: ECG, plain radiologic studies. Counseling: I had a detailed discussion with the patient and/or guardian regarding: the historical points, exam findings, and any diagnostic results supporting the discharge/admit diagnosis, lab results, radiology results, the need for outpatient follow up, for definitive care, 07/04 20:36 Order name: Glucose, Ancillary Testing; Complete Time: 23:22 [facility] 07/04 22:10 Order name: Basic Metabolic Panel; Complete Time: 23:[address] [facility] 07/04 22:10 Order name: CBC with Diff; Complete Time: 23:[address] [facility] 07/04 22:10 Order name: LFT's; Complete Time: 23:[address] [facility] 07/04 22:10 Order name: Magnesium; Complete Time: 23:[address] [facility] 07/04 22:10 Order name: NT PRO-BNP; Complete Time: 23:[address] [facility] 07/04 22:10 Order name: PT-INR; Complete Time: 23:[address] [facility] 07/04 22:10 Order name: Troponin HS; Complete Time: 23:[address] [facility] 07/04 22:10 Order name: XRAY Chest (1 view) [facility] 07/04 22:10 Order name: SARS-COV-2 RT PCR (Document "Date of Onset" if Symptomatic); Complete Time: [facility] 00:04 07/04 23:22 Order name: CT Head Brain wo Cont [facility] 07/04 23:36 Order name: Urine Dipstick-Ancillary; Complete Time: 00:04 [facility] 07/04 22:10 Order name: EKG; Complete Time: 22:[address] [facility] 07/04 22:10 Order name: Cardiac monitoring; Complete Time: 22:[address] [facility] 07/04 22:10 Order name: EKG - Nurse/Tech; Complete Time: 22:[address] [facility] 07/04 22:10 Order name: IV Saline Lock; Complete Time: 22:[address] [facility] 07/04 22:10 Order name: Labs collected and sent; Complete Time: 22:[address] [facility] 07/04 22:10 Order name: O2 Per Protocol; Complete Time: 22:[address] [facility] 07/04 22:10 Order name: O2 Sat Monitoring; Complete Time: 22:39 manuela 07/04 22:10 Order name: Seizure Precautions; Complete Time: 22:39 manuela 07/04 22:10 Order name: Urine Dipstick-Ancillary (obtain specimen); Complete Time: 23:41 manuela EC:59 Rate is 61 beats/min. Rhythm is regular. QRS [place] is Normal. CT interval is normal. QRS manuela interval is normal. QT interval is normal. No Q waves. T waves are Normal. No ST changes noted. Clinical impression: NSR w/ Non-specific ST/T Changes and No evidence of ischemia. Interpreted by me. Reviewed by me. Administered Medications: 22:57 Drug: NS 0.9% 500 ml Route: IV; Rate: bolus; Site: right antecubital; as6 07/05 01:08 Follow up: Response: No adverse reaction; IV Status: Completed infusion; IV Intake: as6 500ml 07/04 22:57 Drug: NS 0.9% 1000 ml Route: IV; Rate: 125 ml/hr; Site: right antecubital; as6 07/05 01:08 Follow up: Response: No adverse reaction; IV Status: Order to discontinue infusion; IV as6 Intake: 300ml 07/04 23:42 Drug: LaMICtal (lamoTRIgine) 200 mg Route: PO; as6 07/05 01:08 Follow up: Response: No adverse reaction as6 Point of Care Testing: Blood Glucose: 07/04 20:25 Blood Glucose: 175 mg/dL; lp1 Ranges: Critical Glucose Levels:Adult <50 mg/dl or >400 mg/dl <40 mg/dl or >180 mg/dl Disposition Summary: 07/05/21 00:32 Discharge Ordered Location: Home manuela Problem: new manuela Symptoms: have improved manuela Condition: Stable maunela Diagnosis - Epileptic seizures related to external causes manuela - Type 2 diabetes mellitus with hyperglycemia manuela - Obesity, unspecified manuela Followup: manuela - With: Private Physician - When: 2 - 3 days - Reason: Recheck today's complaints, Continuance of care, Re-evaluation by your physician Followup: manuela - With: - When: 2 - 3 days - Reason: Recheck today's complaints, Continuance of care, Re-evaluation by your physician Discharge Instructions: - Discharge Summary Sheet manuela - Type 2 Diabetes Mellitus, Diagnosis, Adult manuela - Hyperglycemia manuela - Obesity, Adult manuela - Seizure, Adult manuela - Seizure, Adult, Edao-ni-Tmwk manuela - Type 2 Diabetes Mellitus, Diagnosis, Adult, [id number]-Lcry manuela Forms: - Medication Reconciliation Form manuela - Thank You Letter manuela - Antibiotic Education manuela - Prescription Opioid Use manuela Prescriptions: - Lamictal 100 mg Oral Tablet - take 2 tablets by ORAL route every 12 hours; 60 tablet; Refills: 0, Product manuela Selection Permitted Signatures: Dispatcher [employer] Donta Flores MD MD cha Pena, Laura, RN RN lp1 Taran Krishnamurthy RN RN as6 Corrections: (The following items were deleted from the chart) 20:19 20:17 Home Meds: metformin 1,000 mg Oral tab 1 tab 2 times per day; lp1 lp1
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
[2021-07-05 03:39] VITALS: TEMP 98.5
[2021-07-05 03:43] VITALS: BP 152/84; O2SAT 94
--- NOTE | 2021-07-05 08:30 | EKG ---
Test Date: 2021-07-04 Test Time: 22:28:09 [place]: MEASUREMENT RESULTS: Intervals: Rate: 61 HI: 186 QRSD: 104 QT: 406 QTc: 408 [place]: P: 42 HI: 186 QRS: -7 T: 30 INTERPRETIVE STATEMENTS: Normal sinus rhythm Minimal voltage criteria for LVH, may be normal variant Borderline ECG Compared to ECG 08/24/2020 08:18:35 No significant changes Electronically Signed On 07-05-21 08:27:54 CDT by Jl Martinez
--- NOTE | 2021-07-05 11:53 | RAD REPORT ---
EXAM DESCRIPTION: RAD - Chest Single View - 07/04/2021 10:31 pm CLINICAL HISTORY: 61-year-old male with cough. TECHNIQUE: Single view, AP portable chest was obtained. COMPARISON: None. FINDINGS: Unremarkable cardiac and mediastinal silhouette. Heart size is normal. Lungs are clear without focal opacity, pneumothorax or pleural effusions. The visualized bones are within normal limits. IMPRESSION: No acute cardiopulmonary abnormalities. Electronically signed by: Guerline Pitts MD 07/04/2021 10:46 PM CDT Due to temporary technical issues with the PACS/Fluency reporting system, reports are being signed by the in house radiologists without review as a courtesy to insure prompt reporting. The interpreting radiologist is fully responsible for the content of the report.
--- NOTE | 2021-07-05 13:14 | RAD REPORT ---
EXAM DESCRIPTION: CT - Head Brain Wo Cont - 07/05/2021 4:36 am CLINICAL HISTORY: Dizziness;Headache. TECHNIQUE: Noncontrast CT through the head was performed. Axial, coronal, and sagittal reconstructio ns were created and sent to PACS. This exam was performed according to our departmental dose-optimiza tion program which includes use of Automated Exposure Control, adjustment of the mA and/or kV accordi ng to patient size and/or use of iterative reconstruction technique. COMPARISON: CT head and cervical spine from August 24, 2020. FINDINGS: There is diffuse age-appropriate atrophy throughout the brain parenchyma. Mild periventric ular white matter changes are present, and there is mild ex vacuo dilatation of the ventricular syste m. There is no intra-axial or extra-axial bleed. There is no mass or mass effect. The visualized paranasal sinuses and mastoid air cells are patent. No acute fracture is identified. IMPRESSION: 1. No acute intracranial abnormality identified. 2. Mild chronic age-related and microvascular ischemic changes. Electronically signed by: Tona Whitney MD 07/05/2021 12:20 AM CDT Due to temporary technical issues with the PACS/Fluency reporting system, reports are being signed by the in house radiologists without review as a courtesy to insure prompt reporting. The interpreting radiologist is fully responsible for the content of the report.
== END 2021-07-05 01:49 | disposition home or self-care (01) ==
LOC: ER 19:33
DX: G40.509 Epileptic seizures related to external causes, not intractable, without status epilepticus (principal); E11.65 Type 2 diabetes mellitus with hyperglycemia; E66.9 Obesity, unspecified; I10 Essential (primary) hypertension; Z79.4 Long term (current) use of insulin; Z20.822 Contact with and (suspected) exposure to COVID-19
CPT/HCPCS: 96361; 93005; 85025; 80048; 36415; 83735; 85610; 82947; 80076; 81003; 84484; 83880; 70450; 71045; 96360; 99284; U0003; J7040; J7030

== ENCOUNTER 2022-04-18 14:31 | Emergency (ER) | payer OTHER ==
--- OUTSIDE RECORDS SUMMARY | 2022-04-18 14:37 | XMS REPORT | Continuity of Care Document ---
:1960 Author Organization [facility] t Address [address] [place] [address] [address]. [address] [place] [address] Care Team Providers Name Role Phone Grant QUEZADA, [facility] Primary Care Physician [phone] Mau Parker MD Attending Clinician STEPHEN MAGANA Attending Clinician Unavailable Stephen Magana DO Attending Clinician Edis Momin Attending Clinician Abdiel Kate Attending Clinician Unavailable Brendon Jones Attending Clinician Abdiel Kate Admitting Clinician Unavailable Brendon Jones Admitting Clinician Payers Payer Name Policy Type Policy Number Effective Date Expiration Date S ramona [employer]NA MEDICARE [id number] 2020 ADVANTAGE HMO 00:00:00 HUMANA GOLD PLS [id number] 2021 HMO 00:00:00 Problems Condition Condition Condition Status Onset Resolution Last Treating Co mments Source Name Details Category Date Date Treatment Clinician Date No known No known Disease Unive rs active active ity of problems problems [facility] Allergies, Adverse Reactions, Alerts Allergy Allergy Status Severity Reaction(s) Onset Inactive Treating Comm ents Source Name Type Date Date Clinician No DA Active U [facility] Allergy 3-10 Corpus Informat 00:00: Deborah ion 00 [facility] e NO KNOWN Drug Active Univers ALLERGIE Class ity of S [facility] Social History Social Habit Start Date Stop Date Quantity Comments Source History of Chews [facility] tobacco use Exposure to Not sure University of SARS-CoV-2 [facility] (event) [facility] Tobacco use and 2022-04-06 2022-04-06 User of smokeless [facility] exposure 00:00:00 00:00:00 tobacco Alcohol intake 2022-04-06 2022-04-06 [facility] 00:00:00 00:00:00 non-drinker (finding) Sex Assigned At [birth year] [facility] 00:00:00 00:00:00 Smoking Status Start Date Stop Date Source Unknown if ever smoked [facility] Never smoked tobacco [facility] Medications Ordered Filled Start Stop Current Ordering Indication Dosage Frequency Signature Comments Components Source Medication Medication Date Date Medication? Clinician (SIG) Name Name HYDROcodone 2022- No 11589 1{tbl} Q6H Take 1 Methodi -acetaminop 04-[address] [facility] ([place]) 00:00: 05:59 mouth [facility] 5-325 mg 00 :00 every 6 l per tablet (six) hours as needed for moderate pain for up to 3 days .acute pain. Max Daily Amount: 4 tablets insulin 2021- No 10U 10 Units, Univ ers regular 04-14 Subcutaneo ity o f human 00:15: 23:47 , ONCE, [place] (HUMULIN R) 00 :00 1 dose, On Me dical injection Wed Branch 10 Units 04/13/21 at 1815, Routine No known No Univers medications -12 ity of 15:45: [address] Vital Signs Vital Name Observation Time Observation Value Comments Source Systolic blood 2021-04-14 01:14:23 144 mm[Hg] Univer sity of pressure [facility] Diastolic blood 2021-04-14 01:14:23 71 mm[Hg] Unive rsity of [facility] Heart rate 2021-04-14 01:14:23 64 /min [facility] Respiratory rate 2021-04-14 01:14:23 16 /min [facility] O[facility] saturation in 2021-04-14 01:14:23 95 /min University Arterial blood by [facility] Pulse oximetry [facility] Body temperature 2021-04-13 21:17:00 36.89 Yoly [facility] Body weight 2021-04-13 21:17:00 129.275 kg General acute hospital Systolic blood 2022-04-07 03:15:00 183 mm[Hg] [facility] pressure Diastolic blood 2022-04-07 03:15:00 88 mm[Hg] [facility] pressure Heart rate 2022-04-07 03:15:00 77 /min [facility] Respiratory rate 2022-04-07 03:15:00 18 /min [facility] Oxygen saturation in 2022-04-07 03:15:00 95 /min [facility] Arterial blood by Pulse oximetry Body temperature 2022-04-07 00:42:38 37.06 Yoly [facility] Body height 2022-04-07 00:42:00 172.7 cm [facility] Body weight 2022-04-07 00:42:00 131.543 kg [facility] BMI 2022-04-07 00:42:00 44.09 kg/m2 [facility] Procedures Procedure Date / Time Performing Clinician Source Performed ECG ED PRELIMINARY 2022-04-07 05:34:15 [facility] [place] COMPREHENSIVE METABOLIC 2022-04-07 04:09:00 Mau Parker [facility] PANEL [place] ESTIMATED GFR 2022-04-07 04:09:00 Mau Parker Ho spital [facility] CT MAXILLOFACIAL WO 2022-04-07 03:42:49 Mau Parker [facility] CONTRAST [facility] CT HEAD WO CONTRAST 2022-04-07 03:41:56 Elena [facility] [place] CBC WITH PLATELET AND 2022-04-07 03:05:[address] [facility] DIFFERENTIAL [place] MAGNESIUM LEVEL 2022-04-07 03:05:00 Mau Parker Ho spital [place] PHOSPHORUS LEVEL 2022-04-07 03:05:00 Mau Parker [facility] [place] TROPONIN T 2022-04-07 03:05:00 Mau Parker Ho spital [place] B NATRIURETIC PEPTIDE 2022-04-07 03:05:00 Mau Parker [facility] [place] T4, FREE 2022-04-07 03:05:00 Mau Parker Ho [facility]ital [place] THYROID STIMULATING 2022-04-07 03:05:00 [facility] [place] ECG 12-LEAD 2022-04-07 02:59:56 Mau Parker spital [place] ESTIMATED GFR 2022-04-07 02:53:00 Mau Parker spital [place] POCT GLUCOSE (AUTOMATED) 2021-04-14 00:38:00 Stephen Magana [facility] COMP. METABOLIC PANEL 2021-04-13 22:26:00 Stephen Magana [facility] ([id number]) Medical Branch CBC WITH DIFF 2021-04-13 22:26:00 Stephen Magana [place] [facility] COVID-19 (ID NOW RAPID 2021-04-13 22:26:00 Stephen Magana [facility] TESTING) Medical Branch POCT GLUCOSE (AUTOMATED) 2021-04-13 21:16:00 Stephen Magana [facility] CONSENT/REFUSAL FOR 2021-04-13 21:03:08 Doctor Francisco [facility] DIAGNOSIS AND TREATMENT [facility] NOTICE OF PRIVACY 2021-04-13 21:02:14 Doctor Francisco [facility] PRACTICES Y[facility] Plan of Care Planned Activity Planned Date Details Comments Source Future Scheduled 2022-04-18 Hepatitis C screening [facility] Test 14:33:19 (procedure) [code = 279712876] Future Scheduled 2022-04-18 COLONOSCOPY SCREENING [facility] Test 14:33:19 [code = COLONOSCOPY SCREENING] Future Scheduled 2022-04-18 SHINGLES VACCINES (1 Met [facility] Test 14:33:19 of 2) [code = SHINGLES VACCINES (1 of 2)] Future Scheduled 2022-04-18 COVID-19 VACCINE (3 - [facility] Test 14:33:19 Booster for Moderna series) [code = COVID-19 VACCINE (3 - Booster for Moderna series)] Future Scheduled 2022-04-18 INFLUENZA VACCINE [facility] Test 14:33:19 [code = INFLUENZA VACCINE] Encounters Start End Encounter Admission Attending Care Care Encounter Source Date/Time Date/Time Type Type Clinicians Facility Department ID 2022-04-07 Outpatient [facility] [id number] [facility] 09:16:03 [id number] [facility] 2022-04-06 2022-04-06 Emergency Egbers, 1.2.840.1 [id number] Methodi 20:41:00 23:39:[address] [place] 3.430.2.7 Hospit a .3.710004 l .8 2022-04-06 2022-04-06 Travel 1.2.840.1 1.2.332.893 [id number] Methodi 00:00:00 00:00:[address] 3.430.2.7 0.2.7.3.698 Ho spita .3.738750 084.8 l .8 2022-04-06 2022-04-06 Emergency EGBERS, [facility] [id number] [place] [id number] 00:00:00 00:00:[address] MAU [address] 2021-04-13 2021-04-13 Emergency X , [facility] ERT [id number] Univers 15:18:00 19:23:00 STEPHEN alonso of [facility] 2021-04-13 2021-04-13 Emergency , [facility] 1.2.120.533 [id number] Univers 15:18:00 19:23:00 Stephen ESTRADA 350.1.13.10 i [facility] 4.2.7.2.[address] [facility] [id number] [address] 2020-12-13 2020-12-13 Outpatient Merrill, MHMISCHER MHMISCHER [id number] 11:30:00 23:59:59 Edis Alireza 2020-09-13 2020-09-13 Outpatient Merrill, MHMISCHER MHMISCHER [id number] 11:30:00 23:59:59 Edis 05 Alireza 2020-07-28 2020-07-29 Outpatient MHMISCHER MHMISCHER [id number] 09:06:14 23:59:59 2020-07-23 2020-07-23 Outpatient Merrill MHMISCHER MHMISCHER [id number] 13:00:00 23:59:59 Edis Alireza 2020-07-14 2020-07-14 Outpatient Merrill, MHMISCHER MHMISCHER [id number] 13:00:00 13:00:00 Edis Alireza 2020-06-28 2020-06-29 Outpatient TREMISCHER MHMISCHER [id number] 10:58:19 23:59:59 2020-06-24 2020-06-24 Outpatient Merrill MHMISCHER MHMISCHER [id number] 11:45:00 23:59:59 Edis Alireza 2020-06-24 2020-06-24 Outpatient Merrill, MHMISCHER MHMISCHER [id number] 10:00:00 10:00:00 Edis 01 Alireza 2020-06-10 2020-06-10 Outpatient Merrill MHMISCHER MHMISCHER [id number] 10:45:00 10:45:00 Edis 00 Alireza 2018-08-16 2018-08-20 Inpatient YAO Kate [facility] MED [id number] [facility] 17:35:00 18:31:00 Abdiel Davalos [facility] 2017-09-21 2017-09-22 Outpatient Karen [facility] [id number] 18:50:00 23:35:00 Brendon 67 Results Test Description Test Time Test Comments Results Result Comments Source ECG 12 lead 2022-04-08 00:17:52 Test Item Value Reference Range Interpretation Comme nts Ventricular rate (test code = 253) Atrial rate (test code = 255) FL interval (test code = 266) QRSD interval (test code = 260) QT interval (test code = 264) QTC interval (test code = 265) P axis 1 (test code = 267) QRS axis 1 (test code = 268) T wave axis (test code = 270) EKG impression (test code = 273) Normal sinus rhythm-No previous EC Gs available- [facility] ED Preliminary Interpretation - Not an [id number] 05:34:15 Test Item Value Reference Range Interpretation Comments JAVIER (test code = JAVIER) Mau Parker MD 04/15/2022 10:12 [facility] ED Preliminary Interpretation - Not an OrderPerformed by: Mau Parker MDAuthorized by: Mau Parker MD ECG reviewed by ED Physician in the absence of a trademark paralegal: yes Interpretation: Interpretation: abnormal Rate: ECG rate: 75 ECG rate assessment: normal Rhythm: Rhythm: sinus rhythm Ectopy: Ectopy: none QRS: QRS axis: Left QRS intervals: NormalConduction: Conduction: normal ST segments: ST segments: NormalT waves: T waves: normal Comments: FL 176. QRS 110. QTc 435. Lab Interpretation Abnormal (test code = 51960-5) [facility] GLUCOSE (AUTOMATED)2021-04-14 00:39:55 Test Item Value Reference Range Interpretation Comments POCT GLU (test code = 3616744496) 261 mg/dL 70-110 H Lab Interpretation (test code = Abnormal 61774-4) [facility]2021-[facility]-13 22:46:18 Test Item Value Reference Range Interpretation Comments NA (test code = 133 mmol/L 135-145 L 8951972826) K (test code = 4.8 mmol/L 3.5-5.0 4740037710) CL (test code = 93 mmol/L 98-108 L 6309538407) CO2 TOTAL (test code = 34 mmol/L 23-31 H 6324623753) AGAP (test code = 2-16 6080598484) BUN (test code = 20 mg/dL 7-23 2571671435) GLUCOSE (test code = 340 mg/dL 70-110 H 9320448965) CREATININE (test code = 0.80 mg/dL 0.60-1.25 0470557014) TOTAL BILI (test code = 0.4 mg/dL 0.1-1.1 7273327707) CALCIUM (test code = 9.0 mg/dL 8.6-10.6 9496407880) T PROTEIN (test code = 7.1 g/dL 6.3-8.2 1604043158) ALBUMIN (test code = 4.0 g/dL 3.5-5.0 5678875408) ALK PHOS (test code = 95 U/L 34-122 6224634019) ALTv (test code = 24 U/L 5-50 2-6) AST(SGOT) (test code = 22 U/L 13-40 1336508173) eGFR (test code = mL/min/1.73m2 8935275914) JAVIER (test code = JAVIER) Association of [...] tests). Lab Interpretation Abnormal (test code = 86218-4) [facility] WITH [id number] 22:36:12 Test Item Value Reference Range Interpretation Comments WBC (test code = See_Comment [Automated message] 6690-2) The system [employer] generated this result transmitted ref erence range: 4.20 - 1 0.70 10*3/?L. The re ference range was not u sed to interpret this result as normal/abnor mal. RBC (test code = See_Comment [Automated message] 789-8) The system [employer] generated this result transmitted ref erence range: [...] RDW-SD (test code 43.5 fL 38.5-51.6 = 26382-0) RDW-CV (test code 13.5 % 12.1-15.4 = 788-0) PLT (test code = See_Comment [Automated message] 777-3) The system [employer] generated this result transmitted ref erence range: 150 - 32 8 10*3/?L. The re ference range was not u sed to interpret this result as normal/abnor mal. MPV (test code = 10.8 fL 9.8-13.0 41933-5) NRBC/100 WBC (test See_Comment [Automat ed message] code = 5781784801) The [employer] which generated this result transmitted ref erence range: 0.0 - 10 .0 /100 WBCs. The refer ence range was not u sed to interpret this result as normal/abnor mal. NRBC x10^3 (test <0.01 See_Comment [Automated message] code = 6285431735) The syste m which generated this result transmitted ref erence range: 10*3/?L. The reference range was not used to interpr et this result as normal/abnormal . GRAN MAT (NEUT) % 61.4 % (test code = 770-8) IMM GRAN % (test 0.40 % code = 5498686539) LYMPH % (test code 27.1 % = 736-9) MONO % (test code 6.1 % = 5905-5) EOS % (test code = 4.3 % 713-8) BASO % (test code 0.7 % = 706-2) GRAN MAT 5.97 10*3/uL 1.99-6.95 x10^3(ANC) (test code = 1370055158) IMM GRAN x10^3 0.04 10*3/uL 0.00-0.06 (test code = 8059112424) LYMPH x10^3 (test 2.64 10*3/uL 1.09-3.23 code = 731-0) MONO x10^3 (test 0.59 10*3/uL 0.36-1.02 code = 742-7) EOS x10^3 (test 0.42 10*3/uL 0.06-0.53 code = 711-2) BASO x10^3 (test 0.07 10*3/uL 0.01-0.09 code = 704-7) [facility]13 21:29:55 Test Item Value Reference Range Interpretation Comments POCT GLU (test code = 4444812088) 310 mg/dL 70-110 H Lab Interpretation (test code = Abnormal 94836-3) [facility] 12:38:00 Test Item Value Reference Range Interpretation Comments GLUBED (test code = 93 MG/DL 65-99 N Performe d by certified GLUBED) directory assistance operator at [facility] LACTIC ACID [id number] 10:55:00 Test Item Value Reference Range Interpretation Comments LACTIC ACID POC 1.16 MMOL/L 0.90-1.70 N Performed by certified (test code = LACTP) directory assistance operator at [facility] UA RFLX MICROSCOPIC [id number] 09:58:00 Test Item Value Reference Range Interpretation [...] Delirium-if no other srcURINE SOURCE: Clean CatchUA [id number] 09:58:00 Test Item Value Reference Range Interpretation Comments UA RBC (test code = RBCU) None Seen #/hpf NONE SEEN UA BACTERIA (test code = RARE #/hpf NONE SEEN BACU) Indication for culture: Delirium-if no other srcURINE SOURCE: Clean CatchDRUG OF ABUSE SCREEN [id number] 09:46:00 Test Item Value Reference Interpretation Comments [...] PHENCU) results thatmay be confirmed by al cy methods (i.e., GC/MS) at [facility]. Results of scre en may not be usedin crimi nal justice, job performance or professionalcre dential review, or infa nt custody issues. Negativ e [place] Level ng/ml ------- ----- Cocaine 3 00 Methamphetamine (Ecstacy) 500 Cannabinoid s (THC) 50 Amphetamine 100 0 Barbiturates 20 0 Benzodiazepines 200 Opiates 300 Phencyclidi ne (PCP) 25 BASIC METABOLIC [id number] 09:46:00 Test Item Value Reference Range Interpretation [...] 9.3 MG/DL 8.7-10.5 N CA) HEPATIC FUNCTION [id number] 09:46:00 Test Item Value Reference Range Interpretation [...] 50-136 N TOTAL (test code = ALKP) [id number] 09:46:00 Test Item Value Reference Range Interpretation Comments LIPASE (test code = LIP) 116 Units/L 73-393 N [id number] 09:46:00 Test Item Value Reference Range Interpretation Comments CK (test code = CKT) 88 Units/L 39-308 N [id number] 09:46:00 Test Item Value Reference Range Interpretation Comments ALCOHOL (test code = < 3 MG/DL 0-10 N 0 - 10 : Should be ALC) interpreted as NEGATIVE. 11 - 50: None t o mild euphoria. 51 - 100: Mild influence on vi miriam and dark adaptation . > 80: Legal intoxicat ion; Depression of C NS; Increasing degr ee of poisoning. > 40 0: Fatalities repo rted. Results are for medical purposes only a nd not forlegal or emp loyment evaluative purp oses. PROTHROMBIN [id number] 09:42:00 Test Item Value Reference Range Interpretation Comments PROTHROMBIN TIME 13.4 SECONDS 9.6-12.3 H PATIENT (test code = PTP) INTERNATIONAL NORMAL 1.18 Recomme nded INR range RATIO (test code = (warfarin therapy): INR) 2.0 - 3.0INR (International Normalized Rati o) should beused w hen interpreting or al anticoaglulant therapy. For at rial fibrillation an d treatment orprevention of deep vein thrombosis . Patients with Palmaz-Jeevan s tent *: 2.0 - 3.0 Pa tients with mechanical heart valve *: 2.5 - 3.5 Patients with flex-stent *: 3 .0 - 4.0(*) = supervisor fertilizer processing's suggested range Is patient on anticoagulants? UnknownTHROMBOPLASTIN TIME [id number] 09:42:00 Test Item Value Reference Range Interpretation Comments THROMBOPLASTIN TIME 32.6 SECONDS 22.5-35.3 N *Therap eutic level PARTIAL (test code = for hep amalia: 1.5 - PTT) 2.5 times the average patient value of 30.0 seconds. The aP TT tet should not be used to evaluat e low moleculat weigh t heparin anticoagulant therapy. Is patient on anticoagulants? Unknown- CT HEAD/BRAIN W/O [id number] 09:35:00 Patient Name: ANTONINO WALL Unit No: [id number] EXAMS: CPT CODE: [id number] CT HEAD/BRAIN W/OCONT 75575 Reason: AMS, seizure? - CT HEAD/BRAIN W/O [...] by: Stephen Thayer MD CC: Juanito Russo MD;Tomi Brown DO Technologist: Halina BERGER Trscrpt Dt/ (0935)tAMNARJose [email or web address] Orig Print D/T: S: 01/24/2019 (0938) CTDI: DLP: [facility] Cnt NAME: ANTONINO WALL [address] [facility] PHYS: [place] [address] : 1960 AGE: 59 SEX: M LOC: [place] PHONE #: [phone] EXAM DATE: 01/24/2019 STATUS: REG ER FAX#: RAD NO: DC Dt: PAGE 1 Signed Report UA RFLX MICROSCOPIC [id number] 09:32:00 Test Item Value Reference Range Interpretation [...] Delirium-if no other srcURINE SOURCE: Clean CatchUA [id number] 09:32:00 Test Item Value Reference Range Interpretation Comments UA RBC (test code = RBCU) #/hpf NONE SEEN Indication for culture: Delirium-if no other srcURINE SOURCE: Clean CatchUA RFLX MICROSCOPIC [id number] 09:32:00 Test Item Value Reference Range Interpretation [...] Delirium-if no other srcURINE SOURCE: Clean CatchUA [id number] 09:32:00 Test Item Value Reference Range Interpretation Comments UA RBC (test code = RBCU) #/hpf NONE SEEN Indication for culture: Delirium-if no other srcURINE SOURCE: Clean CatchCBC W/AUTO [id number] 09:30:00 Test Item Value Reference Range Interpretation [...] X10 3/uL 0.0-0.2 N NRBC#) TROPONIN I [id number] 09:28:00 Test Item Value Reference Range Interpretation Comments TROPONIN I RAPID 0.03 NG/ML 0.00-0.08 N Performed b y certified (test code = directory assistance operator at [facility]) [facility] - he use of serial sampl ing and testing protoco l is a recommended pra ctice.- An elevated tro ponin level alone is often not sufficient for diagnosis of my ocardial infarction. LACTIC ACID [id number] 09:23:00 Test Item Value Reference Range Interpretation Comments LACTIC ACID POC 6.21 MMOL/L 0.90-1.70 HH Performed by certified (test code = LACTP) directory assistance operator at [facility] METHADONE [id number] 07:13:00 Test Item Value Reference Range Interpretation Comments METHADONE LEVEL 250 ng/mL 100-400 This test wa s developed and (test code = its performance METHADONE) characteristics determined by [facility]. It has not been cleared orappro audrey by the Food and Drug Admini stration. Detection Limit = 25Multiple parameters can impact methadone refer enceintervals. Up to a 17-fold variation in methadone venice ntra-tions can be found in pat ients given the same dose due t oindividual differences in P450 enzyme systems. For do setolerant individuals in methadone maintenance programsinlatashati gators have recommended lev els of 100 ng/mL nr5146 ng /mL. However these levels ca n have an adverse impacto n drug naive individuals.Per formed At: [facility] [id number] [place], [place] [id number] ra Last QUEZADA Ph:[phone] - XR CHEST 1 [id number] 07:47:00 Patient Name: ANTONINO WALL Unit No: [id number] EXAMS: CPT CODE: [id number] XR CHEST 1 V 85473 Reason: intubated - XR CHEST 1 V 11/28/2018 5:00 AM A frontal portable chest compared with 11/27/2018 shows clear lungs and pleural spaces. The cardiac and mediastinal silhouettes are normal. The bones are unremarkable. IMPRESSION: Negative chest at 0747 Reported and signed by: Stephen Thayer MD CC: Juanito Russo MD; Sharan Boyd MD; Renard Greene DO Technologist: Frederick Dodge Trscrpt Dt/ (0747)[email or web address] Orig Print D/T: S: 11/28/2018 (0751) [facility] NAME: ANTONINO WALL [address] PHYS: Renard Croft DO [address] [place] [address] : 1960 AGE: 58 SEX: M LOC: D.Y307 1 PHONE #: [phone] EXAM DATE: 11/28/2018 STATUS: ADM IN FAX #: RAD NO: DC Dt: PAGE 1 Signed [id number] 06:32:00 Test Item Value Reference Range Interpretation Comments GLUBED (test code = 136 MG/DL 65-99 H Performe d by certified GLUBED) directory assistance operator at [facility] PROCALCITONIN (PCT)2018-11-28 06:01:00 Test Item Value Reference Range Interpretation Comments PROCALCITONIN (PCT) (test code = < 0.05 ng/mL 0.00-0.50 N PROCAL) COMPREHENSIVE METABOLIC [id number] 05:03:00 Test Item Value Reference Range Interpretation [...] 50-136 N TOTAL (test code = ALKP) [id number] 05:03:00 Test Item Value Reference Range Interpretation Comments MAGNESIUM (test code = MAG) 1.7 MG/DL 1.8-2.4 L ARTERIAL BLOOD [id number] 04:45:00 Test Item Value Reference Range Interpretation [...] 0.3 % 0.4-1.5 L METHGB) CBC W/AUTO [id number] 04:02:00 Test Item Value Reference Range Interpretation [...] = 0.0 X10 3/uL 0.0-0.2 N NRBC#) [id number] 21:12:00 Test Item Value Reference Range Interpretation Comments GLUBED (test code = 89 MG/DL 65-99 N Performe d by certified GLUBED) directory assistance operator at [facility] [id number] 16:41:00 Test Item Value Reference Range Interpretation Comments GLUBED (test code = 175 MG/DL 65-99 H Performe d by certified GLUBED) directory assistance operator at [facility] - XR CHEST 1 [id number] 06:25:00 Patient Name: ANTONINO WALL Unit No: [id number] EXAMS: CPT CODE: [id number] XR CHEST 1 V [id number] Reason: intubated EXAM: XR Chest, 1 View EXAM DATE/TIME: 11/27/2018 5:57 AM CLINICAL HISTORY: 58 years old, male; Device placement; Ett placement (vent status); Additional info: Intubated TECHNIQUE: Imaging protocol: XR of the chest, 1 view. COMPARISON: CR XR CHEST 1 V 11/26/2018 5:15 AM FINDINGS: Tubes, catheters and devices: Interval removal of endotracheal tube. Lungs: Mild interstitial prominence. Pleural space: Incomplete visualization of the right costophrenic angle. No significant pleural effusion. Heart/Mediastinum: Borderline cardiomegaly. Bones/joints: Unremarkable. IMPRESSION: Mild interstitial prominence and borderline cardiomegaly. at 0625 Reported and signed by: Fernando Patel MD [employer] CC: Juanito Russo MD; Sharan Boyd MD; Renard Greene DO Technologist: Chu Segura RT Trscrpt Dt/ (0625)[email or web address].VR Orig Print D/T: S: 11/27/2018 (0625) [facility] NAME: ANTONINO WALL [address] PHYS: Renard Croft DO [address] [place] [address] : 1960 AGE: 58 SEX: M LOC: D.HCV 3 PHONE #: [phone] EXAM DATE: 11/27/2018 STATUS: ADM IN FAX #: RAD NO: DC Dt: PAGE 1 Signed ReportCBC W/AUTO [id number] 04:56:00 Test Item Value Reference Range Interpretation [...] X10 3/uL 0.0-0.2 N NRBC#) COMPREHENSIVE METABOLIC [id number] 04:44:00 Test Item Value Reference Range Interpretation [...] TOTAL (test code = ALKP) ARTERIAL BLOOD [id number] 04:25:00 Test Item Value Reference Range Interpretation [...] 0.0 % 0.4-1.5 L METHGB) CBC W/AUTO [id number] 17:12:00 Test Item Value Reference Range Interpretation [...] X10 3/uL 0.0-0.2 N NRBC#) ARTERIAL BLOOD [id number] 13:42:00 Test Item Value Reference Range Interpretation [...] 0.3 % 0.4-1.5 L METHGB) ARTERIAL BLOOD [id number] 09:55:00 Test Item Value Reference Range Interpretation [...] 0.3 % 0.4-1.5 L METHGB) COMPREHENSIVE METABOLIC [id number] 06:36:00 Test Item Value Reference Range Interpretation [...] code = ALKP) - XR CHEST 1 [id number] 06:15:00 Patient Name: ANTONINO WALL Unit No: [id number] EXAMS: CPT CODE: [id number] XR CHEST 1 V 29200 Reason: intubated EXAM: XR Chest, 1 View EXAM DATE/TIME: 11/26/2018 6:00 AM CLINICAL HISTORY: 58 years old, male; Device placement; Ett placement (vent status); Additional info: Intubated TECHNIQUE: Imaging protocol: XR of the chest, 1 view. COMPARISON: CR XR CHEST 1 V 11/25/2018 2:11 PM FINDINGS: Tubes, catheters and devices: An endotracheal tube is present, lying with [...] Dt/ (614)JOE.RAIN Ballesteros Print D/T: S: 11/26/2018 (614) [facility] NAME: ANTONINO WALL [address] [facility] PHYS: [id number] - Renard Greene DO [address] [place] [address] : 1960 AGE: 58 SEX: M LOC: D.HCV 3 PHONE #: [phone] EXAM DATE: 11/26/2018 STATUS: ADM IN FAX #: RAD NO: DC Dt: PAGE 1 Signed ReportARTERIAL BLOOD [id number] 04:26:00 Test Item Value Reference Range Interpretation [...] L = METHGB) - CT HEAD/BRAIN W/O [id number] 17:00:00 Patient Name: ANTONINO WALL Unit No: [id number] EXAMS: CPT CODE: [id number] CT HEAD/BRAIN W/O CONT 82548 Reason: altered mental status COMPARISON: Previous head CT dated August 16, 2018 PROCEDURE:Head CT without contrast FINDINGS: There is brain atrophy in keeping with the patient's age. There is no mass, shift, ventricular dilatation or abnormal extra-axial fluid collection.] Nasal tracheal tube is seen. Orogastric tube is seen which is coiled in the oropharynx unchanged when compared to the p revious examination. No bone lesion is seen. IMPRESSION: Stable head CT with nasogastric tube coiledin the oropharynx with brain atrophy with no intracranial hemorrhage or parenchymal hematoma. at 1700 Reported and signed by:Bautista Armijo MD CC: Juanito Russo MD; Sharan Boyd MD Technologist: Trent Florian RT; Jagdeep Bob CT Trscrpt Dt/ (7178)KarlosCG44 Orig Print D/T: S: 11/25/2018 (9830) CTDI: DLP: [facility] NAME: ANTONINO WALL SPID PHYS: [id number] - Khoi Ortega,[place] [address] : 1960 AGE: 58 SEX: M LOC: GANESH PHONE #: [phone] EXAM DATE: 11/25/2018 STATUS: REG ER FAX #: RAD NO: DC Dt: PAGE 1 Signed ReportTROPONIN I [id number] 16:26:00 Test Item Value Reference Range Interpretation Comments TROPONIN I RAPID 0.02 NG/ML 0.00-0.08 N Performed b y certified (test code = directory assistance operator at [facility] TROPIRAP) - The use of se rial sampling and te sting protocol is a recommended pra ctice.- An elevated tro ponin level alone is often not sufficient for diagnosis of my ocardial infarction. LACTIC ACID [id number] 16:20:00 Test Item Value Reference Range Interpretation Comments LACTIC ACID POC 2.37 MMOL/L 0.90-1.70 H Performed by certified (test code = LACTP) directory assistance operator at [facility] BASIC METABOLIC [id number] 15:17:00 Test Item Value Reference Range Interpretation [...] 9.2 MG/DL 8.7-10.5 N CA) HEPATIC FUNCTION [id number] 15:17:00 Test Item Value Reference Range Interpretation [...] 50-136 N TOTAL (test code = ALKP) [id number] 15:17:00 Test Item Value Reference Range Interpretation Comments LIPASE (test code = LIP) 229 Units/L 73-393 N THYROID STIMULATING [id number] 15:17:00 Test Item Value Reference Range Interpretation Comments THYROID STIMULATING 2.74 0.42-5.47 N Micro-In ternational HORMONE (test code = TSH) Un its/LResults of this assay method ma y be falsely depress ed orelevated if p atient is taking high doses of Biotin. [id number] 15:17:00 Test Item Value Reference Range Interpretation Comments CK (test code = CKT) 142 Units/L 39-308 N [id number] 15:17:00 Test Item Value Reference Range Interpretation Comments ACETAMINOPHEN (test < 1 MCG/ML 10-30 L Acetamin ophen is code = ACET) possibly toxic at levels of: 1. m ore than 150 MCG/ML 4 hours post dinorah stion. 2. more than 50 MCG/ML 12 hours post ingestion. [id number] 15:17:00 Test Item Value Reference Range Interpretation Comments SALICYLATE (test code = < 3 MG/DL 0-20 N Refe rence Range: LOGAN) Analgesic...... ...... ...... < 10 mg/ dl Therapeutic.... ...... ...... 15-20 mg /dl Mild Toxicity....... ...... . > 30 mg/dl Se mando Toxicity....... ..... > 60 mg/dl [id number] 15:17:00 Test Item Value Reference Range Interpretation Comments ALCOHOL (test code = < 3 MG/DL 0-10 N 0 - 10 : Should be ALC) interpreted as NEGATIVE. 11 - 50: None t o mild euphoria. 51 - 100: Mild influence on vi miriam and dark adaptation . > 80: Legal intoxicat ion; Depression of C NS; Increasing degr ee of poisoning. > 40 0: Fatalities repo rted. Results are for medical purposes only a nd not forlegal or emp loyment evaluative purp oses. BASIC METABOLIC [id number] 15:11:00 Test Item Value Reference Range Interpretation [...] 9.2 MG/DL 8.7-10.5 N CA) HEPATIC FUNCTION [id number] 15:11:00 Test Item Value Reference Range Interpretation [...] 50-136 N TOTAL (test code = ALKP) [id number] 15:11:00 Test Item Value Reference Range Interpretation Comments LIPASE (test code = LIP) 229 Units/L 73-393 N THYROID STIMULATING [id number] 15:11:00 Test Item Value Reference Range Interpretation Comments THYROID STIMULATING 2.74 0.42-5.47 N Micro-In ternational HORMONE (test code = TSH) Un its/LResults of this assay method ma y be falsely depress ed orelevated if p atient is taking high doses of Biotin. [id number] 15:11:00 Test Item Value Reference Range Interpretation Comments CK (test code = CKT) 142 Units/L 39-308 N [id number] 15:11:00 Test Item Value Reference Range Interpretation Comments ACETAMINOPHEN (test < 1 MCG/ML 10-30 L Acetamin ophen is code = ACET) possibly toxic at levels of: 1. m ore than 150 MCG/ML 4 hours post dinorah stion. 2. more than 50 MCG/ML 12 hours post ingestion. [id number] 15:11:00 Test Item Value Reference Range Interpretation Comments SALICYLATE (test code = < 3 MG/DL 0-20 N Refe rence Range: LOGAN) Analgesic...... ...... ...... < 10 mg/ dl Therapeutic.... ...... ...... 15-20 mg /dl Mild Toxicity....... ...... . > 30 mg/dl Se mando Toxicity....... ..... > 60 mg/dl [id number] 15:11:00 Test Item Value Reference Range Interpretation Comments ALCOHOL (test code = ALC) MG/DL 0-10 BETA [id number] 15:07:00 Test Item Value Reference Range Interpretation Comments BETA HYDROXYBUTYRATE (test code = 0.23 mmol/L 0.02-0.27 N BETHYD) - XR CHEST 1 [id number] 14:39:00 Patient Name: ANTONINO WALL Unit No: [id number] EXAMS: CPT CODE: [id number] XR CHEST 1 V 48911 Reason: altered mental status - XR CHEST [...] Russo MD; Sharan Boyd MD Technologist: Loreto Schuster Trscrpt Dt/ (8979)KarlosMK41 Orig Print D/T: S: 11/25/2018 (7635) [facility] NAME: ANTONINO WALL [address] PHYS: NATALI - [place] [address] : 1960 AGE: 58 SEX: M LOC: GANESH PHONE #: [phone] EXAM DATE: STATUS: REG ER FAX #: RAD NO: DC Dt: PAGE 1 Signed ReportDRUG OF ABUSE SCREEN [id number] 14:31:00 Test Item Value Reference Interpretation Comments [...] by bettie benoit methods (i.e., GC/MS) at [facility]. Results of scre en may not be usedin crimi nal justice, job performance or professionalcre dential review, or infa nt custody issues. Negati ve [place] Level ng/ml ------- ----- Cocaine 3 00 Methamphetamine (Ecstacy) 500 Cannabinoid s (THC) 50 Amphetamine 100 0 Barbiturates 20 0 Benzodiazepines 200 Opiates 300 Phencyclidi ne (PCP) 25 UA RFLX MICROSCOPIC [id number] 14:29:00 Test Item Value Reference Range Interpretation [...] other srcURINE SOURCE: Clean CatchUA RFLX MICROSCOPIC [id number] 14:20:00 Test Item Value Reference Range Interpretation [...] no other srcURINE SOURCE: Clean Catch PROTHROMBIN [id number] 14:20:00 Test Item Value Reference Range Interpretation Comments PROTHROMBIN TIME 12.1 SECONDS 9.6-12.3 N PATIENT (test code = PTP) INTERNATIONAL NORMAL 1.07 Recomme nded INR range RATIO (test code = (warfarin therapy): INR) 2.0 - 3.0INR (International Normalized Rati o) should beused w hen interpreting or al anticoaglulant therapy. For at rial fibrillation an d treatment orprevention of deep vein thrombosis . Patients with Palmaz-Jeevan s tent *: 2.0 - 3.0 Pa tients with mechanical heart valve *: 2.5 - 3.5 Patients with flex-stent *: 3 .0 - 4.0(*) = supervisor fertilizer processing's suggested range Is patient on anticoagulants? UnknownTHROMBOPLASTIN TIME [id number] 14:20:00 Test Item Value Reference Range Interpretation Comments THROMBOPLASTIN TIME 34.5 SECONDS 22.5-35.3 N *Therap eutic level PARTIAL (test code = for hep amalia: 1.5 - PTT) 2.5 times the average patient value of 30.0 seconds. The aP TT tet should not be used to evaluat e low moleculat weigh t heparin anticoagulant therapy. Is patient on anticoagulants? [id number] 14:17:00 Test Item Value Reference Range Interpretation Comments AMMONIA (test code = 47 UMOL/L 11-35 H Results of this assay AMM) method may be f alsely depressed orele vated if patient is taki ng sulfasalazine. CBC W/AUTO [id number] 14:07:00 Test Item Value Reference Range Interpretation [...] 0.0-0.2 N code = NRBC#) ARTERIAL BLOOD [id number] 14:05:00 Test Item Value Reference Range Interpretation [...] - 11/25/2018; by CARMINE MERRITT TROPONIN I [id number] 14:02:00 Test Item Value Reference Range Interpretation Comments TROPONIN I RAPID 0.00 NG/ML 0.00-0.08 N Performed b y certified (test code = directory assistance operator at [facility] TROPIRAP) - The use of se rial sampling and te sting protocol is a recommended pra ctice.- An elevated tro ponin level alone is often not sufficient for diagnosis of my ocardial infarction. LACTIC ACID [id number] 13:56:00 Test Item Value Reference Range Interpretation Comments LACTIC ACID POC 11.36 MMOL/L 0.90-1.70 HH Performed by certified (test code = LACTP) directory assistance operator at [facility] [id number] 11:18:00 Test Item Value Reference Range Interpretation Comments GLUBED (test code = 128 MG/DL 65-99 H Performe d by certified GLUBED) directory assistance operator at [facility] [id number] 06:06:00 Test Item Value Reference Range Interpretation Comments GLUBED (test code = 80 MG/DL 65-99 N Performe d by certified GLUBED) directory assistance operator at [facility] BASIC METABOLIC [id number] 05:11:00 Test Item Value Reference Range Interpretation [...] CHOL) CHOLESTEROL/HDL RATIO 3.3 1.5-4.5 N 1. Ini tial (test code = CHOLHDL) classi fication based on total choles terol: <200 mg/dl Camilla rable cholesterol 200 -239 mg/dl Borderlin e high risk cholestero l >240 mg/dl High risk cholesterol2. I nitial classification based on LDL choleste rol: <130 mg/dl Camilla rable LDL cholesterol 130-159 mg/dl Borderline high risk LDL >159 mg/dl High risk LDL choles terol3. HDL < 35 mg/dl represent incre ased CHD risk; HDL > 60 mg/dl represent decreased CHD r isk.4. Chol/HDL > 5.0 represent incre ased CHD risk in men ; Chol/HDL > 4.5 represent incre ased CHD risk in wom en. HDL CHOLESTEROL (test 31 MG/DL 40-60 L code = HDL) LIPOPROTEIN LDL (test 54 MG/DL 62-130 L code = LDL) LIPOPROTEIN VLDL (test 18 MG/DL 3-60 N code = VLDL) [id number] 05:11:00 Test Item Value Reference Range Interpretation Comments PHOSPHOROUS (test code = PHOS) 4.4 MG/DL 2.5-4.9 N [id number] 05:11:00 Test Item Value Reference Range Interpretation Comments MAGNESIUM (test code = MAG) 1.7 MG/DL 1.8-2.4 L CBC W/AUTO [id number] 04:46:00 Test Item Value Reference Range Interpretation [...] = 0.0 X10 3/uL 0.0-0.2 N NRBC#) [id number] 20:32:00 Test Item Value Reference Range Interpretation Comments GLUBED (test code = 107 MG/DL 65-99 H Performe d by certified GLUBED) directory assistance operator at [facility]2019-05-20 17:37:00 Test Item Value Reference Range Interpretation Comments GLUBED (test code = 76 MG/DL 65-99 N Performe d by certified GLUBED) directory assistance operator at [facility]2019-05-20 11:48:00 Test Item Value Reference Range Interpretation Comments GLUBED (test code = 74 MG/DL 65-99 N Performe d by certified GLUBED) directory assistance operator at [facility]2019-05-20 08:20:00 Test Item Value Reference Range Interpretation Comments GLUBED (test code = 91 MG/DL 65-99 N Performe d by certified GLUBED) directory assistance operator at [facility] - XR CHEST 1 [id number] 07:45:00 Patient Name: ANTONINO WALL Unit No: [id number] EXAMS: CPT CODE: [id number] XR CHEST 1 V 07046 Reason: pna - XR CHEST 1 V [...] (0745)LucreciaE Orig Print D/T: S: 08/19/2018 (0748) [facility] NAME: ANTONINO WALL [address] [facility] PHYS: REID.Danya - Nahum Reed [place] [address] :1960 AGE: 58 SEX: M LOC: D.HCU 19 PHONE #: [phone] EXAM DATE: 08/19/2018 STATUS: ADM IN FAX #: RAD NO: DC Dt: PAGE 1 Signed ReportCBC W/AUTO [id number] 06:55:00 Test Item Value Reference Range Interpretation [...] X10 3/uL 0.0-0.2 N NRBC#) COMPREHENSIVE METABOLIC [id number] 06:16:00 Test Item Value Reference Range Interpretation [...] 50-136 N TOTAL (test code = ALKP) [id number] 06:16:00 Test Item Value Reference Range Interpretation Comments MAGNESIUM (test code = MAG) 1.9 MG/DL 1.8-2.4 N ARTERIAL BLOOD [id number] 03:30:00 Test Item Value Reference Range Interpretation [...] code = 0.0 % 0.4-1.5 L METHGB) [id number] 20:06:00 Test Item Value Reference Range Interpretation Comments GLUBED (test code = 95 MG/DL 65-99 N Performe d by certified GLUBED) directory assistance operator at [facility] [id number] 17:30:00 Test Item Value Reference Range Interpretation Comments GLUBED (test code = 81 MG/DL 65-99 N Performe d by certified GLUBED) directory assistance operator at [facility] - DUP EXTRACRANIAL [id number] 13:42:00 Patient Name: ANTONINO WALL Unit No: [id number] EXAMS: CPT CODE: [id number] DUP EXTRACRANIAL RAMU 18753 INDICATION: Syncope. COMPARISON: None available. FINDINGS: The right side was not evaluateddue to central line which produce shadowing artifact. On the left, peak systolic velocities are normal, and there are no areas of flow disturbance or turbulence. ICA/CCA velocity ratios are normal. Both vertebral arteries demonstrate antegrade flow. IMPRESSION: No evidence of hemodynamically significant stenosis of the left carotid arteries. Right side not evaluated due to central line which producedshadowing artifact. at 1342 Reported and signed by: Juventino Park MD CC: Juanito Russo MD; Mason Barnes DO; Babrie Castellanos MD Technologist: Janet SNEED Trnscrbd D/ (1342) t.FRAN.[email or web address] Orig Print D/T: S: 08/18/2018 (5958) Probe: [facility] NAME: ANTONINO WALL [address] PHYS: [id number] - Cameron,Mason MENENDEZ [address] [place] [address] : 1960 AGE: 58 SEX: M LOC: D.U 19 PHONE #: [phone] EXAM DATE: 08/18/2018 STATUS: ADM IN FAX #: RAD NO: Page 1 Signed [id number] 11:58:00 Test Item Value Reference Range Interpretation Comments GLUBED (test code = 103 MG/DL 65-99 H Performe d by certified GLUBED) directory assistance operator at [facility] ARTERIAL BLOOD [id number] 08:47:00 Test Item Value Reference Range Interpretation [...] code = 0.3 % 0.4-1.5 L METHGB) [id number] 08:00:00 Test Item Value Reference Range Interpretation Comments GLUBED (test code = 114 MG/DL 65-99 H Performe d by certified GLUBED) directory assistance operator at [facility] - XR CHEST 1 [id number] 07:32:00 Patient Name: ANTONINO WALL Unit No: [id number] EXAMS: CPT CODE: [id number] XR CHEST 1 V 90772 Reason: pna INDICATION: Drug overdose. COMPARISON: August 17, 2018. FINDINGS: The lungs [...] (0732)t.GERARDOR.[email or web address] Orig Print D/T: S: 08/18/2018 (0735) [facility] [address] PHYS: SCHPA. - Nahum Reed [place] [address] : 1960 AGE: 58 SEX: M LOC: D.HCU 19 PHONE #: [phone] EXAM DATE: 07/31 STATUS: ADM IN FAX #: RAD NO: DC Dt: PAGE 1 Signed ReportCOMPREHENSIVE METABOLIC [id number] 06:31:00 Test Item Value Reference Range Interpretation [...] 50-136 N TOTAL (test code = ALKP) [id number] 06:31:00 Test Item Value Reference Range Interpretation Comments MAGNESIUM (test code = MAG) 2.2 MG/DL 1.8-2.4 N CBC W/AUTO [id number] 05:57:00 Test Item Value Reference Range Interpretation [...] X10 3/uL 0.0-0.2 N NRBC#) ARTERIAL BLOOD [id number] 03:46:00 Test Item Value Reference Range Interpretation [...] code = 0.3 % 0.4-1.5 L METHGB) [id number] 21:23:00 Test Item Value Reference Range Interpretation Comments GLUBED (test code = 83 MG/DL 65-99 N Performe d by certified GLUBED) directory assistance operator at [facility] [id number] 17:59:00 Test Item Value Reference Range Interpretation Comments GLUBED (test code = 85 MG/DL 65-99 N Performe d by certified GLUBED) [facility] 11:40:00 Test Item Value Reference Range Interpretation Comments GLUBED (test code = 90 MG/DL 65-99 N Performe d by certified GLUBED) directory assistance operator at [facility] ARTERIAL BLOOD [id number] 09:44:00 Test Item Value Reference Range Interpretation [...] 0.4-1.5 L METHGB) - XR CHEST 1 [id number] 08:17:00 Patient Name: ANTONINO WALL Unit No: [id number] EXAMS: CPT CODE: [id number] XR CHEST 1 V 71393 Reason: pna - XR CHEST 1 V 08/17/2018 5:00 AM Indication: Drug overdose There is poor inspiration with accentuated heart and bronchovascular markings. There are mild patchy densities in the bases. No effusions. Tubes and catheters unchanged. NGT tip barely below GE junction. IMPRESSION: Hypoventilatory chest similar to yesterday. at 0817 Reported and signed by: Jigar Perales MD CC: Juanito Russo MD; Nahum Atkins Technologist: Abril Coelho RT Trscrpt Dt/ (0817)LucreciaE Orig Print D/T: S: 08/17/2018 (08) [facility] NAME: ANTONINO WALL [address]: [place] [address] : 1960 AGE: 58 SEX: M LOC: D.HCU 19 PHONE #: [phone] EXAM DATE: 08/17/2018 STATUS: ADM IN FAX #: RAD NO: DC Dt: PAGE 1 Signed [id number] 08:04:00 Test Item Value Reference Range Interpretation Comments GLUBED (test code = 97 MG/DL 65-99 N Performe d by certified GLUBED) directory assistance operator at [facility] COMPREHENSIVE METABOLIC [id number] 06:39:00 Test Item Value Reference Range Interpretation [...] 50-136 N TOTAL (test code = ALKP) [id number] 06:39:00 Test Item Value Reference Range Interpretation Comments MAGNESIUM (test code = MAG) 2.4 MG/DL 1.8-2.4 N GLYCOSYLATED HEMOGLOBIN (HA1C)2018-08-17 06:31:00 Test Item Value Reference Range Interpretation Comments GLYCOSYLATED HEMOGLOBIN (HA1C) 8.3 % TOT HB 4.5-6.2 H (test code = GLYHGB) : If not already doneCBC W/AUTO [id number] 06:27:00 Test Item Value Reference Range Interpretation [...] X10 3/uL 0.0-0.2 N NRBC#) ARTERIAL BLOOD [id number] 04:07:00 Test Item Value Reference Range Interpretation [...] by CARMINE SUTHERLAND - CT HEAD/BRAIN W/O [id number] 21:25:00 Patient Name: ANTONINO WALL Unit No: [id number] EXAMS: CPT CODE: [id number] CT HEAD/BRAIN W/OCONT 50051 Reason: syncope - CT HEAD/BRAIN W/O CONT [...] at 2125 Reported and signed by: Jigar Perales MD CC: Juanito Russo MD; Nahum Reed DO; Barbie Castellanos MD Technologist: Zev Powell CT; Jody Fraga CT Trscrpt Dt/ (2124)KarlosPKEOrig Print D/T: S: 08/16/2018 (2128) CTDI: DLP: [facility] NAME: ANTONINO WALL [address] PHYS: SCHPA. - [place] [address] : 1960 AGE: 58 SEX: M LOC: D.HCU 19 PHONE #: [phone] EXAM DATE: 08/16/2018 STATUS: ADM IN FAX #:RAD NO: DC Dt: PAGE 1 Signed [id number] 21:23:00 Test Item Value Reference Range Interpretation Comments GLUBED (test code = 99 MG/DL 65-99 N Performe d by certified GLUBED) directory assistance operator at [facility] ARTERIAL BLOOD [id number] 20:25:00 Test Item Value Reference Range Interpretation [...] 0.4-1.5 L METHGB) - XR CHEST 1 [id number] 20:18:00 Patient Name: ANTONINO WALL Unit No: [id number] EXAMS: CPT CODE: [id number] XR CHEST 1 V 63418 Reason: OGT - XR CHEST 1 V 08/16/2018 7:21 PM Indication: Drug overdose COMPARISON: 1916 hours FIND INGS: NGT very slightly advanced although the tip is still at about the cardia level. at 2018 Reported and signed by: Jigar Perales MD CC: Juanito Russo MD; Bautista Santos MD; aBrbie Castellanos MD Technologist: Laura JUAREZ Trscrpt Dt/ (2017)KarlosPKRao Orig Print D/T: S: 08/16/2018 (2020) [facility] NAME: ANTONINO WALL [address] PHYS: [place] [address] : 1960 AGE: 58 SEX: M LOC: D.HCU 19 PHONE #: [phone] EXAM DATE: 08/16/2018 STATUS: ADM IN FAX #: RAD NO: DC Dt: PAGE 1 Signed Report- XR CHEST 1 [id number] 20:17:00 Patient Name: ANTONINO WALL Unit No: [id number] EXAMS: CPT CODE: [id number] XR CHEST 1 V 02989 Reason: OGT - XR CHEST 1 V [...] Castellanos MD Technologist: Laura JUAREZ Trscrpt Dt/ (2016)Ramona Orig Print D/T: S: 08/17/2018 (537) [facility] NAME: ANTONINO WALL [address] PHYS: [place]. [place] [address] : 1960 AGE: 58 SEX: M LOC: D.HCU 19 PHONE #: [phone] EXAM DATE: 08/16/2018 STATUS: ADM IN FAX #: RAD NO: DC Dt: PAGE 1 Signed ReportUA RFLX MICROSCOPIC [id number] 18:54:00 Test Item Value Reference Range Interpretation [...] Criteria not met code = UACULT) UA [id number] 18:54:00 Test Item Value Reference Range Interpretation Comments UA RBC (test code = RBCU) 0-2 #/hpf NONE SEEN A LACTIC [id number] 18:37:00 Test Item Value Reference Range Interpretation Comments LACTIC ACID (test code = LACT) 3.1 MMOL/L 0.5-2.2 H BASIC METABOLIC [id number] 18:37:00 Test Item Value Reference Range Interpretation [...] 8.8 MG/DL 8.7-10.5 N CA) HEPATIC FUNCTION [id number] 18:37:00 Test Item Value Reference Range Interpretation [...] 50-136 N TOTAL (test code = ALKP) [id number] 18:37:00 Test Item Value Reference Range Interpretation Comments LIPASE (test code = LIP) 1283 Units/L 73-393 H THYROID STIMULATING [id number] 18:37:00 Test Item Value Reference Range Interpretation Comments THYROID STIMULATING 1.63 0.42-5.47 N Micro-In ternational HORMONE (test code = TSH) Un its/LResults of this assay method ma y be falsely depress ed orelevated if p atient is taking high doses of Biotin. [id number] 18:37:00 Test Item Value Reference Range Interpretation Comments ACETAMINOPHEN (test < 1 MCG/ML 10-30 L Acetamin ophen is code = ACET) possibly toxic at levels of: 1. m ore than 150 MCG/ML 4 hours post dinorah stion. 2. more than 50 MCG/ML 12 hours post ingestion. [id number] 18:37:00 Test Item Value Reference Range Interpretation Comments SALICYLATE (test code = < 3 MG/DL 0-20 N Refe rence Range: LOGAN) Analgesic...... ...... ...... < 10 mg/ dl Therapeutic.... ...... ...... 15-20 mg /dl Mild Toxicity....... ...... . > 30 mg/dl Se mando Toxicity....... ..... > 60 mg/dl [id number] 18:37:00 Test Item Value Reference Range Interpretation Comments ALCOHOL (test code = < 3 MG/DL 0-10 N 0 - 10 : Should be ALC) interpreted as NEGATIVE. 11 - 50: None t o mild euphoria. 51 - 100: Mild influence on vi miriam and dark adaptation . > 80: Legal intoxicat ion; Depression of C NS; Increasing degr ee of poisoning. > 40 0: Fatalities repo rted. Results are for medical purposes only a nd not forlegal or emp loyment evaluative purp oses. PROTHROMBIN [id number] 18:35:00 Test Item Value Reference Range Interpretation Comments PROTHROMBIN TIME 13.2 SECONDS 9.6-12.3 H PATIENT (test code = PTP) INTERNATIONAL NORMAL 1.16 Recomme nded INR range RATIO (test code = (warfarin therapy): INR) 2.0 - 3.0INR (International Normalized Rati o) should beused w hen interpreting or al anticoaglulant therapy. For at rial fibrillation an d treatment orprevention of deep vein thrombosis . Patients with Palmaz-Jeevan s tent *: 2.0 - 3.0 Pa tients with mechanical heart valve *: 2.5 - 3.5 Patients with flex-stent *: 3 .0 - 4.0(*) = supervisor fertilizer processing's suggested range Is patient on anticoagulants? UnknownTHROMBOPLASTIN TIME [id number] 18:35:00 Test Item Value Reference Range Interpretation Comments THROMBOPLASTIN TIME 30.7 SECONDS 22.5-35.3 N *Therap eutic level PARTIAL (test code = for hep amalia: 1.5 - PTT) 2.5 times the average patient value of 30.0 seconds. The aP TT tet should not be used to evaluat e low moleculat weigh t heparin anticoagulant therapy. Is patient on anticoagulants? [id number] 18:34:00 Test Item Value Reference Range Interpretation Comments AMMONIA (test code = 12 UMOL/L 11-35 N Results of this assay AMM) method may be f alsely depressed orele vated if patient is taki ng sulfasalazine. CBC W/AUTO [id number] 18:24:00 Test Item Value Reference Range Interpretation [...] 0.0-0.2 N NRBC#) - XR CHEST 1 [id number] 18:11:00 Patient Name: ANTONINO WALL Unit No: [id number] EXAMS: CPT CODE: [id number] XR CHEST 1 V 01817 Reason: altered mental status - XR CHEST 1 V 08/16/2018 5:35 PM Indication: Altered mental status. Drug overdose. COMPARISON: 06/09/2018 FINDINGS: Endotracheal tube 4 cm above raffi, right IJ central line tip overlies mid SVC. No pneumothorax. The NG tube, though, is looped back upon itself at the thoracic inlet level. The chest itself shows continued hypoventilatory changes. Impression: NGT per above. Uncomplicated central line placement. Hypoventilatory chest. at 1811 Reported and signed by: Jigar Perales MD CC: Juanito Russo MD; Bautista Santos MD Technologist: Lovely JUAREZ Trscrpt Dt/ (1810)LucreciaE Orig Print D/T: S: 08/16/2018 (1813) [facility] NAME: ANTONINO WALL [address] PHYS: [place] - [place] [address] : 1960 AGE: 58 SEX: M : ELEAZAR 1 PHONE #: [phone] EXAM DATE: 08/16/2018 STATUS: ADM IN FAX #: RAD NO: DC Dt: PAGE 1 Signed ReportDRUG OF ABUSE SCREEN [id number] 18:04:00 Test Item Value Reference Interpretation Comments [...] by bettie benoit methods (i.e., GC/MS) at [facility]. Results of scre en may not be usedin crimi nal justice, job performance or professionalcre dential review, or infa nt custody issues. Negati ve [place] Level ng/ml ------- ----- Cocaine 3 00 Methamphetamine (Ecstacy) 500 Cannabinoid s (THC) 50 Amphetamine 100 0 Barbiturates 2 00 Benzodiazepines 200 Opiates 300 Phencyclidi ne (PCP) 25 TROPONIN I [id number] 18:02:00 Test Item Value Reference Range Interpretation Comments TROPONIN I RAPID 0.00 NG/ML 0.00-0.08 N Performed b y certified (test code = directory assistance operator at [facility]) - The use of se rial sampling and te sting protocol is a recommended pra ctice.- An elevated tro ponin level alone is often not sufficient for diagnosis of my ocardial infarction. LACTIC ACID [id number] 17:56:00 Test Item Value Reference Range Interpretation Comments LACTIC ACID POC 3.60 MMOL/L 0.90-1.70 H Performed by certified (test code = LACTP) directory assistance operator at [facility] UA RFLX MICROSCOPIC [id number] 17:56:00 Test Item Value Reference Range Interpretation [...] CULTURE NEEDED? (test code = UACULT) UA [id number] 17:56:00 Test Item Value Reference Range Interpretation Comments UA RBC (test code = RBCU) #/hpf NONE SEEN UA RFLX MICROSCOPIC [id number] 17:56:00 Test Item Value Reference Range Interpretation [...] CULTURE NEEDED? (test code = UACULT) UA [id number] 17:56:00 Test Item Value Reference Range Interpretation Comments UA RBC (test code = RBCU) #/hpf NONE SEEN ARTERIAL BLOOD [id number] 16:51:00 Test Item Value Reference Range Interpretation [...] Augustin 16:48 - 08/16/2018; by Darlin SANTILLAN MEDICAL RESEARCH TECH - XR HIP W/PEL UNI 2+V [id number] 12:33:00 Patient Name: ANTONINO WALL Unit No: [id number] EXAMS: CPT CODE: [id number] XR HIP W/PEL UNI 2+[place] [address] Reason: pain with palpation - XR HIP W/PEL UNI 2+V LT 06/13/2018 11:29 AM Indication: Pain with palpation COMPARISON: None FINDINGS: Massive body habitus in the huge pannus obscures pelvic detail. No "gross" abnormality, allowing for this. at 1233 Reported and signed by: Jigar Perales MD CC: Pratik Martinez DO; Agusto Kang MD Technologist: Deep Jennings RT; Loreto Don RT Trscrpt Dt/ (6323)t.PKE Orig Print D/T: S: 06/13/2018 (8182) [facility] NAME: ANTONINO WALL [address] PHYS: [email or web address] - Pr[place] [address] : 1960 AGE: 58 SEX: M LOC: D.HCU 15 PHONE #: [phone] EXAM DATE: 06/13/2018 STATUS: ADM IN FAX #: RAD NO: DC Dt: PAGE 1 Signed [id number] 11:31:00 Test Item Value Reference Range Interpretation Comments GLUBED (test code = 194 MG/DL 65-99 H Performe d by certified GLUBED) directory assistance operator at [facility] BASIC METABOLIC [id number] 07:23:00 Test Item Value Reference Range Interpretation [...] 9.3 MG/DL 8.7-10.5 N CA) CBC W/AUTO [id number] 06:29:00 Test Item Value Reference Range Interpretation [...] = 0.0 X10 3/uL 0.0-0.2 N NRBC#) [id number] 05:41:00 Test Item Value Reference Range Interpretation Comments GLUBED (test code = 144 MG/DL 65-99 H Performe d by certified GLUBED) directory assistance operator at [facility] [id number] 20:43:00 Test Item Value Reference Range Interpretation Comments GLUBED (test code = 174 MG/DL 65-99 H Performe d by certified GLUBED) directory assistance operator at [facility] [id number] 16:55:00 Test Item Value Reference Range Interpretation Comments GLUBED (test code = 165 MG/DL 65-99 H Performe d by certified GLUBED) directory assistance operator at [facility] [id number] 11:45:00 Test Item Value Reference Range Interpretation Comments GLUBED (test code = 190 MG/DL 65-99 H Performe d by certified GLUBED) directory assistance operator at [facility] [id number] 08:42:00 Test Item Value Reference Range Interpretation Comments GLUBED (test code = 176 MG/DL 65-99 H Performe d by certified GLUBED) directory assistance operator at [facility] COMPREHENSIVE METABOLIC [id number] 06:45:00 Test Item Value Reference Range Interpretation [...] 50-136 N TOTAL (test code = ALKP) [id number] 06:45:00 Test Item Value Reference Range Interpretation Comments MAGNESIUM (test code = MAG) 1.9 MG/DL 1.8-2.4 N CBC W/AUTO [id number] 06:08:00 Test Item Value Reference Range Interpretation [...] = 0.0 X10 3/uL 0.0-0.2 N NRBC#) [id number] 22:02:00 Test Item Value Reference Range Interpretation Comments GLUBED (test code = 178 MG/DL 65-99 H Performe d by certified GLUBED) directory assistance operator at [facility] [id number] 17:37:00 Test Item Value Reference Range Interpretation Comments GLUBED (test code = 158 MG/DL 65-99 H Performe d by certified GLUBED) directory assistance operator at [facility] [id number] 11:56:00 Test Item Value Reference Range Interpretation Comments GLUBED (test code = 235 MG/DL 65-99 H Performe d by certified GLUBED) directory assistance operator at [facility] ARTERIAL BLOOD [id number] 10:28:00 Test Item Value Reference Range Interpretation [...] 0.3 % 0.4-1.5 L METHGB) COMPREHENSIVE METABOLIC [id number] 04:32:00 Test Item Value Reference Range Interpretation [...] 50-136 N TOTAL (test code = ALKP) [id number] 04:32:00 Test Item Value Reference Range Interpretation Comments MAGNESIUM (test code = MAG) 2.1 MG/DL 1.8-2.4 N CBC W/AUTO [id number] 04:20:00 Test Item Value Reference Range Interpretation [...] H (test code = GLYHGB) UR SODIUM [id number] 09:34:00 Test Item Value Reference Range Interpretation Comments UR SODIUM RANDOM 39 MMOL/L No establis hed reference (test code = MANSOOR) range for random urine specimen. UR POTASSIUM [id number] 09:34:00 Test Item Value Reference Range Interpretation Comments UR POTASSIUM RANDOM 30 MMOL/L No estab lished (test code = KU) reference r devon for random urine sp ecimen. UR CHLORIDE [id number] 09:34:00 Test Item Value Reference Range Interpretation Comments UR CHLORIDE RANDOM 55 MMOL/L No establ ished (test code = CLU) reference range for random urine sp ecimen. UR PROTEIN/CREATININE [id number] 09:34:00 Test Item Value Reference Range Interpretation Comments UR PROTEIN RANDOM 6 MG/DL No establi shed (test code = PROTU) referenc e range for random urine specimen. UR CREATININE RANDOM 47.72 MG/DL No esta blished (test code = CREATU) referen ce range for random urine specimen. PROTEIN/CREATININE 0.1 < 0.2 RATIO (test code = P/CRATIO) COMPREHENSIVE METABOLIC [id number] 07:40:00 Test Item Value Reference Range Interpretation [...] 50-136 N TOTAL (test code = ALKP) [id number] 07:40:00 Test Item Value Reference Range Interpretation Comments MAGNESIUM (test code = MAG) 2.2 MG/DL 1.8-2.4 N THYROID STIMULATING [id number] 07:40:00 Test Item Value Reference Range Interpretation Comments THYROID STIMULATING 0.83 0.42-5.47 N Micro-In ternational HORMONE (test code = TSH) Un its/LResults of this assay method ma y be falsely depress ed orelevated if p atient is taking high doses of Biotin. CBC W/AUTO [id number] 07:14:00 Test Item Value Reference Range Interpretation [...] X10 3/uL 0.0-0.2 N NRBC#) ARTERIAL BLOOD [id number] 04:16:00 Test Item Value Reference Range Interpretation [...] Resu lts called CVCBG) to and read [facility] k by Charlee NORIEGA 04:1 - 06/10/2018; onel SUTHERLAND,MEDICAL RESEARCH TECH PROCALCITONIN (PCT)2018-06-09 20:42:00 Test Item Value Reference Range Interpretation Comments PROCALCITONIN (PCT) (test code = < 0.05 ng/mL 0.00-0.50 N PROCAL) LACTIC [id number] 20:28:00 Test Item Value Reference Range Interpretation Comments LACTIC ACID (test code = LACT) 1.5 MMOL/L 0.5-2.2 N ARTERIAL BLOOD [id number] 20:27:00 Test Item Value Reference Range Interpretation [...] CVCBG) to and read darek k by KALYN,RNat 19:23 - 06/09/2018; by KOKO,CARMINE [id number] 20:24:00 Test Item Value Reference Range Interpretation Comments AMMONIA (test code = 10 UMOL/L 11-35 L Results of this assay AMM) method may be f alsely depressed orele vated if patient is taki ng sulfasalazine. - CT HEAD/BRAIN W/O [id number] 18:01:00 Patient Name: ANTONINO CHOI Unit No: [id number] EXAMS: CPT CODE: [id number] CT HEAD/BRAIN W/O [id number] Reason: head trauma EXAM: - CT C-SPINE W/O CONT, - CT HEAD/BRAIN W/O CONT REASON FOR EXAM: r/ofx COMPARISON: None. Techniques: Axial images of CT head and CT cervical spine the performed withoutcontrast. Coronal and sagittal cervical spine reformation images obtained. FINDINGS: CT head: There is prominence of ventricles and cortical sulci. There is no abnormal intra-axial attenuation. Normalvariant megacisterna magna identified. No hematoma seen. There is no mass lesion or midline shift. Mucosal thickening of ethmoid air cells and maxillary sinuses identified. Slight deformity of nasal bones identified without adjacent soft tissue swelling, possibly due to prior injury. Endotracheal tubeand endogastric tube identified. The rest of the [...] of cervical spine producing mild spinal stenosis i dentified, especially of lower cervical spine at C5-C6 [...] as detailed above. No acute injury seen. [facility] NAME: ANTONINO CHOI [address] PHYS: [place] [address] : 11/04/1959 AGE: 58 SEX: M LOC: ELEAZAR 2 PHONE #: [phone] EXAM DATE: 06/09/2018 STATUS: ADMIN FAX #: RAD NO: DC Dt: PAGE 1 Signed Report (CONTINUED) Patient Name: ANTONINO CHOI Unit No: [id number] EXAMS: CPT CODE: [id number] CT HEAD/BRAIN W/O CONT 36895 (Continued) Reason: head trauma at 1801 Reported and signed by: Haylie Vallejo MD CC: Jennifer Flynn DO Technologist: Zev Powell CT; Kike Velasquez CT Trscrpt Dt/ (180)[email or web address] [facility] NAME: ANTONINO CHOI [address] PHYS: LISA Ordoñez [place] [address] : 11/04/1959 AGE: 58 SEX: M LOC: ELEAZAR 2 PHONE #: [phone] EXAM DATE: 06/09/2018 STATUS: ADM IN FAX #: RAD NO: DC Dt: PAGE 2 Signed Report- CT C-SPINE W/O [id number] 18:01:00 Patient Name: ANTONINO CHOI Unit No: [id number] EXAMS: CPT CODE: [id number] CT C-SPINE W/O CONT 76262 Reason: r/o fx EXAM: - CT C-SPINE W/O CONT, - CT HEAD/BRAIN W/O CONT REASON FOR EXAM: r/o fx COMPARISON: None. Techniques: Axial images of CT head and CT cervical spine the performed without contrast. Coronal and sagittal cervical spine reformation images obtained. FINDINGS: CT head: There is promi nence of ventricles and cortical sulci. There is no abnormal intra-axial attenuation. Normal variantmegacisterna magna identified. No hematoma seen. There is no mass lesion or midline shift. Mucosal thickening of ethmoid air cells and maxillary sinuses identified. Slight deformity of nasal bones ident ified without adjacent soft tissue swelling, possibly due [...] seen. Intervertebral disc height is maintained at uppercervical spine. Disc osteophyte formation of cervical spine [...] as detailed above. No acute injury seen. [facility] NAME: ANTONINO CHOI SPID PHYS: Jennifer [place] [address] : 11/04/1959 AGE: 58 SEX: M LOC: YevgeniySYED 2 PHONE #: [phone] EXAM DATE: 06/09/2018 STATUS: ADM IN FAX #: RAD NO: DC Dt: PAGE 1 Signed Report (CONTINUED) Patient Name: ANTONINO CHOI Unit No: [id number]: CPT CODE: [id number] CT C- SPINE W/O CONT 57172 (Continued) Reason: r/o fx at 1801 Reported and signed by: Haylie Vallejo MD CC: Jennifer Flynn DO Technologist: Zev Powell CT; Kike Velasquez CT Trscrpt Dt/ (1801)t.[email or web address] [facility] NAME: ANTONINO CHOI [address] PHYS: Jennifer [place] [address] : 11/04/1959 AGE: 58 SEX: M LOC: YevgeniyKELLIMariam 2 PHONE #: [phone] EXAM DATE: 06/09/2018 STATUS: ADM IN FAX #: RAD NO: DC Dt: PAGE 2 Signed Report COMPREHENSIVE METABOLIC [id number] 17:33:00 Test Item Value Reference Range Interpretation [...] 50-136 N TOTAL (test code = ALKP) [id number] 17:33:00 Test Item Value Reference Range Interpretation Comments MAGNESIUM (test code = MAG) 2.0 MG/DL 1.8-2.4 N NT PRO-BRAIN NATRIURETIC [id number] 17:33:00 Test Item Value Reference Range Interpretation Comments NT PRO-BRAIN 53 PG/ML 0-125 N Results of this assay NATRIURETIC PEPTI (test meth od may be falsely code = PROBNP) depressed ore levated if patient is t aking high doses of B iotin. [id number] 17:33:00 Test Item Value Reference Range Interpretation Comments ACETAMINOPHEN (test < 1 MCG/ML 10-30 L Acetamin ophen is code = ACET) possibly toxic at levels of: 1. m ore than 150 MCG/ML 4 hours post dinorah stion. 2. more than 50 MCG/ML 12 hours post ingestion. [id number] 17:33:00 Test Item Value Reference Range Interpretation Comments SALICYLATE (test code = < 3 MG/DL 0-20 N Refe rence Range: LOGAN) Analgesic...... ...... ...... < 10 mg/ dl Therapeutic.... ...... ...... 15-20 mg /dl Mild Toxicity....... ...... . > 30 mg/dl Se mando Toxicity....... ..... > 60 mg/dl [id number] 17:33:00 Test Item Value Reference Range Interpretation Comments ALCOHOL (test code = < 3 MG/DL 0-10 N 0 - 10 : Should be ALC) interpreted as NEGATIVE. 11 - 50: None t o mild euphoria. 51 - 100: Mild influence on vi miriam and dark adaptation . > 80: Legal intoxicat ion; Depression of C NS; Increasing degr ee of poisoning. > 40 0: Fatalities repo rted. Results are for medical purposes only a nd not forlegal or emp loyment evaluative purp oses. DRUG OF ABUSE SCREEN [id number] 17:01:00 Test Item Value Reference Interpretation Comments [...] by bettie benoit methods (i.e., GC/MS) at [facility]. Results of scre en may not be usedin crimi nal justice, job performance or professionalcre dential review, or infa nt custody issues. Negativ e [place] Level ng/ml ------- ----- Cocaine 3 00 Methamphetamine (Ecstacy) 500 Cannabinoid s (THC) 50 Amphetamine 100 0 Barbiturates 20 0 Benzodiazepines 200 Opiates 300 Phe ncyclidine (PCP) 25 UA RFLX MICROSCOPIC [id number] 16:57:00 Test Item Value Reference Range Interpretation [...] Criteria not met code = UACULT) UA [id number] 16:57:00 Test Item Value Reference Range Interpretation Comments UA RBC (test code = 0-2 #/hpf NONE SEEN A RBCU) UA BACTERIA (test code = FEW #/hpf NONE SEEN A BACU) UA AMORPHOUS SEDIMENT Mod Amorph urates None seen (test code = AMORU) #/lpf LACTIC ACID [id number] 16:45:00 Test Item Value Reference Range Interpretation Comments LACTIC ACID POC 11.33 MMOL/L 0.90-1.70 HH Performed by certified (test code = LACTP) directory assistance operator at [facility] UA RFLX MICROSCOPIC [id number] 16:43:00 Test Item Value Reference Range Interpretation [...] CULTURE NEEDED? (test code = UACULT) UA [id number] 16:43:00 Test Item Value Reference Range Interpretation Comments UA RBC (test code = RBCU) #/hpf NONE SEEN UA RFLX MICROSCOPIC [id number] 16:43:00 Test Item Value Reference Range Interpretation [...] CULTURE NEEDED? (test code = UACULT) UA [id number] 16:43:00 Test Item Value Reference Range Interpretation Comments UA RBC (test code = RBCU) #/hpf NONE SEEN CBC W/AUTO [id number] 16:37:00 Test Item Value Reference Range Interpretation [...] 0.0-0.2 N NRBC#) - XR CHEST 1 [id number] 16:20:00 Patient Name: ANTONINO CHOI Unit No: [id number] EXAMS: CPT CODE: [id number] XR CHEST 1 V 12569 Reason: intubation EXAM: - XR CHEST 1 V REASON FOR EXAM: intubation COMPARISON: None FINDINGS: AP supineportable chest x-ray at 16:02 demonstrates moderate cardiomegaly with left ventricular hypertrophy. Tortuosity of aorta seen. Mild pulmonary vascular congestion identified. Tip of endotracheal tube is 3 cm above raffi. Tip and sidehole of endogastric tube are in the stomach. Increased perihilar pulmonary markings with peribronchial cuffing seen. Curvature of upper to middle thoracic spine to right seen. IMPRESSION: Cardiomegaly with mild pulmonary vascular congestion. There may be underlying bronchitis. Proper positioning of endotracheal tube and endogastric tube. at 1620 Reported and signed by: Haylie Vallejo MD CC: Jennifer Flynn DO Technologist: Deep JUAREZ Trscrpt Dt/ (4719)[id number] Orig Print D/T: S: 06/09/2018 (7063) [facility] NAME: ANTONINO CHOI [address] PHYS: Jennifer [place] [address] : 11/04/1959 AGE: 58 SEX: M LOC: ELEAZAR Mao PHONE #: [phone] EXAM DATE: 06/09/2018 STATUS: ADM IN FAX #: RAD NO: DC Dt: PAGE 1 Signed ReportARTERIAL BLOOD [id number] 16:05:00 Test Item Value Reference Range Interpretation [...]
[2022-04-18] MEDS ORDERED: ONDANSETRON 4 MG/2 ML VIAL ONE (15:26)
[2022-04-18] MEDS ORDERED: MORPHINE 4 MG/ML SYR ONE (15:26)
[2022-04-18 15:40] LABS: Absolute Lymphocytes (CBC) 3.2 K/uL (0.7-4.9); Lymphocytes % 23.8 % (15.3-44.8); MCV 85.4 fL (80-100); MPV 8.4 fL (7.6-11.3); RBC Red Blood Cell Count 4.57 M/uL (4.33-5.43)
--- NOTE | 2022-04-18 15:51 | RAD REPORT ---
EXAM DESCRIPTION: CT - CTFB CLINICAL HISTORY: facial trauma, post op pain COMPARISON: Head Brain Wo Cont dated 07/05/2021 TECHNIQUE: Axial 2 mm thick images of the face were obtained with sagittal and coronal reconstructio n images. All CT scans are performed using dose optimization technique as appropriate and may include automated exposure control or mA/KV adjustment according to patient size. FINDINGS: No acute facial bone fracture is seen.The mandible is intact. The globes and orbital contents are grossly unremarkable.Trace circumferential thickening of the maxi llary sinuses. Several periapical lucencies are noted. Multiple dental caries. Procedural changes at the nasal septum with nonmetallic tubes along the nasal septum. IMPRESSION: No facial fracture identified. Multiple dental caries and periapical lucencies.
[2022-04-18 16:00] LABS: Albumin 3.4 g/dL (3.4-5.0); Bilirubin Total 0.3 mg/dL (0.2-1.0); Potassium 5.3 mmol/L (3.5-5.1); Protein, Total 7.8 g/dL (6.4-8.2)
[2022-04-18 18:16] LABS: Arterial Blood Carboxyhemoglob 0.9 % (0-1.5); Blood Gas Oxyhemoglobin 90.7 % (94-97); Blood O2 Saturation 92.6 % (92-98.5)
--- NOTE | 2022-04-18 18:21 | RAD REPORT ---
EXAM DESCRIPTION: RAD - Chest Single View - 04/18/2022 6:13 pm CLINICAL HISTORY: confusion COMPARISON: Chest Single View dated 07/04/2021; Chest Single View dated 08/24/2020; Chest Single View d ated 04/22/2020; CHEST SINGLE VIEW dated 05/28/2012 FINDINGS: Lines: None. Lungs: No evidence of edema or pneumonia. Pleural: No significant pleural effusions or pneumothorax. Cardiac: The heart size is within normal limits. Mediastinum: Within normal limits. Bones: No acute fractures. Other: None IMPRESSION: No acute cardiopulmonary disease.
--- NOTE | 2022-04-18 19:15 | RAD REPORT ---
EXAM DESCRIPTION: CT - Head Brain Wo Cont - 04/18/2022 7:01 pm CLINICAL HISTORY: Mental status change, unknown cause COMPARISON: Facial Bones W/ Mpr dated 04/18/2022; Head Brain Wo Cont dated 07/05/2021 TECHNIQUE: All CT scans are performed using dose optimization technique as appropriate and may inclu de automated exposure control or mA/KV adjustment according to patient size. FINDINGS: No intracranial hemorrhage, hydrocephalus or extra-axial fluid collection.No areas of brai n edema or evidence of midline shift. Cerebral atrophy. The paranasal sinuses and mastoids are clear. The calvarium is intact. IMPRESSION: No acute intracranial abnormality.
--- NOTE | 2022-04-18 19:22 | ER ---
Nurse's Notes [facility] Name: Andrew Wall Age: 62 yrs Sex: Male : 1960 Arrival Date: 04/18/2022 Time: 14:32 Bed 2 Private MD: Diagnosis: Subacute septal bone fracture Presentation: 04/18 14:41 Coronavirus screen: At this time, the client does not indicate any symptoms associated aa5 with coronavirus-19. Ebola Screen: Patient denies travel to an Ebola-affected area in the 21 days before illness onset. Initial Sepsis Screen: Does the patient meet any 2 criteria? No. Patient's initial sepsis screen is negative. Does the patient have a suspected source of infection? No. Patient's initial sepsis screen is negative. Risk Assessment: Do you want to hurt yourself or someone else? Patient reports no desire to harm self or others. Onset of symptoms was April 18, 2022. 14:41 Acuity: ROSALIE 2 aa5 14:41 Method Of Arrival: Wheelchair aa5 14:41 Chief complaint: Patient states: "I am here for my nose because they put some tubes in aa5 and it's hurting". Pt's daughter reports nose tubes were placed for a deviated septum after a fall on 04/11/22. Pt's daughter states "he is talking like a child and that is not normal and he's been in and out of consciousness today". Pt is A\\T\\O x 4 during triage. Historical: - Allergies: 14:40 No Known Allergies; aa5 - PMHx: 14:40 Diabetes - NIDDM; Hypertensive disorder; Seizures; aa5 - Immunization history:: Adult Immunizations unknown. - Social history:: Smoking status: Patient denies any tobacco usage or history of. - Family history:: not pertinent. Screenin:57 [facility] ED Fall Risk Assessment (Adult) History of falling in the last 3 months, ld1 including since admission No falls in past 3 months (0 pts). Abuse screen: Denies threats or abuse. Denies injuries from another. Nutritional screening: No deficits noted. Tuberculosis screening: No symptoms or risk factors identified. Assessment: 14:57 Reassessment: ERP at bedside discussing care. ld1 14:57 General: Appears in no apparent distress. comfortable, Behavior is calm, cooperative. ld1 Pain: Denies pain. Cardiovascular: Capillary refill < 3 seconds Patient's skin is warm and dry. Respiratory: Airway is patent Respiratory effort is even, unlabored. GI: Abdomen is flat, non-distended. : No signs and/or symptoms were reported regarding the genitourinary system. EENT: No signs and/or symptoms were reported regarding the EENT system. Derm: No signs and/or symptoms reported regarding the dermatologic system. Musculoskeletal: No signs and/or symptoms reported regarding the musculoskeletal system. 15:29 Neuro: Level of Consciousness is awake, alert, obeys commands, Oriented to person, ld1 place, time. 16:38 Reassessment: Patient appears in no apparent distress at this time. No changes from ld1 previously documented assessment. Family at bedside waiting on results. 17:15 Reassessment: Patient appears in no apparent distress at this time. No changes from ld1 previously documented assessment. Pt displaying signs of anxiety - notified ERP. No new orders at this time. Denies pain. Dimmed lights and hooked patient back up to monitor. 18:04 Reassessment: Patient appears in no apparent distress at this time. No changes from ld1 previously documented assessment. Patient and/or family updated on plan of care and expected duration. Pain level reassessed. 19:00 Reassessment: Patient appears in no apparent distress at this time. Patient and/or kr3 family updated on plan of care and expected duration. Pain level reassessed. 20:09 Reassessment: Patient appears in no apparent distress at this time. Patient and/or kr3 family updated on plan of care and expected duration. Pain level reassessed. Vital Signs: 14:41 BP 109 / 67; Pulse 68; Resp 22 S; Temp 97.5(TE); Pulse Ox 95% on R/A; aa5 15:29 BP 110 / 60; Pulse 73; Resp 18; Pulse Ox 91% on R/A; ld1 16:30 BP 115 / 63; Pulse 72; Resp 21; Pulse Ox 93% on R/A; kr3 17:12 BP 103 / 64; Pulse 67; Resp 15; Temp 97.9(O); Pulse Ox 89% on R/A; Pain 0/10; ld1 18:04 BP 109 / 68; Pulse 64; Resp 16; Pulse Ox 98% on 3 lpm NC; ld1 20:09 BP 104 / 62; Pulse 70; Resp 17; Pulse Ox 96% on R/A; kr3 17:12 Placed patient on 3L NC. ld1 ED Course: 14:32 Patient arrived in ED. am2 14:41 Arm band placed on. aa5 14:42 Triage completed. aa5 14:47 Angie Gruber, RN is Primary Nurse. ld1 14:49 Mark Francois MD is Attending Physician. rt 14:57 Patient has correct armband on for positive identification. Placed in gown. Bed in low ld1 position. Call light in reach. Side rails up X2. lozenge dough mixer on. Pulse ox on. NIBP on. Door closed. Noise minimized. Warm blanket given. 14:57 No provider procedures requiring assistance completed. ld1 15:21 CT Facial Bones W/O Con In Process Unspecified. EDMS 15:29 Inserted saline lock: 20 gauge in left antecubital area, using aseptic technique. Blood ld1 collected. 17:10 initiated transfer [facility]. bd 18:15 Chest Single View XRAY In Process Unspecified. EDMS 18:19 pt denied at [facility] due to no capacity at this time,per Inez. bd 19:03 CT Head Brain wo Cont In Process Unspecified. EDMS 19:20 Joleen Gama MD is Referral Physician. rt 19:25 Primary Nurse role handed off by Angie Gruber, RN mw2 20:09 Vanessa Malloy, CLARA is Primary Nurse. kr3 20:10 IV discontinued, intact, bleeding controlled, No redness/swelling at site. Pressure kr3 dressing applied. Administered Medications: 15:36 Drug: morphine 4 mg Route: IVP; Infused Over: 4 mins; Site: right antecubital; kr3 16:00 Follow up: Response: No adverse reaction ld1 15:36 Drug: Zofran (Ondansetron) 4 mg Route: IVP; Site: right antecubital; kr3 16:00 Follow up: Response: No adverse reaction ld1 Medication: 14:57 VIS not applicable for this client. ld1 Outcome: 19:21 Discharge ordered by . rt 20:10 Discharged to home ambulatory. kr3 20:10 Condition: stable 20:10 Discharge instructions given to patient, Instructed on discharge instructions, follow up and referral plans. Demonstrated understanding of instructions, follow-up care. 20:10 Patient left the ED. kr3 Signatures: Dispatcher [employer] EDMS Adrianna Schuler Audri, RN RN aa5 Haritha Segura am2 Ashtyn Rosenbaum mw2 Angie Gruber RN RN ld1 Vanessa Malloy RN RN kr3 Mark Francois MD MD rt Corrections: (The following items were deleted from the chart) 15:29 14:57 General: Appears in no apparent distress. comfortable, Behavior is calm, ld1 cooperative, appropriate for age, ld1 15:29 14:57 Neuro: Level of Consciousness is awake, alert, obeys commands, Oriented to ld1 person, place, time, situation, ld1 17:01 17:00 BP 115 / 63; Pulse 72bpm; Resp 21bpm; Pulse Ox 93% RA; kr3 kr3 18:04 17:12 BP 103 / 64; Pulse 67bpm; Resp 15bpm; Pulse Ox 93% RA; Temp 97.9F Oral; Pain ld1 0/10; ld1 18:05 15:29 Neuro: Level of Consciousness is awake, alert, Oriented to person, ld1 ld1
--- NOTE | 2022-04-18 19:22 | EDPHYS ---
Physician Documentation [facility] Name: Andrew Wall Age: 62 yrs Sex: Male : 1960 Arrival Date: 04/18/2022 Time: 14:32 Bed 2 Private MD: ED Physician Mark Francois HPI: 04/18 15:29 This 62 yrs old Male presents to ER via Wheelchair with complaints of Pain status post rt septum surgery. 15:29 The patient had a fall 1 week ago, was seen at [facility] where he was diagnosed rt with a septum fracture. The patient was transferred to [facility] where he had surgery performed on the septum. He had tubes placed in both of the nostrils and was instructed to follow-up in 1 week stating that the tube should not be in there for any longer, they called and reportedly given unable to see the physician who did the surgery until May. The patient reports continued pain to that area. The daughter denies any loss of consciousness stating this is all due to the pain. Denies any bleeding, or acute complaints. Symptoms are moderate in severity, no other aggravating or alleviating factors.. Historical: - Allergies: 14:40 No Known Allergies; aa5 - PMHx: 14:40 Diabetes - NIDDM; Hypertensive disorder; Seizures; aa5 - Immunization history:: Adult Immunizations unknown. - Social history:: Smoking status: Patient denies any tobacco usage or history of. - Family history:: not pertinent. ROS: 15:29 Constitutional: Negative for fever, chills, and weight loss, Cardiovascular: Negative rt for chest pain, palpitations, and edema, Respiratory: Negative for shortness of breath, cough, wheezing, and pleuritic chest pain, Abdomen/GI: Negative for abdominal pain, nausea, vomiting, diarrhea, and constipation, Skin: Negative for injury, rash, and discoloration, Neuro: Negative for headache, weakness, numbness, tingling, and seizure, Psych: Negative for depression, anxiety, suicide ideation, homicidal ideation, and hallucinations. 15:29 ENT: Positive for nasal pain, neg for epistaxis. Exam: 15:29 Constitutional: This is a well developed, well nourished patient who is awake, alert, rt and in no acute distress. Head/Face: Normocephalic, atraumatic. Eyes: Pupils equal round and reactive to light, extra-ocular motions intact. Lids and lashes normal. Conjunctiva and sclera are non-icteric and not injected. Cornea within normal limits. Periorbital areas with no swelling, redness, or edema. Chest/axilla: Normal chest wall appearance and motion. Nontender with no deformity. No lesions are appreciated. Cardiovascular: Regular rate and rhythm with a normal S1 and S2. No gallops, murmurs, or rubs. Normal PMI, no JVD. No pulse deficits. Respiratory: Lungs have equal breath sounds bilaterally, clear to auscultation and percussion. No rales, rhonchi or wheezes noted. No increased work of breathing, no retractions or nasal flaring. Abdomen/GI: Soft, non-tender, with normal bowel sounds. No distension or tympany. No guarding or rebound. No evidence of tenderness throughout. Skin: Warm, dry with normal turgor. Normal color with no rashes, no lesions, and no evidence of cellulitis. MS/ Extremity: Pulses equal, no cyanosis. Neurovascular intact. Full, normal range of motion. Neuro: Awake and alert, GCS 15, oriented to person, place, time, and situation. Cranial nerves II-XII grossly intact. Motor strength 5/5 in all extremities. Sensory grossly intact. Cerebellar exam normal. Normal gait. Psych: Awake, alert, with orientation to person, place and time. Behavior, mood, and affect are within normal limits. 15:29 ENT: Tubes present in each nostril, no bleeding noted. Minimal bruising noted to the face, no deformities.. 18:57 ECG was reviewed by the Attending Physician. rt Vital Signs: 14:41 BP 109 / 67; Pulse 68; Resp 22 S; Temp 97.5(TE); Pulse Ox 95% on R/A; aa5 15:29 BP 110 / 60; Pulse 73; Resp 18; Pulse Ox 91% on R/A; ld1 16:30 BP 115 / 63; Pulse 72; Resp 21; Pulse Ox 93% on R/A; kr3 17:12 BP 103 / 64; Pulse 67; Resp 15; Temp 97.9(O); Pulse Ox 89% on R/A; Pain 0/10; ld1 18:04 BP 109 / 68; Pulse 64; Resp 16; Pulse Ox 98% on 3 lpm NC; ld1 20:09 BP 104 / 62; Pulse 70; Resp 17; Pulse Ox 96% on R/A; kr3 17:12 Placed patient on 3L NC. ld1 MDM: 14:53 Patient medically screened. rt 19:22 Differential Diagnosis: Septal fracture, postoperative complication. Data reviewed: rt vital signs, nurses notes, lab test result(s), EKG, radiologic studies. Management of patient was discussed with the following: Senior Technical Manager: ENT on-call, arrange for outpatient follow-up tomorrow to remove splints.. I considered the following discharge prescriptions or medication management in the emergency department Medications were administered in the Emergency Department. See MAR. Independent interpretation of the following test(s) in the Emergency Department CT Scan: My interpretation is The splints were visualized on CT scan, appear to be in the nasal passage. ED course: Patient presents to the ED with pain following nasal septum fracture repair. Splints are in place. They report some confusion, ever, the patient seems to be at his baseline mental status. Nonetheless, CT scan was obtained is unremarkable. Patient with chronic hypercarbia, do not believe this is the cause of confusion. Attempted to send patient to [facility] where his surgery was done at. Unable to get in touch with him. I discussed with ENT on-call who arranged for outpatient follow-up. At this time, do not believe patient requires admission at this time. Symptoms have significantly improved with pain medications in the ED, he is stable for outpatient care. Patient and daughter comfortable with this plan.. 04/18 15:01 Order name: CBC with Diff; Complete Time: 16:04 rt 04/18 15:01 Order name: CMP; Complete Time: 16:04 rt 04/18 15:01 Order name: CT Facial Bones W/O Con; Complete Time: 16:04 rt 04/18 17:56 Order name: Chest Single View XRAY; Complete Time: 18:59 rt 04/18 17:56 Order name: ABG; Complete Time: 18:59 rt 04/18 17:56 Order name: Troponin High Sensitivity; Complete Time: 19:08 rt 04/18 17:56 Order name: EKG; Complete Time: 17:56 rt 04/18 17:56 Order name: EKG - Nurse/Tech; Complete Time: 18:32 rt 04/18 18:02 Order name: CT Head Brain wo Cont; Complete Time: 19:17 rt EC:57 Rate is 63 beats/min. Rhythm is regular, Normal Sinus Rhythm with No ectopy. QRS [place] rt is Normal. [place] interval is normal. QRS interval is normal. QT interval is normal. No Q waves. T waves are Normal. No ST changes noted. Interpreted by me. Administered Medications: 15:36 Drug: morphine 4 mg Route: IVP; Infused Over: 4 mins; Site: right antecubital; kr3 16:00 Follow up: Response: No adverse reaction ld1 15:36 Drug: Zofran (Ondansetron) 4 mg Route: IVP; Site: right antecubital; kr3 16:00 Follow up: Response: No adverse reaction ld1 Disposition Summary: 04/18/22 19:21 Discharge Ordered Location: Home rt Problem: an ongoing problem rt Symptoms: have improved rt Condition: Stable rt Diagnosis - Subacute septal bone fracture rt Followup: rt - With: Joleen Gama MD - When: Tomorrow - Reason: Call the office first thing in the morning and they will work you in in the afternoon. Discharge Instructions: - Discharge Summary Sheet rt - Nasal Fracture rt Forms: - Medication Reconciliation Form rt - Thank You Letter rt - Antibiotic Education rt - Prescription Opioid Use rt Signatures: Dispatcher [employer] Mabel Ga, RN RN aa5 Vanessa Malloy RN RN kr3 Mark Francois MD MD rt Angie Gruber RN ld1
[2022-04-18 21:06] VITALS: TEMP 97.9
[2022-04-18 21:08] VITALS: BP 104/62; O2SAT 96
== END 2022-04-18 20:10 | disposition home or self-care (01) ==
LOC: ER 14:31
DX: S02.2XXA Fracture of nasal bones, initial encounter for closed fracture (principal); I10 Essential (primary) hypertension; E11.9 Type 2 diabetes mellitus without complications
CPT/HCPCS: 85025; 36415; 84484; 80053; 70450; 70486; 76377; 71045; 82805; J2405

== ENCOUNTER 2023-09-15 17:56 | Inpatient (IN) | payer OTHER ==
[2023-09-15] MEDS ORDERED: VANCOMYCIN 1 GM/VIAL ONE (18:29)
[2023-09-15] MEDS ORDERED: NA CHLORIDE 0.9% 250 ML ONE (18:29)
[2023-09-15] MEDS ORDERED: CEFEPIME 1 GM/VIAL ONE (18:30)
[2023-09-15] MEDS ORDERED: NA CHLORIDE 0.9% 100 ML ONE (18:30)
[2023-09-15 18:36] LABS: Absolute Basophils 0.1 K/uL (0-0.5); Absolute Monocytes 0.8 K/uL (0.1-1.3); Absolute Neutrophil 6.6 K/uL (1.8-8.0); Eosinophils % 17.2 % (0-4.4); Hematocrit 31.5 % (39.6-49.0); Hemoglobin 10.4 g/dL (13.6-17.9); Lymphocytes % 17.6 % (15.3-44.8); MCH 27.9 pg (27.0-35.0); MCV 84.5 fL (80-100); MPV 7.4 fL (7.6-11.3); Neutrophils % 57.2 % (41.7-73.7); Nucleated Red Blood Cells % 0.2 % (0-0); Platelets 381 thou/uL (152-406); RBC Red Blood Cell Count 3.73 M/uL (4.33-5.43); Red Cell Distribution Width 15.2 % (12.1-15.2)
[2023-09-15 18:48] LABS: PT Prothrombin Time 14.1 SECONDS (9.5-12.5); PTT, Activated Partial Thromb 35.4 SECONDS (24.3-36.9); Protime INR 1.29
[2023-09-15 18:53] LABS: Albumin 2.5 g/dL (3.4-5.0); Albumin/Globulin Ratio 0.5 (1.1-1.8); Bilirubin Total 0.3 mg/dL (0.2-1.0); Globulin 5.2 g/dL (2.3-3.5); Protein, Total 7.7 g/dL (6.4-8.2)
--- NOTE | 2023-09-15 18:55 | RAD REPORT ---
EXAM DESCRIPTION: RAD - Foot Left 3 View - 09/15/2023 6:22 pm CLINICAL HISTORY: Left Foot pain FINDINGS: Soft tissue ulceration lateral aspect adjacent to fifth MTP joint Lucency is present within the base of fifth proximal phalanx suspicious for osteomyelitis Several radiopaque densities are present within soft tissue ulceration. One or more could represent f oreign bodies and should be correlated clinically
--- NOTE | 2023-09-15 19:11 | EDPHYS ---
Physician Documentation [facility] Name: Andrew Wall Age: 63 yrs Sex: Male : 1960 Arrival Date: 09/15/2023 Time: 17:56 Bed 13 Private MD: ED Physician Juvenal Donnelly HPI: 09/14 18:06 This 63 yrs old Male presents to ER via Unassigned with complaints of Wound Check - kb left foot. 18:06 Pt is a 63 year old male who presents for open wound to lateral aspect of left foot kb that started 3 weeks ago and has gotten worse. States he developed redness and swelling to leg 2 weeks ago. Denies fever. . Historical: - PMHx: 18:11 Diabetes - NIDDM; Hypertensive disorder; Seizures; mb9 - Immunization history:: Adult Immunizations unknown. - Infectious Disease History:: Denies. - Social history:: Smoking status: Patient denies any tobacco usage or history of. ROS: 18:06 Constitutional: As per HPI kb Exam: 18:06 Constitutional: This is a well developed, well nourished patient who is awake, alert, kb and in no acute distress. Head/Face: Normocephalic, atraumatic. ENT: Moist Mucous membranes Cardiovascular: Regular rate Respiratory: Respirations even and unlabored. No increased work of breathing. Talking in full sentences Abdomen/GI: Soft, non-tender. No distention Neuro: Awake and alert, GCS 15, oriented to person, place, time, and situation. Moves all extremities. Normal gait. 18:06 Musculoskeletal/extremity: Extremities: grossly normal except: noted in the ball of left foot: pain, open wound, ROM: intact in all extremities, Circulation is intact in all extremities. Sensation intact. Weight bearing: able to fully bear weight, 18:06 Skin: cellulitis, that is moderate, on the left leg, 18:24 ECG was reviewed by the Attending Physician. kb Vital Signs: 18:10 BP 109 / 68; Pulse 69; Resp 18; Temp 98.8; Pulse Ox 98% on R/A; Weight 89.36 kg; Height ph 5 ft. 9 in. ; 21:26 BP 137 / 74; Pulse 65; Resp 18; Pulse Ox 100% ; cp4 22:41 BP 139 / 76; Pulse 67; Resp 18; Pulse Ox 97% ; cp4 18:10 Body Mass Index 29.09 (89.36 kg, 175.26 cm) ph MDM: 18:04 Patient medically screened. kb 19:09 Differential diagnosis: cellulitis, osteomyelitis, diabetic ulcer, dvt. Data reviewed: kb vital signs, nurses notes. Consideration of Admission/Observation Patient was admitted/placed on observation. Escalation of care including admission/observation considered. Management of patient was discussed with the following: Hospitalist: Dr Mahajan accepts pt for admission. Historians other than the Patient: Daughter/Son: daughter. Care significantly affected by the following chronic conditions: Diabetes, Hypertension. Counseling: I had a detailed discussion with the patient and/or guardian regarding the historical points, exam findings, and any diagnostic results supporting the discharge/admit diagnosis, lab results, radiology results, the need for further work-up and treatment in the hospital. 09/14 18:09 Order name: Blood Culture Adult (2) 09/14 18:09 Order name: CBC with Diff; Complete Time: 21:42 kb 09/14 18:09 Order name: CMP; Complete Time: 19:08 kb 09/14 18:09 Order name: Lactate w/ 2H reflex if indic.; Complete Time: 19:08 kb 09/14 18:09 Order name: Protime (+inr); Complete Time: 19:08 kb 09/14 18:09 Order name: Ptt, Activated; Complete Time: 19:08 kb 09/14 19:42 Order name: Urinalysis w/ reflexes EDMS 09/14 19:43 Order name: CBC with Automated Diff EDID 09/14 19:43 Order name: CBC with Automated Diff EDMS 09/14 19:43 Order name: Comprehensive Metabolic Panel EDID 09/14 19:43 Order name: Comprehensive Metabolic Panel EDID 09/14 21:40 Order name: CBC Smear Scan; Complete Time: 21:42 EDMS 09/14 18:11 Order name: Foot Left 3 View XRAY; Complete Time: 19:08 kb 09/14 18:11 Order name: US Extremity Venous Unilateral Ltd; Complete Time: 19:35 kb 09/14 18:09 Order name: EKG; Complete Time: 18:10 kb 09/14 18:09 Order name: Accucheck; Complete Time: 18:27 kb 09/14 18:09 Order name: Cardiac monitoring; Complete Time: 18:27 kb 09/14 18:09 Order name: EKG - Nurse/Tech; Complete Time: 18:27 kb 09/14 18:09 Order name: IV Saline Lock - Large Bore; Complete Time: 18:27 kb 09/14 18:09 Order name: Labs collected and sent; Complete Time: 18:27 kb 09/14 18:09 Order name: O2 Per Protocol; Complete Time: 18:27 kb 09/14 18:09 Order name: O2 Sat Monitoring; Complete Time: 18:27 kb 09/14 18:09 Order name: Vital Signs; Complete Time: 18:27 kb 09/14 18:24 Order name: Misc. Order: draw blood cultures prior to antibiotics please; Complete kb Time: 18:27 EC:24 Rate is 63 beats/min. Rhythm is regular. QRS [place] is Normal. RI interval is normal at kb 170 msec. QRS interval is normal at 102 msec. QT interval is normal at 442 msec. Administered Medications: 18:28 Drug: Cefepime IVPB 1 grams IVPB at 200 ml/hr once over 30 mins; (mix in NS 100 mL) mb9 Route: IVPB; Rate: 200 ml/hr; Infused Over: 30 mins; Site: right antecubital; 18:54 Follow up: Response: No adverse reaction; IV Status: Completed infusion mb9 18:54 Drug: vancoMYCIN IVPB 1 grams IVPB once over 2 hrs Route: IVPB; Infused Over: 2 hrs; mb9 Site: right antecubital; 21:21 Follow up: Response: No adverse reaction; IV Status: Completed infusion cp4 Disposition Summary: 09/15/23 19:11 Hospitalization Ordered Notes: Hospitalization Status: Inpatient Admission kb Provider: Rich Mahajan Location: Telemetry/MedSurg (Inpatient) kb Condition: Stable kb Problem: new kb Symptoms: are unchanged kb Bed/Room Type: Standard Room Assignment: 222(09/15/23 21:17) rv1 Diagnosis - Osteomyelitis, unspecified kb - Cellulitis of left lower limb kb - Diabetic foot ulcer kb Forms: - Medication Reconciliation Form kb - SBAR form kb - Leadership Thank You Letter kb Addendum: 09/18/2023 14:13 I was immediately available for consultation during this patient's visit. I did not e c2 personally see the patient or discuss the patient with the JACQUIE. . Signatures: Dispatcher [employer] EDKat Bains, TIFFANY MITCHELLP-Jannette Smith RN RN Chau, Aarti Tate RN RN mb9 Liset Dewey rv1 Juvenal Donnelly MD MD ec2 Clare Ledezma cp4 Corrections: (The following items were deleted from the chart) 09/14 18:11 18:11 Extremity Venous Uni Ltd+[email or web address] ordered. EDID EDMS 21:17 19:11 kb rv1
--- NOTE | 2023-09-15 19:11 | ER ---
Nurse's Notes [facility] Name: Andrew Wall Age: 63 yrs Sex: Male : 1960 Arrival Date: 09/15/2023 Time: 17:56 Bed 13 Private MD: Diagnosis: Osteomyelitis, unspecified;Cellulitis of left lower limb;Diabetic foot ulcer Presentation: 09/14 18:10 Chief complaint: Patient states: Open wound to L 5th toe, swelling to LL leg, started 3 ph weeks ago. Coronavirus screen: Vaccine status: Patient reports receiving the 2nd dose of the covid vaccine. Ebola Screen: No symptoms or risks identified at this time. Initial Sepsis Screen: Does the patient meet any 2 criteria? No. Patient's initial sepsis screen is negative. Does the patient have a suspected source of infection? No. Patient's initial sepsis screen is negative. Risk Assessment: Do you want to hurt yourself or someone else? Patient reports no desire to harm self or others. Onset of symptoms was September 15, 2023. 18:10 Method Of Arrival: Ambulatory ph 18:10 Acuity: ROSALIE 3 ph Historical: - PMHx: 18:11 Diabetes - NIDDM; Hypertensive disorder; Seizures; mb9 - Immunization history:: Adult Immunizations unknown. - Infectious Disease History:: Denies. - Social history:: Smoking status: Patient denies any tobacco usage or history of. Screenin:[address] [facility] ED Fall Risk Assessment (Adult) History of falling in the last 3 months, mb9 including since admission No falls in past 3 months (0 pts) Confusion or Disorientation No (0 pts) Intoxicated or Sedated No (0 pts) Impaired Gait No (0 pts) Mobility Assist Device Used No (0 pt) Altered Elimination No (0 pt) Score/Fall Risk Level 0 - 2 = Low Risk Oriented to surroundings, Maintained a safe environment, Educated pt \T\ family on fall prevention, incl call for assistance when getting out of bed. Abuse screen: Denies threats or abuse. Nutritional screening: No deficits noted. Tuberculosis screening: No symptoms or risk factors identified. Assessment: 18:18 General: Appears in no apparent distress. Behavior is calm, cooperative. Pain: mb9 Complains of pain in left foot Pain radiates to left leg Pain currently is 8 out of 10 on a pain scale. Quality of pain is described as throbbing, Pain began gradually, Is continuous, Aggravated by weight bearing. Neuro: Justin Agitation-Sedation Scale (RASS): 0 - Alert and Calm Level of Consciousness is awake, alert, obeys commands, Oriented to person, place, time, situation, Appropriate for age. Cardiovascular: Heart tones S1 S2 present Patient's skin is warm and dry. Respiratory: Airway is patent Respiratory effort is even, unlabored, Respiratory pattern is regular, symmetrical, Breath sounds are clear bilaterally. GI: Abdomen is round non-distended, Bowel sounds present X 4 quads. Abd is soft and non tender X 4 quads. : No signs and/or symptoms were reported regarding the genitourinary system. EENT: No signs and/or symptoms were reported regarding the EENT system. Derm: Wound noted ball of left foot Wound is Purulent drainage and erythema present. Musculoskeletal: Swelling present in left leg. Vital Signs: 18:10 BP 109 / 68; Pulse 69; Resp 18; Temp 98.8; Pulse Ox 98% on R/A; Weight 89.36 kg; Height ph 5 ft. 9 in. ; 21:26 BP 137 / 74; Pulse 65; Resp 18; Pulse Ox 100% ; cp4 22:41 BP 139 / 76; Pulse 67; Resp 18; Pulse Ox 97% ; cp4 18:10 Body Mass Index 29.09 (89.36 kg, 175.26 cm) ph ED Course: 17:57 Patient arrived in ED. am2 18:04 Kat Silva FNP-C is [facility]. kb 18:04 Juvenal Donnelly MD is Attending Physician. kb 18:08 Aarti Ritchie RN is Primary Nurse. mb9 18:09 Arm band placed on. mb9 18:11 Triage completed. ph 18:14 Placed in gown. Bed in low position. Call light in reach. Side rails up X 1. Provided mb9 Education on: press call light if needing anything. Client placed on continuous cardiac and pulse oximetry monitoring. NIBP monitoring applied. library monitor on. Door closed. Noise minimized. Warm blanket given. Pillow given. 18:20 EKG done, by ED staff, reviewed by Kat ALLEN. mb9 18:20 Initial lab(s) drawn, by me, sent to lab. Inserted saline lock: 20 gauge in right mb9 antecubital area, using aseptic technique. 18:24 Foot Left 3 View XRAY In Process Unspecified. EDMS 18:31 No provider procedures requiring assistance completed. mb9 18:38 Blood Culture Adult (2) Sent. mb9 19:01 US Extremity Venous Unilateral Ltd In Process Unspecified. EDMS 19:05 Report received from Farhana. cp4 19:10 Rich Mahajan MD is Hospitalizing Provider. kb 22:42 Inserted Patient admitted, IV remains in place. cp4 Administered Medications: 18:28 Drug: Cefepime IVPB 1 grams IVPB at 200 ml/hr once over 30 mins; (mix in NS 100 mL) mb9 Route: IVPB; Rate: 200 ml/hr; Infused Over: 30 mins; Site: right antecubital; 18:54 Follow up: Response: No adverse reaction; IV Status: Completed infusion mb9 18:54 Drug: vancoMYCIN IVPB 1 grams IVPB once over 2 hrs Route: IVPB; Infused Over: 2 hrs; mb9 Site: right antecubital; 21:21 Follow up: Response: No adverse reaction; IV Status: Completed infusion cp4 Medication: 18:14 VIS not applicable for this client. mb9 Outcome: 19:11 Decision to Hospitalize by Provider. kb 22:42 Admitted to Med/surg accompanied by tech, via wheelchair, with chart, cp4 22:42 Condition: stable 22:42 Instructed on the need for admit, 22:43 Patient left the ED. cp4 Signatures: Dispatcher [employer] EDAZ Kat Silva, SALAD MAKER-C SALAD MAKER-Jannette Smith RN RN Haritha Garcia Mary Beth RN RN mbClare Doherty cp4
--- NOTE | 2023-09-15 19:30 | RAD REPORT ---
EXAM DESCRIPTION: USExtremity Venous Uni Ltd09/15/2023 6:59 pm CLINICAL HISTORY: left leg pain COMPARISON: None FINDINGS: Left common femoral, superficial femoral, greater saphenous, popliteal and posterior tibi al veins are compressible and demonstrate augmentation. Doppler demonstrates good flow. Grayscale, color and spectral analysis performed on all vessels IMPRESSION: No evidence of deep venous thrombosis involving the left lower extremity.
[2023-09-15] MEDS ORDERED: ACETAMINOPHEN 325 MG TABLET PO PRN (19:38)
--- NOTE | 2023-09-15 19:42 | P.HP ---
Certification for Inpatient Patient admitted to: Inpatient With expected LOS: >2 Midnights Practitioner: I am a practitioner with admitting privileges, knowledge of patient current condition, hospital course, and medical plan of care. Services: Services provided to patient in accordance with Admission requirements found in Title 42 Section 412.3 of the Code of Federal Regulations Patient History Date of Service: 09/16/23 Reason for admission: Foot infection History of Present Illness: 63 yrs old Male with past medical history of hypertension, diabetes, seizure disorder, came to ER with pain and swelling left foot wound. Patient states that the wound started 3 weeks ago as a small area of redness and has been progressively worsening. He developed redness and swelling of the leg 2 weeks ago. Denies any trauma. No fever or chills. Patient has neuropathy. Denies any chest pain or shortness of breath. No nausea vomiting or diarrhea. Patient was assessed in the ER and is admitted for further management of diabetic foot. Allergies No Known Drug Allergies Allergy (Verified 09/15/23 23:04) Unknown Home medications list reviewed: Yes Home Medications: Methadone HCl [Methadose*] 100 mg PO DAILY 05/28/12 Levetiracetam [Keppra] 250 mg PO UD #120 tablet 05/30/12 - Past Medical/Surgical History Diabetic: No Past Medical History: Reviewed- Non-Contributory -: DM Past Surgical History: Reviewed- Non-Contributory - Social History Smoking Status: Never smoker Alcohol use: No CD- Drugs: No Caffeine use: Yes Review of Systems 10-point ROS is otherwise unremarkable Physical Examination - Vital Signs Temperature: 98.8 F Blood Pressure: 106/68 Pulse: 68 Respirations: 18 Pulse Ox (%): 94 - Physical Exam General: Alert, In no apparent distress, Oriented x3 HEENT: Atraumatic, Normocephalic Neck: Supple, 2+ carotid pulse no bruit Respiratory: Clear to auscultation bilaterally, Normal air movement Cardiovascular: No edema, Regular rate/rhythm, Normal S1 S2 Capillary refill: <2 Seconds Gastrointestinal: Soft and benign, W/out hepatosplenomegaly Musculoskeletal: No clubbing, Erythema, Tenderness, Warmth Integumentary: No rashes, Tenderness/swelling, Erythema, Diabetic ulcer Neurological: Normal speech, Normal strength at 5/5 x4 extr, Cranial nerves 3-12 intact Lymphatics: No axilla or inguinal lymphadenopathy - Studies Laboratory Data (last 24 hrs) 09/15/23 09/15/23 09/15/23 18:24 18:24 18:24 WBC 11.60 H Hgb 10.4 L Hct 31.5 L Plt Count 381 PT 14.1 H INR 1.29 APTT 35.4 Sodium 134 L Potassium 4.0 BUN 16 Creatinine 1.01 Glucose 72 L Total Bilirubin 0.3 AST 13 L ALT 17 Alkaline Phosphatase 85 Assessment and Plan - Problems (Diagnosis) (1) Diabetic foot ulcer Current Visit: Yes Status: Acute Plan: Possible Osteomyelitis Diabetic foot ulcer Pain control Podiatry consult Started on IV antibiotic X-ray findings noted Wound care Diabetes with hyperglycemia Insulin sliding scale Accu-Chek ACHS Hypertension Antihypertensives titrated Continue home medications and titrate as needed Hyperlipidemia Continue statin Seizure disorder Continue Keppra Monitor closely for any withdrawal seizures GI/DVT prophylaxis Advanced directive full code Discharge Plan: Home Plan to discharge in: 48 Hours - Advance Directives Does patient have a Living Will: No Does patient have a Durable POA for Healthcare: No - Code Status/Comfort Care Code Status: Full Code Time Spent Managing Pts Care (In Minutes): 48
[2023-09-15 21:40] LABS: Blood Morphology Comment NOT SEEN (NOT SEEN); Platelet Estimate ADEQ; White Blood Cell Scan OK (OK)
[2023-09-15] MEDS: NA CHLORIDE 0.9% 1,000 ML IV SCH (22:43)
[2023-09-15] MEDS: VANCOMYCIN 1 GM in NA CHLORIDE 0.9% 250 ML IVPB SCH (23:01)
[2023-09-15] MEDS ORDERED: D50W 25 GM/50 ML SYRINGE IV PRN (23:04)
[2023-09-15] MEDS ORDERED: GLUCAGON 1 MG/VIAL IM PRN (23:04)
[2023-09-15] MEDS: CEFEPIME 1 GM in NA CHLORIDE 0.9% 100 ML IV SCH (23:14)
[2023-09-15] MEDS: VANCOMYCIN 500 MG in NA CHLORIDE 0.9% 100 ML IVPB ONE (23:15)
[2023-09-15 23:21] VITALS: BMI 29.0
[2023-09-16 03:14] LABS: Absolute Eosinophils 2.3 K/uL (0-0.5); Absolute Lymphocytes (CBC) 2.2 K/uL (0.7-4.9); Absolute Neutrophil 5.3 K/uL (1.8-8.0); Basophils % 0.2 % (0-1.3); Eosinophils % 21.1 % (0-4.4); Hematocrit 30.9 % (39.6-49.0); Hemoglobin 10.3 g/dL (13.6-17.9); Lymphocytes % 20.2 % (15.3-44.8); MCH 28.2 pg (27.0-35.0); MCHC 33.3 g/dL (32.0-36.0); MCV 84.5 fL (80-100); MPV 7.9 fL (7.6-11.3); Neutrophils % 49.5 % (41.7-73.7); Nucleated Red Blood Cells % 0.1 % (0-0); Platelets 349 thou/uL (152-406); RBC Red Blood Cell Count 3.66 M/uL (4.33-5.43); Red Cell Distribution Width 15.2 % (12.1-15.2)
[2023-09-16 03:27] LABS: AST/SGOT 11 U/L (15-37); Albumin/Globulin Ratio 0.4 (1.1-1.8); Alkaline Phosphatase 76 U/L (45-117); Anion Gap 5.5 mEq/L (5.0-15.0); BUN Blood Urea Nitrogen 15 mg/dL (7-18); Bicarbonate 36 mEq/L (21-32); Bilirubin Total 0.3 mg/dL (0.2-1.0); Globulin 4.8 g/dL (2.3-3.5); Glomerular Filtration Rate 96 ml/min (=/>90); Glucose Level 76 mg/dL (74-106); Magnesium 2.4 mg/dL (1.6-2.4); Phosphorus 3.6 mg/dL (2.5-4.9); Potassium 5.5 mEq/L (3.5-5.1); Protein, Total 6.8 g/dL (6.4-8.2); Sodium Level 138 mEq/L (136-145)
[2023-09-16 03:28] LABS: ALT/SGPT < 14 U/L (16-61)
[2023-09-16] MEDS: INSULIN REGULAR (HUMAN) 100 UNIT/ML SQ SCH (07:30)
[2023-09-16] MEDS: SODIUM ZIRCONIUM CYCLOSILICATE 10 GM/PKT PO ONE (08:49)
[2023-09-16] MEDS: ENOXAPARIN 40 MG/0.4 ML SQ SCH (08:49)
[2023-09-16 10:25] LABS: Specific Gravity 1.009 (1.005-1.030); Sqamous Epithelial None Seen /HPF (None Seen); Urine Bacteria None Seen /HPF (<20); Urine Bilirubin NEGATIVE (Negative); Urine Blood 1+ (Negative); Urine Clarity Clear (Clear); Urine Color Colorless (Yellow); Urine Culture Reflex Order NOT NEEDED; Urine Glucose NEGATIVE (Negative); Urine Ketones NEGATIVE (Negative); Urine Microscopic Reflex YN ORDER UMIC; Urine Nitrite NEGATIVE (Negative); Urine Protein NEGATIVE (Negative); Urine Urobilinogen Normal (Normal); Urine WBC <5 /HPF (<5); Urine pH 6.5 (5.0-7.0)
--- NOTE | 2023-09-16 11:22 | P.PN ---
Subjective Date of Service: 09/16/23 Chief Complaint: Foot infection Patient is complaining of pain in the submandibular area. He states that the pain is worse with eating. He states he is lost weight because of that. Physical Examination - Vital Signs Temperature: 96.9 F Blood Pressure: 116/60 Pulse: 57 Respirations: 15 Pulse Ox (%): 95 - Studies Laboratory Data (last 24 hrs) 09/15/23 09/15/23 09/15/23 18:24 18:24 18:24 WBC 11.60 H Hgb 10.4 L Hct 31.5 L Plt Count 381 PT 14.1 H INR 1.29 APTT 35.4 Sodium 134 L Potassium 4.0 BUN 16 Creatinine 1.01 Glucose 72 L Total Bilirubin 0.3 AST 13 L ALT 17 Alkaline Phosphatase 85 Assessment And Plan - Plan Physical examination General: Alert and oriented x3, NAD, HEENT: Conjunctiva not pale, anicteric sclera. submandibular hard nodules palpated. Poor dentition. Neck: Supple, no elevated JVD Heart: Heart sounds 1 and 2 normal, regular rhythm, normal rate, no pedal edema Lungs: Clear to auscultation bilaterally, adequate breath sounds bilaterally, no rhonchi or crackles. Abdomen: Soft, nondistended, nontender, normal bowel sounds. Extremities: No tenderness, no deformity Skin: Normal skin turgor, no rash, malodorous necrotic ulcer on the lateral aspect of the left fifth toe. Neuro: No focal motor deficit. Normal speech. Psychiatry: Normal mood, no agitation. Assessment and plan Diabetic foot ulcer Osteomyelitis of left fifth proximal phalanx Analgesics as needed. Surgery consult. Continue current IV antibiotics. Local wound care Diabetes with hyperglycemia Patient states he does not take any medications for diabetes. He feels his diabetes resolved after he lost about 120 pounds. Insulin sliding scale Accu-Chek ACHS Seizure disorder [facility] Monitor closely for any withdrawal seizures. Submandibular Nodules Obtain CT soft tissue of the neck to further evaluate. Add Flagyl to cefepime and vancomycin to cover possible dental infection. Hyperkalemia Lokelma today. Monitor renal function. DVT prophylaxis: Lovenox Advanced directive: full code
--- NOTE | 2023-09-16 12:14 | RAD REPORT ---
EXAM DESCRIPTION: CT - Soft Tissue Neck W/Contr CLINICAL HISTORY: Submandibular swellings Neck pain and swelling COMPARISON: Soft Tissue Neck W/Contr dated 08/21/2023; Head C Spine Mpr Wo Con dated 08/24/2020; Head C Spine Mpr Wo Con dated 04/22/[address] scans are performed using dose optimization technique as appropriate and may includ e automated exposure control or mA/KV adjustment according to patient size. FINDINGS: Nasopharyngeal tissues are normal in appearance. Fossa Rosenmller are normal. There is again noted a confluent left submandibular mass like lesion anterior to the left sternocleid omastoid muscle with internal subtle necrotic features. This measures approximately 3.3 x 3.0 cm. Sev eral additional left submandibular lymph nodes are seen the largest measuring approximately 12 mm. Ri ght-sided submandibular adenopathy and submental adenopathy is also present on the right measuring 19 mm in the submandibular region largest measuring 11 mm. Enlarged right jugular chain lymphadenopathy anterior to the jugular vein measures up to 15 mm. Bilateral lymphadenopathy is seen the base of the neck, greater on the left measuring up to 3 cm. There is evidence for a large irregular mass involving the floor of mouth and tongue measuring approx imately 6 x 4 cm. Direct inspection would be advised. IMPRESSION: There is likely an enlarged irregular neoplastic mass involving the floor of the mouth m easuring approximately 6 x 4 cm, also involving inferior aspect of the tongue. Enlarged bilateral lym phadenopathy presumably metastatic. Recommend follow-up MRI of the neck with contrast to better delineate the soft tissue structures invo lved.
[2023-09-16] MEDS: METRONIDAZOLE 500mg IVPB 500 MG/100 ML BAG IV SCH (16:07)
[2023-09-16] MEDS: VANCOMYCIN 1.5 GM in NA CHLORIDE 0.9% 500 ML IVPB SCH (16:07)
[2023-09-17 04:31] LABS: Anion Gap 5.2 mEq/L (5.0-15.0); Potassium 4.2 mEq/L (3.5-5.1)
[2023-09-17 04:40] LABS: Absolute Basophils 0.1 K/uL (0-0.5); Absolute Eosinophils 2.1 K/uL (0-0.5); Absolute Monocytes 0.7 K/uL (0.1-1.3); Absolute Neutrophil 5.7 K/uL (1.8-8.0); Basophils % 0.9 % (0-1.3); Eosinophils % 19.4 % (0-4.4); Hematocrit 29.6 % (39.6-49.0); Hemoglobin 9.8 g/dL (13.6-17.9); Lymphocytes % 19.2 % (15.3-44.8); MCH 27.8 pg (27.0-35.0); MCHC 33.1 g/dL (32.0-36.0); MCV 84.2 fL (80-100); MPV 7.9 fL (7.6-11.3); Monocytes % 6.8 % (3.3-12.3); Neutrophils % 53.7 % (41.7-73.7); Nucleated Red Blood Cells % 0.1 % (0-0); Platelets 334 thou/uL (152-406); RBC Red Blood Cell Count 3.52 M/uL (4.33-5.43); Red Cell Distribution Width 15.3 % (12.1-15.2)
[2023-09-17] MEDS ORDERED: D50W 25 GM/50 ML SYRINGE IV ONE (09:24)
--- NOTE | 2023-09-17 09:40 | P.CNS ---
Date of Consult: 09/17/23 Reason for Consult: osteomyelitis left foot Chief Complaint: Foot infection History of Present Illness: Patient states that he has had the wound on his left foot since July of this year. Has been treating with betadine and hydrogen peroxide Allergies No Known Drug Allergies Allergy (Verified 09/15/23 23:04) Unknown Home Medications: Methadone HCl [Methadose*] 90 mg PO DAILY 05/28/12 - Past Medical/Surgical History Diabetic: No -: DM - Social History Smoking Status: Unknown if ever smoked Alcohol use: No CD- Drugs: No Caffeine use: Yes Place of Residence: Home Review of Systems 10-point ROS is otherwise unremarkable Physical Examination Temp Pulse Resp BP Pulse Ox 98.1 F 56 16 127/64 97 09/17/23 08:00 09/17/23 08:00 09/17/23 08:00 09/17/23 08:00 09/17/23 08:00 General: Alert, In no apparent distress, Oriented x3 Cardiovascular: No edema, Normal pulses (2/4 dp and pt pulse left foot) Capillary refill: <2 Seconds Musculoskeletal: No clubbing, No swelling, No contractures, No erythema, No tenderness, No warmth Integumentary: Diabetic ulcer (Ulceration lateral aspect of left fifth mpj with large necrotic foul smelling tissue that probss to bone) Neurological: Abnormal sensation WBC wnl, afebrile Imagings Data: Radiographs left foot reveal osteomyelitis of the left fifth digit proximal phalanx with possible foreign body - Problems (1) Osteomyelitis of fifth toe of left foot Current Visit: Yes Status: Acute (2) Abscess of left foot Current Visit: Yes Status: Acute (3) Type 2 diabetes mellitus with diabetic polyneuropathy Current Visit: Yes Status: Acute (4) Type 2 diabetes mellitus with foot ulcer Current Visit: Yes Status: Acute (5) Non-pressure chronic ulcer of other part of left foot with necrosis of muscle Current Visit: Yes Status: Acute Conclusions/Impression: Patient has been npo. Patient to be taken to the OR for left fifth digit amputaton and all indicated procedures
[2023-09-17] MEDS: D10W 125 ML IV PRN (09:41)
[2023-09-17] MEDS: LIDOCAINE HCL/EPINEPHRINE 20 ML MDV ONE (09:50)
[2023-09-17] MEDS ORDERED: propofoL 200 MG/20 ML VIAL IV ONE (09:55)
[2023-09-17] MEDS ORDERED: LIDOCAINE 2% MPF 5 ML VIAL ONE (09:55)
[2023-09-17] MEDS ORDERED: MIDAZOLAM HCL 2 MG/2 ML INJ ONE (09:55)
[2023-09-17] MEDS ORDERED: FENTANYL CITR 100 MCG/2 ML ONE (09:56)
[2023-09-17] MEDS: BUPIVACAINE 0.5% PF 10 ML VIAL ONE (10:41)
[2023-09-17] MEDS: LIDOCAINE 1% 20 ML MDV ONE (10:42)
--- NOTE | 2023-09-17 11:01 | P.OP ---
Preoperative diagnosis: left fifth digit osteomyelitis Postoperative diagnosis: Left fifth ray osteomyelitis Primary procedure: Partial left fifth ray resection Anesthesia: general Estimated blood loss: <10cc Specimen: bone for pathology Findings: Soft porous bone left fifth metatarsal head Operative Technique: Left partial fifth ray resection Complications: None Complications: none Transferred to: Recovery Room Condition: Good
--- NOTE | 2023-09-17 11:12 | RAD REPORT ---
EXAM DESCRIPTION: RAD - Fluoroscopy <1 Hour - 09/17/2023 11:04 am CLINICAL HISTORY: LT FOOT TOE AMP COMPARISON: MR STROKE PROTOCOL dated 05/30/2012 FINDINGS: Fluoroscopy time: 0.1 minutes
[2023-09-17] MEDS: D5 0.9 NS 1,000 ML IV SCH (12:09)
--- NOTE | 2023-09-17 12:28 | P.PN ---
Subjective Date of Service: 09/17/23 Chief Complaint: Foot infection Patient complaining of pain in his mouth and difficulty eating solid diet. No recorded fever. Physical Examination - Vital Signs Temperature: 97.8 F Blood Pressure: 167/74 Pulse: 50 Respirations: 16 Pulse Ox (%): 98 Assessment And Plan - Plan Physical examination General: Alert and oriented x3, NAD, HEENT: Conjunctiva not pale, anicteric sclera. submandibular hard nodules palpated. Poor dentition. Neck: Supple, no elevated JVD Heart: Heart sounds 1 and 2 normal, regular rhythm, normal rate, no pedal edema Lungs: Clear to auscultation bilaterally, adequate breath sounds bilaterally, no rhonchi or crackles. Abdomen: Soft, nondistended, nontender, normal bowel sounds. Extremities: No tenderness, no deformity Skin: Normal skin turgor, no rash, malodorous necrotic ulcer on the lateral aspect of the left fifth toe. Neuro: No focal motor deficit. Normal speech. Psychiatry: Normal mood, no agitation. Assessment and plan Diabetic foot ulcer Osteomyelitis of left fifth proximal phalanx Analgesics as needed. Patient evaluated by podiatry Dr. Mccormack, left fifth toe amputation done. Continue current IV cefepime and vancomycin Local wound care Follow deep tissue wound culture. Diabetes type II Patient states he does not take any medications for diabetes. He feels his diabetes resolved after he lost about 120 pounds. Patient was slightly hypoglycemic this morning and was given IV D10. Start IV D5NS until patient confirmed to have good oral intake. Insulin sliding scale Accu-Chek ACHS Seizure disorder Continue Keppra Monitor closely for any withdrawal seizures. Submandibular Nodules/oral mass CT soft tissue of the neck reports irregular mass in the floor of the mouth, and submandibular lymphadenopathy likely metastatic. Continue IV Flagyl in addition to cefepime and vancomycin. ENT consulted to evaluate for biopsy. Dr. Marcos has been informed. Hyperkalemia Status post Lokelma. Monitor renal function. DVT prophylaxis: Lovenox Advanced directive: full code
--- NOTE | 2023-09-17 14:57 | EKG ---
Test Date: 2023-09-15 Test Time: 18:20:32 Geophysicist: MB MEASUREMENT RESULTS: Intervals: Rate: 63 RI: 170 QRSD: 102 QT: 432 QTc: 442 Polo: P: 55 RI: 170 QRS: -2 T: 31 INTERPRETIVE STATEMENTS: Normal sinus rhythm Normal ECG Compared to ECG 07/04/2021 22:28:09 Left ventricular hypertrophy no longer present Electronically Signed On 09-17-23 14:51:56 CDT by Benedicto Valdivia
--- NOTE | 2023-09-17 19:11 | CON ---
Date of Consultation: 09/17/2023 Chief Complaint: Oral cavity pain and swelling. History Of Present Illness: The patient is a 63-year-old male who underwent toe amputation, this mor demetris, electively and is to go back to surgery to have an incision and drainage of his left foot. Dr. Alves was monitoring for his medical conditions and upon arriving to the patient's bedside, he comp lained of oral cavity pain and difficulty eating a solid diet. Upon further examination, a CT scan o f the soft tissue neck was performed which demonstrated a very large floor of mouth mass suspicious f or malignancy with possible metastasis to bilateral neck with a very large lymph node located in leve l 2/3 of the left neck. I was consulted for further evaluation. Upon arrival to bedside, the patien t is in no acute distress, although his speech is somewhat garbled secondary to the mass and he has s welling and pain to the floor of mouth. He has no issues with dyspnea or chest pain. He reports yasir nophagia and dysphagia to solids and liquids secondary to the mass. No other ENT complaints today. Past Medical History: Hypertension, diabetes, seizure disorder. Past Surgical History: Recent toe amputation. Medications: Methadone, and levetiracetam or Keppra. Review of Systems: Head: Negative for headache or lethargy. Ears: Negative for otorrhea, hearing loss. Nose: Negative for nasal congestion, runny nose. Oral Cavity: Positive for floor mouth mass, dysphagia, odynophagia. Neck: Positive for multiple lymph nodes. Negative for thyromegaly. Physical Examination: Vital Signs: Stable. General: The patient is awake, alert, and oriented to person, place, and time. Head: Atraumatic, normocephalic. Eyes: PERRLA/EOMI. Ears: Deferred. Nose: Moist intranasal mucosa. Midline septum. Throat: Diffuse floor of mouth swelling with hard indurated submucosal tumor palpated but no discret e mucosal lesions. The patient is tender to touch to the ventral and dorsal tongue and extending int o the floor of mouth and upper neck. Neck: Trachea is midline. Hard indurated mass, left upper neck. Diagnoses: 1.Oral cavity neoplasm, uncertain behavior, suspicious for malignancy. 2.Lymphadenopathy. Recommendations: Recommend biopsy under sedation as the patient is moderately anxious and declining bedside biopsy. KD/MODL Voice ID: [id number] Report ID: [id number]
[2023-09-17] MEDS: METHADONE HCL 10 MG TAB PO ONE (21:51)
--- NOTE | 2023-09-17 22:20 | OP ---
Surgeon: Reggie Mccormack Jr, DPM Preoperative Diagnosis: Left 5th digit osteomyelitis. Postoperative Diagnosis: Left 5th ray osteomyelitis. Pathology: Bone sent for gross and proximal clear margin of the 5th metatarsal. Anesthesia: General with 14 cc of 1:1 0.5% Marcaine and 1% lidocaine plain. Hemostasis: Pneumatic ankle tourniquet at 250 mmHg. Estimated Blood Loss: Less than 10 cc. Materials: 1 inch iodoform gauze. Injectables: None. Complication: None. Procedure In Detail: The patient was brought into [facility] operating room, placed on the OR table in supine position. The patient was placed under sedation by general anesthesia by the anesthesiologist and 14 cc of 1:1 0.5% Marcaine and 1% lidocaine plain was injected in local fashion to left lower extremity. A well-padded pneumatic ankle tourniquet was applied to the left lower extremity. The patient was prepped and draped in usual aseptic manner. Left lower extremity was exsanguinated utilizing Esmarch bandage. Pneumatic ankle tourniquet was inflated to 250 mmHg. At this time, attention was directed to the lateral aspect of the left 5th metatarsal head at which time a necrotic foul-smelling ulceration was noted in the lateral aspect of this area that probes to bone. At this time, an incision was made from the ulcer distally along the lateral aspect of the 5th digit and the bones of the 5th toe were freed from the soft tissue and removed in toto. Attention was directed proximally and incision was extending proximally along the 5th metatarsal shaft. Utilizing sharp dissection, soft tissue was freed from the 5th metatarsal shaft. A Margaret elevator was utilized to probe the bone until hard viable bone was identified, which was proximal to the metatarsal neck. At this time, oscillating bone saw was utilized to resect the distal 25% of the metatarsal and then a smaller slice was performed to demonstrate clear margins. These were sent for pathology. The wound was then irrigated with copious amounts of normal sterile saline and any nonviable tissue being removed with a 15 blade. Following this, the wound was packed with 1 inch iodoform gauze for irrigation. Cultures were taken. Sterile dressing consisting of 4 x 4's, ABD, Kerlix, and Terrence wraps applied to left lower extremity. The patient tolerated the procedure and anesthesia well, was transferred from OR to recovery with vital signs stable and neurovascular status intact. RS/MODAraceli Voice ID: [id number] Report ID: [id number] [facility]
[2023-09-18 03:53] LABS: Absolute Basophils 0.1 K/uL (0-0.5); Absolute Eosinophils 1.9 K/uL (0-0.5); Absolute Lymphocytes (CBC) 1.7 K/uL (0.7-4.9); Absolute Monocytes 0.7 K/uL (0.1-1.3); Absolute Neutrophil 5.7 K/uL (1.8-8.0); Basophils % 0.9 % (0-1.3); Hematocrit 28.1 % (39.6-49.0); Hemoglobin 9.6 g/dL (13.6-17.9); Lymphocytes % 16.9 % (15.3-44.8); MCH 28.5 pg (27.0-35.0); MCHC 34.1 g/dL (32.0-36.0); MCV 83.5 fL (80-100); MPV 7.3 fL (7.6-11.3); Monocytes % 6.8 % (3.3-12.3); Neutrophils % 56.1 % (41.7-73.7); Nucleated Red Blood Cells % 0.1 % (0-0); Platelets 318 thou/uL (152-406); RBC Red Blood Cell Count 3.37 M/uL (4.33-5.43); Red Cell Distribution Width 15.3 % (12.1-15.2)
[2023-09-18 04:06] LABS: Eosinophils % 19.3 % (0-4.4)
[2023-09-18 04:11] LABS: Anion Gap 6.1 mEq/L (5.0-15.0); Potassium 4.1 mEq/L (3.5-5.1)
[2023-09-18] MEDS: D5 0.9 NS 1,000 ML IV SCH (08:30)
[2023-09-18] MEDS: BUPIVACAINE 0.25% PF 10 ML VIAL ONE (12:36)
[2023-09-18] MEDS: CHLORHEXIDINE 0.12% 473ML BOT MM ONE (12:36)
--- NOTE | 2023-09-18 12:36 | P.PN ---
Date of Service: 09/18/23 Subjective: seen after surgery today some bleeding noted at biopsy site reports pain in oral cavity family at bedside - report 100 lb weight loss in ~6 months due to inability to eat also not able to take meds consistently either ROS: 10 point ROS as noted above, otherwise negative Physical Exam: GEN: Alert, oriented, uncomfortable appearing HEENT: Normal conjunctiva, submandibular hard nodules palpated. Poor dentition, bloody sputum CV: Regular rate and rhythm, no edema Pulm: Nonlabored respirations on room air, clear bilaterally ABD: soft, nontender, nondistended Integumentary: s/p left fifth toe amputation. Dressing in place c/d/i Neuro: Normal speech, normal affect Problem List: Osteomyelitis of left fifth proximal phalanx large oral mass with submandibular nodules concerning for malignancy Diabetic foot ulcer Hypertension Hyperlipidemia hx of NIDDM2 with hyperglycemia Seizure disorder opioid dependence Osteomyelitis of left fifth proximal phalanx, s/p left fifth toe amputation (09/16) Diabetic foot ulcer venous u/s (09/14): no DVT Foot xray (09/14): Suspected left foot osteomyelitis of fifth proximal phalanx. Several radiopaque densities are present within soft tissue ulceration Dr. Mccormack, podiatry consulted s/p left fifth toe amputation (09/16) continue local wound care NWB Left foot continue empiric cefepime / flagyl / vanc (09/15-) blood cx (09/14): NGTD wound cx (09/16): 1+ GNR prelim afebrile, no leukocytosis ID consulted large oral mass with submandibular nodules concerning for malignancy CT neck (09/15): enlarged irregular neoplastic mass inolving floro of the mouth 6x4cm and submandibular lymphadenopathy likely metastatic. IV flagyl added (09/15) Dr. Marcos, ENT, consulted tentative plan for biopsy under sedation today concern for malignancy 100lb weight loss in last ~6 months due to inability to eat briefly discussed PEG tube - patient and family at bedside agreeable, will see if someone is available for consult Hypertension Hyperlipidemia confirm home meds, restart as appropriate hx of NIDDM2 with hyperglycemia non on any diabetic medications. accu-checks, SSI continue IVF with d5w PRN glucagon Seizure disorder confirm home meds, restart as appropriate opioid dependence continue home methadone will need increased pain medication VTE: Lovenox Code: Full Dispo: Home, ~3 days pending PEG tube, pain control
[2023-09-18] MEDS: BUPIVACAINE 0.5% PF 10 ML VIAL ONE ×2 (12:37→12:38)
[2023-09-18] MEDS: LIDOCAINE 1% 20 ML MDV ONE (12:39)
[2023-09-18] MEDS ORDERED: MIDAZOLAM HCL 2 MG/2 ML INJ ONE (12:55)
[2023-09-18] MEDS ORDERED: FENTANYL CITR 100 MCG/2 ML ONE (12:55)
[2023-09-18] MEDS ORDERED: propofoL 200 MG/20 ML VIAL IV ONE (12:55)
[2023-09-18] MEDS ORDERED: ROCURONIUM 50 MG/5 ML VIAL IV ONE (12:55)
[2023-09-18] MEDS ORDERED: dexAMETHasone 4 MG/ML VIAL ONE ×2 (12:57→13:56)
[2023-09-18] MEDS ORDERED: LIDOCAINE 2% MPF 5 ML VIAL ONE (12:57)
[2023-09-18] MEDS ORDERED: ONDANSETRON 4 MG/2 ML VIAL ONE (12:57)
[2023-09-18] MEDS: METHADONE HCL 10 MG TAB PO SCH (13:00)
[2023-09-18] MEDS: NA CHLORIDE 0.9% 1,000 ML ONE (13:03)
[2023-09-18] MEDS: SUCCINYLCHOLINE 20 MG/ML (10 ML) IV ONE (13:20)
[2023-09-18] MEDS: LIDOCAINE HCL/EPINEPHRINE 20 ML MDV ONE (13:26)
[2023-09-18] MEDS: SUGAMMADEX SODIUM 200 MG/2 ML VIAL IV ONE (13:50)
--- NOTE | 2023-09-18 14:03 | P.OP ---
Preoperative diagnosis: LEft foot abscess Postoperative diagnosis: same Primary procedure: Closure of wound left foot via advancement flap Anesthesia: general Estimated blood loss: <20cc Specimen: none Findings: Granular base to wound no necrosis Operative Technique: Closure of wound left foot via advancement flap Complications: None Complications: none Condition: Good
[2023-09-18] MEDS: HYDROMORPHONE HCL 1 MG/ML INJ ONE ×2 (14:26→14:48)
[2023-09-18] MEDS: MORPHINE 4 MG/ML SYR IV PRN (16:05)
--- NOTE | 2023-09-19 01:13 | OP ---
Surgeon: Reggie Mccormack Jr, DPM Preoperative Diagnosis: Left foot abscess. Postoperative Diagnosis: Left foot abscess. Procedure: Left foot closure of wound via advancement flap. Pathology: None. Anesthesia: General. Hemostasis: None. Estimated Blood Loss: Less than 20 cc. Materials: 2-0 Prolene. Injectables: None. Complications: None. Procedure In Detail: The patient was brought into [facility] operating room, placed on the [place] ta ble in supine position. The patient was placed under general anesthesia by anesthesiologist. The pa tient was prepped and draped in usual aseptic manner. Attention was directed to the lateral aspect o f the left foot, at which time a previous partial fifth ray resection was explored. There was no nec rotic tissue. No foul odor. No purulence. Any bone exposure was noted to be hard and viable. The wound was irrigated with copious amounts of normal sterile saline utilizing pulse lavage. The dorsal flap was rotated plantarly closing the plantar defect of approximately 3.5 cm. Closure was obtained utilizing 2-0 Prolene and remodeling of the dorsal and plantar flaps was obtained utilizing a 15 avi de. Next, sterile dressing consisting of Adaptic, 4x4s, Kerlix and an Terrence wrap was applied to the le ft lower extremity. The patient tolerated the procedure and anesthesia well, and was transferred from OR to recovery with vital signs stable and ne urovascular status intact. RS/TITI Voice ID: [id number] Report ID: [id number]
--- NOTE | 2023-09-19 01:22 | OP ---
Date of Procedure: 09/18/2023 Surgeon: MEMO SOUSA Preoperative Diagnosis: Ueamy-jf-krmpr neoplasm, uncertain behavior. Postoperative Diagnoses: 1.Bsccu-zm-lbrdf neoplasm, uncertain behavior. 2.Right lateral tongue neoplasm, uncertain behavior. Procedure: Biopsies of kqzcq-dp-tqpzy and left lateral tongue anterior 2/3 under sedation. Anesthesia: General endotracheal anesthesia was administered. I also infiltrated approximately 10 m L of 1% lidocaine with 1:100,000 epinephrine at the biopsy site. Estimated Blood Loss: Scant, less than 2 mL. Specimens: Obtained from uuenn-tt-iuhwg and left lateral tongue and submitted to pathology for evalu ation in formalin. Findings: Large wfhfl-wd-jvfqh mass extending into the left lateral tongue, indurated and exophytic. Complications: None. Disposition: Stable. The patient tolerated the procedure well. Indication For Procedure: The patient is a 63-year-old male, who was admitted for osteomyelitis of t he left lower extremity. Upon further examination by the hospitalist, it was found that the patient had difficulty swallowing and inability to eat solid foods and liquids secondary to bcnhn-pq-ptntr pa in. CT scan demonstrated a large byhoc-cn-rvmgp mass suspicious for malignancy and extending into bi lateral neck lymph nodes. These are indications to bring the patient to operative suite for the abov e-mentioned procedure. He understood. All questions were answered. Risks versus benefits and compl ications were explained in detail and a consent form was signed, which was placed in the chart. Description Of Procedure: The patient was transferred from the preoperative holding area to the oper ative suite by Department of Anesthesia, placed on the operative table supine, sedated and intubated with the GlideScope. I infiltrated approximately 10 mL of 1% lidocaine with 1:100,000 epinephrine at the area of the floor -of-mouth and left lateral tunnel after thoroughly palpating manually. Multiple biopsies were taken from the xjagz-kg-iyyfc to the left lateral tongue with bayonet forceps and curved iris scissors. Th e specimens were placed into formalin and handed off the field. The patient had little to no bleedin g. Thus, Bovie was not needed. He tolerated the procedure well and will be discharged back to the [facility]. COURTNEY/TITI Voice ID: [id number] Report ID: [id number]
[2023-09-19 07:47] LABS: Absolute Basophils 0.1 K/uL (0-0.5); Absolute Lymphocytes (CBC) 1.5 K/uL (0.7-4.9); Absolute Monocytes 0.7 K/uL (0.1-1.3); Absolute Neutrophil 7.7 K/uL (1.8-8.0); Basophils % 0.6 % (0-1.3); Eosinophils % 0.3 % (0-4.4); Hematocrit 32.2 % (39.6-49.0); Hemoglobin 10.3 g/dL (13.6-17.9); Lymphocytes % 14.7 % (15.3-44.8); MCH 27.1 pg (27.0-35.0); MCHC 31.9 g/dL (32.0-36.0); MCV 84.8 fL (80-100); MPV 7.9 fL (7.6-11.3); Monocytes % 6.6 % (3.3-12.3); Neutrophils % 77.8 % (41.7-73.7); Platelets 347 thou/uL (152-406); RBC Red Blood Cell Count 3.79 M/uL (4.33-5.43); Red Cell Distribution Width 15.6 % (12.1-15.2)
[2023-09-19 07:51] LABS: Anion Gap 5.4 mEq/L (5.0-15.0); Magnesium 1.9 mg/dL (1.6-2.4); Potassium 4.4 mEq/L (3.5-5.1)
--- NOTE | 2023-09-19 09:14 | P.PN ---
Date of Service: 09/19/23 Subjective: feels neck might be more swollen but feeling better overall today. Doesn't feel as uncomfortable / distressed bleeding seems to have slowed down in mouth per patient Patient okay with PEG tube if needed. Dr. Ewing to eval afebrile ROS: 10 point ROS as noted above, otherwise negative Physical Exam: GEN: Alert, oriented, Awake HEENT: Normal conjunctiva, submandibular hard nodules palpated. Poor dentition, swelling of tongue CV: Regular rate and rhythm, no edema Pulm: Nonlabored respirations on room air, clear bilaterally ABD: soft, nontender, nondistended Integumentary: s/p left fifth toe amputation. Dressing in place c/d/i Problem List: Osteomyelitis of left fifth proximal phalanx, s/p left fifth toe amputation (09/16) large oral mass with submandibular nodules concerning for malignancy severe protein calorie malnutrition Diabetic foot ulcer Hypertension Hyperlipidemia hx of NIDDM2 with hyperglycemia Seizure disorder opioid dependence Osteomyelitis of left fifth proximal phalanx, s/p left fifth toe amputation (09/16) Diabetic foot ulcer venous u/s (09/14): no DVT Foot xray (09/14): Suspected left foot osteomyelitis of fifth proximal phalanx. Several radiopaque densities are present within soft tissue ulceration Dr. Mccormack, podiatry consulted s/p left fifth toe amputation (09/16) and closure of wound via advancement flap on (09/18) continue local wound care non-weightbearing to left foot continue empiric cefepime / flagyl / vanc (09/15-) blood cx (09/14): NGTD wound cx (09/16): Proteus Vulgaris afebrile, no leukocytosis ID consulted large oral mass with submandibular nodules concerning for malignancy CT neck (09/15): enlarged irregular neoplastic mass inolving floro of the mouth 6x4cm and submandibular lymphadenopathy likely metastatic. Dr. Marcos, ENT, consulted underwent biopsy under sedation 09/16 - pending results concern for malignancy 100lb weight loss in last ~6 months due to inability to eat briefly discussed PEG tube - patient and family at bedside agreeable Dr. Ewing, general surgeon consult to eval for PEG tube placement NPO for now green chainer consulted 09/18 Hypertension Hyperlipidemia confirm home meds, restart as appropriate hx of NIDDM2 with hyperglycemia non on any diabetic medications. accu-checks, SSI continue IVF with d5w PRN glucagon Seizure disorder confirm home meds, restart as appropriate opioid dependence continue home methadone will need increased pain medication VTE: Lovenox Code: Full Dispo: Home, ~2 days pending PEG tube, pain control
[2023-09-19] MEDS: HYDROCODONE/APAP 5/325 MG TAB PO PRN (19:36)
--- NOTE | 2023-09-19 22:50 | CON ---
History Of Present Illness: I was consulted for left foot wound infection with Proteus vulgaris seco ndary to osteomyelitis. The patient also has significant past medical history of hypertension, diabe keshav mellitus, seizure disorder, coming to the emergency room with left foot swelling. He was initial ly admitted with osteomyelitis, now status post amputation of infected toe. The patient is currently on antibiotic with large oral mass, with submandibular nodule concerning for malignancy, operated by ENT team for biopsy and possible debulking of the tumor. The patient is currently being treated wit h cefepime, vancomycin, and Flagyl. Blood cultures negative for 24 hours. Wound cultures grew Prote us mirabilis. Past Medical History: As per HPI. Social History: Tobacco positive. Alcohol negative. Family History: Noncontributory. Allergies: NO KNOWN DRUG ALLERGIES. Review of Systems: Ten-point review was performed. Physical Examination: General: This is a 63-year-old male, lying in bed, not in any acute cardiopulmonary distress. Vital Signs: Temperature 98, pulse 52, respirations 15, blood pressure 122/59. HEENT: Slurring of speech. Swelling of the neck noted with submandibular hard nodules present. Poo r dentition and swelling of the tongue noted. Heart: S1, S2. Regular. Abdomen: Soft, nontender. Bowel sounds present. Lungs: Clear to auscultation. Extremities: Left foot in surgical dressing, otherwise unremarkable. Laboratory Data: WBC down to 9.9, hemoglobin 10.3, platelets are 347. Chemistry shows BUN of 10, cr eatinine of 0.6. Albumin level is 2.5. Blood cultures: No growth for 24 hours. Left foot wound cu lture grew Proteus vulgaris, 1+. Assessment And Plan: This is a 63-year-old male with osteomyelitis of left fifth proximal phalanx, s tatus post left fifth toe amputation done day before yesterday. Large oral mass with submandibular n odule concerning for malignancy. The patient had biopsy of the mass done by ENT yesterday. Severe p rotein-calorie malnourishment. Diabetic foot ulcer. Noninsulin-dependent diabetes mellitus. Seizur e disorder. Opioid dependence. Continue antibiotic, can be switched to Cipro and Flagyl orally. Co ntinue current treatment. We will follow the patient as needed. NF/MODL Voice ID: [id number] Report ID: [id number]
[2023-09-20] MEDS: OXcarbazepine 150 MG TAB ONE (00:40)
[2023-09-20] MEDS: OXcarbazepine 150 MG TAB PO SCH (00:42)
[2023-09-20 03:58] LABS: Absolute Basophils 0.2 K/uL (0-0.5); Absolute Eosinophils 1.2 K/uL (0-0.5); Absolute Lymphocytes (CBC) 3.2 K/uL (0.7-4.9); Absolute Monocytes 0.7 K/uL (0.1-1.3); Absolute Neutrophil 6.3 K/uL (1.8-8.0); Basophils % 1.4 % (0-1.3); Eosinophils % 10.2 % (0-4.4); Hematocrit 33.9 % (39.6-49.0); Hemoglobin 10.9 g/dL (13.6-17.9); Lymphocytes % 27.6 % (15.3-44.8); MCH 27.3 pg (27.0-35.0); MCV 85.2 fL (80-100); Monocytes % 6.3 % (3.3-12.3); Neutrophils % 54.5 % (41.7-73.7); Platelets 403 thou/uL (152-406); RBC Red Blood Cell Count 3.98 M/uL (4.33-5.43); Red Cell Distribution Width 15.4 % (12.1-15.2)
[2023-09-20 04:14] LABS: Anion Gap 3.8 mEq/L (5.0-15.0); Potassium 4.8 mEq/L (3.5-5.1)
[2023-09-20] MEDS: PANTOPRAZOLE 40MG TABLET PO SCH (07:30)
--- NOTE | 2023-09-20 08:10 | P.PN ---
Date of Service: 09/20/23 Subjective: Feeling a little bit better. Doesn't feel like anything is getting worse. neck swelling ~same. plan for PEG tube placement today able to swallow apple sauce yesterday without much difficulty ROS: 10 point ROS as noted above, otherwise negative Physical Exam: GEN: Alert, oriented, Awake HEENT: Normal conjunctiva, swollen tongue, no bleeding, biopsy sites clean, Poor dentition CV: Regular rate and rhythm, no edema Pulm: Nonlabored respirations on room air, clear bilaterally ABD: soft, nontender, nondistended Integumentary: s/p left fifth toe amputation. Dressing in place c/d/i Problem List: Osteomyelitis of left fifth proximal phalanx, s/p left fifth toe amputation (09/16) large oral mass with submandibular nodules concerning for malignancy severe protein calorie malnutrition Diabetic foot ulcer Hypertension Hyperlipidemia hx of NIDDM2 with hyperglycemia Seizure disorder opioid dependence Osteomyelitis of left fifth proximal phalanx, s/p left fifth toe amputation (09/16) Diabetic foot ulcer venous u/s (09/14): no DVT Foot xray (09/14): Suspected left foot osteomyelitis of fifth proximal phalanx. Several radiopaque densities are present within soft tissue ulceration Dr. Mccormack, podiatry consulted s/p left fifth toe amputation (09/16) and closure of wound via advancement flap on (09/18) continue local wound care non-weightbearing to left foot continue empiric cefepime / flagyl for now (09/15-) discussed with ID - can consider swap to PO cipro / flagyl on discharge / once taking PO / has PEG tube blood cx (09/14): NGTD wound cx (09/16): Proteus Vulgaris afebrile, +mild leukocytosis (09/19) large oral mass with submandibular nodules concerning for malignancy severe protein calorie malnutrition CT neck (09/15): enlarged irregular neoplastic mass inolving floro of the mouth 6x4cm and submandibular lymphadenopathy likely metastatic. Dr. Marcos, ENT, consulted underwent biopsy under sedation 09/16 - pending results concern for malignancy 100lb weight loss in last ~6 months due to inability to eat briefly discussed PEG tube - patient and family at bedside agreeable Dr. Ewing, general surgeon consulted tentative plan for PEG tube placement today (09/19) yard inspector consulted 09/18 Hypertension Hyperlipidemia resume home hydralazine, statin hx of NIDDM2 with hyperglycemia non on any diabetic medications. accu-checks, SSI continue IVF with d5w PRN glucagon Seizure disorder resume home oxcarb opioid dependence continue home methadone will need increased pain medication VTE: Lovenox Code: Full Dispo: Home with HH, ~1-2 days pending PEG tube, pain control
[2023-09-20] MEDS: HYDRALAZINE HCL 25 MG TABLET PO SCH (09:00)
[2023-09-20] MEDS: GABAPENTIN 300 MG CAP PO SCH (09:00)
[2023-09-20] MEDS: SERTRALINE HCL 50 MG TAB PO SCH (09:00)
[2023-09-20] MEDS: NA CHLORIDE 0.9% 1,000 ML ONE (12:30)
[2023-09-20] MEDS ORDERED: LIDOCAINE 1% MPF 5 ML VIAL ONE (13:18)
[2023-09-20] MEDS ORDERED: propofoL 200 MG/20 ML VIAL IV ONE ×2 (13:19→13:51)
[2023-09-20] MEDS ORDERED: EPHEDRINE SULF 50 MG/ML VIAL ONE (13:19)
[2023-09-20] MEDS: CEFAZOLIN SODIUM 1 GM/VIAL ONE (13:29)
[2023-09-20] MEDS: HYDRALAZINE HCL 20 MG/ML VIAL ONE (14:50)
[2023-09-20 14:53] VITALS: O2SAT 100
[2023-09-20] MEDS: DEXTROSE ORAL 40% 15 GM TUBE PO ONE (15:00)
[2023-09-20] MEDS: ATORVASTATIN 40 MG TAB PO SCH (20:29)
[2023-09-21 09:01] LABS: Absolute Basophils 0.1 K/uL (0-0.5); Absolute Eosinophils 1.4 K/uL (0-0.5); Absolute Lymphocytes (CBC) 1.5 K/uL (0.7-4.9); Absolute Monocytes 0.7 K/uL (0.1-1.3); Absolute Neutrophil 5.7 K/uL (1.8-8.0); Basophils % 1.1 % (0-1.3); Hematocrit 32.2 % (39.6-49.0); Hemoglobin 10.3 g/dL (13.6-17.9); Lymphocytes % 16.1 % (15.3-44.8); MCHC 31.9 g/dL (32.0-36.0); MCV 84.6 fL (80-100); MPV 8.1 fL (7.6-11.3); Neutrophils % 60.8 % (41.7-73.7); Platelets 309 thou/uL (152-406); RBC Red Blood Cell Count 3.81 M/uL (4.33-5.43); Red Cell Distribution Width 15.5 % (12.1-15.2)
[2023-09-21 09:23] LABS: AST/SGOT 16 U/L (15-37); Albumin/Globulin Ratio 0.5 (1.1-1.8); Alkaline Phosphatase 69 U/L (45-117); Anion Gap 5.7 mEq/L (5.0-15.0); BUN Blood Urea Nitrogen 8 mg/dL (7-18); Bicarbonate 31 mEq/L (21-32); Bilirubin Total 0.3 mg/dL (0.2-1.0); Globulin 4.4 g/dL (2.3-3.5); Glomerular Filtration Rate 108 ml/min (=/>90); Glucose Level 96 mg/dL (74-106); Magnesium 1.7 mg/dL (1.6-2.4); Phosphorus 2.8 mg/dL (2.5-4.9); Potassium 3.7 mEq/L (3.5-5.1); Protein, Total 6.4 g/dL (6.4-8.2); Sodium Level 138 mEq/L (136-145)
[2023-09-21 09:26] LABS: ALT/SGPT < 14 U/L (16-61)
--- NOTE | 2023-09-21 09:41 | P.PN ---
Date of Service: 09/20/23 Postop Note Patient seen and examined. With exception of mild FOM swelling and pain, he has no other complaints. He denies bleeding or exudate. He is scheduled for PEG today. Exam: FOM and tongue-- granulation tissue present at biopsy sites, no bleeding or exudate. Impression: 1. 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 Plan: 1. F/up outpatient for PET and further recommendations.
--- NOTE | 2023-09-21 10:03 | P.PN ---
Date of Service: 09/21/23 Operative NOte correction: biopsies were taken from floor of mouth and right lateral tongue NOT left lateral tongue.
--- NOTE | 2023-09-21 10:05 | P.PN ---
Date of Service: 09/21/23 Subjective: feels foot is improving each day. Less painful / tender Tongue swelling ~same Doesn't feel like anything is getting worse no-minimal bleeding from mouth some discomfort/soreness at PEG tube site ROS: 10 point ROS as noted above, otherwise negative Physical Exam: GEN: Alert, oriented, Awake HEENT: Normal conjunctiva, swollen tongue, no bleeding, Poor dentition CV: Regular rate and rhythm, no edema Pulm: Nonlabored respirations on room air, clear bilaterally ABD: soft, nontender, nondistended Integumentary: s/p left fifth toe amputation. Dressing in place c/d/i Problem List: Osteomyelitis of left fifth proximal phalanx, s/p left fifth toe amputation (09/16) large oral mass with submandibular nodules concerning for malignancy severe protein calorie malnutrition now s/p PEG tube placement Diabetic foot ulcer Hypertension Hyperlipidemia hx of NIDDM2 with hyperglycemia Seizure disorder opioid dependence Osteomyelitis of left fifth proximal phalanx, s/p left fifth toe amputation (09/16) Diabetic foot ulcer venous u/s (09/14): no DVT Foot xray (09/14): Suspected left osteomyelitis of fifth proximal phalanx. Several radiopaque densities are present within soft tissue ulceration Dr. Mccormack, podiatry consulted s/p left fifth toe amputation (09/16) and closure of wound via advancement flap on (09/18) continue local wound care non-weightbearing to left foot continue empiric cefepime / flagyl for now (09/15-) discussed with ID - can consider swap to PO cipro / flagyl on discharge / once taking PO / has PEG tube blood cx (09/14): NGTD wound cx (09/16): Proteus Vulgaris afebrile, leukocytosis resolved (09/20) large oral mass with submandibular nodules concerning for malignancy severe protein calorie malnutrition CT neck (09/15): enlarged irregular neoplastic mass inolving floro of the mouth 6x4cm and submandibular lymphadenopathy likely metastatic. Dr. 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 discussed with Dr. Beebe (heme/onc) who will help facilitate close follow up ~next week 100lb weight loss in last ~6 months due to inability to eat Dr. Ewing, general surgeon consulted s/p PEG tube placement (09/19) tentative plan to start tube feedings today toy maker consulted 09/18 continue PT/ST SW/CM consulted for home health / tube feeds at home Hypertension Hyperlipidemia home hydralazine, statin hx of NIDDM2 with hyperglycemia not on any diabetic medications. accu-checks, SSI continue IVF with d5w until tube feeds start PRN glucagon Seizure disorder resume home oxcarb opioid dependence continue home methadone will need increased pain medication VTE: Lovenox Code: Full Dispo: Home with HH, ~1 day Pending tolerating tube feeds
--- NOTE | 2023-09-21 12:23 | PN ---
Subjective: Patient lying in bed. No new acute event. Chart reviewed. Objective: Vital Signs: Temperature 97, pulse 50, respirations 16, blood pressure 151/76. The patient's biopsy of the neck mass shows most likely malignancy, status post left fifth proximal p halanx amputation on 09/16 for osteomyelitis diabetic foot ulcer. Surgical wound is healing well. W e will recommend to apply Xeroform, Kerlix, and Terrence strap. Keep leg elevated when possible. Continu e antibiotic for 2 more weeks, can be switched to oral before discharge. We will recommend Cipro 500 mg q.12 hours, if no contraindication and Flagyl 500 mg p.o. q.8 hours. NF/MODL Voice ID: [id number] Report ID: [id number]
[2023-09-21] MEDS: JEVITY 1.5 CAL LIQUID 1,000 ML BOT RTH SCH (15:36)
[2023-09-22] MEDS: ONDANSETRON 4 MG/2 ML VIAL IV PRN (07:04)
--- NOTE | 2023-09-22 09:30 | P.DS ---
Admission Date: 09/15/23 Discharge Date: 09/22/23 Disposition: DC HOME/HOME HEALTH CARE Discharge Condition: GOOD Reason for Admission: Foot infection Consultations: Podiatry - Dr. Mccormack ENT - Dr. Priti BASURTO - Dr. Cadet General Surgery - Dr. Ewing Brief History of Present Illness: 63yo M, PMH: hypertension, diabetes, seizure disorder, Patient came to ER with pain and swelling left foot wound. Patient states that the wound started 3 weeks ago as a small area of redness and has been progressively worsening. He developed redness and swelling of the leg 2 weeks ago. Denies any trauma. No fever or chills. Patient has neuropathy. Denies any chest pain or shortness of breath. No nausea vomiting or diarrhea. Patient was assessed in the ER and is admitted for further management of diabetic foot. Hospital Course: Problem List: Osteomyelitis of left fifth proximal phalanx, s/p left fifth toe amputation (09/16) large oral mass with submandibular nodules concerning for malignancy severe protein calorie malnutrition, now s/p PEG tube placement (09/19) Diabetic foot ulcer Hypertension Hyperlipidemia hx of NIDDM2 with hyperglycemia Seizure disorder opioid dependence Physical Exam: GEN: Alert, oriented, Awake HEENT: Normal conjunctiva, mildly swollen tongue, no bleeding, Poor dentition CV: Regular rate and rhythm, no edema Pulm: Nonlabored respirations on room air, clear bilaterally ABD: soft, nontender, nondistended MSK: no joint tenderness Integumentary: s/p left fifth toe amputation. Dressing in place c/d/i Neuro: Normal speech, normal affect Vital Signs/Physical Exam: Temp Pulse Resp BP Pulse Ox 98.1 F 72 16 128/80 96 09/22/23 08:00 09/22/23 08:00 09/22/23 08:00 09/22/23 08:00 09/22/23 08:00 Laboratory Data at Discharge: WBC 9.40 thou/uL (4.3-10.9) 09/21/23 08:35 Hgb 10.3 g/dL (13.6-17.9) L 09/21/23 08:35 Hct 32.2 % (39.6-49.0) L 09/21/23 08:35 Plt Count 309 thou/uL (152-406) 09/21/23 08:35 PT 14.1 SECONDS (9.5-12.5) H 09/15/23 18:24 INR 1.29 09/15/23 18:24 APTT 35.4 SECONDS (24.3-36.9) 09/15/23 18:24 Sodium 138 mEq/L (136-145) 09/22/23 07:15 Potassium 4.0 mEq/L (3.5-5.1) 09/22/23 07:15 BUN 11 mg/dL (7-18) 09/22/23 07:15 Creatinine 0.74 mg/dL (0.70-1.30) 09/22/23 07:15 Glucose 133 mg/dL (74-106) H 09/22/23 07:15 Phosphorus 2.8 mg/dL (2.5-4.9) 09/21/23 08:35 Magnesium 2.0 mg/dL (1.6-2.4) 09/22/23 07:15 Total Bilirubin 0.3 mg/dL (0.2-1.0) 09/21/23 08:35 AST 16 U/L (15-37) 09/21/23 08:35 ALT < 14 U/L (16-61) L 09/21/23 08:35 Alkaline Phosphatase 69 U/L (45-117) 09/21/23 08:35 Home Medications: Methadone HCl [Methadose*] 90 mg PO DAILY 05/28/12 Atorvastatin Calcium [Lipitor] 40 mg PO BEDTIME 09/19/23 Gabapentin 600 mg PO TID 09/19/23 Hydralazine [Apresoline*] 25 mg PO DAILY 09/19/23 OXcarbazepine [Oxcarbazepine] 300 mg PO BID 09/19/23 Pantoprazole [Protonix Tab*] 40 mg PO DAILY 09/19/23 Sertraline [Zoloft*] 50 mg PO DAILY 09/19/23 Gabapentin 12 ml FT TID 30 Days #1080 ml 09/21/23 OXcarbazepine [Trileptal] 5 ml FT BID 30 Days #300 ml 09/21/23 Acetaminophen with Codeine [Acetaminop-Codeine 120-12 mg/5] 15 ml PO Q8H PRN #225 ml 09/22/23 Ciprofloxacin 5 ml FT BID 12 Days #120 ml 09/22/23 metroNIDAZOLE [Metronidazole] 500 mg FT TID 12 Days #36 tab 09/22/23 New Medications: Acetaminophen with Codeine [Acetaminop-Codeine 120-12 mg/5] 15 ml PO Q8H PRN #225 ml PRN Reason: Pain Scale 5-7 (Moderate) Ciprofloxacin 5 ml FT BID 12 Days #120 ml Gabapentin 12 ml FT TID 30 Days #1080 ml metroNIDAZOLE [Metronidazole] 500 mg FT TID 12 Days #36 tab OXcarbazepine [Trileptal] 5 ml FT BID 30 Days #300 ml Physician Discharge Instructions: Physician discharge instructions: Patient presented with worsening left foot pain/swelling and was found to have a nonhealing diabetic foot ulcer complicated by osteomyelitis of left fifth proximal phalanx, seen on x-ray. 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 ID was consulted for assistance with antibiotics. Wound culture grew Proteus Vulgaris. Blood cultures were without growth. Patient received ~1 week of IV cefepime / flagyl while hospitalized and is to continue on oral ciprofloxacin and flagyl for 12 more days. In regards to oral mass: CT neck on admission noted enlarged irregular neoplastic mass involving the floor of the mouth 6x4cm and submandibular lymphadenopathy, concerning for metastatic disease. Patient was evaluated by Dr. Marcos, ENT, and was taken to OR for biopsy under sedation on 09/16. Biopsy results pending upon discharge - to be closely followed up as outpatient within [address] Beebe, hematology/oncologist, who will help facilitate close follow up next week for further discussion/recommendations. Patient reported he has had ~100lb weight loss in the last 6 months due to inability to eat. Given his severe protein malnutrition and inability to eat, recommended PEG tube placement for supplementation nutrition, placed by Dr. Ewing, general surgeon 09/19. Continue tube feeds with jevity 1.5 - 275 ml 5 times a day. Patient/family instructed on tube feed teachings prior to discharge. Home health to deliver supplies saturday 09/23. Patient received PEG tube supplies to hold patient over the weekend until home health can deliver more supplies. Medications: Ciprofloxacin and Flagyl for 12 more days (end date ~10/04/23) tylenol #3 liquid 15 ml every 8 hours as needed for pain Jevity 1.5 - 275 ml can crush lipitor, setraline, flagyl For pills that you cannot crush, prescriptions in liquid form sent refills for gabapentin, oxcarbazepine in liquid form sent Follow up: PCP 3-[address] Marcos in ~1 week Oncologist in ~1 week - Dr. Abiel Beebe [facility] [address], [address] Please call to schedule / confirm appointments PEG tube formula arranged with: [facility] [address], [place], [place] [address] P/Leonie: [phone] Home Health arranged with: [facility] Home Health P:[phone] F:[phone] Followup: Елена Burns MD [Primary Care Provider] - Ananda Beebe MD [ACTIVE - CAN ADMIT] - Time spent managing pt's care (in minutes): 45
[2023-09-22 16:48] VITALS: BP 128/68; TEMP 97.6
--- NOTE | 2023-09-22 19:25 | CON ---
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 He had been having progressive worsening of his swallowing capabilities over a period of time prior to his arrival to the hospital and he fidencio nash saw Dr. Marcos on 09/17/2023 on the same admission, who ultimately performed a biopsy which confirm ed the diagnosis of oropharyngeal malignancy. I am consulted therefore for discussion of placement o f a feeding tube as the patient continues to lose weight and has difficulty swallowing. Therefore, I am consulted for placement of a PEG or possible gastric feeding tube. The patient agreed with the whitney mcnair stated symptoms in that he had difficulty swallowing, phonating, and had significant swelling in his oropharynx, which became progressively worse in addition to weight loss. He had more progressiv e difficulty swallowing which was originally solids and liquids and now both are extremely difficult for him to pass at this time. Past Medical History: Significant for hypertension, diabetes, seizure disorder. Past Surgical History: He had a toe amputation. Medications: Include methadone, levetiracetam, and Keppra. Review of Systems: 10 point review of systems other than HPI denies. Physical Examination: General: At the time of my examination, he is awake, alert, and oriented. Psychiatric: Appropriate, conversive. HEENT: He is normocephalic. His sclerae are anicteric. His mucous membranes are moist. His oropha rynx has significant swelling with what appears to be oropharyngeal mass near the base of his tongue/ posterior pillar area. He has significant swelling of his neck with firmness in the bilateral neck a [place]akota. Chest: Normal expansion and excursion. Cardiovascular: Regular rate and rhythm. Pulmonary: Clear to auscultation bilaterally. Abdomen: Soft, nontender, nondistended. No rebound. No guarding. No focal peritonitis. Extremities: No clubbing, cyanosis, edema. He has a wrapped foot on the right which has dressings i n place. Laboratory Exam: White blood cell count of 9.9, hemoglobin 10.3, hematocrit 32.3, platelet count was 347. His chemistry showed a sodium 139, potassium 4.8, chloride 104, carbon dioxide 36, BUN 9, crea tinine 0.7, glucose was 84. Assessment/plan: This is a 63-year-old man who comes in with an oropharyngeal mass concerning for ma lignancy, difficulty swallowing, swelling in the oropharynx, difficulty with phonation, and weight lo ss. 1.Continue IV fluid hydration. 2.NPO status. 3.I have explained risks, benefits, and alternatives of percutaneous endoscopic gastrostomy tube stan cement, possible open gastrostomy tube placement including, but not limited to bleeding, infection, d amage to internal organs, particularly intestines, intestinal perforation, need for further operation s, blood clots, heart attack, strokes, other unforeseen complications in the perioperative period bot h related to anesthesia and non-anesthesia causes. The patient displayed an understanding of the abo ve-stated plan, agrees to proceed as indicated. SHELL/TITI Voice ID: [id number] Report ID: [id number]
== END 2023-09-22 17:00 | disposition home health service (06) | DRG 616 ==
LOC: ER 17:56 → ERHOLD 19:38 → 2ND 21:57
PROVIDERS: ADMIT Family Medicine; ATTEND Hospitalist
PROC: 0HXNXZZ Transfer Left Foot Skin, External Approach (ICD-10-PCS; principal; 2023-09-15)
PROC: 0Y6N0ZF Detachment at Left Foot, Partial 5th Ray, Open Approach (ICD-10-PCS; 2023-09-15)
PROC: 0WB Anatomical Regions, General, Excision (ICD-10-PCS; 2023-09-15)
PROC: 0JQR0ZZ Repair Left Foot Subcutaneous Tissue and Fascia, Open Approach (ICD-10-PCS; 2023-09-15)
DX: E11.69 Type 2 diabetes mellitus with other specified complication (principal); E43 Unspecified severe protein-calorie malnutrition; L02.612 Cutaneous abscess of left foot; E11.52 Type 2 diabetes mellitus with diabetic peripheral angiopathy with gangrene; M86.8X7 Other osteomyelitis, ankle and foot; L03.116 Cellulitis of left lower limb; M86.172 Other acute osteomyelitis, left ankle and foot; F11.20 Opioid dependence, uncomplicated; E11.65 Type 2 diabetes mellitus with hyperglycemia; E11.42 Type 2 diabetes mellitus with diabetic polyneuropathy; E11.649 Type 2 diabetes mellitus with hypoglycemia without coma; E11.621 Type 2 diabetes mellitus with foot ulcer; L97.523 Non-pressure chronic ulcer of other part of left foot with necrosis of muscle; D37.09 Neoplasm of uncertain behavior of other specified sites of the oral cavity; D37.02 Neoplasm of uncertain behavior of tongue; I10 Essential (primary) hypertension; E78.5 Hyperlipidemia, unspecified; G40.909 Epilepsy, unspecified, not intractable, without status epilepticus; E87.5 Hyperkalemia; B96.4 Proteus (mirabilis) (morganii) as the cause of diseases classified elsewhere; R13.10 Dysphagia, unspecified; R59.1 Generalized enlarged lymph nodes; Z68.29 Body mass index [BMI] 29.0-29.9, adult; Z79.899 Other long term (current) drug therapy
CPT/HCPCS: 36415; 70491; 76000; 80048; 80053; 80202; 81001; 82947; 83605; 83735; 84100; 85025; 85610; 85730; 87040; 87070; 87075; 87077; 87186; 87205; 88305; 88311; 92610; 93005; 93971; 96365; 96366; 96367; 97161; 97530; 99285; J0360; J0690; J0692; J1100; J1170; J1650; J2001; J2250; J2405; J2704; J3010; J7030; J7040; J7042; J7050; Q9967

== ENCOUNTER 2023-12-10 10:55 | Day surgery (SDC) | payer OTHER ==
[2023-12-10] MEDS ORDERED: LIDOCAINE 1% 20 ML MDV ONE (11:00)
[2023-12-10] MEDS ORDERED: HEPARIN 5000 UNIT/ML 1 ML VIAL ONE (11:00)
[2023-12-10] MEDS ORDERED: NS 0.9% VIAL 20 ML ONE (11:00)
[2023-12-10] MEDS ORDERED: CEFAZOLIN SODIUM 2 GM/VIAL ONE (11:16)
[2023-12-10 11:17] LABS: Absolute Basophils 0.1 K/uL (0-0.5); Absolute Eosinophils 1.4 K/uL (0-0.5); Absolute Lymphocytes (CBC) 2.6 K/uL (0.7-4.9); Absolute Monocytes 0.7 K/uL (0.1-1.3); Absolute Neutrophil 4.6 K/uL (1.8-8.0); Basophils % 1.2 % (0-1.3); Eosinophils % 14.5 % (0-4.4); Hematocrit 42.2 % (39.6-49.0); Hemoglobin 13.4 g/dL (13.6-17.9); Lymphocytes % 28.2 % (15.3-44.8); MCH 28.3 pg (27.0-35.0); MCHC 31.8 g/dL (32.0-36.0); MCV 89.1 fL (80-100); MPV 8.1 fL (7.6-11.3); Monocytes % 7.2 % (3.3-12.3); Neutrophils % 48.9 % (41.7-73.7); Platelets 289 thou/uL (152-406); RBC Red Blood Cell Count 4.73 M/uL (4.33-5.43); Red Cell Distribution Width 18.5 % (12.1-15.2)
[2023-12-10] MEDS ORDERED: Ringers Lactate 1,000 ML IV ONE (11:17)
[2023-12-10] MEDS ORDERED: FENTANYL CITR 100 MCG/2 ML ONE (11:23)
[2023-12-10] MEDS ORDERED: propofoL 200 MG/20 ML VIAL IV ONE ×2 (11:23→12:09)
[2023-12-10] MEDS ORDERED: LIDOCAINE 1% MPF 5 ML VIAL ONE (11:23)
[2023-12-10] MEDS ORDERED: MIDAZOLAM HCL 2 MG/2 ML INJ ONE (11:23)
[2023-12-10 11:30] LABS: Anion Gap 7.1 mEq/L (5.0-15.0); Potassium 4.1 mEq/L (3.5-5.1)
[2023-12-10] MEDS ORDERED: Mastisol Adhesive Liq ONE (12:37)
[2023-12-10] MEDS ORDERED: ONDANSETRON 4 MG/2 ML VIAL ONE (12:44)
--- NOTE | 2023-12-10 12:47 | P.OP ---
Date of Service: 12/10/23 Preop diagnosis: Throat and tongue cancer Postop diagnosis: Same Procedure performed: Placement of right IJ Port-A-Cath device, interpretation of intraoperative fluoroscopy Surgeon: Jesus Rose MD Battery Container Finishing Hand: None Estimated blood loss: Minimal Specimen: None Findings: Normal anatomy Anesthesia: MAC Complications: None Drains: None Fluids and blood products: Nonapplicable Disposition: Recovery room Operative note: Patient brought to the OR and placed in supine position. MAC anesthesia began. Patient prepped and draped in usual sterile fashion. Lidocaine 1% infiltrated locally. 18-gauge needle used to access the right IJ vein. Guidewire passed and position confirmed with fluoroscopy. 3 cm counterincision made on the right anterior chest. Pocket created. Bleeding controlled with cautery. Tunneling device used to tunnel the catheter between the 2 wounds. Some jl technique used and tip of the catheter placed at the SVC right atrial junction. The catheter attached to the Port-A-Cath device. Port-A-Cath device attached to subcutaneous tissue with 3-0 Vicryl. The port flushed with heparin and packed with heparin with good blood flow. 3-0 chromic used to approximate subcutaneous tissue and close skin. Sterile dressing applied. Patient awakened and taken to recovery room in good general condition. Chest x-ray has been ordered. CC: Dr. Beebe' office
[2023-12-10] MEDS ORDERED: HYDROCODONE/APAP 7.5/325 MG TAB PO PRN (12:48)
--- NOTE | 2023-12-10 12:59 | RAD REPORT ---
EXAM DESCRIPTION: RAD - Fluoroscopy <1 Hour - 12/10/2023 12:44 pm CLINICAL HISTORY: Device placement central venous catheter placement FINDINGS: A central venous catheter was placed into the superior vena cava. Five fluoroscopic spot i mages are submitted. Fluoroscopy time 0.6 minutes The examination was performed by Dr. Rose
--- NOTE | 2023-12-10 13:25 | RAD REPORT ---
EXAM DESCRIPTION: RADChest Single View12/10/2023 1:09 pm CLINICAL HISTORY: Device placement/central venous catheter placement IMPRESSION: Central venous catheter has been placed into the superior vena cava. No pneumothorax
[2023-12-10 14:16] VITALS: BP 152/94; TEMP 97.2; O2SAT 100
== END 2023-12-10 14:45 | disposition home or self-care (01) ==
LOC: OR 10:55
PROVIDERS: ATTEND Surgery
PROC: 0JH60WZ Insertion of Totally Implantable Vascular Access Device into Chest Subcutaneous Tissue and Fascia, Open Approach (ICD-10-PCS; principal; 2023-12-10 09:30)
DX: C02.9 Malignant neoplasm of tongue, unspecified (principal); C32.9 Malignant neoplasm of larynx, unspecified
CPT/HCPCS: 85025; 80048; 36415; 71045; 36561; J1644 ×2; A4216; J2704 ×2; J2001 ×2; J2250; J3010; J2405; J7120; 76000

== ENCOUNTER 2024-01-02 10:42 | Emergency (ER) | payer OTHER ==
[2024-01-02] MEDS ORDERED: WATER FOR INJ,STERILE 20 ML ONE (11:15)
--- NOTE | 2024-01-02 11:53 | EDPHYS ---
Physician Documentation [facility] Name: Andrew Wall Age: 63 yrs Sex: Male : 1960 Arrival Date: 01/02/2024 Time: 10:42 Bed 14 Private MD: ED Physician Donta Cunningham HPI: 01/01 11:45 This 63 yrs old Male presents to ER via Wheelchair with complaints of Problem manuela With Feeding Tube - Pulled Out. 11:45 The patient presents with abdominal pain in the epigastric area. Onset: The manuela symptoms/episode began/occurred just prior to arrival. The symptoms do not radiate. Associated signs and symptoms: none. Modifying factors: The symptoms are alleviated by nothing, the symptoms are aggravated by nothing. Severity of pain: At its worst the pain was very mild in the emergency department the pain is unchanged. The patient has not experienced similar symptoms in the past. Historical: - Allergies: 10:50 No Known Allergies; tm6 - PMHx: 10:50 Diabetes - NIDDM; Hypertensive disorder; Seizures; mouth and throat cancer (Seizures); tm6 - PSHx: 10:50 left toe amputation (Seizures); tm6 - Immunization history:: Client reports receiving the 2nd dose of the Covid vaccine. - Infectious Disease History:: Denies. - Social history:: Smoking status: Patient denies any tobacco usage or history of. Patient/guardian denies using alcohol. - Family history:: not pertinent. ROS: 11:45 Constitutional: Negative for fever, chills, and weight loss, Eyes: Negative for injury, manuela pain, redness, and discharge, ENT: Negative for injury, pain, and discharge, Neck: Negative for injury, pain, and swelling, Cardiovascular: Negative for chest pain, palpitations, and edema, Respiratory: Negative for shortness of breath, cough, wheezing, and pleuritic chest pain, Back: Negative for injury and pain, : Negative for injury, bleeding, discharge, and swelling, MS/Extremity: Negative for injury and deformity, Skin: Negative for injury, rash, and discoloration, Neuro: Negative for headache, weakness, numbness, tingling, and seizure, Psych: Negative for depression, anxiety, suicide ideation, homicidal ideation, and hallucinations, Allergy/Immunology: Negative for hives, rash, and allergies, Endocrine: Negative for neck swelling, polydipsia, polyuria, polyphagia, and marked weight changes, Hematologic/Lymphatic: Negative for swollen nodes, abnormal bleeding, and unusual bruising, 11:45 Abdomen/GI: Positive for abdominal pain, of the left upper quadrant, Exam: 11:45 Constitutional: This is a well developed, well nourished patient who is awake, alert, manuela and in no acute distress. Head/Face: Normocephalic, atraumatic. Eyes: Pupils equal round and reactive to light, extra-ocular motions intact. Lids and lashes normal. Conjunctiva and sclera are non-icteric and not injected. Cornea within normal limits. Periorbital areas with no swelling, redness, or edema. ENT: Nares patent. No nasal discharge, no septal abnormalities noted. Tympanic membranes are normal and external auditory canals are clear. Oropharynx with no redness, swelling, or masses, exudates, or evidence of obstruction, uvula midline. Mucous membranes moist. Neck: Trachea midline, no thyromegaly or masses palpated, and no cervical lymphadenopathy. Supple, full range of motion without nuchal rigidity, or vertebral point tenderness. No Meningismus. Chest/axilla: Normal chest wall appearance and motion. Nontender with no deformity. No lesions are appreciated. Cardiovascular: Regular rate and rhythm with a normal S1 and S2. No gallops, murmurs, or rubs. Normal PMI, no JVD. No pulse deficits. Respiratory: Lungs have equal breath sounds bilaterally, clear to auscultation and percussion. No rales, rhonchi or wheezes noted. No increased work of breathing, no retractions or nasal flaring. Back: No spinal tenderness. No costovertebral tenderness. Full range of motion. Male : Normal genitalia with no discharge or lesions. Skin: Warm, dry with normal turgor. Normal color with no rashes, no lesions, and no evidence of cellulitis. MS/ Extremity: Pulses equal, no cyanosis. Neurovascular intact. Full, normal range of motion. Neuro: Awake and alert, GCS 15, oriented to person, place, time, and situation. Cranial nerves II-XII grossly intact. Motor strength 5/5 in all extremities. Sensory grossly intact. Cerebellar exam normal. Normal gait. Psych: Awake, alert, with orientation to person, place and time. Behavior, mood, and affect are within normal limits. 11:45 Abdomen/GI: Inspection: abdomen appears normal, Bowel sounds: normal, Palpation: abdomen is soft and non-tender, Liver: no appreciated palpable abnormalities, Hernia: not appreciated, Vital Signs: 10:47 BP 114 / 70; Pulse 61; Resp 17; Pulse Ox 98% on R/A; MAP 84 mmHg; Weight 72.57 kg; tm6 Height 5 ft. 9 in. ; Pain 10; 12:19 BP 146 / 82; Pulse 61; Resp 14; Temp 98.1; Pulse Ox 97% ; me1 10:47 Body Mass Index 23.63 (72.57 kg, 175.26 cm) tm6 10:47 Pain Scale: Adult tm6 MDM: 10:46 Patient medically screened. manuela 11:48 Differential diagnosis: non-specific abd pain. Data reviewed: vital signs, nurses manuela notes, radiologic studies, plain films. Consideration of Admission/Observation Escalation of care including admission/observation considered. I considered the following discharge prescriptions or medication management in the emergency department Medications were administered in the Emergency Department. See MAR. Independent interpretation of the following test(s) in the Emergency Department X-Ray: My interpretation is kub. Historians other than the Patient: pt well informed. Care significantly affected by the following chronic conditions: Diabetes, Hypertension, Cancer. 01/01 10:48 Order name: Abdomen 1 View (KUB) XRAY: peg with 30 cc gastrograffin [facility] 01/01 10:48 Order name: Misc. Order: peg replacement; Complete Time: 11:27 manuela Administered Medications: No medications were administered Disposition Summary: 01/02/24 11:52 Discharge Ordered Notes: Location: Home manuela Problem: new manuela Symptoms: have improved manuela Condition: Stable manuela Diagnosis - Gastrostomy complications manuela - Encounter for attention to gastrostomy manuela - Gastrostomy complication, unspecified manuela Followup: manuela - With: Private Physician - When: 2 - 3 days - Reason: Recheck today's complaints, Continuance of care, Re-evaluation by your physician Followup: manuela - With: Sonia Alonzo MD - When: 2 - 3 days - Reason: Recheck today's complaints, Continuance of care, Re-evaluation by your physician Discharge Instructions: - Discharge Summary Sheet manuela - Gastrostomy Tube Replacement manuela - Gastrostomy Tube Replacement, Care After manuela - PEG Tube Home Guide [facility] Forms: - Medication Reconciliation Form manuela - Antibiotic Education manuela - Prescription Opioid Use manuela - Patient Portal Instructions manuela - Leadership Thank You Letter [facility] Signatures: Dispatcher [employer] Donta Flores MD MD cha Masterson, Tawney, RN RN [id number]
--- NOTE | 2024-01-02 11:53 | ER ---
Nurse's Notes [facility] Name: Andrew Wall Age: 63 yrs Sex: Male : 1960 Arrival Date: 01/02/2024 Time: 10:42 Bed 14 Private MD: Diagnosis: Gastrostomy complications;Encounter for attention to gastrostomy;Gastrostomy complication, unspecified Presentation: 01/01 10:48 Chief complaint: Patient states: woke up this morning to find feeding tube pulled out. tm6 Pain 10/10 where feeding tube was. Coronavirus screen: Vaccine status: Patient reports receiving the 2nd dose of the covid vaccine. Ebola Screen: Patient negative for fever greater than or equal to 101.5 degrees Fahrenheit, and additional compatible Ebola Virus Disease symptoms Patient denies exposure to infectious person. Patient denies travel to an Ebola-affected area in the 21 days before illness onset. No symptoms or risks identified at this time. Initial Sepsis Screen: Does the patient meet any 2 criteria? No. Patient's initial sepsis screen is negative. Does the patient have a suspected source of infection? No. Patient's initial sepsis screen is negative. Risk Assessment: Do you want to hurt yourself or someone else? Patient reports no desire to harm self or others. Onset of symptoms was January 02, 2024. 10:48 Method Of Arrival: Wheelchair tm6 10:48 Acuity: ROSALIE 4 tm6 Triage Assessment: 10:50 General: Appears in no apparent distress. Behavior is cooperative. Pain: Complains of tm6 pain in left upper quadrant Pain currently is 10 out of 10 on a pain scale. EENT: No signs and/or symptoms were reported regarding the EENT system. Neuro: Level of Consciousness is awake, alert, obeys commands, Oriented to person, place, time, situation. Cardiovascular: Patient's skin is warm and dry. Respiratory: Airway is patent Respiratory effort is even, unlabored. GI: PEG tube out of place Reports upper abdominal pain. : No signs and/or symptoms were reported regarding the genitourinary system. Derm: No signs and/or symptoms reported regarding the dermatologic system. Musculoskeletal: No signs and/or symptoms reported regarding the musculoskeletal system. Historical: - Allergies: 10:50 No Known Allergies; tm6 - PMHx: 10:50 Diabetes - NIDDM; Hypertensive disorder; Seizures; mouth and throat cancer (Seizures); tm6 - PSHx: 10:50 left toe amputation (Seizures); tm6 - Immunization history:: Client reports receiving the 2nd dose of the Covid vaccine. - Infectious Disease History:: Denies. - Social history:: Smoking status: Patient denies any tobacco usage or history of. Patient/guardian denies using alcohol. - Family history:: not pertinent. Screenin:55 [facility] ED Fall Risk Assessment (Adult) History of falling in the last 3 months, rs5 including since admission No falls in past 3 months (0 pts) Confusion or Disorientation No (0 pts) Intoxicated or Sedated No (0 pts) Impaired Gait No (0 pts) Mobility Assist Device Used No (0 pt) Altered Elimination No (0 pt) Score/Fall Risk Level 0 - 2 = Low Risk Oriented to surroundings, Maintained a safe environment. Abuse screen: Denies threats or abuse. Nutritional screening: No deficits noted. Tuberculosis screening: No symptoms or risk factors identified. Assessment: 10:55 General: Appears in no apparent distress. uncomfortable, Behavior is calm, cooperative. rs5 Pain: Complains of pain in abdomen Pain currently is 6 out of 10 on a pain scale. Quality of pain is described as aching, Is continuous. Neuro: Level of Consciousness is awake, alert, obeys commands, Oriented to person, place, time, situation. Cardiovascular: Patient's skin is warm and dry. Respiratory: Airway is patent Respiratory effort is even, unlabored, Respiratory pattern is regular, symmetrical. GI: Abdomen is round non-distended, Abd is soft and non tender X 4 quads. Patient currently denies nausea. : No signs and/or symptoms were reported regarding the genitourinary system. EENT: No signs and/or symptoms were reported regarding the EENT system. Derm: Skin is intact, Skin is pink, warm \T\ dry. Musculoskeletal: Range of motion: intact in all extremities. 11:20 Reassessment: Patient and/or family updated on plan of care and expected duration. Pain rs5 level reassessed. Patient is alert, oriented x 3, equal unlabored respirations, skin warm/dry/pink. provider at bedside for Peg tube placement, 20 ff peg tube inserted by provider at bedside, pt tolerated procedure well. 12:27 Reassessment: Patient and/or family updated on plan of care and expected duration. Pain rs5 level reassessed. Patient is alert, oriented x 3, equal unlabored respirations, skin warm/dry/pink. Vital Signs: 10:47 BP 114 / 70; Pulse 61; Resp 17; Pulse Ox 98% on R/A; MAP 84 mmHg; Weight 72.57 kg; tm6 Height 5 ft. 9 in. ; Pain 10/10; 12:19 BP 146 / 82; Pulse 61; Resp 14; Temp 98.1; Pulse Ox 97% ; me1 10:47 Body Mass Index 23.63 (72.57 kg, 175.26 cm) tm6 10:47 Pain Scale: Adult tm6 ED Course: 10:44 Patient arrived in ED. mg5 10:46 Donta Cunningham MD is Attending Physician. [facility] 10:50 Triage completed. tm6 10:50 Arm band placed on right wrist. tm6 10:55 Patient has correct armband on for positive identification. Placed in gown. Bed in low rs5 position. Call light in reach. Side rails up X2. 10:55 No provider procedures requiring assistance completed. rs5 11:03 Matthieu Wilder, RN is Primary Nurse. rs5 11:52 Sonia Alonzo MD is Referral Physician. [facility] 12:08 Abdomen 1 View (KUB) XRAY: peg with 30 cc gastrograffin In Process Unspecified. EDMS 12:28 Provided Education on: Peg tube care. Client placed on continuous cardiac and pulse me1 oximetry monitoring. NIBP monitoring applied. Pulse ox on. NIBP on. 12:28 Patient did not have IV access during this emergency room visit. me1 Administered Medications: No medications were administered Medication: 11:36 VIS not applicable for this client. rs5 Outcome: 11:52 Discharge ordered by . [facility] 12:28 Discharged to home ambulatory, with family, me1 12:28 Condition: stable 12:28 Instructed on discharge instructions, follow up and referral plans. 12:32 Patient left the ED. me1 Signatures: Dispatcher [employer] EDMS Donta Cunningham MD MD cha Sotelo, Ricky, RN RN rs5 Shilpa Brock RN RN me1 Jenifer Glasgow mg5 Bear Manning RN RN tm6 Corrections: (The following items were deleted from the chart) 11:28 11:20 Reassessment: provider at bedside for Peg tube placement, pt tolerated procedure rs5 well. rs5 12:19 10:48 Chief complaint: Patient states: woke up this morning to find feeding tube pulled me1 out. Pain 01/09 where feeding tube was tm6 19:09 12:33 Reassessment: Patient and/or family updated on plan of care and expected rs5 duration. Pain level reassessed. Patient is alert, oriented x 3, equal unlabored respirations, skin warm/dry/pink. rs5
--- NOTE | 2024-01-02 12:23 | RAD REPORT ---
EXAM: AP view(s) of the abdomen Abdomen 1 View (KUB) HISTORY: ABD PAIN COMPARISON: None FINDINGS: Diffusely distended small bowel and colon. At least moderate stool burden noted. No suspici ous calcifications are seen. No acute osseous abnormality. Contrast was administered into the stomach via the PEG tube on the second image. IMPRESSION: Injection of contrast via the patient's gastrostomy tube confirms intraluminal positionin g of the tube within the stomach.
[2024-01-02 23:47] VITALS: BP 146/82; TEMP 98.1; O2SAT 97
== END 2024-01-02 12:32 | disposition home or self-care (01) ==
LOC: ER 10:42
DX: K94.29 Other complications of gastrostomy (principal); E11.9 Type 2 diabetes mellitus without complications; I10 Essential (primary) hypertension; Z85.819 Personal history of malignant neoplasm of unspecified site of lip, oral cavity, and pharynx; Z43.1 Encounter for attention to gastrostomy
CPT/HCPCS: 74018; 99283

== ENCOUNTER 2024-01-03 21:56 | Emergency (ER) | payer OTHER ==
[2024-01-03] MEDS ORDERED: MORPHINE 4 MG/ML SYR ONE (22:01)
--- NOTE | 2024-01-04 00:29 | ER ---
Nurse's Notes [facility] Name: Andrew Wall Age: 63 yrs Sex: Male : 1960 Arrival Date: 01/03/2024 Time: 21:56 Bed 6 Private MD: Diagnosis: Encounter for attention to gastrostomy Presentation: 01/02 21:57 Chief complaint: EMS states: PEG TUBE CAME OUT. WAS SEEN IN ER YESTERDAY FOR SAME jj7 COMPLAINT. HAD TUBE REPLACED. NOW HAVING PAIN. Coronavirus screen: At this time, the client does not indicate any symptoms associated with coronavirus-19. Ebola Screen: No symptoms or risks identified at this time. Initial Sepsis Screen: Does the patient meet any 2 criteria? No. Patient's initial sepsis screen is negative. Does the patient have a suspected source of infection? No. Patient's initial sepsis screen is negative. Risk Assessment: Do you want to hurt yourself or someone else? Patient reports no desire to harm self or others. Onset of symptoms was January 03, 2024. 21:57 Method Of Arrival: EMS: [facility] jj7 21:57 Acuity: ROSALIE 3 jj7 Triage Assessment: 21:57 General: Appears in no apparent distress. uncomfortable, Behavior is calm, cooperative, jj7 appropriate for age. Pain: Complains of pain in left upper quadrant. GI: PEG tube in place, Site reddened. TUBE STILL IN PLACE BUT PT C/O PAIN Reports upper abdominal pain, PEG TUBE PAIN. Historical: - Allergies: 22:25 No Known Allergies; jj7 - PMHx: 22:25 Diabetes - NIDDM; Hypertensive disorder; mouth and throat cancer (Seizures); Seizures; jj7 - PSHx: 22:25 left toe amputation (es); jj7 21:57 PARTIAL TONUE AMPUTATION; jj7 - Immunization history:: Adult Immunizations up to date, Client reports receiving the 2nd dose of the Covid vaccine, Flu vaccine is up to date. - Infectious Disease History:: Denies. - Social history:: Smoking status: Patient reports use of chewing tobacco. Patient/guardian denies using alcohol, street drugs, IV drugs. Screenin:57 [facility] ED Fall Risk Assessment (Adult) History of falling in the last 3 months, jj7 including since admission No falls in past 3 months (0 pts) Confusion or Disorientation No (0 pts) Intoxicated or Sedated No (0 pts) Impaired Gait No (0 pts) Mobility Assist Device Used No (0 pt) Altered Elimination No (0 pt) Score/Fall Risk Level 0 - 2 = Low Risk Oriented to surroundings, Maintained a safe environment, Educated pt \T\ family on fall prevention, incl call for assistance when getting out of bed, Assessed \T\ reinforced patient's understanding of fall precautions. Abuse screen: Denies threats or abuse. Tuberculosis screening: No symptoms or risk factors identified. 01/03 03:24 Nutritional screening: No deficits noted. j7 Assessment: 01/02 21:57 Reassessment: SEE TRIAGE ASSESSMENT. j7 01/03 01:44 Reassessment: STORMY PT'S GRANDSON CALLED AND INFORMED PT HAS BEEN DISCHARGED. STORMY [facility] STATES HIS RIDE WILL BE HERE SHORTLY. 03:08 Reassessment: ATTEMPTED TO CALL FAMILY AGAIN FOR PT. NO ANSWER. [facility] 03:15 Reassessment: SPOKE WITH STORMY PT'S GRANDSON AGAIN AND STATES HIS RIDE WILL BE HERE IN [facility] 7 MINUTES. Vital Signs: 01/02 21:59 BP 103 / 64 Supine; Pulse 66; Resp 18 S; Temp 97.7; Pulse Ox 95% on R/A; Weight 85.73 sa1 kg; Height 5 ft. 9 in. ; 23:53 BP 121 / 69; Pulse 64; Resp 18 S; Pulse Ox 99% on R/A; br2 01/03 01:00 BP 124 / 68; Pulse 60; Resp 17; Pulse Ox 99% ; jj7 02:00 BP 118 / 73; Pulse 60; Resp 16; Temp 98.1; Pulse Ox 98% ; jj7 01/02 21:59 Body Mass Index 27.91 (85.73 kg, 175.26 cm) sa1 ED Course: 01/02 21:57 Patient arrived in ED. sb4 21:57 Arm band placed on right wrist. Patient placed in an exam room, on a stretcher. jj7 21:57 Patient has correct armband on for positive identification. Placed in gown. Bed in low jj7 position. Call light in reach. Side rails up X 1. Adult w/ patient. Provided Education on: USE OF CALL ZAIDI. Warm blanket given. 21:58 Aide Thompson PA-C is PHCP. sb4 21:58 Adam Oneill MD is Attending Physician. sb4 22:09 Nupur Gilbert, RN is Primary Nurse. jj7 22:20 Triage completed. jj7 22:46 PEG Tube Check w/contrast In Process Unspecified. EDMS 01/03 00:29 Sonia Alonzo MD is Referral Physician. sb4 01:30 Dressings: non-adherent dressing 4X4s X 2; left upper quadrant. jj7 03:24 No provider procedures requiring assistance completed. Patient did not have IV access jj7 during this emergency room visit. Administered Medications: 01/02 22:09 Drug: morphine IM 4 mg IM once Route: IM; Site: right deltoid; jj7 22:30 Follow up: Response: Marked relief of symptoms; Pain is decreased jj7 Medication: 21:57 VIS not applicable for this client. jj7 Outcome: 01/03 00:29 Discharge ordered by . sb4 02:00 Discharged to home ambulatory, via wheelchair, with family, jj7 02:00 Condition: improved 02:00 Discharge instructions given to patient, Instructed on discharge instructions, follow up and referral plans. Demonstrated understanding of instructions, follow-up care, 03:48 Patient left the ED. br2 Signatures: Dispatcher [employer] EDIL Nupur Gilbert, RN RN jj7 Aide Thompson PA-C PA-C sb4 Sultan Priyanka [facility] Sayra Driver RN RN br2
--- NOTE | 2024-01-04 00:30 | EDPHYS ---
Physician Documentation [facility] Name: Andrew Wall Age: 63 yrs Sex: Male : 1960 Arrival Date: 01/03/2024 Time: 21:56 Bed 6 Private MD: ED Physician Adam Oneill HPI: 01/02 22:35 This 63 yrs old Male presents to ER via EMS with complaints of Problem With Feeding sb4 Tube. 22:37 Patient with history of mouth and throat cancer with PEG tube presents with concerns of sb4 PEG tube falling out. He was seen here yesterday with similar complaints and had his PEG tube replaced by Dr. Cunningham. He has had a lot of pain in the area since then. Historical: - Allergies: 22:25 No Known Allergies; jj7 - PMHx: 22:25 Diabetes - NIDDM; Hypertensive disorder; mouth and throat cancer (Seizures); Seizures; jj7 - PSHx: 22:25 left toe amputation (es); jj7 21:57 PARTIAL TONUE AMPUTATION; jj7 - Immunization history:: Adult Immunizations up to date, Client reports receiving the 2nd dose of the Covid vaccine, Flu vaccine is up to date. - Infectious Disease History:: Denies. - Social history:: Smoking status: Patient reports use of chewing tobacco. Patient/guardian denies using alcohol, street drugs, IV drugs. ROS: 22:37 Constitutional: Negative for fever, chills, and weight loss, sb4 22:37 Abdomen/GI: Positive for Per HPI, 22:37 Skin: Positive for 22:37 All other systems are negative, Exam: 22:37 Constitutional: This is a well developed, well nourished patient who is awake, alert, sb4 and in no acute distress. 22:37 Abdomen/GI: Inspection: abdomen appears normal, Bowel sounds: normal, Palpation: abdomen is soft and non-tender, PEG tube is secured, Vital Signs: 21:59 BP 103 / 64 Supine; Pulse 66; Resp 18 S; Temp 97.7; Pulse Ox 95% on R/A; Weight 85.73 sa1 kg; Height 5 ft. 9 in. ; 23:53 BP 121 / 69; Pulse 64; Resp 18 S; Pulse Ox 99% on R/A; br2 01/03 01:00 BP 124 / 68; Pulse 60; Resp 17; Pulse Ox 99% ; jj7 02:00 BP 118 / 73; Pulse 60; Resp 16; Temp 98.1; Pulse Ox 98% ; jj7 01/02 21:59 Body Mass Index 27.91 (85.73 kg, 175.26 cm) sa1 MDM: 01/02 21:58 Patient medically screened. sb4 01/03 00:29 Data reviewed: vital signs, nurses notes, EMS record, radiologic studies, and as a sb4 result, I will discharge patient. 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 01/02 21:59 Order name: PEG Tube Check w/contrast sb4 Administered Medications: 01/02 22:09 Drug: morphine IM 4 mg IM once Route: IM; Site: right deltoid; jj7 22:30 Follow up: Response: Marked relief of symptoms; Pain is decreased jj7 Disposition: 01/03 20:59 Co-signature as Attending Physician, Adam Oneill MD I agree with the assessment sp4 and plan of care. I reviewed the patient's care provided by the Advanced Practice Provider and agree with the diagnosis and treatment plan. Disposition Summary: 01/04/24 00:29 Discharge Ordered Notes: Location: Home sb4 Problem: new sb4 Symptoms: have improved sb4 Condition: Stable sb4 Diagnosis - Encounter for attention to gastrostomy sb4 Followup: sb4 - With: Sonia Alonzo MD - When: As needed - Reason: Recheck today's complaints, Re-evaluation by your physician Discharge Instructions: - Discharge Summary Sheet sb4 - PEG Tube Home Guide, Adfu-wh-Jugn sb4 Forms: - Patient Portal Instructions sb4 - Leadership Thank You Letter sb4 Signatures: Dispatcher RoshanNupur De Jesus RN RN jAide Squires PA-C PA-C sb4 Adam Oneill MD MD sp4
--- NOTE | 2024-01-04 06:18 | RAD REPORT ---
Clinical Indication: Bed Name: 6. Comparison: None. FINDINGS: Supine radiograph of the abdomen, 1 view, was obtained. No gas dilated loops of bowel are noted. Ther e is no pneumatosis or mass effect. There are no radiopaque densities noted. The bony structures are unremarkable. A large amount of stool is noted throughout the colon. A gastrostomy catheter is noted overlying the epigastric region. Contrast was injected through the ga strostomy catheter. Contrast is noted to pool in the fundus of the stomach. No definite extravasation of contrast is noted. IMPRESSION: 1. Large amount of stool is consistent with constipation. 2. Gastrostomy catheter appears in place. No definite extravasation of contrast is noted. Electronically signed by: Dusty Pham MD 01/04/2024 12:24 AM CDT RP Due to temporary technical issues with the PACS/[employer] reporting system, reports are being elodia d by the in-house radiologist without review as a courtesy to ensure prompt reporting the interpreting radiologist is fully responsible for the content of the report. Transcribed Date/Time: 01/04/2024 6:18 AM
[2024-01-04 12:13] VITALS: BP 118/73; TEMP 98.1; O2SAT 98
== END 2024-01-04 03:48 | disposition home or self-care (01) ==
LOC: ER 21:56
DX: Z43.1 Encounter for attention to gastrostomy (principal)
CPT/HCPCS: 49465; 96372; 99284

== ENCOUNTER 2024-02-13 05:13 | Inpatient (IN) | payer OTHER ==
[2024-02-13] MEDS ORDERED: NA CHLORIDE 0.9% 1,000 ML ONE ×2 (05:28→13:28)
[2024-02-13] MEDS ORDERED: ONDANSETRON 4 MG/2 ML VIAL ONE (05:28)
[2024-02-13] MEDS ORDERED: MORPHINE 4 MG/ML SYR ONE ×2 (05:28→13:28)
[2024-02-13] MEDS ORDERED: FAMOTIDINE 20 MG/2 ML VIAL IV ONE (05:29)
[2024-02-13 05:47] LABS: Absolute Basophils 0.1 K/uL (0-0.5); Absolute Eosinophils 0.3 K/uL (0-0.5); Absolute Lymphocytes (CBC) 0.9 K/uL (0.7-4.9); Absolute Monocytes 0.7 K/uL (0.1-1.3); Absolute Neutrophil 5.2 K/uL (1.8-8.0); Eosinophils % 4.1 % (0-4.4); Hematocrit 40.5 % (39.6-49.0); Hemoglobin 13.3 g/dL (13.6-17.9); Lymphocytes % 12.4 % (15.3-44.8); MCH 29.2 pg (27.0-35.0); MCHC 32.8 g/dL (32.0-36.0); MCV 89.2 fL (80-100); MPV 6.8 fL (7.6-11.3); Monocytes % 9.5 % (3.3-12.3); PT Prothrombin Time 12.3 SECONDS (9.4-12.5); Platelets 380 thou/uL (152-406); Protime INR 1.1; RBC Red Blood Cell Count 4.54 M/uL (4.33-5.43); Red Cell Distribution Width 14.6 % (12.1-15.2)
[2024-02-13 06:06] LABS: SARS-CoV-2 Antigen CONTROL BLUE LINE VIS/BG OK; SARS-CoV-2 Antigen Rapid Res Negative (Negative)
[2024-02-13 06:10] LABS: Albumin/Globulin Ratio 0.7 (1.1-1.8); Bilirubin Direct 0.2 mg/dL (0-0.2); Bilirubin Indirect, Calculated 0.2 mg/dL (0.2-0.8); Bilirubin Total 0.4 mg/dL (0.2-1.0); Globulin 4.6 g/dL (2.3-3.5); Protein, Total 7.6 g/dL (6.4-8.2); Troponin High Sensitivity 5.7 pg/mL (<58.9)
--- NOTE | 2024-02-13 07:03 | RAD REPORT ---
PROCEDURE: R CHEST 1 VIEW HISTORY: HEST PAIN COMPARISON: 12/10/2023 FINDINGS: A right-sided Mediport is present. The heart appears unremarkable. The lungs are clear there is no alveolar consolidation, effusion or p neumothorax. There are no acute bony or soft tissue abnormalities. IMPRESSION: No acute cardiopulmonary process. Electronically signed by: Pepe Israel MD 02/13/2024 06:54 AM [facility] Due to temporary technical issues with the [email or web address] reporting system, reports are being elodia d by the in-house radiologist without review as a courtesy to ensure prompt reporting the interpreting radiologist is fully responsible for the content of the report. Transcribed Date/Time: 02/13/2024 7:03 AM
--- NOTE | 2024-02-13 07:38 | RAD REPORT ---
EXAM: Soft Tissue Neck W/Contr INDICATION: Neck pain TECHNIQUE: Helical CT examination of the neck [id number] cc [id number] IV contrast. Sagittal and coronal reformations were generated. This exam was performed according to our departmental dose-optimization program, which includes automated exposure control, adjustment of the mA and/or kV according to patient size and/or use of iterative reconstruction technique. COMPARISON: None. FINDINGS: 4.8 cm lobulated mass present within the left tongue which crosses midline.. 4.6 cm necrotic lymph node posterior to the angle left mandible. 2.7 x 2 cm lymph node deep to the sternocleidomastoid muscle lower left neck. Fluid within the maxillary sinuses may indicate sinusitis Left internal jugular vein poorly visualized presumably secondary to chronic thrombus. 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 Metastatic left neck lymphadenopathy 1.5 cm left upper lobe opacity may represent a metastasis or primary lung neoplasm.
--- NOTE | 2024-02-13 08:28 | ER ---
Nurse's Notes [facility] Name: Andrew Wall Age: 64 yrs Sex: Male : 1960 Arrival Date: 02/13/2024 Time: 05:13 Bed 2 Private MD: Diagnosis: Hypo-osmolality and hyponatremia;Atypical chest pain, Hyponatremia, History of Tongue mass with metastatic spread and cervical necrotic lymphadenopathy Presentation: 02/12 05:17 Chief complaint: EMS states: toned out for chest pain for 2 days, we gave 4l NC, 1 duo bm8 neb, aspirin 325mg, 0.4 SL nitro. pt also 25 mcg patch of fentanyl on left deltoid. Coronavirus screen: At this time, the client does not indicate any symptoms associated with coronavirus-19. Ebola Screen: Patient negative for fever greater than or equal to 101.5 degrees Fahrenheit, and additional compatible Ebola Virus Disease symptoms Patient denies exposure to infectious person. Patient denies travel to an Ebola-affected area in the 21 days before illness onset. No symptoms or risks identified at this time. Initial Sepsis Screen: Does the patient meet any 2 criteria? No. Patient's initial sepsis screen is negative. Does the patient have a suspected source of infection? No. Patient's initial sepsis screen is negative. Risk Assessment: Do you want to hurt yourself or someone else? Patient reports no desire to harm self or others. Onset of symptoms was February 11, 2024. Care prior to arrival: Medication(s) given: Albuterol Neb ASA, 325 mg, x 1, Atrovent Neb 0.4 mg Nitro SL IV initiated. 20 GA, in the right antecubital area, Oxygen administered. via nasal cannula. 05:17 Method Of Arrival: EMS: [facility] bm8 05:17 Acuity: ROSALIE 2 bm8 Triage Assessment: 05:20 General: Appears in no apparent distress. uncomfortable, Behavior is cooperative, bm8 appropriate for age. Pain: Complains of pain in chest Pain currently is 7 out of 10 on a pain scale. Pain began 2-3 days ago. EENT: No deficits noted. No signs and/or symptoms were reported regarding the EENT system. Neuro: No deficits noted. Level of Consciousness is awake, alert, obeys commands, Oriented to person, place, time, situation, Appropriate for age. Cardiovascular: Reports chest pain, shortness of breath, Heart tones S1 S2 present Capillary refill < 3 seconds in bilateral fingers Patient's skin is warm and dry. Rhythm is. Respiratory: Reports shortness of breath Airway is patent Respiratory effort is even, unlabored, Respiratory pattern is regular, symmetrical, Breath sounds are diminished bilaterally. Pleural rub noted bilaterally. the patient has mild shortness of breath. GI: No signs and/or symptoms were reported involving the gastrointestinal system. pt has G tube placed. : No signs and/or symptoms were reported regarding the genitourinary system. Derm: No signs and/or symptoms reported regarding the dermatologic system. Musculoskeletal: No signs and/or symptoms reported regarding the musculoskeletal system. Historical: - Allergies: 05:20 No Known Allergies; bm8 - Home Meds: 05:20 Unable to obtain [Active]; bm8 - PMHx: 05:20 throat cancer; bm8 - PSHx: 05:20 g tube placement; bm8 - Immunization history:: Adult Immunizations up to date. - Infectious Disease History:: Denies. - Social history:: Smoking status: unknown. - Family history:: not pertinent. Screenin:[facility] ED Fall Risk Assessment (Adult) History of falling in the last 3 months, bm8 including since admission Yes- fall prone (multiple falls) (3 pts) Confusion or Disorientation Yes (5 pts) Intoxicated or Sedated No (0 pts) Impaired Gait Yes (1 pt) Mobility Assist Device Used Yes (1 pt) Altered Elimination Yes (1 pt) Score/Fall Risk Level 3 or more points = High Risk Oriented to surroundings, Maintained a safe environment, Educated pt \T\ family on fall prevention, incl call for assistance when getting out of bed, Assessed \T\ reinforced patient's understanding of fall precautions, Hourly rounding (assess needs \T\ fall precautionary measures) done, Used ambulatory aids as needed (educated on \T\ assisted with), Used gait belt as appropriate Implemented a Fall Risk Plan of Care. Abuse screen: Denies threats or abuse. Nutritional screening: No deficits noted. Tuberculosis screening: No symptoms or risk factors identified. Assessment: 06:34 Reassessment: Patient appears in no apparent distress at this time. Patient and/or bm8 family updated on plan of care and expected duration. Pain level reassessed. Patient is alert, oriented x 3, equal unlabored respirations, skin warm/dry/pink. 06:34 Pain: Complains of pain in chest Pain does not radiate. Pain currently is 4 out of 10 bm8 on a pain scale. 07:00 Reassessment: Report received from lieutenant shift supervisor RN. ll1 07:34 Reassessment: Patient appears in no apparent distress at this time. Patient and/or ph family updated on plan of care and expected duration. Pain level reassessed. Patient is alert, oriented x 3, equal unlabored respirations, skin warm/dry/pink. Vital Signs: 05:17 BP 130 / 78; Pulse 63; Resp 20; Temp 98; Pulse Ox 93% on R/A; Weight 80.29 kg; Pain bm8 7/10; 06:34 BP 164 / 73; Pulse 57; Resp 18; Temp 98; Pulse Ox 100% on 4 lpm NC; Pain 4/10; bm8 07:33 BP 181 / 85; Pulse 62; Resp 18; Pulse Ox 100% ; ph 08:01 BP 179 / 82; Pulse 58; Pulse Ox 100% on 4 lpm NC; ll1 05:17 Pain Scale: Adult bm8 06:34 Pain Scale: Adult bm8 [place] Coma Score: 06:34 Eye Response: spontaneous(4). Motor Response: obeys commands(6). Verbal Response: bm8 oriented(5). Total: 15. 08:20 Eye Response: spontaneous(4). Motor Response: obeys commands(6). Verbal Response: sp4 oriented(5). Total: 15. ED Course: 05:16 Patient arrived in ED. bm8 05:20 Triage completed. bm8 05:20 Arm band placed on right wrist. bm8 05:21 Adam Oneill MD is Attending Physician. sp4 05:40 SARS RAPID Sent. vk 05:40 Influenza Screen (a \T\ B) Sent. vk 05:40 EKG done, by ED staff. vk 05:40 COVID swab sent to lab. Flu and/or RSV swab sent to lab. vk 05:40 Inserted saline lock: 20 gauge in right antecubital area, using aseptic technique. bm8 Blood collected. Flushed with 10 mL NS. Oxygen administration via nasal cannula \T\ 4L/min Response to oxygen therapy:. 05:59 XRAY Chest (1 view) In Process Unspecified. EDMS 06:34 Ron Dickinson, RN is Primary Nurse. bm8 06:37 Patient has correct armband on for positive identification. Placed in gown. Bed in low bm8 position. Call light in reach. Side rails up X2. Client placed on continuous cardiac and pulse oximetry monitoring. NIBP monitoring applied. panel monitor on. Pulse ox on. NIBP on. Door closed. Noise minimized. Warm blanket given. Pillow given. Verbal reassurance given. Head of bed lowered. 06:37 No provider procedures requiring assistance completed. bm8 07:00 CT Soft Tissue Neck W/contr In Process Unspecified. EDMS 08:06 urinal given ll1 08:27 Cecil Alves is Hospitalizing Provider. sp4 Administered Medications: 05:37 Drug: NS 0.9% IV 1000 ml IV at 125 ml/hr continuous Route: IV; Rate: 125 ml/hr; Site: bm8 right antecubital; 08:46 Follow up: Response: No adverse reaction; IV Status: Completed infusion; IV Intake: ll1 300ml 05:38 Drug: morphine IVP or IV 4 mg IVP once over 4 mins Route: IVP; Infused Over: 4 mins; bm8 Site: right antecubital; 06:39 Follow up: Response: No adverse reaction bm8 05:38 Drug: Ondansetron IVP 4 mg IVP once; over 2 minutes Route: IVP; Site: right antecubital;bm8 06:39 Follow up: Response: No adverse reaction bm8 05:38 Drug: Famotidine IVP 20 mg IVP once; dilute with 10 mL 0.9% NaCl; give over 2 minutes bm8 Route: IVP; Site: right antecubital; 06:38 Follow up: Response: No adverse reaction bm8 08:45 Drug: NS 0.9% IV 500 ml IV at bolus once; to be given as a bolus over 30 minutes Route: ll1 IV; Rate: bolus; Site: right antecubital; 13:37 Drug: morphine IVP or IV 4 mg IVP once over 4 mins Route: IVP; Infused Over: 4 mins; ph Site: right antecubital; Intake: 08:46 IV: 300ml; Total: 300ml. ll1 Outcome: 08:28 Decision to Hospitalize by Provider. sp4 16:30 Patient left the ED. ph Signatures: Dispatcher [employer] EDJannette Adams RN RN Maine Stubbs RN RN ll1 Adam Oneill MD MD sp4 Gloria Edgar Brad RN RN bm8 Corrections: (The following items were deleted from the chart) 06:37 06:34 Reassessment: Patient appears in no apparent distress at this time. No changes bm8 from previously documented assessment. Patient and/or family updated on plan of care and expected duration. Pain level reassessed. Patient is alert, oriented x 3, equal unlabored respirations, skin warm/dry/pink. bm8
--- NOTE | 2024-02-13 08:29 | EDPHYS ---
Physician Documentation [facility] Name: Andrew Wall Age: 64 yrs Sex: Male : 1960 Arrival Date: 02/13/2024 Time: 05:13 Bed 2 Private MD: ED Physician Adam Oneill HPI: 02/12 05:21 This 64 yrs old Male presents to ER via EMS with complaints of Chest Pain. 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 Historical: - Allergies: 05:20 No Known Allergies; bm8 - Home Meds: 05:20 Unable to obtain [Active]; bm8 - PMHx: 05:20 throat cancer; bm8 - PSHx: 05:20 g tube placement; bm8 - Immunization history:: Adult Immunizations up to date. - Infectious Disease History:: Denies. - Social history:: Smoking status: unknown. - Family history:: not pertinent. ROS: 08:20 Constitutional: Negative for fever, chills, and weight loss, Positive chest pain sp4 08:20 All other systems are negative, Exam: 08:20 Constitutional: This is a well developed, well nourished patient who is awake, alert, sp4 physically debilitated male with left-sided neck mass Head/Face: Normocephalic, atraumatic. Eyes: Pupils equal round and reactive to light, extra-ocular motions intact. Lids and lashes normal. Conjunctiva and sclera are not injected. Cornea within normal limits. Periorbital areas with no swelling, redness, or edema. ENT: Nares patent. No nasal discharge, no septal abnormalities noted. Tympanic membranes are normal and external auditory canals are clear. Positive for franchesca enlargment consistent with history of head and neck cancer Neck: Trachea midline, no thyromegaly , positive scarring from prior surgery positive left-sided neck mass Chest/axilla: Normal chest wall appearance and motion. Nontender with no deformity. No lesions are appreciated. Cardiovascular: Regular rate and rhythm with a normal S1 and S2. No gallops, murmurs, or rubs. Normal PMI, no JVD. No pulse deficits. Respiratory: Lungs have equal breath sounds bilaterally, clear to auscultation and percussion. No rales, rhonchi or wheezes noted. No increased work of breathing, no retractions or nasal flaring. Abdomen/GI: Soft, with normal bowel sounds. No distension or tympany. No guarding or rebound. No evidence of tenderness throughout. Back: No spinal tenderness. No costovertebral tenderness. Skin: Warm, dry with normal turgor. Normal color with no rashes, no lesions, and no evidence of cellulitis. MS/ Extremity: Pulses equal, no cyanosis. Neurovascular intact. Full, normal range of motion. Neuro: Awake and alert, GCS 15, oriented to person, place, time, and situation. Cranial nerves II-XII grossly intact. Motor strength 5/5 in all extremities. Sensory grossly intact. 08:20 ECG was reviewed by the Attending Physician. EKG at 0 514 normal sinus rhythm rate 64 otherwise normal EKG. Vital Signs: 05:17 BP 130 / 78; Pulse 63; Resp 20; Temp 98; Pulse Ox 93% on R/A; Weight 80.29 kg; Pain bm8 7/10; 06:34 BP 164 / 73; Pulse 57; Resp 18; Temp 98; Pulse Ox 100% on 4 lpm NC; Pain 4/10; bm8 07:33 BP 181 / 85; Pulse 62; Resp 18; Pulse Ox 100% ; ph 08:01 BP 179 / 82; Pulse 58; Pulse Ox 100% on 4 lpm NC; ll1 05:17 Pain Scale: Adult bm8 06:34 Pain Scale: Adult bm8 [place] Coma Score: 06:34 Eye Response: spontaneous(4). Motor Response: obeys commands(6). Verbal Response: bm8 oriented(5). Total: 15. 08:20 Eye Response: spontaneous(4). Motor Response: obeys commands(6). Verbal Response: sp4 oriented(5). Total: 15. MDM: 05:14 Differential diagnosis: acute pericarditis, anxiety, coronary artery disease chest wall sp4 pain, congestive heart failure esophagitis, gastritis. HEART Score: History: Slightly Suspicious (0), ECG: Normal (0), Age: > or = 65 years (2), Risk Factors: 1 or 2 risk factors (1), Troponin: < or = 1 x Normal Limit (0), Total Score = 3. The patient was not given aspirin in the Emergency Department. Administered by EMS. Data reviewed: vital signs, nurses notes, EMS record, lab test result(s), EKG, radiologic studies, doppler, plain films. ED course: Patient was discussed with his oncologist and will be admitted for hyponatremia and chest pain rule out ACS.. 05:23 Medical Screening Exam initiated sp4 08:12 ED course: EXAM: Soft Tissue Neck W/Contr INDICATION: Neck pain TECHNIQUE: Helical CT sp4 examination of the neck [id number] cc Isovue-300 IV contrast. Sagittal and coronal reformations were generated. This exam was performed according to our departmental dose-optimization program, which includes automated exposure control, adjustment of the mA and/or kV according to patient size and/or use of iterative reconstruction technique. COMPARISON: None. FINDINGS: 4.8 cm lobulated mass present within the left tongue which crosses midline.. 4.6 cm necrotic lymph node posterior to the angle left mandible. 2.7 x 2 cm lymph node deep to the sternocleidomastoid muscle lower left neck. Fluid within the maxillary sinuses may indicate sinusitis Left internal jugular vein poorly visualized presumably secondary to chronic thrombus. 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 Metastatic left neck lymphadenopathy 1.5 cm left upper lobe opacity may represent a metastasis or primary lung neoplasm. . 08:20 ED course: PROCEDURE:XR CHEST 1 VIEW HISTORY:CHEST PAIN COMPARISON: 12/10/2023 FINDINGS: sp4 A right-sided Mediport is present. The heart appears unremarkable. The lungs are clear there is no alveolar consolidation, effusion or pneumothorax. There are no acute bony or soft tissue abnormalities. IMPRESSION: No acute cardiopulmonary process. Electronically signed by: Pepe Israel MD 02/13/2024 06:54 AM. 08:28 Consideration of Admission/Observation Patient was admitted/placed on observation. sp4 Escalation of care including admission/observation considered. Management of patient was discussed with the following: Hospitalist: Long QUEZADA . Circus Train Supervisor: Abiel QUEZADA Oncology . 02/12 05:23 Order name: Basic Metabolic Panel; Complete Time: 08:06 sp4 02/12 05:23 Order name: CBC with Diff; Complete Time: 08:06 4 02/12 05:23 Order name: LFT's; Complete Time: 08:06 4 02/12 05:23 Order name: Magnesium; Complete Time: 08:06 4 02/12 05:23 Order name: NT PRO-BNP; Complete Time: 08:06 4 02/12 05:23 Order name: PT-INR; Complete Time: 08:06 4 02/12 05:23 Order name: Troponin HS; Complete Time: 08:06 4 02/12 05:23 Order name: Lipase; Complete Time: 08:06 4 02/12 05:27 Order name: Influenza Screen (a \T\ B); Complete Time: 08:06 02/12 05:27 Order name: SARS RAPID; Complete Time: 08:06 4 02/12 08:09 Order name: Troponin High Sensitivity 4 02/12 05:22 Order name: CT Soft Tissue Neck W/contr; Complete Time: 08:06 4 02/12 05:23 Order name: XRAY Chest (1 view); Complete Time: 08:06 02/12 05:23 Order name: Cardiac monitoring; Complete Time: 05:02/12 05:23 Order name: EKG - Nurse/Tech; Complete Time: 05:02/12 05:23 Order name: IV Saline Lock; Complete Time: 05:02/12 05:23 Order name: Labs collected and sent; Complete Time: 05:02/12 05:23 Order name: O2 Per Protocol; Complete Time: 05:02/12 05:23 Order name: O2 Sat Monitoring; Complete Time: 05: EC:14 Rate is 64 beats/min. Rhythm is regular, Normal Sinus Rhythm. QRS [place] is Normal. OR sp4 interval is normal. QRS interval is normal. QT interval is normal. No Q waves. T waves are Normal. No ST changes noted. Clinical impression: No evidence of ischemia. Interpreted by me. Reviewed by me. Administered Medications: 05:37 Drug: NS 0.9% IV 1000 ml IV at 125 ml/hr continuous Route: IV; Rate: 125 ml/hr; Site: bm8 right antecubital; 08:46 Follow up: Response: No adverse reaction; IV Status: Completed infusion; IV Intake: ll1 300ml 05:38 Drug: morphine IVP or IV 4 mg IVP once over 4 mins Route: IVP; Infused Over: 4 mins; bm8 Site: right antecubital; 06:39 Follow up: Response: No adverse reaction bm8 05:38 Drug: Ondansetron IVP 4 mg IVP once; over 2 minutes Route: IVP; Site: right antecubital;bm8 06:39 Follow up: Response: No adverse reaction bm8 05:38 Drug: Famotidine IVP 20 mg IVP once; dilute with 10 mL 0.9% NaCl; give over 2 minutes bm8 Route: IVP; Site: right antecubital; 06:38 Follow up: Response: No adverse reaction bm8 08:45 Drug: NS 0.9% IV 500 ml IV at bolus once; to be given as a bolus over 30 minutes Route: ll1 IV; Rate: bolus; Site: right antecubital; 13:37 Drug: morphine IVP or IV 4 mg IVP once over 4 mins Route: IVP; Infused Over: 4 mins; ph Site: right antecubital; Disposition Summary: 02/13/24 08:28 Hospitalization Ordered Notes: Hospitalization Status: Observation sp4 Provider: Cecil Alves [place] Condition: Fair sp4 Problem: new sp4 Symptoms: have improved sp4 Bed/Room Type: Standard sp4 Location: Telemetry/MedSurg (Inpatient)(02/13/24 15:11) sp Room Assignment: 215(02/13/24 16:19) sp Diagnosis - Hypo-osmolality and hyponatremia sp4 - Atypical chest pain, Hyponatremia, History of Tongue mass with metastatic spread sp4 and cervical necrotic lymphadenopathy Forms: - Medication Reconciliation Form sp4 - SBAR form sp4 - Leadership Thank You Letter sp4 Signatures: Dispatcher [employer] Adrianna Melo Shawna sp Nieto, Roman, MD MD rn Hall, Patricia, RN RN ph Lewis, Lynsay, RN RN ll1 Potepalov, Sergey, MD MD sp4 Ron Dickinson RN RN bm8 Corrections: (The following items were deleted from the chart) 05:23 05:23 BASIC METABOLIC PANEL+C.LAB.BRZ ordered. EDMS EDMS 05:23 05:23 CBC+H.LAB.BRZ ordered. EDMS EDMS 05:23 05:23 HEPATIC FUNCTION+C.LAB.BRZ ordered. EDMS EDMS 05:23 05:23 MAGNESIUM+C.LAB.BRZ ordered. EDMS EDMS 05:23 05:23 PROBNP+C.LAB.BRZ ordered. EDMS EDMS 05:23 05:23 PROTIME (+INR)+COAG.LAB.BRZ ordered. EDMS EDMS 05:23 05:23 Troponin High Sensitivity+C.LAB.BRZ ordered. EDMS EDMS 05:23 05:23 Chest Single View+RAD.RAD.BRZ ordered. EDMS EDMS 05:28 05:27 Influenza Screen (A \T\ B)+BA.LAB.BRZ ordered. EDMS EDMS 05:28 05:27 SARS-COV-2 Antigen Rapid+I.LAB.BRZ ordered. EDMS EDMS 08:11 08:11 Troponin High Sensitivity+C.LAB.BRZ ordered. EDMS EDMS 10:45 08:28 Telemetry/MedSurg (observation) sp4 bd 10:45 08:28 sp4 bd 15:11 10:45 [facility] ER HOLD bd sp 15:11 10:45 ERHOLD- bd sp 16:19 15:11 219 sp sp
--- NOTE | 2024-02-13 08:33 | P.HP ---
Certification for Inpatient Patient admitted to: Inpatient With expected LOS: >2 Midnights Patient will require the following post-hospital care: None Practitioner: I am a practitioner with admitting privileges, knowledge of patient current condition, hospital course, and medical plan of care. Services: Services provided to patient in accordance with Admission requirements found in Title 42 Section 412.3 of the Code of Federal Regulations Patient History Date of Service: 02/13/24 Reason for admission: Chest pain, hyponatremia, tongue cancer History of Present Illness: Andrew Wall is a 64 year old male with pmhx Dm, gastrostomy tube, tongue/neck cancer on chemo radiation, chronic left internal jugular thrombus who presents to the ED with chief complaint of chest pain and difficulty breathing. On examination, he struggled to speak, was lethargic, and experiencing pain. On CT soft tissue neck, 1.5 cm left upper lobe opacity may represent a metatasis or primary lung neoplasm. Laboratory evaluation concerning for hyponatremia with Na 126. Initial vitals BP 130 / 78; Pulse 63; Resp 20; Temp 98; Pulse Ox 93% on R/A CT Soft tissue neck reports "4.8 cm lobulated mass present within the left tongue which crosses midline..4.6 cm necrotic lymph node posterior to the angle left mandible. 2.7 x 2 cm lymph node deep to the sternocleidomastoid muscle lower left neck. Fluid within the maxillary sinuses may indicate sinusitis. Left internal jugular vein poorly visualized presumably secondary to chronic thrombus. 1.5 cm left upper lobe opacity. IMPRESSION: 4.8 cm neoplastic left tongue mass crosses midline. Metastatic left neck lymphadenopathy. 1.5 cm left upper lobe opacity may represent a metastasis or primary lung neoplasm. Chest xray reports "The heart appears unremarkable. The lungs are clear there is no alveolar consolidation, effusion or pneumothorax. There are no acute bony or soft tissue abnormalities. IMPRESSION: No acute cardiopulmonary process." Andrew will be admitted to hospitalist service for further evaluation and treatment, Dr. Tony consulted. Allergies No Known Drug Allergies Allergy (Verified 02/13/24 08:18) Unknown Home Medications: Gabapentin 12 ml FT TID 30 Days #1080 ml 09/21/23 OXcarbazepine [Trileptal] 5 ml FT BID 30 Days #300 ml 09/21/23 Hydrocodone/Acetaminophen [Hydrocodon-Acetamin 7.5-325/15] 15 ml FT Q4HR 02/13/24 - Past Medical/Surgical History Diabetic: No -: DM -: tongue/neck cancer -: gastrostomy tube - Social History Smoking Status: Unknown if ever smoked Alcohol use: No CD- Drugs: No Caffeine use: Yes Review of Systems Respiratory: Other (Difficulty breathing) Cardiovascular: Chest Pain Physical Examination - Physical Exam General: Oriented x3, Acute distress, Other (lethargic) HEENT: Atraumatic, Normocephalic, PERRLA Neck: Supple, 2+ carotid pulse no bruit Respiratory: Clear to auscultation bilaterally, Normal air movement Cardiovascular: Normal pulses, Regular rate/rhythm, Normal S1 S2 Capillary refill: <2 Seconds Gastrointestinal: Normal bowel sounds, Soft and benign Musculoskeletal: No clubbing Integumentary: No rashes Neurological: Normal speech, Normal tone - Studies Laboratory Data (last 24 hrs) 02/13/24 02/13/24 02/13/24 05:33 05:33 05:33 WBC 7.10 Hgb 13.3 L Hct 40.5 Plt Count 380 PT 12.3 INR 1.10 Sodium 126 L Potassium 5.0 BUN 22 H Creatinine 0.85 Glucose 91 Magnesium 2.0 Total Bilirubin 0.4 AST 16 ALT 23 Alkaline Phosphatase 118 H Lipase 88 H Microbiology Data (last 24 hrs): 02/13/24 05:31 Nasopharnyx Influenza Type A Antigen Screen - Final 02/13/24 05:31 Nasopharnyx Influenza Type B Antigen Screen - Final Assessment and Plan - Plan Assessment and Plan Chest pain r/o ACS 1.5 cm left upper lobe opacity -trop and EKG negative -continuous telemetry -trend troponin -may represent metastasis or primary lung neoplasm -Dr. Tony managing Hyponatremia -NA 126 -gentle IVF -monitor at 1500 History of tongue cancer 4.8 cm lobulated mass present within the left tongue which crosses midline. 4.6 cm necrotic lymph node posterior to the angle left mandible. 2.7 x 2 cm lymph node deep to the sternocleidomastoid muscle lower left neck Metastatic left neck lymphadenopathy Chronic left internal jugular thrombus - continue home medications -Dr. tony managing -Dr. Marcos consulted -NPO at midnight, Tracheotomy in the AM -pain control DVT ppx LOS 2 days Discharge Plan: Home - Advance Directives Does patient have a Living Will: No Does patient have a Durable POA for Healthcare: No
[2024-02-13] MEDS ORDERED: ACETAMINOPHEN 325 MG TABLET PO PRN (09:22)
[2024-02-13] MEDS ORDERED: ONDANSETRON 4 MG/2 ML VIAL IV PRN (09:22)
[2024-02-13] MEDS: NA CHLORIDE 0.9% 1,000 ML IV SCH (10:00)
[2024-02-13 14:01] VITALS: BMI 24.7
[2024-02-13 15:55] LABS: Anion Gap 5.7 mEq/L (5.0-15.0)
[2024-02-13 16:00] LABS: Potassium 5.7 mEq/L (3.5-5.1)
--- NOTE | 2024-02-13 18:29 | CON ---
Date of Consultation: 02/13/2024 Chief Complaint: Difficulty breathing. History Of Present Illness: The patient is well known to me. 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 A PEG tube was placed and he declined initial surgical exenteration of the tumor instead opting for chemo radiation, which he has been undergoing treatment and still has approximately 3 weeks for the treatment left. He has been tolerating the treatments well, but has noticed that the swelling in his oral cavity is worsening to the point where he is having difficulty breathing. His daughter gave the history for today as it was too painful for the patient to speak. I was consulted for secure airway if needed. Home Medications: Atorvastatin, calcium, gabapentin, oxcarbazepine, sertraline, hydromorphone. Allergies: NO KNOWN DRUG ALLERGIES. Past Medical History: Diabetes mellitus, squamous cell carcinoma involving overlapping sites of the oral cavity and extending to the neck. Past Surgical History: PEG tube. Social History: The patient lives at home. No alcohol, drugs, or caffeine. The patient has never smoked per daughter. Review of Systems: Constitutional: Positive for lethargy and headache. Ears: Severe left ear pain, most likely referred from the throat. No otorrhea or hearing loss. Nose: No nasal congestion or rhinorrhea. Oral Cavity: Positive for large mass causing swelling and inability to swallow secretions. Neck: Positive for lymph nodes. Respiratory: Positive for dyspnea. Physical Examination: Vital Signs: Stable. General: Awake and lethargic, inability to talk secondary to pain. Head: Atraumatic, normocephalic. Eyes: PERRLA/EOMI. Ears: Deferred. Nose: Midline septum. Patent nasal cavities. Oral Cavity: Large indurated tumor with significant pain to palpation involving the tongue and floor of mouth extending back to the oropharynx. Neck: Positive left-sided lymph nodes in level 1 and level 2. No thyromegaly. The patient has excellent landmarks with regard to cricoid cartilage and tracheal rings. No swelling. Imaging Data: CT of the soft tissue neck reports 4.8 cm lobulated mass present within the left tongue which crosses midline which coincides with this physical exam. He also has a 4 x 6 cm necrotic lymph node posterior to the angle of the left mandible which is also causing significant pain to the left ear, 2.7 x 2.0 cm lymph node deep to the SCM muscle, lower left neck. Maxillary sinusitis present. Left internal jugular vein with possible chronic thrombus, 1.5 cm left upper lobe lung opacity, most likely is metastasis or primary lung neoplasm. After obtaining consent, I introduced a flexible laryngoscope and advanced it into the right nasal cavity back to the posterior choanae. Nasopharynx is not obstructed. I was able to slip down to the hypopharynx and laryngeal region and appears to be a significant swelling of the left hypopharynx, which concerns me for metastasis. Vocal cords are swollen as are the arytenoid complex. He is able to adduct his vocal folds, but abduction takes great effort. Posterior glottis is more patent than the anterior glottis. Scope was withdrawn. The patient tolerated well. Diagnosis: Squamous cell carcinoma involving oral cavity, oropharynx, possible hypopharynx, left neck, and possibly left lung upper lobe. Recommendations: Due to difficulty breathing, I believe that it is safer to set him up for a planned elective tracheostomy under general sedation with the hopes of decannulating him at some point down the road, but he will need a trach eventually if he does not respond to chemo radiation, so the best time to do it is now. We will get him scheduled to our OR Service for tomorrow. N.p.o. after midnight. Thank you, Dr. Alves, for this interesting consultation. COURTNEY/TITI Voice ID: [id number] Report ID: [id number] EDUARDO
[2024-02-13] MEDS ORDERED: HYDRALAZINE HCL 20 MG/ML VIAL IV PRN (19:34)
[2024-02-13] MEDS: OXCARBAZEPINE 300 MG/5 ML FT SCH (20:56)
[2024-02-13] MEDS: HYDROCOD 2.5mg-ACETAMIN 108mg/5mL Soln FT SCH (20:56)
[2024-02-13] MEDS: MORPHINE 2 MG/ML SYR IV PRN (20:57)
[2024-02-14 06:26] LABS: Absolute Basophils 0.1 K/uL (0-0.5); Absolute Eosinophils 0.3 K/uL (0-0.5); Absolute Lymphocytes (CBC) 0.6 K/uL (0.7-4.9); Absolute Monocytes 1.2 K/uL (0.1-1.3); Absolute Neutrophil 4.6 K/uL (1.8-8.0); Basophils % 0.9 % (0-1.3); Eosinophils % 4.8 % (0-4.4); Hematocrit 37.1 % (39.6-49.0); Hemoglobin 12.4 g/dL (13.6-17.9); Lymphocytes % 8.8 % (15.3-44.8); MCH 29.5 pg (27.0-35.0); MCHC 33.6 g/dL (32.0-36.0); MPV 6.5 fL (7.6-11.3); Monocytes % 17.9 % (3.3-12.3); Neutrophils % 67.6 % (41.7-73.7); Nucleated Red Blood Cells % 0.1 % (0-0); Platelets 358 thou/uL (152-406); RBC Red Blood Cell Count 4.21 M/uL (4.33-5.43); Red Cell Distribution Width 14.7 % (12.1-15.2)
[2024-02-14 06:51] LABS: Anion Gap 7.3 mEq/L (5.0-15.0); Phosphorus 4.5 mg/dL (2.5-4.9); Potassium 4.3 mEq/L (3.5-5.1); Troponin High Sensitivity 6.8 pg/mL (<58.9)
[2024-02-14] MEDS: ALBUTEROL 2.5 MG/3 ML NEB SOL NEB ONE (08:20)
[2024-02-14] MEDS: ENOXAPARIN 40 MG/0.4 ML SQ SCH (09:00)
[2024-02-14] MEDS: LIDOCAINE HCL/EPINEPHRINE 20 ML MDV ONE (12:58)
[2024-02-14] MEDS ORDERED: propofoL 200 MG/20 ML VIAL IV ONE (13:29)
[2024-02-14] MEDS ORDERED: FENTANYL CITR 100 MCG/2 ML ONE (13:29)
[2024-02-14] MEDS ORDERED: ONDANSETRON 4 MG/2 ML VIAL ONE (13:29)
[2024-02-14] MEDS ORDERED: LIDOCAINE 1% MPF 5 ML VIAL ONE (13:29)
[2024-02-14] MEDS ORDERED: MIDAZOLAM HCL 2 MG/2 ML INJ ONE (13:30)
[2024-02-14] MEDS ORDERED: ROCURONIUM 50 MG/5 ML VIAL IV ONE ×2 (13:30→15:11)
[2024-02-14] MEDS: LIDOCAINE VISCOUS 2% 10ML ORAL SOLN MM ONE (13:35)
[2024-02-14] MEDS ORDERED: ALBUTEROL 2.5 MG/3 ML NEB SOL NEB PRN (14:25)
--- NOTE | 2024-02-14 14:48 | P.PN ---
Date of Service: 02/14/24 Subjective Awake and very aggitated NPO for tracheostomy procedure and feeling hungry c/o pain to throat, Lidocaine viscous ordered Will transfer to ICU s/p tracheostomy ROS 10 point ROS as noted above, otherwise negative Physical Exam General: Alert and Oriented x3, Acute distress HEENT: Atraumatic, Normocephalic, PERRLA Neck: Supple, 2+ carotid pulse no bruit Respiratory: Clear BBS, Normal air movement, on RA Cardiovascular: Normal pulses, Regular rate/rhythm, Normal S1 S2 Capillary refill: <2 Seconds Gastrointestinal: Normal bowel sounds, Soft and benign on palpation Musculoskeletal: No clubbing Integumentary: No rashes Neurological: Normal speech, Normal tone Vitals Reviewed Problem list Chest pain ACS ruled out 1.5 cm left upper lobe opacity Hyponatremia History of tongue cancer 4.8 cm lobulated mass present within the left tongue which crosses midline. 4.6 cm necrotic lymph node posterior to the angle left mandible. 2.7 x 2 cm lymph node deep to the sternocleidomastoid muscle lower left neck Metastatic left neck lymphadenopathy Chronic left internal jugular thrombus Assessment and Plan Chest pain ACS ruled out 1.5 cm left upper lobe opacity -trop 5.7/5.6/6.7/6.8 -EKG negative -continuous telemetry with no events OVN -Like source of chest pain is metastasis or primary lung neoplasm seen on CT -Dr. Beebe managing Hyponatremia -NA 131 -gentle IVF -monitor at 1500 History of tongue cancer 4.8 cm lobulated mass present within the left tongue which crosses midline. 4.6 cm necrotic lymph node posterior to the angle left mandible. 2.7 x 2 cm lymph node deep to the sternocleidomastoid muscle lower left neck Metastatic left neck lymphadenopathy Chronic left internal jugular thrombus - continue home medications -Dr. Beebe managing -Dr. Marcos consulted -Feeding tube restarted -Tracheostomy today, no complications -Transfer to ICU -pain control -Lidocaine viscous DVT ppx LOS 2 days Discharge Plan: Home <Lula Villagran - Last Filed: 02/14/24 14:28> Patient seen and examined. Plan of care discussed with Ms. Villagran. Plan of care discussed with Dr. Marcos. Status post tracheostomy today. Patient transferred to the ICU for close monitoring. He is currently on oxygen by trach collar and saturating at 100%. Pain management with IV morphine, [place] via PEG tube. Family report patient is also on fentanyl patch, dose unknown. Patient placed on 25 mcg fentanyl patch. Lidocaine viscus swish and spit for oral pain. Tube feeding restarted. <nellie waite - Last Filed: 02/14/24 17:31>
[2024-02-14] MEDS: CEFAZOLIN SODIUM 2 GM/VIAL ONE (15:18)
[2024-02-14] MEDS: SUGAMMADEX SODIUM 200 MG/2 ML VIAL IV ONE (16:08)
[2024-02-14] MEDS: NA CHLORIDE 0.9% 1,000 ML ONE (16:45)
[2024-02-14] MEDS ORDERED: MORPHINE 4 MG/ML SYR IV PRN (17:17)
[2024-02-14] MEDS: FENTANYL 25 MCG/PATCH TD SCH (17:41)
[2024-02-14] MEDS: HYDROMORPHONE HCL 2 MG/ML inj IV PRN (19:51)
[2024-02-15 05:54] LABS: Anion Gap 7.7 mEq/L (5.0-15.0); Magnesium 1.8 mg/dL (1.6-2.4); Phosphorus 3.4 mg/dL (2.5-4.9); Potassium 4.7 mEq/L (3.5-5.1)
[2024-02-15] MEDS: MAGNESIUM SULFATE 1 gm IVPB 1 GM/100 ML BAG IV ONE (06:28)
[2024-02-15] MEDS: OXcarbazepine 150 MG TAB FT SCH (08:39)
[2024-02-15] MEDS: GABAPENTIN 300 MG CAP FT SCH (08:39)
--- NOTE | 2024-02-15 18:29 | P.PN ---
Subjective Date of Service: 02/15/24 Chief Complaint: Chest pain, hyponatremia, tongue cancer Patient is awake and interactive. He states his pain is well-controlled now. He is tolerating oxygen by trach collar. He is also tolerating PEG tube feeding. Physical Examination - Vital Signs Temperature: 98.6 F Blood Pressure: 120/65 Pulse: 66 Respirations: 15 Pulse Ox (%): 100 Assessment And Plan - Plan Physical Exam General: Alert and Oriented x3, NAD Neck: Tracheostomy-collar, mild serosanguineous ooze from the tracheostomy stoma, no active bleeding. Respiratory: Clear BBS, Normal air movement. On oxygen by trach-collar. Cardiovascular: Normal pulses, Regular rate/rhythm, Normal S1 S2 Gastrointestinal: Normal bowel sounds, Soft and benign on palpation Musculoskeletal: No clubbing Integumentary: No rashes Neurological: Normal speech, Normal tone Vitals Reviewed Problem list Chest pain ACS ruled out 1.5 cm left upper lobe opacity Hyponatremia History of tongue cancer 4.8 cm lobulated mass present within the left tongue which crosses midline. 4.6 cm necrotic lymph node posterior to the angle left mandible. 2.7 x 2 cm lymph node deep to the sternocleidomastoid muscle lower left neck Metastatic left neck lymphadenopathy Chronic left internal jugular thrombus Assessment and Plan Chest pain ACS ruled out 1.5 cm left upper lobe opacity -trop 5.7/5.6/6.7/6.8 -EKG negative -continuous telemetry with no events OVN -Like source of chest pain is metastasis or primary lung neoplasm seen on CT -Dr. Beebe managing Hyponatremia -Stable -Continue IV NS History of tongue cancer 4.8 cm lobulated mass present within the left tongue which crosses midline. 4.6 cm necrotic lymph node posterior to the angle left mandible. 2.7 x 2 cm lymph node deep to the sternocleidomastoid muscle lower left neck Metastatic left neck lymphadenopathy Chronic left internal jugular thrombus -ENT Dr. Marcos input appreciated -Status post tracheostomy -continue home medications -Pain is being managed with IV Dilaudid, Lortab, lidocaine viscous and fentanyl patch -Titrate pain medications. -Resume home dose gabapentin. -Empiric IV Unasyn. -Feeding tube restarted -Continue monitoring in the ICU DVT ppx Discharge Plan: Home
--- NOTE | 2024-02-15 18:37 | P.PN ---
Date of Service: 02/15/24 Subjective Tracheostomy yesterday, tolerating well On 5 L trach collar He reports feeling better. no new complaints ROS 10 point ROS as noted above, otherwise negative Physical Exam General: Alert and Oriented x3, Acute distress HEENT: Atraumatic, Normocephalic, PERRLA Neck: Supple, 2+ carotid pulse no bruit, Tracheostomy Respiratory: Clear BBS, Normal air movement, on RA Cardiovascular: Normal pulses, NSR, Normal S1 S2, no murmur noted Capillary refill: <2 Seconds Gastrointestinal: Normal bowel sounds, Soft and benign on palpation, NT/ND Musculoskeletal: No clubbing Integumentary: No rashes Neurological: Normal speech, Normal tone Vitals Reviewed Problem list Chest pain ACS ruled out 1.5 cm left upper lobe opacity Hyponatremia History of tongue cancer 4.8 cm lobulated mass present within the left tongue which crosses midline. 4.6 cm necrotic lymph node posterior to the angle left mandible. 2.7 x 2 cm lymph node deep to the sternocleidomastoid muscle lower left neck Metastatic left neck lymphadenopathy Chronic left internal jugular thrombus S/P Tracheostomy Assessment and Plan Chest pain ACS ruled out 1.5 cm left upper lobe opacity -trop 5.7/5.6/6.7/6.8 -EKG negative -continuous telemetry with no events OVN -Likely source of chest pain is metastasis or primary lung neoplasm seen on CT -Dr. Beebe managing Hyponatremia -NA 131 -gentle IVF -monitor at 1500 History of tongue cancer 4.8 cm lobulated mass present within the left tongue which crosses midline. 4.6 cm necrotic lymph node posterior to the angle left mandible. 2.7 x 2 cm lymph node deep to the sternocleidomastoid muscle lower left neck Metastatic left neck lymphadenopathy Chronic left internal jugular thrombus S/P tracheostomy -continue home medications -Dr. Beebe managing -Dr. Marcos consulted -Feeding tube restarted -Tracheostomy, on 5 L trach collar -Transfer to ICU -pain control -Lidocaine viscous DVT ppx lovenox LOS 2 days Discharge Plan: Home
[2024-02-15] MEDS: AMPICILLIN/SULBACT 1.5 GM in NA CHLORIDE 0.9% 100 ML IVPB SCH (18:57)
[2024-02-15] MEDS: IBUPROFEN 400 MG TAB PO PRN (19:47)
[2024-02-16 05:54] LABS: Absolute Eosinophils 0.3 K/uL (0-0.5); Absolute Lymphocytes (CBC) 0.9 K/uL (0.7-4.9); Absolute Monocytes 1.1 K/uL (0.1-1.3); Absolute Neutrophil 5.1 K/uL (1.8-8.0); Basophils % 0.6 % (0-1.3); Eosinophils % 3.6 % (0-4.4); Hematocrit 32.5 % (39.6-49.0); Hemoglobin 10.7 g/dL (13.6-17.9); Lymphocytes % 12.6 % (15.3-44.8); MCH 29.4 pg (27.0-35.0); MCHC 32.9 g/dL (32.0-36.0); MCV 89.4 fL (80-100); MPV 6.9 fL (7.6-11.3); Monocytes % 14.9 % (3.3-12.3); Neutrophils % 68.3 % (41.7-73.7); Platelets 249 thou/uL (152-406); RBC Red Blood Cell Count 3.64 M/uL (4.33-5.43); Red Cell Distribution Width 14.4 % (12.1-15.2)
[2024-02-16 05:55] LABS: Anion Gap 6.4 mEq/L (5.0-15.0); Potassium 4.4 mEq/L (3.5-5.1)
[2024-02-16] MEDS: ALBUTEROL 2.5 MG/3 ML NEB SOL NEB SCH (10:00)
--- NOTE | 2024-02-16 10:03 | P.CNS ---
Date of Consult: 02/16/24 Reason for Consult: Is post tracheostomy Chief Complaint: S/p tracheostomy History of Present Illness: Patient is 64 years old of age has extensive oropharyngeal cancer tracheostomy was performed for some respiratory insufficiency currently congested coughing up productive phlegm Allergies No Known Drug Allergies Allergy (Verified 02/13/24 08:18) Unknown Home Medications: Gabapentin 12 ml FT TID 30 Days #1080 ml 09/21/23 OXcarbazepine [Trileptal] 5 ml FT BID 30 Days #300 ml 09/21/23 Hydrocodone/Acetaminophen [Hydrocodon-Acetamin 7.5-325/15] 15 ml FT Q4HR 02/13/24 - Past Medical/Surgical History Diabetic: No -: DM -: tongue/neck cancer -: gastrostomy tube -: Gastrostomy tube -: carpal tunnel Bilateral -: shoulder - Social History Smoking Status: Unknown if ever smoked Alcohol use: No CD- Drugs: No Caffeine use: Yes Place of Residence: Home Review of Systems is unable to be obtained Physical Examination Temp Pulse Resp BP Pulse Ox 98.4 F 73 21 H 124/66 99 02/16/24 04:00 02/16/24 06:00 02/16/24 06:23 02/16/24 06:00 02/16/24 06:23 General: Alert, Moderate distress Neck: Supple Respiratory: Clear to auscultation bilaterally Cardiovascular: No edema, Regular rate/rhythm, Normal S1 S2 Gastrointestinal: Normal bowel sounds, Soft and benign - Problems (1) Status post tracheostomy Current Visit: Yes Status: Acute Plan: Patient is 64 years of age status post tracheostomy for extensive oropharyngeal cancer currently coughing up some productive sputum I ordered sputum culture apart from mild anemia and labs are unremarkable chest x-ray on 1113 was clear/CT scan report below/oxygenation satisfactory schedule nebulizer 4.8 cm neoplastic left tongue mass crosses midline. Metastatic left neck lymphadenopathy 1.5 cm left upper lobe opacity may represent a metastasis or primary lung neoplasm. This likely mets or secondary neoplasm
--- NOTE | 2024-02-16 12:11 | OP ---
Date of Procedure: 02/14/2024 Surgeon: MEMO SOUSA Display Department Manager: None. Preoperative Diagnoses: 1. Squamous cell carcinoma involving overlapping sites of oral cavity, oropharynx, and hypopharynx. 2. Dyspnea secondary to obstructive tumor. Postoperative Diagnoses: 1. Squamous cell carcinoma involving overlapping sites of oral cavity, oropharynx, and hypopharynx. 2. Dyspnea secondary to obstructive tumor. Procedure: Elective tracheostomy under general and local sedation. Anesthesia: General endotracheal anesthesia and IV sedation were given. I infiltrated approximately 5 mL of 1% lidocaine with 1:100,000 epinephrine at the incision site. Estimated Blood Loss: Less than 10 mL. Specimens: None. Findings: Palpable laryngeal and neck landmarks. Obstructive tumor involving left oral tongue extending to oropharynx and hypopharynx, predominantly involving the left side with distortion of the glottis anteriorly and to the right making intubation difficult. Subglottis clear and tracheal airway patent. Complications: None. Disposition: Stable. The patient tolerated procedure well. Indication For Procedure: The patient is a 64-year-old male, who is currently undergoing chemo and radiation with Dr. Beebe for metastatic squamous cell carcinoma. He presented to the emergency room and subsequently admitted for shortness of breath and increased work of breathing from upper airway obstruction. These were indications to bring the patient to the operative suite for the above-mentioned procedure. He understood, all questions were answered. Risks versus benefits and complications were explained in detail and a consent form was signed, which was placed on the chart. Description Of Procedure: The patient was transferred from the emergency room and placed on the operating room table supine and sedated. Intubation took approximately 30-45 minutes secondary to distortion of the glottis from tumor. Different modalities were used to try and intubate the patient. Anesthesia was able to finally intubate the patient by placing a tube over the bronchoscope and guiding it in that fashion. The tube was then secured to the patient's lips and throughout the intubation procedure, the patient's O2 saturations were in the range of 96% to 100%. Once the patient was intubated, I then infiltrated approximately 5 mL of 1% lidocaine with 1:100,000 epinephrine at the level of the cricoid, then the patient was sterilely prepped and draped. An incision was made about 1 fingerbreadth below the cricoid with a #15 blade scalpel in a horizontal like fashion through the skin down to the subepidermal tissue. Monopolar electrocautery was used to dissect down to the level of the platysma and then I used the LigaSure to divide the platysma and then to divide subcutaneous tissue in the subplatysmal area. The strap muscles were located and I divided them in the midline vertically with the LigaSure. I then divided the thyroid isthmus utilizing the LigaSure. After having Anesthesia deflate the endotracheal cuff and withdrawal of tube approximately 1 inch, I then placed a cricoid hook into the cricoid cartilage and this was retracted superiorly and anteriorly. I then made an incision between the second and third tracheal ring with a #15 blade scalpel and used a tracheal patient relations director to widen the airway and then I inserted a 7.5 mm diameter tracheal tube into the trachea. The tracheostomy tube was previously tested to make sure that the cuff was functioning. Once the tube was in place, I inflated the cuff to approximately 6 mL of air and then the trach was then secured to the neck with 2-0 silk suture and a soft trach collar. Surgicel was placed into the superior and inferior openings as he had some oozing most likely from the thyroid isthmus. The patient tolerated the procedure well and he was discharged back to Anesthesia and then subsequently transferred to the intensive care unit in stable condition. Previously, the patient was breathing on his own. The goal is to place him on FiO2 and hopefully we will be able to deflate the cuff once secretions are decreased in volume. COURTNEY/TITI Voice ID: [id number] Report ID: [id number] EDUARDO
--- NOTE | 2024-02-16 12:20 | P.PN ---
Subjective Date of Service: 02/16/24 Chief Complaint: S/p tracheostomy Patient is awake and alert. He denies pain in the movement. He is maintained on 5 L of oxygen by nasal cannula. He is also tolerating PEG tube feeding. No issues overnight. Physical Examination - Vital Signs Temperature: 97.3 F Blood Pressure: 99/50 Pulse: 66 Respirations: 18 Pulse Ox (%): 96 Assessment And Plan - Plan Physical Exam General: Alert and Oriented x3, NAD Neck: Tracheostomy-collar, dried crusted blood around the tracheostomy stoma, no active bleeding. Respiratory: Clear BBS, Normal air movement. On oxygen by trach-collar. Cardiovascular: Normal pulses, Regular rate/rhythm, Normal S1 S2 Gastrointestinal: Normal bowel sounds, Soft and benign on palpation Musculoskeletal: No clubbing Integumentary: No rashes Neurological: Normal speech, Normal tone Vitals Reviewed Problem list Chest pain ACS ruled out 1.5 cm left upper lobe opacity Hyponatremia History of tongue cancer 4.8 cm lobulated mass present within the left tongue which crosses midline. 4.6 cm necrotic lymph node posterior to the angle left mandible. 2.7 x 2 cm lymph node deep to the sternocleidomastoid muscle lower left neck Metastatic left neck lymphadenopathy Chronic left internal jugular thrombus Assessment and Plan Chest pain ACS ruled out 1.5 cm left upper lobe opacity -trop 5.7/5.6/6.7/6.8 -EKG negative -continuous telemetry with no events OVN -Likely source of chest pain is metastasis or primary lung neoplasm seen on CT -Pulmonary Dr. Knight input appreciated. -Follow-up with Dr. Beebe as outpatient for further cancer treatment Hyponatremia -Improving -Continue IV NS History of tongue cancer 4.8 cm lobulated mass present within the left tongue which crosses midline. 4.6 cm necrotic lymph node posterior to the angle left mandible. 2.7 x 2 cm lymph node deep to the sternocleidomastoid muscle lower left neck Metastatic left neck lymphadenopathy Chronic left internal jugular thrombus -ENT Dr. Marcos input appreciated -Status post tracheostomy -continue home medications -Pain is being managed with IV Dilaudid, Lortab, lidocaine viscous and fentanyl patch -Titrate pain medications. -Continue home dose gabapentin. -Empiric IV Unasyn. -Continue feeding tube. -social service consult for tracheostomy supplies and home health. DVT ppx: Lovenox Advanced directive: Full code. Discharge Plan: Home
--- NOTE | 2024-02-16 17:05 | PN ---
Date of Progress Note: 02/14/2024 The patient was escorted from the operating room to the ICU with the anesthesia team. The patient wa s placed on bag mask. Trach was intact. The patient was then transferred to the ICU bed in stable c ondition. He was placed on at least 5 L of oxygen. I did order for vent settings just in case, but the patient will probably do well on trach collar. The patient will need suctioning regularly of the trach due to increased mucus production. Diagnosis: Oral cavity, oropharyngeal and hypopharyngeal squamous cell carcinoma, status post electi ve tracheostomy for upper airway protection, tolerated well. Recommendations: 1.Frequent suctioning of the trach. 2.Internal Medicine and Pulmonology recommendations. 3.Trach change soon. COURTNEY/TITI Voice ID: [id number] Report ID: [id number]
--- NOTE | 2024-02-16 18:11 | PN ---
Subjective/history: On arrival to the patient's bedside, he has no complaints. He is awake, alert, and oriented with moderate coughing and phlegm through the tracheostomy tube. Examination revealed t rubén intact with dry blood noted on the soft collar. This was changed to a new soft collar. He tole rated well. Diagnoses: 1.Upper airway obstruction secondary to squamous cell carcinoma, status post selective tracheostomy, doing well. 2.Moderate cough. Recommendations: 1.We will defer to Dr. Knight and Dr. Alves for treatments for his coughing. 2.Apparently cultures were taken and antibiotics may be needed to treat. 3.Trach change in the next 5-7 days. 4.Hope to discharge soon with tracheostomy tube and may restart chemo radiation when able. COURTNEY/TITI Voice ID: [id number] Report ID: [id number]
[2024-02-17] MEDS ORDERED: ACETAMIN/CAFFEINE/BUTALB TAB PO PRN (09:11)
--- NOTE | 2024-02-17 11:49 | P.PN ---
Subjective Date of Service: 02/17/24 Chief Complaint: S/p tracheostomy Patient is ambulatory. He reports headeache. He denies any pain in the mouth or neck area. No issues overnight. No recorded fever. Physical Examination - Vital Signs Temperature: 97.6 F Blood Pressure: 119/64 Pulse: 67 Respirations: 14 Pulse Ox (%): 98 Assessment And Plan - Plan Physical Exam General: Alert and Oriented x3, NAD Neck: Tracheostomy-collar, dried crusted blood around the tracheostomy stoma, no active bleeding. Respiratory: Clear BBS, Normal air movement. On oxygen by trach-collar. Cardiovascular: Normal pulses, Regular rate/rhythm, Normal S1 S2 Gastrointestinal: Normal bowel sounds, Soft and benign on palpation Integumentary: No rashes Neurological: No focal motor deficit Vitals Reviewed Problem list Chest pain ACS ruled out 1.5 cm left upper lobe opacity Hyponatremia History of tongue cancer 4.8 cm lobulated mass present within the left tongue which crosses midline. 4.6 cm necrotic lymph node posterior to the angle left mandible. 2.7 x 2 cm lymph node deep to the sternocleidomastoid muscle lower left neck Metastatic left neck lymphadenopathy Chronic left internal jugular thrombus Assessment and Plan Chest pain ACS ruled out 1.5 cm left upper lobe opacity -trop 5.7/5.6/6.7/6.8 -EKG negative -continuous telemetry with no events OVN -Likely source of chest pain is metastasis or primary lung neoplasm seen on CT -Pulmonary Dr. Knight is following. -Follow-up with Dr. Beebe as outpatient for further cancer treatment Hyponatremia -Improving -Continue IV NS History of tongue cancer 4.8 cm lobulated mass present within the left tongue which crosses midline. 4.6 cm necrotic lymph node posterior to the angle left mandible. 2.7 x 2 cm lymph node deep to the sternocleidomastoid muscle lower left neck Metastatic left neck lymphadenopathy Chronic left internal jugular thrombus -ENT Dr. Marcos input appreciated -Status post tracheostomy -continue home medications -Pain is being managed with IV Dilaudid, Lortab, lidocaine viscous and fentanyl patch -Titrate pain medications. -Continue home dose gabapentin. -Continue IV Unasyn. -Continue feeding tube. -social service consult for tracheostomy supplies and home health. Headache Patient reports history of migraine Trial of Fioricet. Dilaudid as needed. DVT ppx: Lovenox Advanced directive: Full code. Discharge Plan: Home
[2024-02-17] MEDS: GABAPENTIN 300 MG CAP ONE (17:10)
[2024-02-18 06:41] LABS: Absolute Basophils 0.1 K/uL (0-0.5); Absolute Eosinophils 0.2 K/uL (0-0.5); Absolute Lymphocytes (CBC) 0.8 K/uL (0.7-4.9); Absolute Monocytes 0.7 K/uL (0.1-1.3); Absolute Neutrophil 3.5 K/uL (1.8-8.0); Basophils % 1.1 % (0-1.3); Eosinophils % 4.6 % (0-4.4); Hematocrit 29.7 % (39.6-49.0); Hemoglobin 10.2 g/dL (13.6-17.9); Lymphocytes % 15.4 % (15.3-44.8); MCH 30.6 pg (27.0-35.0); MCHC 34.2 g/dL (32.0-36.0); MCV 89.3 fL (80-100); MPV 6.9 fL (7.6-11.3); Monocytes % 12.6 % (3.3-12.3); Neutrophils % 66.3 % (41.7-73.7); Platelets 199 thou/uL (152-406); RBC Red Blood Cell Count 3.33 M/uL (4.33-5.43); Red Cell Distribution Width 14.2 % (12.1-15.2)
[2024-02-18 07:03] LABS: Anion Gap 5.6 mEq/L (5.0-15.0); Potassium 4.6 mEq/L (3.5-5.1)
--- NOTE | 2024-02-18 14:36 | P.PN ---
Subjective Date of Service: 02/18/24 Chief Complaint: S/p tracheostomy Patient has no new complaint. He states his headache is significantly improved. He denies any pain in the mouth or neck area. No recorded fever. Patient is tolerating tube feeding Physical Examination - Vital Signs Temperature: 98.6 F Blood Pressure: 110/70 Pulse: 74 Respirations: 18 Pulse Ox (%): 96 Assessment And Plan - Plan Physical Exam General: Alert and Oriented x3, NAD Neck: Tracheostomy, patient is on 2 L oxygen by T-tube, no active bleeding from stoma. Respiratory: Clear BBS, Normal air movement. On oxygen by trach-collar. Cardiovascular: Normal pulses, Regular rate/rhythm, Normal S1 S2 Gastrointestinal: Normal bowel sounds, Soft and benign on palpation Integumentary: No rashes Neurological: No focal motor deficit Vitals Reviewed Problem list Chest pain ACS ruled out 1.5 cm left upper lobe opacity Hyponatremia History of tongue cancer 4.8 cm lobulated mass present within the left tongue which crosses midline. 4.6 cm necrotic lymph node posterior to the angle left mandible. 2.7 x 2 cm lymph node deep to the sternocleidomastoid muscle lower left neck Metastatic left neck lymphadenopathy Chronic left internal jugular thrombus Assessment and Plan Chest pain ACS ruled out 1.5 cm left upper lobe opacity -trop 5.7/5.6/6.7/6.8 -EKG negative -continuous telemetry with no events OVN -Likely source of chest pain is metastasis or primary lung neoplasm seen on CT -Pulmonary Dr. Knight is following. -Follow-up with Dr. Beebe as outpatient for further cancer treatment Hyponatremia -Improving -Continue IV NS History of tongue cancer 4.8 cm lobulated mass present within the left tongue which crosses midline. 4.6 cm necrotic lymph node posterior to the angle left mandible. 2.7 x 2 cm lymph node deep to the sternocleidomastoid muscle lower left neck Metastatic left neck lymphadenopathy Chronic left internal jugular thrombus -ENT Dr. Marcos input appreciated -Status post tracheostomy -continue home medications -IV Dilaudid, Lortab, lidocaine viscous and fentanyl patch for pain -Titrate pain medications. -Continue home dose gabapentin. -Continue IV Unasyn. -Continue feeding tube. -Awaiting tracheostomy supplies and home health to be arranged. -ENT is following. Headache Patient reports history of migraine Continue Fioricet. Dilaudid as needed. DVT ppx: Lovenox Advanced directive: Full code. Discharge Plan: Home.
--- NOTE | 2024-02-18 16:22 | P.PN ---
Subjective Date of Service: 02/18/24 Chief Complaint: S/p tracheostomy Subjective: Improving (No new complaints doing well still has white sputum apparently he feels very hungry) Review of Systems is unable to be obtained Physical Examination - Vital Signs Temperature: 98.6 F Blood Pressure: 110/70 Pulse: 74 Respirations: 18 Pulse Ox (%): 96 - Physical Exam General: Alert, Cooperative HEENT: Other (The mass in the left side of his neck) Respiratory: Clear to auscultation bilaterally Cardiovascular: No edema, Normal pulses Assessment And Plan - Current Problems (Diagnosis) (1) Status post tracheostomy Current Visit: Yes Status: Acute Plan: Patient is s/p tracheostomy currently doing well some mucoid sputum signs of feeling hungry patient is mildly anemic DC antibiotics cultures are negative oxygenation satisfactory discharge planning (2) Abnormal CT scan of lung Current Visit: Yes Status: Acute Plan: Patient has a 1.5 cm opacity in the left upper lobe most likely is a new primary probably going to need PET scan as an outpatient and a biopsy
--- NOTE | 2024-02-18 22:12 | RAD REPORT ---
EXAM: CT CHEST, ABDOMEN AND PELVIS WITH CONTRAST CLINICAL INDICATION: Cancer staging TECHNIQUE: CT chest, abdomen and pelvis was performed, following the administration of contrast, as p er department protocol. Axial, sagittal and coronal reconstructions were obtained. One or more of the following dose reduction techniques were used: Automated exposure control, adjustment of the mA a nd/or kV according to patient size, and/or iterative reconstruction. Unless otherwise specified, incidental findings do not require dedicated imaging follow-up. COMPARISON: No prior exam. FINDINGS: LUNGS: Tracheostomy tube has tip above the raffi. 10 mm nodule with spiculated margins medial left u pper lobe. Small linear opacities are present in both lung bases. PLEURA: No pleural effusion. No pneumothorax. MEDIASTINUM AND LYMPH NODES: No mediastinal mass or fluid collection. Normal size mediastinal, hilar, and axillary lymph nodes. Right port catheter tip noted in the SVC. OSSEOUS STRUCTURES AND CHEST WALL: Intact. LIVER: Normal in size and contour. No focal lesion or biliary dilatation. Grossly unremarkable gallbl adder. PANCREAS: No mass, ductal dilation, or gabo-pancreatic fluid. SPLEEN: Normal size. No focal lesion. ADRENALS: Normal; no mass. KIDNEYS: Normal size and contour. No hydronephrosis. URINARY BLADDER: Normal contour. GASTROINTESTINAL TRACT: No bowel obstruction, free air, significant free fluid or abscess. Moderate stool is present in colon. Gastrostomy tube is noted. APPENDIX: Normal appendix. LYMPH NODES: No lymphadenopathy. MUSCULOSKELETAL: No acute or suspicious osseous abnormality. OTHER: IMPRESSION: 10 mm mildly spiculated nodule in the left apex noted. Follow-up nonemergent PET/CT evaluation would be recommended to assess for metabolic activity.
--- NOTE | 2024-02-18 22:17 | RAD REPORT ---
EXAM: CT CHEST, ABDOMEN AND PELVIS WITHOUT CONTRAST CLINICAL INDICATION: Cancer staging TECHNIQUE: CT chest, abdomen and pelvis was performed without contrast, as per department protocol. A xial, sagittal and coronal reconstructions were obtained. One or more of the following dose reduction techniques were used: Automated exposure control, adjustment of the mA and/or kV according to patient size, and/or iterative reconstruction. Unless otherwise specified, incidental findings do not require dedicated imaging follow-up. Examination is limited by the lack of intravenous contrast material. COMPARISON: No prior exam. FINDINGS: LUNGS: Tracheostomy tube has tip above the raffi. 10 mm nodule with spiculated margins medial left u pper lobe. Small linear opacities are present in both lung bases. PLEURA: No pleural effusion. No pneumothorax. MEDIASTINUM AND LYMPH NODES: No mediastinal mass or fluid collection. Normal size mediastinal, hilar, and axillary lymph nodes. Right port catheter tip noted in the SVC. OSSEOUS STRUCTURES AND CHEST WALL: Intact. LIVER: Normal in size and contour. No focal lesion or biliary dilatation. Grossly unremarkable gallbl adder. PANCREAS: No mass, ductal dilation, or gabo-pancreatic fluid. SPLEEN: Normal size. No focal lesion. ADRENALS: Normal; no mass. KIDNEYS: Normal size and contour. No hydronephrosis. URINARY BLADDER: Normal contour. GASTROINTESTINAL TRACT: No bowel obstruction, free air, significant free fluid or abscess. Moderate stool is present in colon. Gastrostomy tube is noted. APPENDIX: Normal appendix. LYMPH NODES: No lymphadenopathy. MUSCULOSKELETAL: No acute or suspicious osseous abnormality. OTHER: IMPRESSION: 10 mm mildly spiculated nodule in the left apex noted. Follow-up nonemergent PET/CT evaluation would be recommended to assess for metabolic activity.
[2024-02-19 07:04] LABS: Anion Gap 5.6 mEq/L (5.0-15.0); Potassium 4.6 mEq/L (3.5-5.1)
--- NOTE | 2024-02-19 08:46 | P.PN ---
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 Metastatic left neck lymphadenopathy. 1.5 cm ILIANA opacity may represent metastasis or primary lung neoplasms Dr. Marcos, ENT is following s/p tracheostomy (02/15) continue home medications tolerating tube feeds Awaiting tracheostomy supplies and home health to be arranged need to confirm size No evidence of active infection. cultures without growth. Afebrile without leukocytosis antibiotics dc'd 02/16 Chest pain 1 cm left upper lobe opacity Troponins were negative x3, EKG okay no events seen on telemetry Suspect chest pain related to metastasis or primary lung neoplasm seen on CT 1.5 cm ILIANA opacity may represent metastasis or primary lung neoplasm seen on soft tissue neck CT on admission Dr. Knight, pulm is following Follow-up with Dr. Beebe as outpatient for further cancer treatment consider outpatient PET scan and biopsy to further evaluate ILIANA opacity per pulm Hyponatremia continue IV fluids monitor and replete electrolytes as needed Headache Patient reports history of migraine Continue Fioricet. Dilaudid as needed. Code: Full Dispo: Home, 1-2 days Time Spent Managing Pts Care (In Minutes): 39
[2024-02-19] MEDS: OXYCODONE HCL 5 MG TAB FT SCH (11:02)
[2024-02-19] MEDS: JEVITY 1.2 CAL LIQUID 1,000 ML BOT RTH SCH (19:33)
[2024-02-20 06:41] LABS: Anion Gap 8.5 mEq/L (5.0-15.0); Magnesium 1.9 mg/dL (1.6-2.4); Potassium 4.5 mEq/L (3.5-5.1)
--- NOTE | 2024-02-20 22:48 | P.PN ---
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 Me tastatic left neck lymphadenopathy. 1.5 cm ILIANA opacity may represent metastasis or primary lung neoplasms Dr. Marcos, ENT is following s/p tracheostomy (02/15) continue home medications tolerating tube feeds Awaiting tracheostomy supplies and home health to be arranged No evidence of active infection. cultures without growth. Afebrile without leukocytosis antibiotics dc'd 02/16 Chest pain 1 cm left upper lobe opacity Troponins were negative x3, EKG okay no events seen on telemetry Suspect chest pain related to metastasis or primary lung neoplasm seen on CT 1.5 cm ILIANA opacity may represent metastasis or primary lung neoplasm seen on soft tissue neck CT on admission Dr. Knight, pulm is following Follow-up with Dr. Beebe as outpatient for further cancer treatment consider outpatient PET scan and biopsy to further evaluate ILIANA opacity per pulm Hyponatremia continue IV fluids monitor and replete electrolytes as needed Headache Patient reports history of migraine Continue Fioricet. Dilaudid as needed. Code: Full Dispo: Home, ~1 day Time Spent Managing Pts Care (In Minutes): 44
[2024-02-21 07:17] LABS: Magnesium 2.1 mg/dL (1.6-2.4)
[2024-02-21 09:40] VITALS: O2SAT 92
--- NOTE | 2024-02-21 09:59 | P.DS ---
Admission Date: 02/14/24 Discharge Date: 02/21/24 Disposition: [place] HOME/HOME HEALTH CARE Discharge Condition: GOOD Reason for Admission: S/p tracheostomy Consultations: ENT - Dr. Marcos Oncology - Dr. Beebe Brief History of Present Illness: 64 yo M, PMH: Dm, gastrostomy tube, tongue/neck cancer on chemo radiation, chronic left internal jugular thrombus Patient presents to the ED with chief complaint of chest pain and difficulty breathing. On examination, he struggled to speak, was lethargic, and experiencing pain. On CT soft tissue neck, 1.5 cm left upper lobe opacity may represent a metatasis or primary lung neoplasm. Laboratory evaluation concerning for hyponatremia with Na 126. CT Soft tissue neck reports "4.8 cm lobulated mass present within the left tongue which crosses midline..4.6 cm necrotic lymph node posterior to the angle left mandible. 2.7 x 2 cm lymph node deep to the sternocleidomastoid muscle lower left neck. Fluid within the maxillary sinuses may indicate sinusitis. Left internal jugular vein poorly visualized presumably secondary to chronic thrombus. 1.5 cm left upper lobe opacity. IMPRESSION: 4.8 cm neoplastic left tongue mass crosses midline. Metastatic left neck lymphadenopathy. 1.5 cm left upper lobe opacity may represent a metastasis or primary lung neoplasm. Chest xray reports "The heart appears unremarkable. The lungs are clear there is no alveolar consolidation, effusion or pneumothorax. There are no acute bony or soft tissue abnormalities. IMPRESSION: No acute cardiopulmonary process." Andrew will be admitted to hospitalist service for further evaluation and treatment, Dr. Beebe consulted. 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 CT neck noted 4.8 cm neoplastic left tongue mass crossline midline, Metastatic left neck lymphadenopathy, 1.5 cm ILIANA opacity may represent metastasis or primary lung neoplasms. Patient was evaluated by Dr. Marcos, ENT, and underwent tracheostomy on 02/15. Cultures were taken and were without growth. No evidence of active ongoing infection. No antibiotics warranted. Patient did well post-operatively, was feeling better, able to breath more comfortably on room air, tolerating tube feeds and deemed stable for discharge with home health. Follow up with Dr. Marcos this coming Sunday for further management. Call to schedule and confirm appointment. Trach supplies to be delivered upon discharge. In regards to chest pain, cardiac workup this hospitalization was negative including EKG, troponins x3. Suspect atypical chest discomfort related to metastatic cancer / new mass seen on CT. 02/[address] guided biopsy of lung mass but was unable to be done - due to small size, location, and capabilities at this time. Can discuss with Dr. Beebe and seeing if can be done elsewhere. Recommend to consider outpatient PET scan and biopsy to further evaluate left upper lobe opacity seen on CT neck. Recommend following up with oncology in near future for further discussion. Patient reports having follow up appointment with Dr. Beebe this coming Sunday. Medications: no change in medications continue home medications as previously prescribed Follow up: PCP 3-[address] Marcos in office this coming Sunday Dr. Beebe, this coming Sunday as previously scheduled Please call to schedule / confirm appointments Pulse oximetry was ordered but is not covered by Medicare. Home pulse oximetry is not available at any local [facility] providers. However, it an be ordered through [employer] or [facility]local pharmacies. Physical Exam: GEN: Alert, oriented, NAD HEENT: trach site clean , lymphadenopathy left neck CV: Regular rate and rhythm, no edema ABD: soft, nontender, nondistended ; PEG in place Vital Signs/Physical Exam: Temp Pulse Resp BP Pulse Ox 98.5 F 55 16 106/55 L 93 02/21/24 04:00 02/21/24 08:00 02/21/24 08:00 02/21/24 08:00 02/21/24 08:00 Laboratory Data at Discharge: WBC 5.30 thou/uL (4.3-10.9) 02/18/24 06:03 Hgb 10.2 g/dL (13.6-17.9) L 02/18/24 06:03 Hct 29.7 % (39.6-49.0) L 02/18/24 06:03 Plt Count 199 thou/uL (152-406) 02/18/24 06:03 PT 12.3 SECONDS (9.4-12.5) 02/13/24 05:33 INR 1.10 02/13/24 05:33 Sodium 131 mEq/L (136-145) L 02/21/24 06:32 Potassium 4.0 mEq/L (3.5-5.1) 02/21/24 06:32 BUN 29 mg/dL (7-18) H 02/21/24 06:32 Creatinine 0.70 mg/dL (0.70-1.30) 02/21/24 06:32 Glucose 93 mg/dL (74-106) 02/21/24 06:32 Phosphorus 3.4 mg/dL (2.5-4.9) 02/15/24 05:03 Magnesium 2.1 mg/dL (1.6-2.4) 02/21/24 06:32 Total Bilirubin 0.4 mg/dL (0.2-1.0) 02/13/24 05:33 AST 16 U/L (15-37) 02/13/24 05:33 ALT 23 U/L (16-61) 02/13/24 05:33 Alkaline Phosphatase 118 U/L (45-117) H 02/13/24 05:33 Lipase 88 U/L (13-75) H 02/13/24 05:33 Home Medications: Gabapentin 12 ml FT TID 30 Days #1080 ml 09/21/23 OXcarbazepine [Trileptal] 5 ml FT BID 30 Days #300 ml 09/21/23 Hydrocodone/Acetaminophen [Hydrocodon-Acetamin 7.5-325/15] 15 ml FT Q4HR 02/13/24 Physician Discharge Instructions: Physician discharge instructions: Patient presented with worsening dyspnea secondary to squamous cell tongnue carcinoma. CT neck noted 4.8 cm neoplastic left tongue mass crossline midline, Metastatic left neck lymphadenopathy, 1.5 cm ILIANA opacity may represent metastasis or primary lung neoplasms. Patient was evaluated by Dr. Marcos, ENT, and underwent tracheostomy on 02/15. Cultures were taken and were without growth. No evidence of active ongoing infection. No antibiotics warranted. Patient did well post-operatively, was feeling better, able to breath more comfortably on room air, tolerating tube feeds and deemed stable for discharge with home health. Follow up with Dr. Marcos this coming Sunday for further management. Call to schedule and confirm appointment. Trach supplies to be delivered upon discharge. In regards to chest pain, cardiac workup this hospitalization was negative in cluding EKG, troponins x3. Suspect atypical chest discomfort related to metastatic cancer / new mass seen on CT. 02/[address] guided biopsy of lung mass but was unable to be done - due to small size, location, and capabilities at this time. Can discuss with Dr. Beebe and seeing if can be done elsewhere. Recommend to consider outpatient PET scan and biopsy to further evaluate left upper lobe opacity seen on CT neck. Recommend following up with oncology in near future for further discussion. Patient reports having follow up appointment with Dr. Beebe this coming Sunday. Medications: no change in medications continue home medications as previously prescribed Follow up: PCP 3-[address] Marcos in office this coming Sunday Dr. Beebe, this coming Sunday as previously scheduled Please call to schedule / confirm appointments Established Home Health: [facility] P:[phone] F:[phone] Home formula/supplies for peg: Per Erich Manuel 02/20/24 patient is approved but daughter must call the office on the day of discharge to schedule delivery. [id number] [facility] [address], [place], [place] [address] D/Flavia: [phone] F Trach Supplies/DME: [facility] [id number], [place] [address] Pulse oximetry was ordered but is not covered by Medicare. Home pulse oximetry is not available at any local DME providers. However, it an be ordered through [employer] or picked [facility] at [facility]local pharmacies. Followup: Елена Burns MD [Primary Care Provider] - Ananda Beebe MD [ACTIVE - CAN ADMIT] - Mounika Marcos DO [ACTIVE - CAN ADMIT] - Time spent managing pt's care (in minutes): 45
[2024-02-21 12:43] VITALS: BP 112/58; TEMP 97.8
== END 2024-02-21 14:45 | disposition home health service (06) | DRG 12 ==
LOC: ER 05:13 → MERGE 05:13 → ERHOLD 09:22 → 2ND 15:30 → OBSVTOIN 02-14 11:48 → 3RD-ICU 02-14 16:06 → 4TH 02-17 18:45
PROVIDERS: ADMIT Internal Medicine; ATTEND Hospitalist
PROC: 0B110F4 Bypass Trachea to Cutaneous with Tracheostomy Device, Open Approach (ICD-10-PCS; principal; 2024-02-14 14:34)
DX: C02.9 Malignant neoplasm of tongue, unspecified (principal); C79.89 Secondary malignant neoplasm of other specified sites; E87.1 Hypo-osmolality and hyponatremia; I82.C22 Chronic embolism and thrombosis of left internal jugular vein; D64.9 Anemia, unspecified; E11.9 Type 2 diabetes mellitus without complications; C06.89 Malignant neoplasm of overlapping sites of other parts of mouth; R06.00 Dyspnea, unspecified; Z93.1 Gastrostomy status; Z78.1 Physical restraint status; Z93.0 Tracheostomy status; Z11.52 Encounter for screening for COVID-19; Z79.899 Other long term (current) drug therapy
CPT/HCPCS: 36415; 70491; 71045; 71250; 71260; 74176; 74177; 80048; 80076; 82947; 83690; 83735; 83880; 84100; 84484; 85025; 85610; 87070; 87205; 87804; 87811; 94640; 96361; 96374; 96375; 99285; G0378; J0295; J1171; J1650; J2003; J2250; J2270; J2405; J2704; J3010; J3475; J7030; J7613; Q9967

== ENCOUNTER 2024-02-27 11:15 | Emergency (ER) | payer OTHER ==
--- NOTE | 2024-02-27 12:32 | RAD REPORT ---
EXAM: CT Head Brain Wo Cont HISTORY: seizure, fall, hx of seizures COMPARISON: 04/18/2022 TECHNIQUE: Multiple contiguous axial images were obtained for a CT of the brain without contrast. Sag ittal and coronal reformats were performed. One or more of the following dose reduction techniques were used: Automated exposure control, adjus tment of the mA and kV according to patient size, and iterative reconstruction. Unless otherwise specified, incidental findings do not require dedicated imaging follow-up. FINDINGS: No evidence of hydrocephalus, intracranial hemorrhage, or extra-axial fluid collection. The brain is normal in morphology. The calvarium is intact. The visualized paranasal sinuses and mastoid air cells are essentially clear . IMPRESSION: No evidence of acute intracranial abnormality.
--- NOTE | 2024-02-27 12:46 | RAD REPORT ---
Procedure: Chest Single View HISTORY: Chest pain COMPARISON: February 13, 2024 FINDINGS: The lungs appear clear of acute infiltrate. No significant pleural effusion noted. The heart is normal size. Central venous catheter in place IMPRESSION: No acute abnormality is displayed.
--- NOTE | 2024-02-27 12:48 | RAD REPORT ---
Exam:Pelvis CLINICAL HISTORY: Pelvic pain FINDINGS: No fracture or dislocation seen Osteoporosis. If the patient continues to have symptoms to suggest an occult fracture MRI would be recommended
[2024-02-27] MEDS ORDERED: NA CHLORIDE 0.9% 500 ML ONE (13:01)
[2024-02-27] MEDS ORDERED: NA CHLORIDE 0.9% 100 ML ONE (13:01)
[2024-02-27] MEDS ORDERED: LEVETIRACETAM 500 MG/5 ML VIAL IV ONE (13:01)
[2024-02-27 13:08] LABS: Absolute Eosinophils 0.7 K/uL (0-0.5); Absolute Lymphocytes (CBC) 0.4 K/uL (0.7-4.9); Absolute Monocytes 0.3 K/uL (0.1-1.3); Absolute Neutrophil 4.1 K/uL (1.8-8.0); Basophils % 0.6 % (0-1.3); Eosinophils % 12.7 % (0-4.4); Hematocrit 37.1 % (39.6-49.0); Hemoglobin 12.2 g/dL (13.6-17.9); Lymphocytes % 6.8 % (15.3-44.8); MCH 30.1 pg (27.0-35.0); MCHC 32.8 g/dL (32.0-36.0); MCV 91.6 fL (80-100); MPV 7.7 fL (7.6-11.3); Monocytes % 5.3 % (3.3-12.3); Neutrophils % 74.6 % (41.7-73.7); Platelets 132 thou/uL (152-406); RBC Red Blood Cell Count 4.06 M/uL (4.33-5.43); Red Cell Distribution Width 15.1 % (12.1-15.2)
[2024-02-27 13:11] LABS: PT Prothrombin Time 11.6 SECONDS (9.4-12.5); Protime INR 1.04
[2024-02-27 13:19] LABS: PTT, Activated Partial Thromb 21.3 SECONDS (24.3-36.9)
[2024-02-27 13:23] LABS: Anion Gap 7.1 mEq/L (5.0-15.0)
[2024-02-27 13:24] LABS: Potassium 5.1 mEq/L (3.5-5.1)
[2024-02-27 13:40] LABS: White Blood Cell Scan OK (OK)
[2024-02-27 13:41] LABS: Blood Morphology Comment NOT SEEN (NOT SEEN); Platelet Estimate DECR
[2024-02-27] MEDS ORDERED: MORPHINE 4 MG/ML SYR ONE (15:01)
--- NOTE | 2024-02-27 15:57 | ER ---
Nurse's Notes [facility] Name: Andrew Wall Age: 64 yrs Sex: Male : 1960 Arrival Date: 02/27/2024 Time: 11:15 Bed 14 Private MD: Diagnosis: Epileptic seizures related to external causes, not intractable, without status epilepticus Presentation: 02/26 11:30 Chief complaint: EMS states: Seizure like activity witnessed by daughter while pt was rs5 sitting in chair. EMS reports pt was post ictal on arrival. Coronavirus screen: At this time, the client does not indicate any symptoms associated with coronavirus-19. Ebola Screen: No symptoms or risks identified at this time. Initial Sepsis Screen: Does the patient meet any 2 criteria? No. Patient's initial sepsis screen is negative. Does the patient have a suspected source of infection? No. Patient's initial sepsis screen is negative. Risk Assessment: Do you want to hurt yourself or someone else? Patient reports no desire to harm self or others. Onset of symptoms was February 27, 2024. 11:30 Method Of Arrival: EMS: [facility] rs5 11:30 Acuity: ROSALIE 3 rs5 11:30 Care prior to arrival: IV initiated. 20 GA, in the right antecubital area. rs5 Historical: - Allergies: 11:32 No Known Allergies; rs5 - PMHx: 11:32 Diabetes - NIDDM; Hypertensive disorder; mouth and throat cancer (Seizures); Seizures; rs5 throat cancer; - PSHx: 11:32 left toe amputation; G tube placement; PARTIAL TONUE AMPUTATION; rs5 - Immunization history:: Adult Immunizations up to date. - Infectious Disease History:: Denies. - Social history:: Smoking status: Patient/guardian denies using tobacco, but has a distant history of tobacco abuse. - Family history:: not pertinent. - Hospitalizations: : No recent hospitalization is reported. Screenin:30 [facility] ED Fall Risk Assessment (Adult) History of falling in the last 3 months, rs5 including since admission No falls in past 3 months (0 pts) Confusion or Disorientation No (0 pts) Intoxicated or Sedated No (0 pts) Impaired Gait Yes (1 pt) Mobility Assist Device Used Yes (1 pt) Altered Elimination No (0 pt) Score/Fall Risk Level 0 - 2 = Low Risk Oriented to surroundings, Maintained a safe environment. 11:30 Abuse screen: Denies threats or abuse. Nutritional screening: No deficits noted. rs5 Tuberculosis screening: No symptoms or risk factors identified. Assessment: 11:25 General: Appears in no apparent distress. Behavior is calm, cooperative. Pain: Denies rs5 pain. Neuro: Level of Consciousness is awake, alert, obeys commands, Oriented to person, place, time, situation. Cardiovascular: Patient's skin is warm and dry. Respiratory: Airway is patent Trachea midline Respiratory effort is even, unlabored, Respiratory pattern is regular, symmetrical. GI: Abdomen is round non-distended, Abd is soft and non tender X 4 quads. : No signs and/or symptoms were reported regarding the genitourinary system. EENT: No signs and/or symptoms were reported regarding the EENT system. Derm: Skin is intact, Skin is pink, warm \T\ dry. Musculoskeletal: Range of motion: intact in all extremities. 12:35 Reassessment: Patient and/or family updated on plan of care and expected duration. Pain rs5 level reassessed. Patient is alert, oriented x 3, equal unlabored respirations, skin warm/dry/pink. 13:41 Reassessment: Patient and/or family updated on plan of care and expected duration. Pain rs5 level reassessed. Patient is alert, oriented x 3, equal unlabored respirations, skin warm/dry/pink. 14:55 Reassessment: Patient and/or family updated on plan of care and expected duration. Pain rs5 level reassessed. Patient is alert, oriented x 3, equal unlabored respirations, skin warm/dry/pink. 15:37 Reassessment: Patient and/or family updated on plan of care and expected duration. Pain rs5 level reassessed. Patient is alert, oriented x 3, equal unlabored respirations, skin warm/dry/pink. 16:10 Reassessment: Patient and/or family updated on plan of care and expected duration. Pain rs5 level reassessed. Patient is alert, oriented x 3, equal unlabored respirations, skin warm/dry/pink. 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 17:25 Reassessment: Patient and/or family updated on plan of care and expected duration. Pain rs5 level reassessed. Patient is alert, oriented x 3, equal unlabored respirations, skin warm/dry/pink. 17:55 Reassessment: daughter at bedside, pt assisted to car via wheelchair by me. rs5 Vital Signs: 11:30 BP 131 / 79; Pulse 80; Resp 17; Temp 98(O); Pulse Ox 95% on R/A; rs5 13:09 BP 145 / 81; Pulse 77; Resp 17; Pulse Ox 95% on R/A; rs5 15:37 BP 151 / 84; Pulse 81; Resp 17; Pulse Ox 96% on R/A; rs5 17:51 BP 147 / 79; Pulse 74; Resp 16; Pulse Ox 96% on R/A; rs5 ED Course: 11:22 Patient arrived in ED. rn 11:22 Arthur Stevenson MD is Attending Physician. rn 11:28 Matthieu Wilder RN is Primary Nurse. rs5 11:30 Patient has correct armband on for positive identification. Placed in gown. Bed in low rs5 position. Call light in reach. Side rails up X2. 11:30 No provider procedures requiring assistance completed. rs5 11:30 Inserted saline lock: 22 gauge in right antecubital area, using aseptic technique. rs5 Blood collected. Flushed with 10 mL NS. 11:32 Triage completed. rs5 11:40 CT Head Brain wo Cont In Process Unspecified. EDMS 12:34 XRAY Pelvis In Process Unspecified. EDMS 12:34 XRAY Chest (1 view) In Process Unspecified. EDMS 18:01 IV discontinued, intact, bleeding controlled, No redness/swelling at site. Pressure rs5 dressing applied. Administered Medications: 12:00 Drug: Keppra IV 1000 mg IV at calculated rate once Route: IV; Rate: calculated rate; rs5 Site: right antecubital; 15:38 Follow up: Response: No adverse reaction; IV Status: Completed infusion; IV Intake: rs5 100ml 12:00 Drug: NS 0.9% IV 500 ml IV at bolus once; to be given as a bolus over 30 minutes Route: rs5 IV; Rate: bolus; Site: right antecubital; 12:40 Follow up: Response: No adverse reaction; IV Status: Completed infusion; IV Intake: rs5 500ml 14:33 Drug: morphine IVP or IV 4 mg IVP once over 4 mins Route: IVP; Infused Over: 4 mins; rs5 Site: right antecubital; 15:01 Follow up: Response: No adverse reaction; Pain is decreased rs5 Medication: 13:34 VIS not applicable for this client. rs5 Intake: 12:40 IV: 500ml; Total: 500ml. rs5 15:38 IV: 100ml; Total: 600ml. rs5 Outcome: 15:56 Discharge ordered by . rn 18:01 Patient left the ED. rs5 18:01 Discharged to home via wheelchair, with family, rs5 18:01 Condition: stable 18:01 Discharge instructions given to patient, family, Instructed on discharge instructions, follow up and referral plans. Demonstrated understanding of instructions, follow-up care, Signatures: Dispatcher [employer] EDArthur Nazario MD MD rn Sotelo, Ricky, RN RN rs5 Corrections: (The following items were deleted from the chart) 15:38 12:20 Response: No adverse reaction rs5 rs5 19:38 18:45 Patient left the ED. rs5 rs5
--- NOTE | 2024-02-27 15:57 | EDPHYS ---
Physician Documentation [facility] Name: Andrew Wall Age: 64 yrs Sex: Male : 1960 Arrival Date: 02/27/2024 Time: 11:15 Bed 14 Private MD: ED Physician Arthur Stevenson HPI: 02/26 15:29 This 64 yrs old Male presents to ER via EMS with complaints of Probable Seizure. rn 15:29 The patient presents after having a single isolated seizure. Character of seizure(s): rn Loss of consciousness: it is not known if the patient experienced loss of consciousness, Motor activity: generalized, Incontinence: none, Circulation: the patient did not experience evidence of pulse disturbance. Associated injury: The patient did not suffer any apparent associated injury. Current symptoms: Currently, the patient is not experiencing any symptoms. The patient has experienced similar episodes in the past. The patient has not recently seen a physician. EMS reports single seizure at home. Patient with known seizure disorder on Keppra. No fever or chills. Patient has known cancer and chronic pain to the left face and neck. Denies injury after seizure. No focal pain that is new. States compliant with his Keppra. No other medication changes. No fever or chills. No recent illness.. Historical: - Allergies: 11:32 No Known Allergies; rs5 - PMHx: 11:32 Diabetes - NIDDM; Hypertensive disorder; mouth and throat cancer (Seizures); Seizures; rs5 throat cancer; - PSHx: 11:32 left toe amputation; G tube placement; PARTIAL TONUE AMPUTATION; rs5 - Immunization history:: Adult Immunizations up to date. - Infectious Disease History:: Denies. - Social history:: Smoking status: Patient/guardian denies using tobacco, but has a distant history of tobacco abuse. - Family history:: not pertinent. - Hospitalizations: : No recent hospitalization is reported. ROS: 15:29 Constitutional: Negative for fever, chills, and weight loss, Eyes: Negative for injury, rn pain, redness, and discharge, ENT: Negative for injury, pain, and discharge, Neck: Negative for injury, pain, and swelling, Cardiovascular: Negative for chest pain, palpitations, and edema, Respiratory: Negative for shortness of breath, cough, wheezing, and pleuritic chest pain, Abdomen/GI: Negative for abdominal pain, nausea, vomiting, diarrhea, and constipation, MS/Extremity: Negative for injury and deformity, Skin: Negative for injury, rash, and discoloration, Neuro: Negative for headache, weakness, numbness, tingling Exam: 15:29 Constitutional: This is a well developed, well nourished patient who is awake, alert, rn and in no acute distress. Head/Face: Normocephalic, atraumatic. Cardiovascular: Regular rate and rhythm. No pulse deficits. Respiratory: No increased work of breathing, no retractions or nasal flaring. Abdomen/GI: Soft, non-tender MS/ Extremity: Pulses equal, no cyanosis. Neuro: Awake and alert, GCS 15 Vital Signs: 11:30 BP 131 / 79; Pulse 80; Resp 17; Temp 98(O); Pulse Ox 95% on R/A; rs5 13:09 BP 145 / 81; Pulse 77; Resp 17; Pulse Ox 95% on R/A; rs5 15:37 BP 151 / 84; Pulse 81; Resp 17; Pulse Ox 96% on R/A; rs5 17:51 BP 147 / 79; Pulse 74; Resp 16; Pulse Ox 96% on R/A; rs5 MDM: 11:22 Medical Screening Exam initiated rn 15:55 Differential diagnosis: seizure. Data reviewed: vital signs, nurses notes, radiologic rn studies, CT scan, plain films, and as a result, I will discharge patient. Counseling: I had a detailed discussion with the patient and/or guardian regarding the historical points, exam findings, and any diagnostic results supporting the discharge/admit diagnosis, lab results, radiology results, the need for outpatient follow up, to return to the emergency department if symptoms worsen or persist or if there are any questions or concerns that arise at home. Special discussion: I discussed with the patient/guardian in detail that at this point there is no indication for admission to the hospital. It is understood, however, that if the symptoms persist or worsen the patient needs to return immediately for re-evaluation. 02/26 11:24 Order name: CBC with Diff; Complete Time: 14:08 rn 02/26 11:24 Order name: Basic Metabolic Panel; Complete Time: 14: rn 02/26 11:24 Order name: Protime (+inr); Complete Time: 14:08 rn 02/26 11:24 Order name: Ptt, Activated; Complete Time: 14:08 rn 02/26 13:10 Order name: CBC Smear Scan; Complete Time: 14:08 EDMS 02/26 11:24 Order name: CT Head Brain wo Cont; Complete Time: 13:18 rn 02/26 11:24 Order name: XRAY Pelvis; Complete Time: 13:18 rn 02/26 11:24 Order name: XRAY Chest (1 view); Complete Time: 13:18 rn 02/26 11:24 Order name: IV Start; Complete Time: 14:29 rn 02/26 11:24 Order name: Cardiac monitoring; Complete Time: 12:58 rn 02/26 11:24 Order name: O2 Sat Monitoring; Complete Time: 12:58 rn Administered Medications: 12:00 Drug: Keppra IV 1000 mg IV at calculated rate once Route: IV; Rate: calculated rate; rs5 Site: right antecubital; 15:38 Follow up: Response: No adverse reaction; IV Status: Completed infusion; IV Intake: rs5 100ml 12:00 Drug: NS 0.9% IV 500 ml IV at bolus once; to be given as a bolus over 30 minutes Route: rs5 IV; Rate: bolus; Site: right antecubital; 12:40 Follow up: Response: No adverse reaction; IV Status: Completed infusion; IV Intake: rs5 500ml 14:33 Drug: morphine IVP or IV 4 mg IVP once over 4 mins Route: IVP; Infused Over: 4 mins; rs5 Site: right antecubital; 15:01 Follow up: Response: No adverse reaction; Pain is decreased rs5 Disposition Summary: 02/27/24 15:56 Discharge Ordered Notes: Location: Home rn Problem: new rn Symptoms: have improved rn Condition: Stable rn Diagnosis - Epileptic seizures related to external causes, not intractable, without status rn epilepticus Followup: rn - With: Private Physician - When: As needed - Reason: Recheck today's complaints, Re-evaluation by your physician Discharge Instructions: - Discharge Summary Sheet rn - Epilepsy rn - Seizure, Adult rn Forms: - Medication Reconciliation Form rn - Antibiotic estate planning attorney - Prescription Opioid Use rn - Patient Portal Instructions rn - Leadership Thank You Letter rn Prescriptions: - Tramadol 50 mg Oral Tablet - take 1 tablet ORAL route every 8 hours as needed; 12 tablet; Refills: 0, rn Product Selection Permitted Signatures: Dispatcher [employer] EDMS Arthur Stevenson MD MD rn Sotelo, Ricky, RN RN rs5 Corrections: (The following items were deleted from the chart) 11:24 CBC+H.LAB.BRZ ordered. EDMS EDMS 11:24 BASIC METABOLIC PANEL+C.LAB.BRZ ordered. EDMS EDMS 11:24 PROTIME (+INR)+COAG.LAB.BRZ ordered. EDMS EDMS 11:24 PTT, ACTIVATED+COAG.LAB.BRZ ordered. EDMS EDMS 11:25 Head Brain Wo Cont+CT.RAD.BRZ ordered. EDMS EDMS 11:25 Pelvis+RAD.RAD.BRZ ordered. EDMS EDMS 11:25 Chest Single View+RAD.RAD.BRZ ordered. EDMS EDMS
[2024-02-27 20:05] VITALS: TEMP 98
[2024-02-27 20:08] VITALS: BP 151/84; O2SAT 96
== END 2024-02-27 18:45 | disposition home or self-care (01) ==
LOC: ER 11:15
DX: G40.509 Epileptic seizures related to external causes, not intractable, without status epilepticus (principal); E11.9 Type 2 diabetes mellitus without complications; I10 Essential (primary) hypertension
CPT/HCPCS: 96365; 85025; 80048; 36415; 85610; 85730; 70450; 71045; 72170; 96375; 99284; 96366; J1953; J7040

== ENCOUNTER 2024-04-17 14:02 | Emergency (ER) | payer OTHER ==
--- NOTE | 2024-04-17 15:07 | EDPHYS ---
Physician Documentation [facility] Name: Andrew Wall Age: 64 yrs Sex: Male : 1960 Arrival Date: 04/17/2024 Time: 14:02 Bed 17 Private MD: ED Physician Donta Cunningham HPI: 04/17 15:01 This 64 yrs old Male presents to ER via Ambulatory with complaints of Trach manuela Problem. 15:01 The patient or guardian complains of TRACH OUT 3-4 DAYS , DOESN'T WANT REPLACED. The manuela symptoms are located TRACH SITE. Onset: The symptoms/episode began/occurred 3 day(s) ago. Context: The problem was sustained at home, at a TRACH FELL OUT. Associated signs and symptoms: The patient has no apparent associated signs or symptoms. Modifying factors: The symptoms are alleviated by nothing. the symptoms are aggravated by nothing. Severity of symptoms: At their worst the symptoms were very mild, in the emergency department the symptoms are unchanged. Historical: - Allergies: 14:09 No Known Drug Allergies; ll1 - PMHx: 14:09 Diabetes - NIDDM; Hypertensive disorder; mouth and throat cancer (Seizures); Seizures; ll1 throat cancer; - PSHx: 14:09 G tube placement; left toe amputation; PARTIAL TONUE AMPUTATION; ll1 - Immunization history:: Adult Immunizations up to date. - Infectious Disease History:: Denies. - Social history:: Smoking status: Patient/guardian denies using tobacco. - Family history:: not pertinent. ROS: 15:03 Constitutional: Negative for fever, chills, and weight loss, Eyes: Negative for injury, manuela pain, redness, and discharge, Neck: Negative for injury, pain, and swelling, Cardiovascular: Negative for chest pain, palpitations, and edema, Respiratory: Negative for shortness of breath, cough, wheezing, and pleuritic chest pain, Abdomen/GI: Negative for abdominal pain, nausea, vomiting, diarrhea, and constipation, Back: Negative for injury and pain, : Negative for injury, bleeding, discharge, and swelling, MS/Extremity: Negative for injury and deformity, Skin: Negative for injury, rash, and discoloration, Neuro: Negative for headache, weakness, numbness, tingling, and seizure, Psych: Negative for depression, anxiety, suicide ideation, homicidal ideation, and hallucinations, Allergy/Immunology: Negative for hives, rash, and allergies, Endocrine: Negative for neck swelling, polydipsia, polyuria, polyphagia, and marked weight changes, Hematologic/Lymphatic: Negative for swollen nodes, abnormal bleeding, and unusual bruising, 15:03 ENT: Positive for TRACH SITE LOOKS STENOTIC, STILL PATENT, 15:03 Neck: Positive for TRACH SITE WO TRACH, Exam: 15:04 Constitutional: This is a well developed, well nourished patient who is awake, alert, manuela and in no acute distress. Head/Face: Normocephalic, atraumatic. Eyes: Pupils equal round and reactive to light, extra-ocular motions intact. Lids and lashes normal. Conjunctiva and sclera are non-icteric and not injected. Cornea within normal limits. Periorbital areas with no swelling, redness, or edema. Neck: Trachea midline, no thyromegaly or masses palpated, and no cervical lymphadenopathy. Supple, full range of motion without nuchal rigidity, or vertebral point tenderness. No Meningismus. Chest/axilla: Normal chest wall appearance and motion. Nontender with no deformity. No lesions are appreciated. Cardiovascular: Regular rate and rhythm with a normal S1 and S2. No gallops, murmurs, or rubs. Normal PMI, no JVD. No pulse deficits. Respiratory: Lungs have equal breath sounds bilaterally, clear to auscultation and percussion. No rales, rhonchi or wheezes noted. No increased work of breathing, no retractions or nasal flaring. Abdomen/GI: Soft, non-tender, with normal bowel sounds. No distension or tympany. No guarding or rebound. No evidence of tenderness throughout. Back: No spinal tenderness. No costovertebral tenderness. Full range of motion. Skin: Warm, dry with normal turgor. Normal color with no rashes, no lesions, and no evidence of cellulitis. MS/ Extremity: Pulses equal, no cyanosis. Neurovascular intact. Full, normal range of motion., bilateral aka Neuro: Awake and alert, GCS 15, oriented to person, place, time, and situation. Cranial nerves II-XII grossly intact. Motor strength 5/5 in all extremities. Sensory grossly intact. Cerebellar exam normal. Normal gait. Psych: Awake, alert, with orientation to person, place and time. Behavior, mood, and affect are within normal limits. 15:04 ENT: TRACH SITE , STENOTIC, PATENT, NOT INFECTED. Vital Signs: 14:08 BP 112 / 61; Pulse 62; Resp 18; Temp 97.9; Pulse Ox 99% on R/A; Weight 72.57 kg; Height ll1 5 ft. 9 in. ; Pain 7/10; 16:00 Pulse 51; Resp 18 S; Pulse Ox 100% on R/A; kc6 14:08 Body Mass Index 23.63 (72.57 kg, 175.26 cm) ll1 14:08 Pain Scale: Adult ll1 [place] Coma Score: 15:11 Eye Response: spontaneous(4). Motor Response: obeys commands(6). Verbal Response: manuela oriented(5). Total: 15. MDM: 14:07 Medical Screening Exam initiated manuela 15:05 Differential diagnosis: TRACH SITE , WITHOUT TRACH, NOT INFECTED , STENOTIC. manuela Differential Diagnosis: Obstructed Airway Bronchitis Influenza Upper Respiratory Infection Sinusitis Pharyngitis Viral Syndrome Pneumonia Tracheal Injury. Data reviewed: vital signs, nurses notes. Consideration of Admission/Observation Escalation of care including admission/observation considered. 15:11 Counseling: I had a detailed discussion with the patient and/or guardian regarding the manuela historical points, exam findings, and any diagnostic results supporting the discharge/admit diagnosis, the need for outpatient follow up, for definitive care, an ENT specialist. 04/17 15:05 Order name: Wound Care; Complete Time: 15:21 manuela 04/17 15:11 [facility] C[facility] TRACH WITH XEROFORM GAUZE X 1 HOUR COVERED WITH SILK manuela TAPE , IF NO PROBLEMS THEN REMOVE GAUZE AND TAPE; Complete Time: 15:21 Administered Medications: No medications were administered Disposition Summary: 04/17/24 15:07 Discharge Ordered Notes: Location: Home manuela Problem: new manuela Symptoms: have improved manuela Condition: Stable manuela Diagnosis - Tracheostomy status manuela - Tracheostomy complications - REMOVED manuela Followup: manuela - With: Private Physician - When: 2 - 3 days - Reason: Recheck today's complaints, Continuance of care, Re-evaluation by your physician Followup: manuela - With: Marianela Marcos MD - When: 1 - 2 days - Reason: Recheck today's complaints, Continuance of care, Re-evaluation by your physician Discharge Instructions: - Discharge Summary Sheet manuela - Delayed Wound Closure manuela - Wound Care, Adult manuela - How to Clean a Tracheostomy Tube, Adult, Toly-br-Hhgu manuela Forms: - Medication Reconciliation Form manuela - Antibiotic Education manuela - Prescription Opioid Use manuela - Patient Portal Instructions manuela - Leadership Thank You Letter manuela Signatures: Donta Cunningham MD MD cha Lewis, Lynsay RN RN ll1 Patricia Flynn RN RN [id number]
--- NOTE | 2024-04-17 15:07 | ER ---
Nurse's Notes [facility] Name: Andrew Wall Age: 64 yrs Sex: Male : 1960 Arrival Date: 04/17/2024 Time: 14:02 Bed 17 Private MD: Diagnosis: Tracheostomy status;Tracheostomy complications-REMOVED Presentation: 04/17 14:08 Chief complaint: Patient states: Trach fell out 3 days ago. Coronavirus screen: Client ll1 denies travel out of the [place] in the last 14 days. At this time, the client does not indicate any symptoms associated with coronavirus-19. Ebola Screen: Patient denies travel to an Ebola-affected area in the 21 days before illness onset. Initial Sepsis Screen: Does the patient meet any 2 criteria? No. Patient's initial sepsis screen is negative. Does the patient have a suspected source of infection? No. Patient's initial sepsis screen is negative. Risk Assessment: Do you want to hurt yourself or someone else? Patient reports no desire to harm self or others. Onset of symptoms was April 15, 2024. 14:08 Method Of Arrival: Ambulatory ll1 14:08 Acuity: ROSALIE 3 ll1 Triage Assessment: 14:09 General: Appears in no apparent distress. Behavior is calm, cooperative, appropriate jb4 for age, Reports needs Trach replaced, fell out 3 days ago. Respiratory: Reports needing Trach replaced. Historical: - Allergies: 14:09 No Known Drug Allergies; ll1 - PMHx: 14:09 Diabetes - NIDDM; Hypertensive disorder; mouth and throat cancer (Seizures); Seizures; ll1 throat cancer; - PSHx: 14:09 G tube placement; left toe amputation; PARTIAL TONUE AMPUTATION; ll1 - Immunization history:: Adult Immunizations up to date. - Infectious Disease History:: Denies. - Social history:: Smoking status: Patient/guardian denies using tobacco. - Family history:: not pertinent. Screenin:[address] [facility] ED Fall Risk Assessment (Adult) History of falling in the last 3 months, kc6 including since admission No falls in past 3 months (0 pts) Confusion or Disorientation No (0 pts) Intoxicated or Sedated No (0 pts) Impaired Gait No (0 pts) Mobility Assist Device Used No (0 pt) Altered Elimination No (0 pt) Score/Fall Risk Level 0 - 2 = Low Risk Oriented to surroundings, Maintained a safe environment, Educated pt \T\ family on fall prevention, incl call for assistance when getting out of bed. Abuse screen: Denies threats or abuse. Denies injuries from another. Nutritional screening: No deficits noted. Tuberculosis screening: No symptoms or risk factors identified. Assessment: 15:15 General: Appears in no apparent distress. comfortable, well groomed, well developed, kc6 Behavior is calm, cooperative, appropriate for age. Pain: Denies pain. Neuro: Level of Consciousness is awake, alert, obeys commands, Oriented to person, place, time, situation, Appropriate for age. Cardiovascular: Denies chest pain, shortness of breath, Capillary refill < 3 seconds. Respiratory: Airway is patent Trachea midline Respiratory effort is even, unlabored, Respiratory pattern is regular, symmetrical. GI: No signs and/or symptoms were reported involving the gastrointestinal system. : No signs and/or symptoms were reported regarding the genitourinary system. EENT: No signs and/or symptoms were reported regarding the EENT system. Derm: Skin is intact, is healthy with good turgor, Skin is pink, warm \T\ dry. Wound noted neck Wound is circular and open with what appears to be the site of a previous trach. no redness, swelling, or drainage noted at this time. Musculoskeletal: No signs and/or symptoms reported regarding the musculoskeletal system. Circulation, motion, and sensation intact. Range of motion: intact in all extremities. 15:20 Reassessment: d/c pending SPO2 greater than 90% on RA x45min. kc6 Vital Signs: 14:08 BP 112 / 61; Pulse 62; Resp 18; Temp 97.9; Pulse Ox 99% on R/A; Weight 72.57 kg; Height ll1 5 ft. 9 in. ; Pain 7/10; 16:00 Pulse 51; Resp 18 S; Pulse Ox 100% on R/A; kc6 14:08 Body Mass Index 23.63 (72.57 kg, 175.26 cm) ll1 14:08 Pain Scale: Adult ll1 [place] Coma Score: 15:11 Eye Response: spontaneous(4). Motor Response: obeys commands(6). Verbal Response: manuela oriented(5). Total: 15. ED Course: 14:04 Patient arrived in ED. mr 14:07 Donta Cunningham MD is Attending Physician. [facility] 14:09 Triage completed. ll1 14:45 Patricia Flynn, RN is Primary Nurse. kc6 15:00 Patient maintains SpO2 saturation greater than 95% on room air. kc6 15:00 Patient has correct armband on for positive identification. Bed in low position. Call kc6 light in reach. Side rails up X 1. Pulse ox on. Door closed. Noise minimized. Lights dimmed. Pillow given. 15:06 Marianela Marcos MD is Referral Physician. [facility] 15:20 Wound care: to open tracheostomy site located on neck was soaked in normal saline kc6 solution, dressed with xeroform gauze \T\ silk tape, Patient tolerated well. 15:20 Arm band placed on. kc6 16:16 No provider procedures requiring assistance completed. Patient did not have IV access kc6 during this emergency room visit. 16:16 Provided Education on: f/u with Dr. Marcos and continue wound care at home. kc6 Administered Medications: No medications were administered Medication: 16:16 VIS not applicable for this client. kc6 Outcome: 15:07 Discharge ordered by . manuela 16:16 Discharged to home ambulatory, kc6 16:16 Condition: good 16:16 Discharge instructions given to patient, Instructed on discharge instructions, follow up and referral plans. wound care, Demonstrated understanding of instructions, follow-up care, wound care, 16:17 Patient left the ED. kc6 Signatures: Donta Cunningham MD MD cha Rivera, Mary, Reg Reg Eric Reese, RN RN jb4 Maine Luna RN RN ll1 Patricia Flynn, CLARA RN kc6
[2024-04-18 03:03] VITALS: BP 112/61; TEMP 97.9; O2SAT 100
== END 2024-04-17 16:17 | disposition home or self-care (01) ==
LOC: ER 14:02
DX: J95.09 Other tracheostomy complication (principal)
CPT/HCPCS: 99283